=== PATIENT | female | born 1955 | race Caucasian/White ===

== ENCOUNTER 2024-09-04 14:52 | Outpatient (OUT) | payer MEDICARE, SELFPAY ==
[2024-09-04 15:47] LABS: Estimated Average Glucose 114 mg/dL; Glycohemoglobin A1C 5.6 % (4.5-6.2)
[2024-09-04 15:57] LABS: Creatinine Urine Random 439.14 mg/dL (20.00-300.00); Microalbum Creatinine Ratio Ur 17.7 mg/g (0.0-29.9); Microalbumin Urine Random 7.8 mg/dL (<=30.0)
[2024-09-04 15:58] LABS: Alanine Aminotransferase 15 U/L (14-59); Albumin Globulin Ratio 0.8; Albumin Level 3.5 g/dL (3.4-5.0); Alkaline Phosphatase 119 U/L (46-116); Anion Gap 14.9; Aspartate Amino Transferase 14 U/L (15-37); BUN Creatinine Ratio 11.7; Bilirubin Total 0.3 mg/dL (0.2-1.0); Calcium 9.5 mg/dL (8.5-10.1); Carbon Dioxide 27.9 mmol/L (21.0-32.0); Chloride 103 mmol/L (98-107); Estimated GFR (African America 46 (>=60 mL/min/1.73m^2); Estimated GFR (Non-African Ame 38 (>=60 mL/min/1.73m^2); Globulin 4.6 g/dL; Glucose 83 mg/dL (74-106); Potassium 3.8 mmol/L (3.5-5.1); Sodium 142 mmol/L (136-145); Total Protein 8.1 g/dL (6.4-8.2)
[2024-09-04 16:15] LABS: Basophils Absolute Auto 0.1 10^3/uL (0.0-0.1); Basophils Percent Auto 0.9 % (0.2-2.0); Eosinophils Absolute Auto 0.3 10^3/uL (0.0-0.7); Eosinophils Percent Auto 3.1 % (0.9-7.0); Hematocrit 38.3 % (36.0-48.0); Hemoglobin 12.4 g/dL (12.0-16.0); Immature Granulocytes Abs Auto 0.02 10^3/uL (0.00-0.03); Immature Granulocytes Pct Auto 0.2 % (0.0-0.5); Lymphocytes Absolute Auto 2.5 10^3/uL (1.2-3.8); Lymphocytes Percent Auto 26.6 % (20.5-60.0); Mean Corpuscular HGB Conc 32.4 g/dL (29.9-35.2); Mean Corpuscular Hemoglobin 30.5 pg (26.7-34.0); Mean Corpuscular Volume 94.3 fL (81.0-99.0); Mean Platelet Volume 10.2 fL (9.5-13.5); Monocytes Absolute Auto 0.6 10^3/uL (0.3-0.8); Monocytes Percent Auto 6.3 % (1.7-12.0); Neutrophils Percent Auto 62.9 % (43.0-75.0); Platelet Count 363 10^3/uL (150-450); Red Blood Count 4.06 10^6/uL (4.20-5.40); Red Cell Distribution Width 13.5 % (11.0-15.0); White Blood Count 9.5 10^3/uL (4.0-11.0)
== END 2024-09-04 14:53 | disposition home or self-care (01) ==
LOC: LAB 14:58
PROVIDERS: PCP Family Medicine; Visit Provider Family Medicine
DX: E11.65 Type 2 diabetes mellitus with hyperglycemia (principal); I10 Essential (primary) hypertension
CPT/HCPCS: 36415; 80053; 82043; 82570; 83036; 85025

== ENCOUNTER 2024-10-06 11:58 | Outpatient (OUT) | payer MEDICARE, SELFPAY ==
--- OUTSIDE RECORDS SUMMARY | 2024-10-06 12:14 | XMS_ITS | CCD ---
Author Organization [facility] Care Team Providers Care Comic Book Writer Name Role Phone BHARATH RIVERS Unavailable Unavailable BHARATH RIVERS Unavailable Unavailable MISMaki, DOCTOR Unavailable Unavailable JES BARRAGAN V Unavailable Unavailable BHARATH RIVERS Unavailable Unavailable MALCOLM MILLER Attending Unavailable MALCOLM MILLER Referring Unavailable MALCOLM MILLER Attending Unavailable MALCOLM MILLER Attending Unavailable MALCOLM MILLER Attending Unavailable Ilda Lopez MD Primary Care Provider [phone] Medications Current Medications Medication Drug Class(es) Dates Sig (Normalized) Sig (Original) acetaminophen 325 mg / HYDROcodone bitartrate 5 mg oral tablet (4 sources) Opioid Agonist Start: 04-16-2024 take 1 tablet by mouth every six hours as needed for pain HYDROcodone-aceta minophen ([place]) 5-325 MG tablet Take 1 tablet by mouth every 6 (six) hours if needed for moderate pain 04/16/2024 Active Start: 04-16-2024 take 1 tablet by ashley th once daily at bedtime Hydrocodone-Acetaminophen Active 1 TAB P O Daily at bedtime April 16, 2024 12:00am amLODIPine 5 mg oral tablet (5 sources) Dihydropyridine Calcium Channel Barry Start: 04-16-2024 End: 04-16-2024 take 1 tablet by mouth once daily amLODIPine (Norvasc) 5 MG tablet Take 5 mg by mouth Daily 04/16/2024 Active baclofen 5 mg oral tablet (3 sources) gamma-Aminobutyric Acid-ergic Agonist Start: 02-01-2024 take 1 tablet by mouth three times daily as needed for pain baclofen (Lioresal) 5 MG tablet TAKE 1 TABLET BY MOUTH THREE TIMES DAILY NEEDED FOR SCIATIC PAIN 02/01/2024 Active 24 hr buPROPion hydrochloride 300 mg extended release oral tablet (5 sources) Aminoketone Start: 04-16-2024 buPROPion XL (Wellbutrin XL) 300 MG 24 hr tablet 300 mg in the morning. 04/16/2024 Active Start: 04-16-2024 End: 04-16-2024 take 300 mg by mouth once daily in the morning Bupropion Hcl Active 300 MG PO Every morning April 16, 2024 11:27am citalopram 40 mg oral tablet (7 sources) Serotonin Reuptake Inhibitor Start: 05-26-2024 take 1 tablet by mouth once daily citalopram (CeleXA) 40 MG tablet Take 40 mg by mouth Daily 05/26/2024 Active Start: 04-16-2024 take 2 tablets by mo uth once daily, then take 4 tablets by mouth once daily citalopram (CeleXA) 10 MG tablet Take 20 mg by mouth Daily 40 mg daily 04/16/2024 Active Start: 04-16-2024 End: 04-16-2024 take 10 mg by mouth once daily Citalopram Active 10 MG PO Daily April 16, 2024 11:27am hydroCHLOROthiazide 12.5 mg / losartan potassium 100 mg oral tablet (5 sources) Thiazide Diuretic, Angiotensin 2 Receptor Barry Start: 04-16-2024 End: 04-16-2024 take 1 tablet by mouth once daily losartan-hydroCHLOROthiazide (Hyzaar) 100-12.5 MG tablet Take 1 tablet by mouth Daily 04/16/2024 Active meloxicam 7.5 mg oral tablet (4 sources) Nonsteroidal Anti-inflammat ory Drug Start: 04-16-2024 take 2 tablets by mouth once daily meloxicam (Mobic) 7.5 MG tablet Take 15 mg by mouth Daily 04/16/2024 Active Start: 04-16-2024 take 7.5 mg by mouth once brett y Meloxicam Active 7.5 MG PO Daily April 16, 2024 12:00am Ozempic, 1 MG/DOSE, 4 MG/3ML solution pen-injector (3 sources) Start: 04-18-2024 inject 1 mg by subcutaneous injection every week Ozempic, 1 MG/DOSE, 4 MG/3ML solution pen-injector Inject 1 mg under the skin 1 (one) time per week 04/18/2024 Active Semaglutide (2 sources) Start: 04-16-2024 inject 1 mg by subcutaneous injection every week Semaglutide (Ozempic) 1 mg/dose (4 mg/3 mL) pen injector Active 1 MG SUBCUT every week April 16, 2024 11:27am Start: 04-16-2024 End: 04-16-2024 inject 1 mg by subcutaneous injection every week Semaglutide (Ozempic) 1 mg/dose (4 mg/3 mL) pen injector Discontinued 1 MG SUBCUT every week April 16, 2024 12:00am April 16, 2024 11:28am Wegovy 1 MG/0.5ML solution auto-injector (3 sources) Start: 11-20-2023 Wegovy 1 MG/0. 5ML solution auto-injector INJECT 1 MG INTO THE SKIN EVERY 7 DAYS. INDICATIONS: OBESITY 11/20/2023 Active Completed/Discontinued Medications Medication Drug Class(es) Dates Sig (Normalized) Sig (Original) 1 ml methylPREDNISolone acetate 40 mg/ml injection (4 sources) Corticosteroid Start: 4 End: methylPREDNISolone acetate (DEPO-Medrol) injection 40 mg Start: 06-02-2024 End: 06-02-2024 40 mg, Intra-articular, Once PRN Procedure, Starting on Sun06/02/24 at 1226, For 1 dose Problems Active Problems Problem Classification Problem Date Documented Da te Episodic/Chronic Headache, including migraine (4 sources) Headache; Translations: [HEADACHE] Onset: 12-24-2017 Episodic Osteoarthritis (2 sources) Arthritis of right knee; Translations: [Unilateral primary osteoarthritis, right knee] 06-02-2024 Chronic Other upper respiratory disease (1 source) Epistaxis; Translations: [EPISTAXIS] Onset: 12-27-2017 Episodic Screening or history of mental health and substance abuse (1 source) Personal history of nicotine dependence; Translations: [PERSONAL HISTORY OF NICOTINE DEPEND] Onset: 12-27-2017 Episodic Past or Other Problems Problem Classification Problem Date Documented Da te Episodic/Chronic Other non-traumatic joint disorders (4 sources) Pain in left knee; Translations: [Left knee pain] 04-16-2024 Episodic Results Test Name Value Interpretation Reference Range Facility No Panel Informationon 06-02 Malcolm Miller NP 06/02/2024 12:40 PM L Inj/Asp: R knee on 06/02/2024 12:26 PM Indications: pain Details: 20 G needle, anterolateral approach Medications: 40 mg methylPREDNISolone acetate 40 MG/ML UTILIZING ASEPTIC TECHNIQUE PT GIVEN INJECTION IN RIGHT KNEE, NEUROVASC INTACT S/P INJ, TOLERATED WELL Procedure, treatment alternatives, risks and benefits explained, specific risks discussed. Consent was given by the patient. [facility] [employer] [facility] Healthcar e CT HEAD WO CONon 12-24-2017 CT HEAD WO CON [address] [place] [address] Patient: GILLIAN LAGUNAS Exam Date: 12/24/2017DOB: 1955 Gender:F : BHARATH RIVERS Admission #: [id number] : Order #: [id number] HERE TO VIEW EXAM RADIOLOGY REPORT PROCEDURE: CT HEAD WITHOUT CONTRAST COMPARISON: None. INDICATIONS: Acute headache, no injury TECHNIQUE: Axial CT images were obtained without IV contrast. DOSE: 1121mGycm FINDINGS: BRAIN: No edema, hemorrhage, mass, acute infarction, or inappropriate atrophy. CSF SPACES: No hydrocephalus, subarachnoid hemorrhage, or mass. Appropriate for age. SKULL: No fracture, mass, or other significant visible lesion. SINUSES: Right maxillary and left sphenoid sinus diseaseORBITS: No appreciable abnormality on the limited views. OTHER: Negative CONCLUSION: 1. No acute intracranial abnormality Dictated by: Jes Barragan M.D. on 12/24/2017 at 15:20 Approved by: Jes Barragan M.D. on 12/24/2017 at 15:25 Normal [facility] Vital Signs Date Time Vital Sign Value Performing Clinician Opal leslie 04-16-2024 10:53-0400 Body height 160.[address] [facility] 04-16-2024 10:53-0400 Body mass index (BMI) [Ratio] 45.1 kg/m2 [facility] 04-16-2024 10:53-0400 Body weight 115.[address] [facility] 04-16-2024 10:53-0400 Diastolic blood pressure 73 mm[Hg] [facility] 04-16-2024 10:53-0400 Heart rate 67 /min [facility] 04-16-2024 10:53-0400 Systolic blood pressure 112 mm[Hg] [facility] Encounters Encounter Date Encounter Type Care Provider Facility Start: 06-02-2024 End: 06-02-2024 Bamboo flowsheet Malcolm Miller PAPER CUTTER Work Phone: [facility] Start: 06-02-2024 End: 06-02-2024 Bamboo flowsheet Malcolm Miller PAPER CUTTER Work Phone: [facility] Start: 06-02-2024 End: 06-02-2024 Office outpatient visit 25 minutes Malcolm Miller PAPER CUTTER Work Phone: [facility] Comment on above: Chronic pain of righ t knee (Primary Dx); Arthritis of right knee Start: 06-02-2024 End: 06-02-2024 ambulatory MALCOLM Archer APLING Not Available Start: 05-12-2024 End: 05-12-2024 ambulatory MALCOLM Archer APLING Not Available Start: 04-30-2024 End: 04-30-2024 ambulatory MALCOLM Archer APLING Not Available Start: 04-28-2024 End: 04-28-2024 ambulatory MALCOLM Archer APLING Not Available Start: 04-16-2024 End: 04-16-2024 ambulatory [facility] Work Phone: Start: 04-16-2024 End: 04-16-2024 Patient encounter procedure [facility] Work Phone: Start: 12-24-2017 End: 12-24-2017 Ambulatory BHARATH RIVERS Facility:H1 Procedures Date Procedure Procedure Detail Performing Clinician Start: 06-02-2024 Arthrocentesis aspir &/inj major jt/bursa w/o us Malcolm Miller PAPER CUTTER Work Phone: Plan of Treatment Date Care Activity Detail Author Start: 06-02-2024 End: 06-02-2024 Patient encounter procedure 06/02/2024 12:00 PM EDT Office Visit [facility] [address] [place] [address] Apling, Malcolm B, PAPER CUTTER [address] [place] [address] Left knee pain, unspecified chronicity (Primary Dx); Arthritis of left knee [facility] Comment on above: Left knee pain, unsp ecified chronicity (Primary Dx); Arthritis of left knee Start: 05-25-2024 Influenza vaccination Influenza Vacc ine (#1) [facility] Start: 04-16-2024 Patient referral [facility] Work Phone: Start: 2020 Pneumococcal Vaccine : 65+ Years (1 of 1 - PCV) Pneumococcal Vaccine: 65+ Years (1 of 1 - PCV) [facility] Start: 1995 Screening for malign ant neoplasm of breast Mammogram [facility] Start: 1955 Screening for malign ant neoplasm of colon [facility] Patient referral [facility] Work Phone: Payers Date Payer Category Payer Medicare [facility] MEDICARE ADVANTAGE [facility] MEDICARE ADVANTAGE [id number] 2024-Present [address] [place] [address] [id number] 2024 Unknown [id number] 1959 Unknown [id number] 1955 Unknown [id number] 1955 Unknown [id number] 1955 Unknown [id number] 1955 Unknown [id number] 1955 Unknown [id number] Social History Date Type Detail Facility Start: 04-16-2024 End: 04-28-2024 Tobacco smoking status NHIS Ex-smoker (finding) [facility] Start: 1955 Sex Assigned At Female F [facility] Start: 09-24-1973 History of tobacco use Current smoke r [facility] Start: 09-24-1973 History of tobacco use Cigarette Smo ker [facility] Start: 04-28-2024 End: 06-02-2024 Cigarettes smoked current (pack per day) - Reported 2.5 [facility] Start: 04-28-2024 Tobacco use and exposure Smokeless tobacco non-user [facility] Start: 05-12-2024 End: 06-02-2024 Alcoholic beverage intake Current drinker of alcohol (finding) [facility] Start: 05-12-2024 End: 06-02-2024 Tobacco use panel [facility] Start: 04-28-2024 Alcohol Comment 1 drink per month [facility] Start: 1955 Sex assigned at Not on file [facility] History of Present illness Narrative 06-02-2024 Malcolm Miller NP - 06/02/2024 12:00 PM EDT Note Date & Type Note Facility 06-02-2024 History of Presen t illness Narrative Associated Order(s): L Inj/Asp: R knee Post-Procedure Diagnose(s): Arthritis of right knee Subjective Patient ID: Gillian Lagunas is a 68 y.o. female. LT Knee Pain 2 weeks and 2 days s/p depo medrol injection (05/12/24) with 50% improvement which lasted one week. She believes her pain is worse now. Notes she twisted her knee the wrong way and felt a pop last DOI 05/29/24. Notes this is normal for her to feel pops but this was a big one . She has been getting the injections in the left knee since 2021? She has had injections in the past by Dr. Ramsey ([place], orthopedic). She was getting cortisone injections in the past, last one done /2023. She only gets 2 months relief from the injections. She notes she just moved to [place] November 28, 2023. Denies injury. Pain is anterior lateral, pain at rest 03/03 notes it is throbbing with activities and prolonged standing 06/03, she limps from the pain. She is taking norco (from her PCP in [place]) with relief. Also taking baclofen per PCP with some relief. She is using an arthritic cream that is OTC. She notes she puts this on overnight and then the pain is tolerable. Swelling is constant but increases with activities. Notes the swelling above her knee has lessened some. States her knee will pop/shift out of place. Does not wear a brace. No previous surgery on the left. [place]: norco, arthritis cream OTC, orthopedic surgeon, cortisone injections every 2-3 months, last one maybe sep/oct 2023, XR [facility] 04/28/24, depo medrol injection 04/28/24, depo medrol injection 05/12/24, baclofen [facility] Ortho Exam Knee Musculoskeletal Exam Inspection Right Erythema: none Effusion: none Edema: none Ecchymosis: none Palpation Right Tenderness: present Medial joint line: moderate Range of Motion Right Active extension: 0 Active flexion: 110 L Inj/Asp: R knee on 06/02/2024 12:26 PM Indications: pain Details: 20 G needle, anterolateral approach Medications: 40 mg methylPREDNISolone acetate 40 MG/ML UTILIZING ASEPTIC TECHNIQUE PT GIVEN INJECTION IN RIGHT KNEE, NEUROVASC INTACT S/P INJ, TOLERATED WELL Procedure, treatment alternatives, risks and benefits explained, specific risks discussed. Consent was given by the patient. Assessment/Plan Encounter Diagnoses: ICD-10-CM 1. Left knee pain, unspecified chronicity M25.562 2. Arthritis of left knee M17.12 Discussion of options, pt notes she would like an injection, side effects of bleeding and infection discussed, would like to proceed with the injection, using aspectic technique 40 mg of depo medrol was injected into the right lateral knee, pt tolerated well, bandaid applied, may do activities as tolerated, f/u in 2 weeks. Depending on how she does may recommend visco injections in the right knee and she understands this documented in this encounter [facility] Evaluation note Note Date & Type Note Facility Evaluation note Diagnosis Onset Date Left knee pain [facility] Work Phone: Evaluation note Note Date & Type Note Facility Evaluation note Diagnosis Chronic pain of right knee- Primary Arthritis of right knee documented in this encounter [facility] Hospital Discharge instructions Note Date & Type Note Facility Hospital Discharge instructions Ambulatory OrdersReferral to Orthopedics Time Frame: 04/16/24, Location: None Selected [facility] Work Phone: Summary Purpose Family History Relationship Condition Age at Onset Recorded Date/T tani brother Malignant neoplasm Unknown Hypertension Unknown mother Malignant neoplasm Unknown father Malignant neoplasm Unknown sister Malignant neoplasm Unknown paternal grandmother Diabetes mellitus Unknown Advance Directives Advance Directive Response Recorded Date/ Time Advance Directives No April 07 3:17pm Chief Complaint and Reason for Visit Chief Complaint est care, Reason for Visit Left knee pain Reason for Referral Specialty Diagnoses / Procedures Referred By Víctor t Referred To Contact Orthopaedic Surgery Diagnoses Arthritis of right knee Procedures L Inj/Asp: R knee Apling, Malcolm Archer PAPER CUTTER [address] [address] Referral ID Status Reason Start Date Expiration Date V isits Requested Visits Authorized [id number] Authorized 06/02/2024 11/29/2024 1 1 Additional Source Comments INFORMATION SOURCE (unrecogn ized section and content) DATE CREATED AUTHOR 03/14/2018 [facility] DATE CREATED AUTHOR AUTHOR'S ORGANIZ ATION 06/03/2024 [facility] EPIC Care Teams (unrecognized sec tion and content) Team Status: Active Member Role Status Dates Ilda Lopez MD Primary Care Provider Active Team Status: Inactive Member Role Status Dates Ilda Lopez MD Primary Care Provide r, Attending Provider Active Start: April 16, 2024 End: April 16, 2024 Comic Book Writer Relationship Specialty Start Date End Date Ilda Lopez MD [address] [place] [id number] PCP - General Family Medicine 04/28/24 Comic Book Writer Relationship Specialty Start Date End Date Ilda Lopez MD [address] [place] [phone] PCP - General Family Medicine 04/28/24 Goals (unrecognized section and content) Goals may be documented in a n alternate section FOR RECORDS PERTAINING TO PATIENTS WHO ARE OR HAVE BEEN ENROLLED IN A CHEMICAL DEPENDENCY/SUBSTANCEABUSE PROGRAM, SOME INFORMATION MAY BE OMITTED. This clinical summary was aggregated from multiple sources. Caution should be exercised in using it in the provision of clinical care. This summary normalizes information from multiple sources, and as a consequence, information in this document may materially change the coding, format and clinical context of patient data. In addition, data may be omitted in some cases. CLINICAL DECISIONS SHOULD BE BASED ON THE PRIMARY CLINICAL RECORDS. [employer] [facility]. provides no warranty or guarantee of the accuracy or completeness of information in this document.
--- NOTE | 2024-10-06 13:03 | P.CN_ITS ---
Consult Note: HPI Data of Consult Patient: new to practice Consult date: 10/06/24 Requesting Physician: Dorothy Dumont MD Primary Care Provider: Ilda Lopez MD Consult Narrative Reason for consult: bilateral knee pain Narrative: 69yof who presents for evaluation. longstanding knee pain history >3 years. was previously seen in [place], was prescribed norco and percocet for this pain. recently saw ortho locally, underwent steroid injections, which helped minimally. they recommended she pursue gel injections here. has engaged in a series of provider directed home exercises >6 weeks without help. denies adverse med side effects. cc:: CC: Dorothy Dumont MD Review of Systems ROS Status of ROS 10 or more systems reviewed and unremark able except as noted in history and below Exam Narrative Exam Narrative: Psych-alert and oriented x 3.? Attentive and appropriate, constitutionally normal, displays normal mood and affect per situation.? There are no obvious deficits in memory, reasoning, or intellect. Extremities-lower extremities are warm with minimal edema and palpable pulses. Knee-examination of the bilateral knee reveals tenderness to palpation over the superior, inferior, lateral, and medial aspect of the knee.? Some swelling is noted without erythema. Pain is elicited with flexion and extension of the knee both actively and passively.? Some grinding is noted with these motions.? There is no notable ligamental laxity or instability.? Coordination remains intact.? Gait remains antalgic. Assessment and Plan Assessment and Plan (1) Bilateral knee pain: Qualifiers: Chronicity: chronic Qualified Code(s): M25.561 - Pain in right knee; M25.562 - Pain in left knee; G89.29 - Other chronic pain Plan 69yof who presents for evaluation. failed conservative measures, as noted. given persistent pain in bilateral knees and failure to respond to steroid injection, prudent to attempt bilateral knee gel injections. also discussed that she may eventually be genicular nerve block candidate. she is in agreement. meds reviewed, uds obtained. will prescribe norco 5mg tid prn. follow up for in office procedure.
== END 2024-10-06 11:59 | disposition home or self-care (01) ==
PROVIDERS: PCP Family Medicine; Visit Provider Anesthesiology
DX: M25.561 Pain in right knee (principal); M25.562 Pain in left knee; G89.29 Other chronic pain
CPT/HCPCS: G0463

== ENCOUNTER 2024-10-20 11:35 | Outpatient (OUT) | payer MEDICARE, SELFPAY ==
--- OUTSIDE RECORDS SUMMARY | 2024-10-20 11:43 | XMS_ITS | CCD ---
Author Organization [facility] Care Team Providers Care Manager Administration Name Role Phone BHARATH RIVERS Unavailable Unavailable BHARATH RIVERS Unavailable Unavailable MISC, DOCTOR Unavailable Unavailable JES BARRAGAN V Unavailable Unavailable BHARATH RIVERS Unavailable Unavailable MALCOLM MILLER Attending Unavailable MALCOLM MILLER Referring Unavailable MALCOLM MILLER Attending Unavailable MALCOLM MILLER Attending Unavailable APLMALCOLM HILLMAN Attending Unavailable Ilda Lopez MD Primary Care Provider Tim MONTEZ, Dorothy Katz Attending Unavailable Medications Current Medications Medication Drug Class(es) Dates Sig (Normalized) Sig (Original) acetaminophen 325 mg / HYDROcodone bitartrate 5 mg oral tablet (4 sources) Opioid Agonist Start: 04-16-2024 take 1 tablet by mouth every six hours as needed for pain HYDROcodone-aceta minophen ([place]) 5-325 MG tablet Take 1 tablet by [...] 40 mg/ml injection (4 sources) Corticosteroid Start: End: methylPREDNISolone acetate (DEPO-Medrol) injection 40 mg [...] discussed. Consent was given by the patient. [facility] [employer] [facility] HEAD WO CONon 12-24-2017 CT HEAD WO CON [address] [place] [address] Patient: BRENDA LAGUNAS Exam Date: 12/24/2017DOB: 1955 Gender:F : BHARATH RIVERS Admission #: [id number] : Order #: [id number] HERE TO VIEW EXAM RADIOLOGY REPORT PROCEDURE: [...] Barragan M.D. on 12/24/2017 at 15:25 Normal [facility] Vital Signs Date Time Vital Sign Value Performing Clinician Faci lity 04-16-2024 10:53-0400 Body height 160.02 cm [facility] 04-16-2024 10:53-0400 Body mass index (BMI) [Ratio] 45.1 kg/m2 [facility] 04-16-2024 10:53-0400 Body weight 115.66 kg [facility] 04-16-2024 10:53-0400 Diastolic blood pressure 73 mm[Hg] [facility] 04-16-2024 10:53-0400 Heart rate 67 /min [facility] 04-16-2024 10:53-0400 Systolic blood pressure 112 mm[Hg] [facility] Encounters Encounter Date Encounter Type Care Provider Facility Start: 10-06-2024 End: 10-06-2024 ambulatory Dorothy Dumont MD Facility:[facility] Start: 06-02-2024 End: 06-02-2024 Bamboo flowsheet Malcolm Miller PROPERTY AND EQUIPMENT CLERK Work Phone: [facility] Start: 06-02-2024 End: 06-02-2024 Bamboo flowsheet Malcolm Miller PROPERTY AND EQUIPMENT CLERK Work Phone: [facility] Start: 06-02-2024 End: 06-02-2024 Office outpatient visit 25 minutes Malcolm Miller PROPERTY AND EQUIPMENT CLERK Work Phone: [facility] Comment on above: Chronic pain of righ t knee (Primary Dx); Arthritis of right knee Start: 06-02-2024 End: 06-02-2024 ambulatory MALCOLM B APLING Not Available Start: 05-12-2024 End: 05-12-2024 ambulatory MALCOLM B APLING Not Available Start: 04-30-2024 End: 04-30-2024 ambulatory MALCOLM B APLING Not Available Start: 04-28-2024 End: 04-28-2024 ambulatory MALCOLM B APLING Not Available Start: 04-16-2024 End: 04-16-2024 ambulatory [facility] Work Phone: Start: 04-16-2024 End: 04-16-2024 [facility] Work Phone: Start: 12-24-2017 End: 12-24-2017 Ambulatory BHARATH RIVERS Facility:[facility]1 Procedures Date Procedure Procedure Detail Performing Clinician Start: 06-02-2024 Arthrocentesis aspir &/inj major jt/bursa w/o us Malcolm Miller PROPERTY AND EQUIPMENT CLERK Work Phone: Plan of Treatment Date Care Activity Detail Author Start: 06-02-2024 End: 06-02-2024 Patient encounter procedure 06/02/2024 12:00 PM EDT Office Visit [facility] [address] [facility] [address] [place] [address] Malcolm Miller NP [address] [facility] [address] [place] [address] Left knee pain, unspecified chronicity (Primary Dx); Arthritis of left knee [facility] Comment on above: Left knee pain, unsp ecified chronicity (Primary Dx); Arthritis of left knee Start: 05-25-2024 Influenza vaccination Influenza Vacc ine (#1) [facility] Start: 04-16-2024 Patient referral [facility] Work Phone: Start: 2020 Pneumococcal Vaccine : 65+ Years (1 of 1 - PCV) Pneumococcal Vaccine: 65+ Years (1 of 1 - PCV) [facility] Start: 1995 Screening for malign ant neoplasm of breast Mammogram [facility] Start: 1955 Screening for malign ant neoplasm of colon [facility] Patient referral [facility] Work Phone: Payers Date Payer Category Payer Unknown 2024 Medicare [employer] MEDICARE ADVANTAGE [facility] MEDICARE ADVANTAGE [id number] 2024-Present [address] [place] [address] [id number] 2024 Unknown [id number] 1959 Unknown [id number] 1955 Unknown [id number] 9 1955 Unknown [id number] 9 1955 Unknown [id number] 9 1955 Unknown [id number] 9 1955 Unknown [id number] 9 1955 Unknown [id number] 1955 Unknown [id number] Social History Date Type Detail Facility Start: 04-16-2024 End: 04-28-2024 Tobacco smoking status NHIS Ex-smoker (finding) [facility] Start: 1955 Sex Assigned At Female F [facility] Start: 09-24-1973 History of tobacco use Current smoke r [facility] Start: 09-24-1973 History of tobacco use Cigarette Smo ker [facility] Start: 04-28-2024 End: 06-02-2024 Cigarettes smoked current (pack per day) - Reported 2.5 [facility] Start: 04-28-2024 Tobacco use and exposure Smokeless tobacco non-user [facility] Start: 05-12-2024 End: 06-02-2024 Alcoholic beverage intake Current drinker of alcohol (finding) [facility] Start: 05-12-2024 End: 06-02-2024 Tobacco use panel [facility] Start: 04-28-2024 Alcohol Comment 1 drink per month [facility] Start: 1955 Sex assigned at Not on file [facility] History of Present illness Narrative 06-02-2024 Malcolm Miller NP - 06/02/2024 12:00 PM EDT Note Date & Type Note Facility 06-02-2024 History of Presen t illness Narrative Associated Order(s): L Inj/Asp: R knee Post-Procedure Diagnose(s): Arthritis of right knee Subjective Patient ID: Brenda Lagunas is a 68 y.o. female. LT [...] injections in the past by Dr. Ramsey ([place], orthopedic). She was getting cortisone injections in the past, last one done /Oct. 2023. She only gets 2 months relief from the injections. She notes she just moved to [place] November 28, 2023. Denies injury. Pain is anterior lateral, pain at rest 03/03 notes it is throbbing with activities and prolonged standing 06/03, she limps from the pain. She is taking norco (from her PCP in [place]) with relief. Also taking baclofen per PCP [...] she understands this documented in this encounter [facility] Evaluation note Note Date & Type Note Facility Evaluation note Diagnosis Onset Date Left knee pain acute [facility] Work Phone: Evaluation note Note Date & Type Note Facility Evaluation note Diagnosis Chronic pain of right knee- Primary Arthritis of right knee documented in this encounter [facility] Hospital Discharge instructions Note Date & Type Note Facility Hospital Discharge instructions Ambulatory OrdersReferral to Orthopedics Time Frame: 04/16/24, Location: None [facility] Work Phone: Summary Purpose Family History No Family History Records Found Relationship Condition Age at Onset Recorded Date/T tani brother Malignant neoplasm Unknown Hypertension Unknown mother Malignant neoplasm Unknown father Malignant neoplasm Unknown sister Malignant neoplasm Unknown paternal grandmother Diabetes mellitus Unknown Advance Directives No Advanced Directives Records Found Advance Directive Response Recorded Date/ Time Advance Directives No April 07 3:17pm Chief Complaint and Reason for Visit Chief Complaint est care, Reason for Visit Left knee pain Reason for Referral Specialty Diagnoses / Procedures Referred By Contac t Referred To Contact Orthopaedic Surgery Diagnoses Arthritis of right knee Procedures L Inj/Asp: R knee Malcolm Miller NP [address] [place] [address] Referral ID Status Reason Start Date Expiration Date V isits Requested Visits Authorized [id number] Authorized 06/02/2024 11/29/2024 1 1 Additional Source Comments INFORMATION SOURCE (unrecogn ized section and content) DATE CREATED AUTHOR 03/14/2018 [facility] DATE CREATED AUTHOR AUTHOR'S ORGANIZ ATION 06/03/2024 [facility] EPIC DATE CREATED AUTHOR AUTHOR'S ORGANIZ ATION 10/15/2024 [facility] Care Teams (unrecognized sec tion and content) Team Status: Active Member Role Status Dates Ilda Lopez MD Primary Care Provider Active Team Status: Inactive Member Role Status Dates Ilda Lopez MD Primary Care Provide r, Attending Provider Active Start: April 16, 2024 End: April 16, 2024 Manager Administration Relationship Specialty Start Date End Date Ilda Lopez MD [address] [place] [address] PCP - General Family Medicine 04/28/24 Manager Administration Relationship Specialty Start Date End Date Ilda Lopez MD [address] [place] [id number] PCP - General Family Medicine 04/28/24 Goals [...] BE BASED ON THE PRIMARY CLINICAL RECORDS. [employer] provides no warranty or guarantee of the accuracy or completeness of information in this document.
--- NOTE | 2024-10-20 12:24 | P.CN_ITS ---
Consult Note: HPI Data of Consult Patient: known to practice within the last 3 years Consult date: 10/20/24 Requesting Physician: Dorothy Dumont MD Primary Care Provider: Ilda Lopez MD Consult Narrative Reason for consult: bilateral knee pain Narrative: 69yof who presents for in office injection. continues to have bilateral knee pain, would like to proceed with bilateral knee injection. cc:: CC: Dorothy Dumont MD Review of Systems ROS Status of ROS 10 or more systems reviewed and unremark able except as noted in history and below PFSH PFSH Medical History Obesity ?E66.9 - Obesity, unspecified (ICD-10) Hypertension ?I10 - Essential (primary) hypertension (ICD-10) Surgical History H/O hernia repair ?Z98.890 - Other specified postprocedural states (ICD-10) ?Z87.19 - Personal history of other diseases of the digestive system (ICD-10) History of hysterectomy ?Z90.710 - Acquired absence of both cervix and uterus (ICD-10) H/O knee surgery ?Z98.890 - Other specified postprocedural states (ICD-10) Meds Home Medications and Allergies Home Medications ?Medication ?Instructions ?Recorded ?Confirmed ?Type Bacillus coagulans 10 billion cell cell PO 10/06/24 History capsule,delayed release (Probiotic (B. coagulans)) amlodipine 5 mg tablet 5 mg PO DAILY 10/06/24 10/06/24 History citalopram 40 mg tablet 40 mg PO DAILY 10/06/24 10/06/24 History hydrocodone 5 mg-acetaminophen 325 1 tab PO TID PRN pain #90 tabs 10/06/24 Rx mg tablet losartan 100 1 tab PO DAILY 10/06/24 10/06/24 History mg-hydrochlorothiazide 12.5 mg tablet (Hyzaar) meloxicam 7.5 mg tablet 7.5 mg PO DAILY 10/06/24 10/06/24 History Allergies Allergy/AdvReac Type Severity Reaction Status Date / Time No Known Drug Allergies Allergy Verified 10/06/24 15:39 Exam Narrative Exam Narrative: Psych-alert and oriented x 3.? Attentive and appropriate, constitutionally normal, displays normal mood and affect per situation.? There are no obvious deficits in memory, reasoning, or intellect. Extremities-lower extremities are warm with minimal edema and palpable pulses. Knee-examination of the bilateral knee reveals tenderness to palpation over the superior, inferior, lateral, and medial aspect of the knee.? Some swelling is noted without erythema. Pain is elicited with flexion and extension of the knee both actively and passively.? Some grinding is noted with these motions.? There is no notable ligamental laxity or instability.? Coordination remains intact.? Gait remains antalgic. Assessment and Plan Assessment and Plan (1) Bilateral knee pain: Qualifiers: Chronicity: chronic Qualified Code(s): M25.561 - Pain in right knee; M25.562 - Pain in left knee; G89.29 - Other chronic pain Plan 69yof who presents for in office injection. continues to have bilateral knee pain, would like to proceed with bilateral knee injection. Procedure: Bilateral knee injection Medications: Durolane BAÑUELOS x2 I explained the details of the procedure to the patient including the risks, benefits and alternatives. We had an informed discussion and the patient verbal ized understanding and signed the consent form. All questions were answered appropriately.? A time out was performed.? After obtaining a comfortable seated position, the left knee was prepped with alcohol x3. A syringe containing the above medication was attached to a 25 gauge, 1.5 inch needle under strict aseptic technique. The lateral tibial plateau was palpated.? The needle was then advanced through the subcutaneous tissue in a medial and superior direction towards the joint space.? The contents of the syringe were gently injected without any resistance. The needle was removed and pressure was applied to the injection site to decrease the incidence of ecchymosis and hematoma formation.? A sterile bandage was applied. The same procedure was then completed on the right side.
== END 2024-10-20 11:36 | disposition home or self-care (01) ==
LOC: PM 11:36
PROVIDERS: PCP Family Medicine; Visit Provider Anesthesiology
DX: M25.561 Pain in right knee (principal); M25.562 Pain in left knee; G89.29 Other chronic pain
CPT/HCPCS: 20610; J7318

== ENCOUNTER 2024-11-17 13:56 | Outpatient (OUT) | payer MEDICARE, SELFPAY ==
--- NOTE | 2024-11-17 15:20 | PM.CN ---
Consult Note: HPI Data of Consult Patient: known to practice within the last 3 years Consult date: 11/17/24 Requesting Physician: Dorothy Dumont MD Primary Care Provider: Ilda Lopez MD Consult Narrative Reason for consult: bilateral knee pain Narrative: 69yof who presents for assessment. notes persistence of significant bilateral knee pain. has undergone both steroid and hyaluronic acid injections, without lasting benefit. has continued in a series of provider directed home exercises >6 weeks, without lasting benefit. imaging significant for bilateral osteoarthritis. uses norco, celebrex. denies adverse med side effects. cc:: CC: Dorothy Dumont MD Review of Systems ROS Status of ROS 10 or more systems reviewed and unremarkable except as noted in history and below PFSH PFS Medical History Obesity ?E66.9 - Obesity, unspecified (ICD-10) Hypertension ?I10 - Essential (primary) hypertension (ICD-10) Surgical History H/O hernia repair ?Z98.890 - Other specified postprocedural states (ICD-10) ?Z87.19 - Personal history of other diseases of the digestive system (ICD-10) History of hysterectomy ?Z90.710 - Acquired absence of both cervix and uterus (ICD-10) H/O knee surgery ?Z98.890 - Other specified postprocedural states (ICD-10) Meds Home Medications and Allergies Home Medications ?Medication ?Instructions ?Recorded ?Confirmed ?Type Bacillus coagulans 10 billion cell cell PO 10/06/24 History capsule,delayed release (Probiotic (B. coagulans)) amlodipine 5 mg tablet 5 mg PO DAILY 10/06/24 10/06/24 History citalopram 40 mg tablet 40 mg PO DAILY 10/06/24 10/06/24 History hydrocodone 5 mg-acetaminophen 325 1 tab PO TID PRN pain #90 tabs 10/06/24 Rx mg tablet losartan 100 1 tab PO DAILY 10/06/24 10/06/24 History mg-hydrochlorothiazide 12.5 mg tablet (Hyzaar) celecoxib 200 mg capsule (Celebrex) 200 mg PO BID 11/17/24 11/17/24 History Allergies Allergy/AdvReac Type Severity Reaction Status Date / Time No Known Drug Allergies Allergy Verified 10/06/24 15:39 Exam Narrative Exam Narrative: Psych-alert and oriented x 3.? Attentive and appropriate, constitutionally normal, displays normal mood and affect per situation.? There are no obvious deficits in memory, reasoning, or intellect. Extremities-lower extremities are warm with minimal edema and palpable pulses. Knee-examination of the bilateral knee reveals tenderness to palpation over the superior, inferior, lateral, and medial aspect of the knee.? Some swelling is noted without erythema. Pain is elicited with flexion and extension of the knee both actively and passively.? Some grinding is noted with these motions.? There is no notable ligamental laxity or instability.? Coordination remains intact.? Gait remains antalgic. Assessment and Plan Assessment and Plan (1) Bilateral knee pain: Qualifiers: Chronicity: chronic Qualified Code(s): M25.561 - Pain in right knee; M25.562 - Pain in left knee; G89.29 - Other chronic pain (2) Osteoarthritis of knees, bilateral: Qualifiers: Osteoarthritis type: primary Qualified Code(s): M17.0 - Bilateral primary osteoarthritis of knee Plan 69yof who presents for assessment. failed conservative measures, as noted. imaging reviewed, as noted. given symptoms and imaging, prudent to attempt bilateral genicular nerve blocks under fluoroscopic guidance with intention of proceeding to radiofrequency ablation. she is in agreement. meds reviewed, refilled [facility] [facility]. follow up after procedure.
== END 2024-11-17 13:57 | disposition home or self-care (01) ==
LOC: PM 13:57
PROVIDERS: PCP Family Medicine; Visit Provider Anesthesiology
DX: M25.561 Pain in right knee (principal); M25.562 Pain in left knee; G89.29 Other chronic pain; M17.0 Bilateral primary osteoarthritis of knee
CPT/HCPCS: G0463

== ENCOUNTER 2025-01-12 09:17 | Day surgery (SDC) | payer MEDICARE, SELFPAY ==
[2025-01-12 09:32] VITALS: BP 146/84; PULSE 75; TEMP 36.6; O2SAT 95
--- OUTSIDE RECORDS SUMMARY | 2025-01-12 09:37 | XMS_ITS | CCD ---
Author Organization [facility] Care Team Providers Care Export Documents Clerk Name Role Phone BHARATH RIVERS Unavailable Unavailable BHARATH RIVERS Unavailable Unavailable MISC, DOCTOR Unavailable Unavailable JES BARRAGAN V Unavailable Unavailable BHARATH RIVERS Unavailable Unavailable MALCOLM MILLER Attending Unavailable MALCOLM MILLER Referring Unavailable MALCOLM MILLER Attending Unavailable APLMALCOLM HILLMAN Attending Unavailable APLMALCOLM HILLMAN Attending Unavailable Ilda Lopez MD Primary Care Provider Tim MONTEZ, Dorothy Katz Attending Unavailable Tim MONTEZ, Dorothy Katz Attending Unavailable Tim MONTEZ, Dorothy Katz Attending Unavailable Medications Current Medications Medication Drug Class(es) Dates Sig (Normalized) Sig (Original) acetaminophen 325 mg / HYDROcodone bitartrate 5 mg oral tablet (5 sources) Opioid Agonist Start: 04-16-2024 take 1 tablet by mouth every six hours as needed for pain HYDROcodone-aceta minophen ([place]) 5-325 MG tablet Take 1 tablet by mouth every 6 (six) hours if needed for moderate pain 04/16/2024 Active Start: 04-16-2024 End: 09-04-2024 take 1 tablet by mouth once daily at bedtime as needed Hydrocodone-Acetaminophen 5-325 mg table t Discontinued 1 TAB PO Daily at bedtime as needed April 15, 2024 11:00pm September 04, 2024 2:32pm amLODIPine 5 mg oral tablet (8 sources) Dihydropyridine Calcium Channel Barry Start: 09-25-2024 take 1 tablet by mouth once daily Amlodipine 5 mg tablet Active 0 .ROUTE .COMPLEX September 25, 2024 1:16pm TAKE 1 TABLET BY MOUTH EVERY DAY Start: 04-16-2024 End: 09-25-2024 take 1 tablet by mouth once daily Amlodipine 5 mg tablet Discontinued 5 MG PO Daily April 16, 2024 10:26am September 25, 2024 1:16pm baclofen 5 mg oral tablet (3 sources) gamma-Aminobutyric Acid-ergic Agonist Start: 02-01-2024 take 1 tablet by mouth three times daily as needed for pain baclofen (Lioresal) 5 MG tablet TAKE 1 TABLET BY MOUTH THREE TIMES DAILY NEEDED FOR SCIATIC PAIN 02/01/2024 Active buPROPion (8 sources) Aminoketone Start: 09-25-2024 take 1 tablet by mouth once daily in the morning Bupropion Hcl 300 mg tablet extended release 24 hr Active 0 .ROUTE .COMPLEX September 25, 2024 1:16pm TAKE 1 TABLET BY MOUTH EVERY MORNING Start: 04-16-2024 buPROPion XL ( Wellbutrin XL) 300 MG 24 hr tablet 300 mg in the morning. 04/16/2024 Active Start: 04-16-2024 End: 09-25-2024 take 1 tablet by mouth once daily in the morning Bupropion Hcl 300 mg tablet extended release 24 hr Discontinued 300 MG PO Every morning April 16, 2024 10:27am September 25, 2024 1:16pm citalopram 40 mg oral tablet (13 sources) Serotonin Reuptake Inhibitor Start: 04-17-2024 End: 09-22-2024 take 1 tablet by mouth once daily Citalopram 40 mg tablet Active 40 MG PO Daily September 22, 2024 9:17am Start: 04-17-2024 End: 04-17-2024 take 4 tablets by mouth once daily Citalopram 10 mg tablet Discontinued 40 MG PO Daily April 17, 2024 9:27am April 17, 2024 9:38am Start: 04-16-2024 take 2 tablets by [facility] once daily, then take 4 tablets by mouth once daily citalopram (CeleXA) 10 MG tablet Take 20 mg by mouth Daily 40 mg daily 04/16/2024 Active Start: 04-16-2024 End: 04-17-2024 take 1 tablet by mouth once daily Citalopram 10 mg tablet Discontinued 10 MG PO Daily April 16, 2024 10:27am April 17, 2024 9:30am dicyclomine hydrochloride 20 mg oral tablet (1 source) Anticholinergic Start: 02-26-2025 take 1 tablet by mouth twice daily Dicyclomine 20 mg tablet Active 20 MG PO Twice daily 60 November 19, 2024 12:00am hydroCHLOROthiazide 12.5 mg / losartan potassium 100 mg oral tablet (9 sources) Thiazide Diuretic, Angiotensin 2 Receptor Barry Start: 04-16-2024 End: 09-22-2024 take 1 tablet by mouth once daily Losartan-Hydroc hlorothiazide 100-12.5 mg tablet Active 1 TAB PO Daily September 22, 2024 9:17am meloxicam 7.5 mg oral tablet (7 sources) Nonsteroidal Anti-inflammatory Drug Start: 05-13-2024 End: 09-15-2024 take 1 tablet by mouth once daily Meloxicam 7.5 mg tablet Active 0 .ROUTE .COMPLEX September 15, 2024 9:31pm TAKE 1 TABLET BY MOUTH EVERY DAY Start: 04-16-2024 take 2 tablets by mo uth once daily meloxicam (Mobic) 7.5 MG tablet Take 15 mg by mouth Daily 04/16/2024 Active Start: 04-16-2024 End: 05-13-2024 take 1 tablet by mouth once daily Meloxicam 7.5 mg tablet Discontinued 7.5 MG PO Daily April 15, 2024 11:00pm May 13, 2024 10:13am ondansetron 4 mg disintegrating oral tablet (1 source) Serotonin-3 Receptor Antagonist Start: 09-04-2024 take 1 tablet by mouth every eight hours Ondansetron 4 mg tablet,disintegrating Active 4 MG PO Q8H September 04, 2024 12:00am Ozempic, 1 MG/DOSE, 4 MG/3ML solution pen-injector (3 sources) Start: 04-18-2024 inject 1 mg by subcutaneous injection every week Ozempic, 1 MG/DOSE, 4 MG/3ML solution pen-injector Inject 1 mg under the skin 1 (one) time per week 04/18/2024 Active Wegovy 1 MG/0.5ML solution auto-injector (3 sources) Start: 11-20-2023 Wegovy 1 MG/0.5ML solution auto-injector INJECT 1 MG INTO THE SKIN EVERY 7 DAYS. INDICATIONS: OBESITY 11/20/2023 Active Completed/Discontinued Medications Medication Drug Class(es) Dates Sig (Normalized) Sig (Original) 1 ml methylPREDNISolone acetate 40 mg/ml injection (4 sources) Corticosteroid Start: End: methylPREDNISolone acetate (DEPO-Medrol) injection 40 mg Start: 06-02-2024 End: 06-02-2024 40 mg, Intra-articular, Once PRN Procedure, Starting on 06/02/24 at 1226, For 1 dose Semaglutide (5 sources) Start: 08-19-2024 End: 09-04-2024 inject 1 mg by subcutaneous injection every week Semaglutide (Ozempic) 1 mg/dose (4 mg/3 mL) pen injector Discontinued 0 .ROUTE .COMPLEX August 19, 2024 8:34am September 04, 2024 2:24pm INJECT 1 MG (0.75 ML) SUBCUTANEOUSLY WEEKLY Start: 04-16-2024 End: 08-19-2024 inject 1 mg by subcutaneous injection every week Semaglutide (Ozempic) 1 mg/dose (4 mg/3 mL) pen injector Discontinued 1 MG SUBCUT every week April 16, 2024 10:27am August 19, 2024 8:34am Start: 04-16-2024 inject 1 mg by subcu taneous injection every week Semaglutide (Ozempic) 1 mg/dose (4 mg/3 mL) pen injector Active 1 MG SUBCUT every week April 16, 2024 11:27am Start: 04-16-2024 End: 04-16-2024 inject 1 mg by subcutaneous injection every week Semaglutide (Ozempic) 1 mg/dose (4 mg/3 mL) pen injector Discontinued 1 MG SUBCUT every week April 15, 2024 11:00pm April 16, 2024 10:28am Start: 04-16-2024 End: 04-16-2024 inject 1 mg by subcutaneous injection every week Semaglutide (Ozempic) 1 mg/dose (4 mg/3 mL) pen injector Discontinued 1 MG SUBCUT every week April 16, 2024 12:00am April 16, 2024 11:28am Problems Problem Classification Problem Date Documented Da te Episodic/Chronic Anxiety disorders (1 source) Mixed anxiety and depressive disorder; Translations: [Other specified anxiety disorders] 04-16-2024 Chronic Cancer of colon (2 sources) Malignant tumor of colon; Translations: [Malignant neoplasm of colon, unspecified] 09-08-2024 Chronic Cancer of colon (2 sources) History of malignant neoplasm of colon; Translations: [Personal history of other malignant neoplasm of large intestine] 11-19-2024 Episodic Diabetes mellitus with complications (2 sources) Hyperglycemia due to type 2 diabetes mellitus; Translations: [Type 2 diabetes mellitus with hyperglycemia] 04-16-2024 Chronic Essential hypertension (2 sources) Hypertensive disorder; Translations: [Essential (primary) hypertension] 04-16-2024 Chronic Headache, including migraine (4 sources) Headache; Translations: [HEADACHE] Onset: 12-24-2017 Episodic Osteoarthritis (2 sources) Arthritis of right knee; Translations: [Unilateral primary osteoarthritis, right knee] 06-02-2024 Chronic Other gastrointestinal disorders (1 source) Diarrhea; Translations: [Diarrhea, unspecified] 09-08-2024 Episodic Other gastrointestinal disorders (2 sources) Diarrhea, unspecified; Translations: [Diarrhea] 09-04-2024 Episodic Other non-traumatic joint disorders (6 sources) Pain in left knee; Translations: [Left knee pain] 04-16-2024 Episodic Other non-traumatic joint disorders (1 source) Pain in right knee; Translations: [Pain in joint, lower leg] 09-04-2024 Episodic Other upper respiratory disease (1 source) Epistaxis; Translations: [EPISTAXIS] Onset: 12-27-2017 Episodic Screening or history of mental health and substance abuse (1 source) Personal history of nicotine dependence; Translations: [PERSONAL HISTORY OF NICOTINE DEPEND] Onset: 12-27-2017 Episodic Results Test Name Value Interpretation Reference Range Facility Basophils Auto (Bld) [#/Vol] on 09-04-2024 Basophils (Bld) [#/Vol] Automated basophil count 0.0-0.1 [facility] Basophils/100 WBC Auto (Bld) on 09-04-2024 Basophils/100 WBC (Bld) Automated basophil % 0.2-2.0 [facility] Eosinophils/100 WBC Auto (Bl d)on 09-04-2024 Eosinophils/100 WBC (Bld) Automated eosinophil % 0.9-7.0 [facility] Erythrocyte distribution wid th Auto (RBC) [Ratio]on 09-04-2024 Erythrocyte distribution width (RBC) [Ratio] Erythrocyte distribution width [Ratio] by Automated count 11.0-15.0 [facility] Estimated glomerular filtrat ion rate (GFR) non- Americanon 09-04-2024 GFR/1.73 sq M.predicted among non-blacks MDRD (S/P/Bld) [Vol rate/Area] Estimated glomerular filtration rate (GFR) non- Low >=60 mL/min/1.73m 2 [facility] Globulin Calc (S) [Mass/Vol] on 09-04-2024 Globulin (S) [Mass/Vol] Serum globulin measurement by calculation (mass/volume) [facility] Glucose mean value [Mass/vol ume] in Blood Estimated from glycated hemoglobinon 09-04-2024 Average glucose Estimated from glycated hemoglobin (Bld) [Mass/Vol] Glucose mean value [Mass/volume] in Blood Estimated from glycated hemoglobin [facility] Hematocrit Auto (Bld) [Volum e fraction]on 09-04-2024 Hematocrit (Bld) [Volume fraction] Hematocrit [Volume Fraction] of Blood by Automated count 36.0-48.0 [facility] Hemoglobin [Mass/volume] in Bloodon 09-04-2024 Hemoglobin (Bld) [Mass/Vol] Hemoglobin [Mass/volume] in Blood 12.0-16.0 [facility] Laboratory - Chemistry and C hemistry - challengeon 09-04-2024 Albumin [Mass/Vol] 3.5 g/dL 3.4-5.0 [facility] ALP [Catalytic activity/Vol] 119 U/L High 46-116 [facility] ALT [Catalytic activity/Vol] 15 U/L 14-59 [facility] AST [Catalytic activity/Vol] 14 U/L Low 15-37 [facility] Bilirubin [Mass/Vol] 0.3 mg/dL 0.2-1.0 [facility] Calcium [Mass/Vol] 9.5 mg/dL 8.5-10.1 [facility] Chloride [Moles/Vol] 103 mmol/L 98-107 [facility] CO2 [Moles/Vol] 27.9 mmol/L 21.0-32.0 [facility] Creatinine [Mass/Vol] 1.37 mg/dL High 0.55-1.02 [facility] GFR/1.73 sq M.predicted MDRD (S/P/Bld) [Vol rate/Area] 46 mL/min/{1.73_m2} Low >=60 mL/min/1.73m 2 [facility] Glucose [Mass/Vol] 83 mg/dL 74-106 [facility] Potassium [Moles/Vol] 3.8 mmol/L 3.5-5.1 [facility] Protein [Mass/Vol] 8.1 g/dL 6.4-8.2 [facility] Sodium [Moles/Vol] 142 mmol/L 136-145 [facility] Urea nitrogen [Mass/Vol] 16.0 mg/dL 7.0-18.0 [facility] Urea nitrogen/Creatinine [Mass ratio] 11.7 mg/mg [facility] Laboratory - Hematology and Cell countson 09-04-2024 HbA1c (Bld) [Mass fraction] 5.6 % 4.5-6.2 [facility] Comment on above: ADA RECOMMENDED LIMI T 4.0 - 6.0ADA THERAPEUTIC TARGET < 7.0ACTION SUGGESTED> 7.0 Immature granulocytes/100 WBC (Bld) 0.2 % 0.0-0.5 [facility] Leukocytes [#/volume] correc moncho for nucleated erythrocytes in Blood by Automated counon 09-04-2024 WBC corrected for nucl RBC Auto (Bld) [#/Vol] Leukocytes [#/volume] corrected for nucleated erythrocytes in Blood by Automated coun 4.0-11.0 [facility] Lymphocytes Auto (Bld) [#/Vo l]on 09-04-2024 Lymphocytes (Bld) [#/Vol] Lymphocytes [#/volume] in Blood by Automated count 1.2-3.8 [facility] Lymphocytes/100 WBC Auto (Bl d)on 09-04-2024 Lymphocytes/100 WBC (Bld) Lymphocytes/100 leukocytes in Blood by Automated count 20.5-60.0 [facility] MCH Auto (RBC) [Entitic mass ]on 09-04-2024 MCH (RBC) [Entitic mass] MCH [Entitic mass] by Automated count 26.7-34.0 [facility] MCHC Auto (RBC) [Mass/Vol]on 09-04-2024 MCHC (RBC) [Mass/Vol] MCHC [Mass/volume] by Automated count 29.9-35.2 [facility] MCV Auto (RBC) [Entitic vol] on 09-04-2024 MCV (RBC) [Entitic vol] MCV [Entitic volume] by Automated count 81.0-99.0 [facility] Microalbumin [Mass/volume] i n Urineon 09-04-2024 Albumin DL <= 20 mg/L (U) [Mass/Vol] Microalbumin [Mass/volume] in Urine <=30.0 [facility] Monocytes Auto (Bld) [#/Vol] on 09-04-2024 Monocytes (Bld) [#/Vol] Automated blood monocyte count 0.3-0.8 [facility] Monocytes/100 WBC Auto (Bld) on 09-04-2024 Monocytes/100 WBC (Bld) Automated monocyte % 1.7-12.0 [facility] Neutrophils Auto (Bld) [#/Vo l]on 09-04-2024 Neutrophils (Bld) [#/Vol] Neutrophils [#/volume] in Blood by Automated count 1.4-6.5 [facility] Neutrophils/100 WBC Auto (Bl d)on 09-04-2024 Neutrophils/100 WBC (Bld) Automated neutrophil % 43.0-75.0 [facility] No Panel Informationon 09-04 Eosinophils # (Auto) 0.3 10 3/uL 0.0-0.7 [facility] Immature Granulocyte # (Auto) 0.02 10 3/uL 0.00-0.03 [facility] Urine Random Creatinine 439.14 mg/dL High 20.00-300.00 [facility] Platelet mean volume Auto (B ld) [Entitic vol]on 09-04-2024 Platelet mean volume (Bld) [Entitic vol] Platelet mean volume [Entitic volume] in Blood by Automated count 9.5-13.5 [facility] Platelets Auto (Bld) [#/Vol] on 12-12-2024 Platelets (Bld) [#/Vol] Platelets [#/volume] in Blood by Automated count 150-450 [facility] RBC Auto (Bld) [#/Vol]on RBC (Bld) [#/Vol] Erythrocytes [#/volu me] in Blood by Automated count Low 4.20-5.40 [facility] Serum or plasma albumin/glob ulin mass ratioon 09-04-2024 Albumin/Globulin [Mass ratio] Serum or plasma albumin/globulin mass ratio [facility] Serum or plasma anion gap de terminationon 09-04-2024 Anion gap [Moles/Vol] Serum or plasma anion gap determination [facility] Urine microalbumin/creatinin e mass ratioon 09-04-2024 Albumin/Creatinine DL <= 20 mg/L (U) [Mass ratio] Urine microalbumin/creatinine mass ratio 0.0-29.9 [facility] Comment on above: NO MICROALBUMINURIA 0-29 MG/GCLINICAL MICROALBUMINURIA 30-300 MG/GMACROALBUMINURIA >300 MG/G No Panel Informationon 06-02 Malcolm Miller NP [...] discussed. Consent was given by the patient. [facility] CT HEAD WO CONon 12-24-2017 CT HEAD WO CON [address] [place] [address] Patient: GILLIAN LAGUNAS Exam Date: 12/24/2017DOB: 1955 Gender:F : BHARATH RIVERS Admission #: [id number] : Order #: [id number] HERE TO VIEW EXAM RADIOLOGY REPORT PROCEDURE: [...] Barragan M.D. on 12/24/2017 at 15:25 Normal [facility] Vital Signs Date Time Vital Sign Value Performing Clinician Faci lity 11-19-2024 14:59-0500 Body height 160.02 cm [facility] 11-19-2024 14:59-0500 Body mass index (BMI) [Ratio] 45.1 kg/m2 [facility] 11-19-2024 14:59-0500 Body weight 115.66 kg [facility] 11-19-2024 14:59-0500 Diastolic blood pressure 76 mm[Hg] [facility] 11-19-2024 14:59-0500 Heart rate 70 /min [facility] 11-19-2024 14:59-0500 Systolic blood pressure 113 mm[Hg] [facility] 09-04-2024 13:59-0500 Body height 160.02 cm [facility] 09-04-2024 13:59-0500 Body mass index (BMI) [Ratio] 45.7 kg/m2 [facility] 09-04-2024 13:59-0500 Body weight 117.14 kg [facility] 09-04-2024 13:59-0500 Diastolic blood pressure 80 mm[Hg] [facility] 09-04-2024 13:59-0500 Heart rate 80 /min [facility] 09-04-2024 13:59-0500 Systolic blood pressure 122 mm[Hg] [facility] 04-16-2024 10:53-0400 Body height 160.02 cm [facility] 04-16-2024 10:53-0400 Body mass index (BMI) [Ratio] 45.1 kg/m2 [facility] 04-16-2024 10:53-0400 Body weight 115.66 kg [facility] 04-16-2024 10:53-0400 Diastolic blood pressure 73 mm[Hg] [facility] 04-16-2024 10:53-0400 Heart rate 67 /min [facility] 04-16-2024 10:53-0400 Systolic blood pressure 112 mm[Hg] [facility] Encounters Encounter Date Encounter Type Care Provider Facility Start: 11-19-2024 End: 11-19-2024 ambulatory [facility] Work Phone: Start: 11-19-2024 End: 11-19-2024 Patient encounter procedure [facility] Physician [facility] Work Phone: Start: 11-17-2024 End: 11-17-2024 ambulatory Dorothy Dumont MD [facility] Start: 10-20-2024 End: 10-20-2024 ambulatory Dorothy Sharmaitis Facility: [facility] Start: 10-06-2024 End: 10-06-2024 ambulatory Andaleksey Sharmaitis Facility: [facility] Start: 09-04-2024 End: 09-04-2024 Patient encounter procedure [facility] Physician [facility] Work Phone: Start: 09-03-2024 Non-patient / Non-visit [facility] Physician [facility] Work Phone: Start: 06-02-2024 End: 06-02-2024 Bamboo flowsheet Malcolm Miller BARMAID Work Phone: [facility] Start: 06-02-2024 End: 06-02-2024 Bamboo flowsheet Malcolm Miller BARMAID Work Phone: [facility] Start: 06-02-2024 End: 06-02-2024 Office outpatient visit 25 minutes Malcolm Miller BARMAID Work Phone: [facility] Comment on above: Chronic pain of righ t knee (Primary Dx); Arthritis of right knee Start: 06-02-2024 End: 06-02-2024 ambulatory MALCOLM Gianni APLING Not Available Start: 05-12-2024 End: 05-12-2024 ambulatory MALCOLM Gianni APLING Not Available Start: 04-30-2024 End: 04-30-2024 ambulatory MALCOLM Gianni APLING Not Available Start: 04-28-2024 End: 04-28-2024 ambulatory MALCOLM Archer APLING Not Available Start: 04-16-2024 End: 04-16-2024 ambulatory [facility] Work Phone: Start: 04-16-2024 End: 04-16-2024 Patient encounter procedure [facility] Physician [facility] Work Phone: Start: 12-24-2017 End: 12-24-2017 Ambulatory BHARATH Leroy MCKEONGUILLERMINA Facility: Procedures Date Procedure Procedure Detail Performing Clinician Start: 06-02-2024 Arthrocentesis aspir &/inj major jt/bursa w/o us Malcolm Miller [facility] Work Phone: Plan of Treatment Date Care Activity Detail Author Start: 09-08-2024 Patient referral [facility] Work Phone: Start: 06-02-2024 End: 06-02-2024 Patient encounter procedure 06/02/2024 12:00 PM EDT Office Visit [facility] [address] [facility] [address] [place] [address] Malcolm Miller, BARMAID [address] [facility] [address] [place] [address] Left knee pain, unspecified chronicity (Primary Dx); Arthritis of left knee [facility] Comment on above: Left knee pain, unsp ecified chronicity (Primary Dx); Arthritis of left knee Start: 05-25-2024 Influenza vaccination Influenza Vacc ine (#1) [facility] Start: 04-16-2024 Patient referral [facility] Work Phone: Start: 2020 Pneumococcal Vaccine : 65+ Years (1 of 1 - PCV) Pneumococcal Vaccine: 65+ Years (1 of 1 - PCV) [facility] Start: 1995 Screening for malign ant neoplasm of breast Mammogram [facility] Start: 1955 Screening for malign ant neoplasm of colon [facility] Patient Education Vestibular Exercises [facility] Work Phone: Patient referral [facility] Work Phone: Payers Date Payer Category Payer Unknown 2024 Medicare [employer] [facility] [employer] [id number] 2024-Present [address] [place] [address] [id number] 2024 Unknown [id number] 1959 Unknown [id number] 1955 Unknown [id number] 9 1955 Unknown [id number] 9 1955 Unknown [id number] 9 1955 Unknown [id number] 9 1955 Unknown [id number] 9 1955 Unknown [id number] 1955 Unknown [id number] 1955 Unknown [id number] 1955 Unknown [id number] Social History Date Type Detail Facility Start: 04-16-2024 End: 04-16-2024 Tobacco smoking status NHIS Ex-smoker (finding) [facility] Start: 1955 Sex Assigned At Female F [facility] Start: 09-24-1973 History of tobacco use Current smoke r [facility] Start: 09-24-1973 History of tobacco use Cigarette Smo ker [facility] Start: 04-28-2024 End: 06-02-2024 Cigarettes smoked current (pack per day) - Reported 2.5 [facility] Start: 04-28-2024 Tobacco use and exposure Smokeless tobacco non-user [facility] Start: 05-12-2024 End: 06-02-2024 Alcoholic beverage intake Current drinker of alcohol (finding) [facility] Start: 05-12-2024 End: 06-02-2024 Tobacco use panel [facility] Start: 04-28-2024 Alcohol Comment 1 drink per month [facility] [place] [facility] Start: 1955 Sex assigned at Not on file N [facility] Start: 11-19-2024 Sex Female (finding) [facility] Evaluation note 09-04-2024 Note Date & Type Note Facility 09-04-2024 Evaluation note Diagnosis Onset Date Resolution Bilateral knee pain acute Decem 2023 1:49pm Colon cancer acute August 1:49pm Diarrhea acute September 04, 2024 1:49pm Hypertension acute August 1:49pm Type 2 diabetes mellitus with hyperglycemia acute August 1:49pm Diarrhea acute November 19, 2024 2:54pm History of colon cancer acute F ebruary 2024 2:54pm [facility] Work Phone: History of Present illness Narrative 06-02-2024 Malcolm [...] injections in the past by Dr. Ramsey ([place], orthopedic). She was getting cortisone injections in the past, last one done /Oct. 2023. She only gets 2 months relief from the injections. She notes she just moved to [place] November 28, 2023. Denies injury. Pain is anterior lateral, pain at rest 10 notes it is throbbing with activities and prolonged standing 06/03, she limps from the pain. She is taking norco (from her PCP in [place]) with relief. Also taking baclofen per PCP [...] she understands this documented in this encounter [facility] Evaluation note Note Date & Type Note Facility Evaluation note Diagnosis Onset Date Left knee pain acute [facility] Work Phone: Evaluation note Note Date & Type Note Facility Evaluation note Diagnosis Chronic pain of right knee- Primary Arthritis of right knee documented in this encounter [facility] Hospital Discharge instructions Note Date & Type Note Facility Hospital Discharge instructions Ambulatory OrdersReferral to Orthopedics Time Frame: 04/16/24, Location: None Selected [facility] Work Phone: Summary Purpose Family History No Family History Records Found Relationship Condition Age at Onset Recorded Date/T tani brother Malignant neoplasm Unknown Hypertension Unknown mother Malignant neoplasm Unknown father Malignant neoplasm Unknown sister Malignant neoplasm Unknown paternal grandmother Diabetes mellitus Unknown Advance Directives No Advanced Directives Records Found Advance Directive Response Recorded Date/ Time Advance Directives No April 07 3:17pm Advance Directive Response Recorded Date/ Time Advance Directives No April 07 2:17pm Chief Complaint and Reason for Visit Chief Complaint est care, Reason for Visit Left knee pain Chief Complaint Admit Date CC Adult Risk Stratification September 032023 10:12am refill-HIGH RISK September 04, 2024 1:49pm Ref: diarrhea/hx of colon cancer 2024 2:54pm Reason for Visit Admit Date Bilateral knee pain September 04, 2024 1:49pm Colon cancer September 04, 2024 1:49pm Diarrhea September 04, 2024 1:49pm Hypertension September 04, 2024 1:49pm Type 2 diabetes mellitus with hyperglyce sheri September 04, 2024 1:49pm Diarrhea November 19, 2024 2:54pm History of colon cancer November 19 2:54pm Reason for Referral Specialty Diagnoses / Procedures Referred By Contac t Referred To Contact Orthopaedic Surgery Diagnoses Arthritis of right knee Procedures L Inj/Asp: R knee Malcolm Miller, LINSE[place] [address] [facility] [address] [place] [address] Referral ID Status Reason Start Date Expiration Date V isits Requested Visits Authorized [id number] Authorized 06/02/2024 11/29/2024 1 1 Additional Source Comments INFORMATION SOURCE (unrecogn ized section and content) DATE CREATED AUTHOR 03/14/2018 [facility] DATE CREATED AUTHOR AUTHOR'S ORGANIZ ATION 06/03/2024 [facility] EPIC DATE CREATED AUTHOR AUTHOR'S ORGANIZ ATION 11/20/2024 [facility] Care Teams (unrecognized sec tion and content) Team Status: Active Member Role Status Dates Ilda Lopez MD Primary Care Provider Active Team Status: Active Member Role Status Dates Ilda Lopez MD Primary Care Provide r, Attending Provider Active Start: September 03, 2024 Team Status: Inactive Member Role Status Dates Ilda Lopez MD Primary Care Provide r, Attending Provider Active Start: September 04, 2024 End: September 04, 2024 Team Status: Inactive Member Role Status Dates Ilda Lopez MD Primary Care Provider Active Start: November 19, 2024 End: November 19, 2024 Arvind Mensah MD Attending Provider Active S tart: November 19, 2024 End: November 19, 2024 Team Status: Inactive Member Role Status Dates Ilda Lopez MD Primary Care Provide r, Attending Provider Active Start: April 16, 2024 End: April 16, 2024 Export Documents Clerk Relationship Specialty Start Date End Date Ilda Lopez MD [address] [place] [id number] PCP - General Family Medicine 04/28/24 Export Documents Clerk Relationship Specialty Start Date End Date Ilda Lopez MD [address] [place] [id number] PCP - General Family Medicine 04/28/24 Goals (unrecognized section and content) Goals may be documented in a n alternate sectionGoals may be documented in an alternate section FOR RECORDS PERTAINING TO PATIENTS [...] BE BASED ON THE PRIMARY CLINICAL RECORDS. [employer] provides no warranty or guarantee of the accuracy or completeness of information in this document.
[2025-01-12 09:41] LABS: Glucometer 81 mg/dL (74-106)
[2025-01-12 10:27] VITALS: BP 139/67; PULSE 69; O2SAT 95
[2025-01-12] MEDS: BUPIVACAINE HCL 0.25% PF 25 MG/10 ML VIAL 5 ML INJ ×2 (10:29→10:30)
[2025-01-12] MEDS: METHYLPREDNISOLONE ACETATE 40 MG/ML VIAL INJ ×2 (10:29→10:30)
[2025-01-12 10:31] VITALS: BP 147/69; PULSE 65; O2SAT 92
--- NOTE | 2025-01-12 10:32 | P.ON_ITS ---
Date of procedure: 01/12/25 Pre-op diagnosis: Pain due to bilateral knee osteoarthritis Post-op diagnosis: same as pre-op Procedure: Procedure: Bilateral knee genicular nerve block Medications: Bupivacaine 0.25% 3cc, depomedrol 40mg x2 The patient was taken to the procedures suite and positioned in the supine position. I explained the details of the procedure to the patient including the risks, benefits and alternatives. We had an informed discussion and the patient verbalized understanding and signed the consent form. All questions were answered appropriately.? A 'time out' procedure was performed. The patient was identified, the chart was reviewed, and all allergies were confirmed. Laterality was conducted and marked. The right knee was marked with a sterile marking pen, prepped times three, and sterilely draped.? Under fluoroscopic guidance, branches of the genicular nerves were localized.? First the superior medial genicular nerve was localized where the femoral shaft meets the medial epicondyle.? Skin was anesthetized with 1% lidocaine.? A 25-gauge 3.5 in needle was advanced in a coaxial manner in the AP view.? This was repeated on the superior lateral genicular nerve where the femoral shaft meets the lateral epicondyle and the inferior medial genicular n erve where the medial tibial shaft meets the tibial epicondyle. After negative aspiration for blood or other bodily fluids, 1cc of medication was injected at each of the three sites. The needles were removed and the sites of injection were bandaged. The same procedure was then completed on the opposite side. The patient was transported to the postoperative area in good condition. Anesthesia: Local Surgeon: Dorothy Dumont Pathology: none sent Condition: stable Disposition: no change
== END 2025-01-12 10:39 | disposition home or self-care (01) ==
LOC: SURGOUT 09:18
PROVIDERS: PCP Family Medicine; Visit Provider Anesthesiology
DX: M17.0 Bilateral primary osteoarthritis of knee (principal); M25.561 Pain in right knee; M25.562 Pain in left knee; E11.8 Type 2 diabetes mellitus with unspecified complications
CPT/HCPCS: 36415; 64454; 82948; J0665; J1010

== ENCOUNTER 2025-01-21 13:45 | Outpatient (OUT) | payer MEDICARE, SELFPAY ==
--- NOTE | 2025-01-21 14:23 | PM.CN ---
Consult Note: HPI Data of Consult Patient: known to practice within the last 3 years Consult date: 01/21/25 Requesting Physician: Sri Daniels NP Primary Care Provider: Ilda Lopez MD Consult Narrative Reason for consult: bilateral knee pain Narrative: 69yof who presents for assessment. notes persistence of significant bilateral knee pain. has undergone both steroid and hyaluronic acid injections, without lasting benefit. has continued in a series of provider directed home exercises >6 weeks, without lasting benefit. imaging significant for bilateral osteoarthritis. uses norco, celebrex. denies adverse med side effects. pt recently underwent bilateral genicular nerve block on 01/12/25 with >80% improvement in pain and funcational ability while anesthetized. pt reports preop pain up to 10/10 post op pain 1-2/10. she was able to ambulate and tolerate exercising with significantly less pain. Pt reports severe difficulty tolerating her nerve block. cc:: CC: Sri Daniels NP Review of Systems ROS Status of ROS 10 or more systems reviewed and unremarkable except as noted in history and below PFSH PFS Medical History Obesity ?E66.9 - Obesity, unspecified (ICD-10) Hypertension ?I10 - Essential (primary) hypertension (ICD-10) Surgical History H/O hernia repair ?Z98.890 - Other specified postprocedural states (ICD-10) ?Z87.19 - Personal history of other diseases of the digestive system (ICD-10) History of hysterectomy ?Z90.710 - Acquired absence of both cervix and uterus (ICD-10) H/O knee surgery ?Z98.890 - Other specified postprocedural states (ICD-10) Meds Home Medications and Allergies Home Medications ?Medication ?Instructions ?Recorded ?Confirmed ?Type Bacillus coagulans 10 billion cell cell PO 10/06/24 History capsule,delayed release (Probiotic (B. coagulans)) amlodipine 5 mg tablet 5 mg PO DAILY 10/06/24 01/12/25 History citalopram 40 mg tablet 40 mg PO DAILY 10/06/24 01/12/25 History hydrocodone 5 mg-acetaminophen 325 1 tab PO TID PRN pain #90 tabs 10/06/24 01/12/25 Rx mg tablet losartan 100 1 tab PO DAILY 10/06/24 01/12/25 History mg-hydrochlorothiazide 12.5 mg tablet (Hyzaar) celecoxib 200 mg capsule (Celebrex) 200 mg PO BID 11/17/24 01/12/25 History diazepam 10 mg tablet (Valium) 10 mg PO ONCE 01/12/25 01/12/25 History dicyclomine 20 mg tablet mg 01/12/25 History Allergies Allergy/AdvReac Type Severity Reaction Status Date / Time No Known Drug Allergies Allergy Verified 01/12/25 09:41 Exam Narrative Exam Narrative: Psych-alert and oriented x 3.? Attentive and appropriate, constitutionally normal, displays normal mood and affect per situation.? There are no obvious deficits in memory, reasoning, or intellect. Extremities-lower extremities are warm with minimal edema and palpable pulses. Knee-examination of the bilateral knee reveals tenderness to palpation over the superior, inferior, lateral, and medial aspect of the knee.? Some swelling is noted without erythema. Pain is elicited with flexion and extension of the knee both actively and passively.? Some grinding is noted with these motions.? There is no notable ligamental laxity or instability.? Coordination remains intact.? Gait remains antalgic. Assessment and Plan Assessment and Plan (1) Bilateral knee pain: Qualifiers: Chronicity: chronic Qualified Code(s): M25.561 - Pain in right knee; M25.562 - Pain in left knee; G89.29 - Other chronic pain (2) Osteoarthritis of knees, bilateral: Qualifiers: Osteoarthritis type: primary Qualified Code(s): M17.0 - Bilateral primary osteoarthritis of knee (3) Chronic use of opiate for therapeutic purpose: Assessment and Plan: pt utilizing hydrocodone-acetaminophen 5-325mg TID PRN for moderate to severe pain with benefit. reports for 4 hours she has moderate pain relief and is able to ambulate with less pain and tolerate ADLs with less pain. denies side effects. does report percocet was more helpful, prior pain management provider prescribed it for her. as discussed with pt today our goal is to improve her pain and functional ability [facility] with non opioid medications and interventions. I feel these medications are improving the patient's quality of life and allow them to tolerate activities of daily living as well as participate in recreational activity.? The patient does not report intolerable side effects. The patient is NOT opioid naive and non-pharmacologic and non-opioid treatment has failed to significantly relieve the patient's pain and improve functionality. The patient has a diagnosis that is related to a somatic or visceral pain etiology. ? ?? I reviewed with the patient the potential risks and side effects with the use of? opioid medications including but not limited to respiratory depression,? sedation, and even . Within the last 12 months I have verified the patient has access to naloxone should? these effects occur. The patient was advised to let? their family know they had Naloxone in case they would need to administer? the medication. I advised the patient to avoid the use of any other? sedation substances including alcohol, THC, and benzodiazepines while? taking opioid medications due to the risk of compounding side effects and? detrimental outcomes. within the last 12 months I have reviewed the INFORMATION ASSURANCE ANALYST, pain treatment agreement and urine drug screen.? ?? A drug screen was completed within the last year, and no aberrancies were noted regarding their use of controlled substances. The patient understands they are subject to the terms and conditions of the pain contract that they have signed. ? ?? I have checked an [place] report on this patient today and there are no aberrancies noted in the prescribing history.? Plan 69yof who presents for assessment. failed conservative measures, as noted. imaging reviewed, as noted. given symptoms and imaging, prudent to proceed with left then right genicular RFA with MAC sedation due to severe pain and inability to adequately tolerate the nerve blocks, utilizing additional anesthetic can skew the results of RFAs and it is essential the pt tolerate her RFA procedure. she is in agreement. meds reviewed, refilled [employer]. follow up after procedure.
== END 2025-01-21 13:46 | disposition home or self-care (01) ==
LOC: PM 01-22 07:09
PROVIDERS: PCP Family Medicine; Visit Provider Nurse Practitioner
DX: M25.561 Pain in right knee (principal); M25.562 Pain in left knee; G89.29 Other chronic pain; M17.0 Bilateral primary osteoarthritis of knee; Z79.891 Long term (current) use of opiate analgesic
CPT/HCPCS: G0463

== ENCOUNTER 2025-01-26 12:49 | Outpatient (OUT) | payer MEDICARE, SELFPAY ==
--- NOTE | 2025-01-26 13:08 | ECG_ITS ---
[facility] Test Date: 2025-01-26 Pat Name: BRENDA LAGUNAS Department: Room: - Gender: Female Resourcing Consultant: : [id number] Requested By: [id number] Order Number: [id number] Reading MD: VINI ROBIN M.D. Measurements Intervals [place] Rate: 72 P: 68 WV: 157 QRS: 81 QRSD: 143 T: 43 QT: 409 QTc: 448 Interpretive Statements SINUS RHYTHM RIGHT BUNDLE BRANCH BLOCK [120+ ms QRS DURATION, UPRIGHT V1, 40+ ms S IN I/aVL/V4/V5/V6] Abnormal ECG No previous ECG available for comparison Electronically Signed On 01-26-2025 17:57:47 EDT by VINI ROBIN M.D.
== END 2025-01-26 12:50 | disposition home or self-care (01) ==
LOC: CARD 12:56
PROVIDERS: PCP Family Medicine; Visit Provider Anesthesiology
DX: Z01.810 Encounter for preprocedural cardiovascular examination (principal)
CPT/HCPCS: 93005

== ENCOUNTER 2025-01-26 12:57 | Outpatient (OUT) | payer MEDICARE, SELFPAY ==
[2025-01-26 14:02] LABS: Basophils Absolute Auto 0.1 10^3/uL (0.0-0.1); Basophils Percent Auto 0.9 % (0.2-2.0); Eosinophils Absolute Auto 0.2 10^3/uL (0.0-0.7); Eosinophils Percent Auto 2.5 % (0.9-7.0); Hematocrit 37.8 % (36.0-48.0); Hemoglobin 12.3 g/dL (12.0-16.0); Immature Granulocytes Abs Auto 0.03 10^3/uL (0.00-0.03); Immature Granulocytes Pct Auto 0.3 % (0.0-0.5); Lymphocytes Absolute Auto 2.5 10^3/uL (1.2-3.8); Lymphocytes Percent Auto 25.6 % (20.5-60.0); Mean Corpuscular HGB Conc 32.5 g/dL (29.9-35.2); Mean Corpuscular Hemoglobin 29.6 pg (26.7-34.0); Mean Corpuscular Volume 91.1 fL (81.0-99.0); Mean Platelet Volume 9.1 fL (9.5-13.5); Monocytes Absolute Auto 0.5 10^3/uL (0.3-0.8); Monocytes Percent Auto 4.9 % (1.7-12.0); Neutrophils Absolute Auto 6.4 10^3/uL (1.4-6.5); Neutrophils Percent Auto 65.8 % (43.0-75.0); Platelet Count 373 10^3/uL (150-450); Red Blood Count 4.15 10^6/uL (4.20-5.40); Red Cell Distribution Width 14.8 % (11.0-15.0); White Blood Count 9.7 10^3/uL (4.0-11.0)
[2025-01-26 14:36] LABS: Estimated Average Glucose 114 mg/dL; Glycohemoglobin A1C 5.6 % (4.5-6.2)
[2025-01-26 14:44] LABS: Alanine Aminotransferase 17 U/L (14-59); Albumin Globulin Ratio 0.7; Albumin Level 3.4 g/dL (3.4-5.0); Alkaline Phosphatase 120 U/L (46-116); Anion Gap 12.3; Aspartate Amino Transferase 11 U/L (15-37); BUN Creatinine Ratio 19.3; Bilirubin Total 0.3 mg/dL (0.2-1.0); Calcium 9.4 mg/dL (8.5-10.1); Carbon Dioxide 28.8 mmol/L (21.0-32.0); Chloride 102 mmol/L (98-107); Estimated GFR (African America 57 (>=60 mL/min/1.73m^2); Estimated GFR (Non-African Ame 47 (>=60 mL/min/1.73m^2); Globulin 4.6 g/dL; Glucose 83 mg/dL (74-106); Potassium 4.1 mmol/L (3.5-5.1); Sodium 139 mmol/L (136-145)
[2025-01-27 06:12] LABS: Vitamin B12 280 pg/mL (232-1245)
[2025-01-28 23:07] LABS: Zinc Level 64 ug/dL (44-115)
== END 2025-01-26 12:58 | disposition home or self-care (01) ==
LOC: LAB 12:58
PROVIDERS: PCP Family Medicine; Visit Provider Family Medicine
DX: F50.83 Pica in adults (principal); E11.65 Type 2 diabetes mellitus with hyperglycemia
CPT/HCPCS: 36415; 80053; 82607; 82728; 82746; 83036; 84630; 85025

== ENCOUNTER 2025-02-09 06:49 | Day surgery (SDC) | payer MEDICARE, SELFPAY ==
--- OUTSIDE RECORDS SUMMARY | 2025-02-09 06:52 | XMS_ITS | CCD ---
Author Organization [facility] Care Team Providers Care Talkback Host Name Role Phone BHARATH RIVERS Unavailable Unavailable BHARATH RIVERS Unavailable Unavailable MISC, DOCTOR Unavailable Unavailable JES BARRAGAN V Unavailable Unavailable BHARATH RIVERS Unavailable Unavailable Jessica MONTEZ, Ilda Primary Care Provider [phone] Tim MONTEZ, Dorothy Katz Attending Unavailable Tim MONTEZ, Dorothy Katz Attending Unavailable Tim MONTEZ, Dorothy Katz Attending Unavailable Tim MONTEZ, Dorothy Katz Attending Unavailable Apling INVENTORY SPECIALIST, Malcolm Archer Unavailable Ilda Garcia MD Primary Care Provider [phone] BEATRIS TYLER Attending Unavailable ILDA GARCIA Referring Unavailable APLING, MALCOLM Archer Attending Unavailable APLING, MALCOLM Archer Referring Unavailable APLING, MALCOLM Archer Attending Unavailable APLING, MALCOLM Arhcer Attending Unavailable APLING, MALCOLM Archer Attending Unavailable Medications Current Medications Medication Drug Class(es) Dates Sig (Normalized) Sig (Original) acetaminophen 325 mg / HYDROcodone bitartrate 5 mg oral tablet (10 sources) Opioid Agonist Start: 01-19-2025 take 1 tablet by mouth three times daily as needed Hydrocodone-Aceta minophen 5-325 mg tablet Active 1 TAB PO Three times daily as needed January 19, 2025 12:00am Start: 04-16-2024 take 1 tablet by ashley th every six hours as needed for pain HYDROcodone-acetaminophen (Kipling) 5-325 MG tablet Take 1 tablet by mouth every 6 (six) hours if needed for moderate pain 04/16/2024 Active Start: 04-16-2024 End: 09-04-2024 take 1 tablet by mouth once daily at bedtime as needed Hydrocodone-Acetaminophen 5-325 mg table t Discontinued 1 TAB PO Daily at bedtime as needed April 16, 2024 12:00am September 04, 2024 3:32pm amLODIPine 5 mg oral tablet (15 sources) Dihydropyridine Calcium Channel Barry Start: 09-25-2024 End: 12-22-2024 take 1 tablet by mouth once daily Amlodipine 5 mg tablet Active 0 .ROUTE .COMPLEX 90 December 22, 2024 9:02am TAKE 1 TABLET BY MOUTH EVERY DAY Start: 04-16-2024 End: 09-25-2024 take 1 tablet by mouth once daily amLODIPine (Norvasc) 5 MG tablet Take 5 mg by mouth Daily 04/16/2024 Active baclofen 5 mg oral tablet (6 sources) gamma-Aminobutyric Acid-ergic Agonist Start: 02-01-2024 baclofen (Lioresal) 5 MG tablet 02/01/2024 Active 24 hr buPROPion hydrochloride 300 mg extended release oral tablet (15 sources) Aminoketone Start: 12-22-2024 take 1 tablet by mouth once daily in the morning Bupropion Hcl 300 mg tablet extended release 24 hr Active 0 .ROUTE .COMPLEX December 22, 2024 9:02am TAKE 1 TABLET BY MOUTH EVERY MORNING Start: 09-25-2024 End: 12-22-2024 take 1 tablet by mouth once daily in the morning Bupropion Hcl 300 mg tablet extended release 24 hr Discontinued 0 .ROUTE .COMPLEX September 25, 2024 2:16pm December 22, 2024 9:03am TAKE 1 TABLET BY MOUTH EVERY MORNING Start: 09-25-2024 take 1 tablet by ashley th once daily in the morning Bupropion Hcl [...] PO Every morning April 16, 2024 11:27am September 25, 2024 2:16pm citalopram 40 mg oral tablet (20 sources) Serotonin Reuptake Inhibitor Start: 04-17-2024 End: 09-22-2024 take 1 tablet by mouth once daily citalopram (CeleXA) 40 MG tablet Take 40 mg by mouth Daily 05/26/2024 Active Start: 04-17-2024 End: 04-17-2024 take 4 tablets by mouth once daily Citalopram 10 mg tablet Discontinued 40 MG PO Daily April 17, 2024 10:27am April 17, 2024 10:38am Start: 04-16-2024 take 2 tablets by mo ut once daily, then take 4 tablets by mouth once daily citalopram (CeleXA) 10 MG tablet Take 20 mg by mouth Daily 40 mg daily 04/16/2024 Active Start: 04-16-2024 End: 04-17-2024 take 1 tablet by mouth once daily Citalopram 10 mg tablet Discontinued 10 MG PO Daily April 16, 2024 11:27am April 17, 2024 10:30am dicyclomine hydrochloride 20 mg oral tablet (4 sources) Anticholinergic Start: 11-19-2024 dicyclomine (Bentyl) 20 MG tablet Twice daily 11/19/2024 Active famotidine 20 mg oral tablet (2 sources) Histamine-2 Receptor Antagonist Start: 01-28-2025 End: 04-28-2025 take 1 tablet by mouth at bedtime famotidine (Pepcid) 20 MG tablet Indications: LPRD (laryngopharyng eal reflux disease) Take 1 tablet (20 mg) by mouth at bedtime 90 tablet 01/28/2025 04/28/2025 Active hydroCHLOROthiazide 12.5 mg / losartan potassium 100 mg oral tablet (16 sources) Thiazide Diuretic, Angiotensin 2 Receptor Barry Start: 04-16-2024 End: 09-22-2024 take 1 tablet by mouth once daily losartan-hydroC HLOROthiazide (Hyzaar) 100-12.5 MG tablet Take 1 tablet by mouth Daily 04/16/2024 Active meloxicam 7.5 mg oral tablet (13 sources) Nonsteroidal Anti-inflammatory Drug Start: 05-13-2024 End: 09-15-2024 take 1 tablet by mouth once daily Meloxicam 7.5 mg tablet Active 0 .ROUTE .COMPLEX September 15, 2024 10:31pm TAKE 1 TABLET BY MOUTH EVERY DAY Start: 04-16-2024 take 2 tablets by mo uth once daily meloxicam (Mobic) 7.5 MG tablet Take 15 mg by mouth Daily 04/16/2024 Active Start: 04-16-2024 End: 05-13-2024 take 1 tablet by mouth once daily Meloxicam 7.5 mg tablet Discontinued 7.5 MG PO Daily April 16, 2024 12:00am May 13, 2024 11:13am omeprazole 40 mg delayed release oral capsule (2 sources) Proton Pump Inhibitor Start: 01-28-2025 End: 04-28-2025 take 1 capsule by mouth before mealtime omeprazole (PriLOSEC) [address] capsule Indications: LPRD (laryngopharyngeal reflux disease) Take 1 capsule (40 mg) by mouth in the morning. Take before meals. Do not crush or chew. 90 capsule 01/28/2025 04/28/2025 Active ondansetron 4 mg disintegrating oral tablet (2 sources) Serotonin-3 Receptor Antagonist Start: 09-04-2024 take 1 tablet by mouth every eight hours Ondansetron 4 mg tablet,disintegrating Active 4 MG PO Q8H September 04, 2024 1:00am Completed/Discontinued Medications Medication Drug Class(es) Dates Sig (Normalized) Sig (Original) 1 ml methylPREDNISolone acetate 40 mg/ml injection (4 sources) Corticosteroid Start: End: methylPREDNISolone acetate (DEPO-Medrol) injection 40 mg Start: 06-02-2024 End: 06-02-2024 40 mg, Intra-articular, Once PRN Procedure, Starting on Sun06/02/24 at 1226, For 1 dose Ozempic, 1 MG/DOSE, 4 MG/3ML solution pen-injector (6 sources) Start: 04-18-2024 End: 01-28-2025 inject 1 mg by subcutaneous injection every week Ozempic, 1 MG/DOSE, 4 MG/3ML solution pen-injector Inject 1 mg under the skin 1 (one) time per week 04/18/2024 01/28/2025 Discontinued (Therapy completed) Start: 04-18-2024 inject 1 mg by subcu taneous injection every week Ozempic, 1 MG/DOSE, 4 MG/3ML solution pen-injector Inject 1 mg under the skin 1 (one) time per week 04/18/2024 Active Semaglutide (8 sources) Start: 08-19-2024 End: 09-04-2024 inject 1 mg by subcutaneous injection every week Semaglutide (Ozempic) 1 mg/dose (4 mg/3 mL) pen injector Discontinued 0 .ROUTE .COMPLEX August 19, 2024 9:34am September 04, 2024 3:24pm INJECT 1 MG (0.75 ML) SUBCUTANEOUSLY WEEKLY Start: 08-19-2024 End: 09-04-2024 inject 1 mg [...] SUBCUT every week April 16, 2024 11:27am August 19, 2024 9:34am Start: 04-16-2024 End: 08-19-2024 inject 1 mg [...] 2024 11:28am Wegovy 1 MG/0.5ML solution auto-injector (6 sources) Start: 11-20-2023 End: 01-28-2025 Wegovy 1 MG/0.5ML solution auto-injector 11/20/2023 01/28/2025 Discontinued (Therapy completed) Start: 11-20-2023 Wegovy 1 MG/0. 5ML solution auto-injector INJECT 1 MG INTO THE SKIN EVERY 7 DAYS. INDICATIONS: OBESITY 11/20/2023 Active Problems Problem Classification Problem Date Documented Da te Episodic/Chronic Anxiety disorders (4 sources) Mixed anxiety and depressive disorder; Translations: [Other specified anxiety disorders] Onset: 5 04-16-2024 Chronic Cancer of colon (5 sources) Malignant tumor of colon; Translations: [Malignant neoplasm of colon, unspecified] Onset: 5 09-08-2024 Chronic Cancer of colon (6 sources) History of malignant neoplasm of colon; Translations: [Personal history of other malignant neoplasm of large intestine] Onset: 5 11-19-2024 Episodic Diabetes mellitus with complications (6 sources) Hyperglycemia due to type 2 diabetes mellitus; Translations: [Type 2 diabetes mellitus with hyperglycemia] Onset: 5 04-16-2024 Chronic Esophageal disorders (2 sources) Laryngopharyngeal reflux; Translations: [Gastro-esophageal reflux disease without esophagitis] 01-28-2025 Chronic Essential hypertension (5 sources) Hypertensive disorder; Translations: [Essential (primary) hypertension] Onset: 5 04-16-2024 Chronic Headache, including migraine (4 sources) Headache; Translations: [HEADACHE] Onset: Episodic Heart valve disorders (2 sources) Heart murmur; Translations: [Cardiac murmur, unspecified] 01-28-2025 Episodic Miscellaneous mental health disorders (3 sources) Pica; Translations: [Pica in adults] Onset: 5 01-19-2025 Chronic Osteoarthritis (2 sources) Arthritis of right knee; Translations: [Unilateral primary osteoarthritis, right knee] 06-02-2024 Chronic Other circulatory disease (3 sources) Finding of sensation of pharynx; Translations: [Other specified symptoms and signs involving the circulatory and respiratory systems] Onset: 5 01-19-2025 Episodic Other circulatory disease (1 source) Other specified symptoms and signs involving the circulatory and respiratory systems; Translations: [Other symptoms involving head and neck] 01-19-2025 Episodic Other gastrointestinal disorders (4 sources) Diarrhea; Translations: [Diarrhea, unspecified] Onset: 5 09-08-2024 Episodic Other gastrointestinal disorders (3 sources) Diarrhea, unspecified; Translations: [Diarrhea] 09-04-2024 Episodic Other gastrointestinal disorders (3 sources) Dysphagia; Translations: [Dysphagia, unspecified] Onset: 5 01-19-2025 Episodic Other gastrointestinal disorders (1 source) Dysphagia, unspecified; Translations: [Dysphagia, unspecified] 01-19-2025 Episodic Other non-traumatic joint disorders (8 sources) Pain in left knee; Translations: [Left knee pain] 04-16-2024 Episodic Other non-traumatic joint disorders (3 sources) Pain in right knee; Translations: [Pain in joint, lower leg] Onset: 5 09-04-2024 Episodic Other upper respiratory disease (1 source) Epistaxis; Translations: [EPISTAXIS] Onset: Episodic Other upper respiratory disease (2 sources) Feeling of lump in throat; Translations: [Globus sensation] 01-28-2025 Episodic Screening or history of mental health and substance abuse (1 source) Personal history of nicotine dependence; Translations: [PERSONAL HISTORY OF NICOTINE DEPEND] Onset: 8 Episodic Results Test Name Value Interpretation Reference Range Facility Basophils Auto (Bld) [#/Vol] on 09-04-2024 Basophils (Bld) [#/Vol] Automated basophil count 0.0-0.1 [facility] Basophils/100 WBC Auto (Bld) on 09-04-2024 Basophils/100 WBC (Bld) Automated basophil % 0.2-2.0 [facility] Eosinophils/100 WBC Auto (Bl d)on 09-04-2024 Eosinophils/100 WBC (Bld) Automated eosinophil % 0.9-7.0 [facility] Erythrocyte distribution wid th Auto (RBC) [Ratio]on 09-04-2024 Erythrocyte distribution width (RBC) [Ratio] Erythrocyte distribution width [Ratio] by Automated count 11.0-15.0 [facility] Estimated glomerular filtrat ion rate (GFR) non- Americanon 09-04-2024 GFR/1.73 sq M.predicted among non-blacks MDRD (S/P/Bld) [Vol rate/Area] Estimated glomerular filtration rate (GFR) non- Low >=60 mL/min/1.73m 2 [facility] Globulin Calc (S) [Mass/Vol] on 09-04-2024 Globulin (S) [Mass/Vol] Serum globulin measurement by calculation (mass/volume) [facility] Glucose mean value [Mass/vol ume] in Blood Estimated from glycated hemoglobinon 09-04-2024 Average glucose Estimated from glycated hemoglobin (Bld) [Mass/Vol] Glucose mean value [Mass/volume] in Blood Estimated from glycated hemoglobin [facility] Hematocrit Auto (Bld) [Volum e fraction]on 09-04-2024 Hematocrit (Bld) [Volume fraction] Hematocrit [Volume Fraction] of Blood by Automated count 36.0-48.0 [facility] Hemoglobin [Mass/volume] in Bloodon 09-04-2024 Hemoglobin (Bld) [Mass/Vol] Hemoglobin [Mass/volume] in Blood 12.0-16.0 [facility] Laboratory - Chemistry and C hemistry - challengeon 09-04-2024 Albumin [Mass/Vol] 3.5 g/dL 3.4-5.0 [facility] ALP [Catalytic activity/Vol] 119 U/L High 46-116 [facility] ALT [Catalytic activity/Vol] 15 U/L 14-59 [facility] AST [Catalytic activity/Vol] 14 U/L Low 15-37 [facility] Bilirubin [Mass/Vol] 0.3 mg/dL 0.2-1.0 [facility] Calcium [Mass/Vol] 9.5 mg/dL 8.5-10.1 [facility] Chloride [Moles/Vol] 103 mmol/L 98-107 [facility] CO2 [Moles/Vol] 27.9 mmol/L 21.0-32.0 [facility] Creatinine [Mass/Vol] 1.37 mg/dL High 0.55-1.02 [facility] GFR/1.73 sq M.predicted MDRD (S/P/Bld) [Vol rate/Area] 46 mL/min/{1.73_m2} Low >=60 mL/min/1.73m 2 [facility] Glucose [Mass/Vol] 83 mg/dL 74-106 [facility] Potassium [Moles/Vol] 3.8 mmol/L 3.5-5.1 [facility] Protein [Mass/Vol] 8.1 g/dL 6.4-8.2 [facility] Sodium [Moles/Vol] 142 mmol/L 136-145 [facility] Urea nitrogen [Mass/Vol] 16.0 mg/dL 7.0-18.0 [facility] Urea nitrogen/Creatinine [Mass ratio] 11.7 mg/mg [facility] - Hematology and Cell countson 09-04-2024 HbA1c (Bld) [Mass fraction] 5.6 % 4.5-6.2 [facility] Comment on above: ADA RECOMMENDED LIMI T 4.0 - 6.0ADA THERAPEUTIC TARGET < 7.0ACTION SUGGESTED> 7.0 Immature granulocytes/100 WBC (Bld) 0.2 % 0.0-0.5 [facility] Leukocytes [#/volume] correc moncho for nucleated erythrocytes in Blood by Automated counon 09-04-2024 WBC corrected for nucl RBC Auto (Bld) [#/Vol] Leukocytes [#/volume] corrected for nucleated erythrocytes in Blood by Automated coun 4.0-11.0 [facility] Lymphocytes Auto (Bld) [#/Vo l]on 09-04-2024 Lymphocytes (Bld) [#/Vol] Lymphocytes [#/volume] in Blood by Automated count 1.2-3.8 [facility] Lymphocytes/100 WBC Auto (Bl d)on 09-04-2024 Lymphocytes/100 WBC (Bld) Lymphocytes/100 leukocytes in Blood by Automated count 20.5-60.0 [facility] MCH Auto (RBC) [Entitic mass ]on 09-04-2024 MCH (RBC) [Entitic mass] MCH [Entitic mass] by Automated count 26.7-34.0 [facility] MCHC Auto (RBC) [Mass/Vol]on 09-04-2024 MCHC (RBC) [Mass/Vol] MCHC [Mass/volume] by Automated count 29.9-35.2 [facility] MCV Auto (RBC) [Entitic vol] on 09-04-2024 MCV (RBC) [Entitic vol] MCV [Entitic volume] by Automated count 81.0-99.0 [facility] Microalbumin [Mass/volume] i n Urineon 09-04-2024 Albumin DL <= 20 mg/L (U) [Mass/Vol] Microalbumin [Mass/volume] in Urine <=30.0 [facility] Monocytes Auto (Bld) [#/Vol] on 09-04-2024 Monocytes (Bld) [#/Vol] Automated blood monocyte count 0.3-0.8 [facility] Monocytes/100 WBC Auto (Bld) on 09-04-2024 Monocytes/100 WBC (Bld) Automated monocyte % 1.7-12.0 [facility] Neutrophils Auto (Bld) [#/Vo l]on 09-04-2024 Neutrophils (Bld) [#/Vol] Neutrophils [#/volume] in Blood by Automated count 1.4-6.5 [facility] Neutrophils/100 WBC Auto (Bl d)on 09-04-2024 Neutrophils/100 WBC (Bld) Automated neutrophil % 43.0-75.0 [facility] No Panel Informationon 09-04 Eosinophils # (Auto) 0.3 10 3/uL 0.0-0.7 [facility] Immature Granulocyte # (Auto) 0.02 10 3/uL 0.00-0.03 [facility] Urine Random Creatinine 439.14 mg/dL High 20.00-300.00 [facility] Platelet mean volume Auto (B ld) [Entitic vol]on 09-04-2024 Platelet mean volume (Bld) [Entitic vol] Platelet mean volume [Entitic volume] in Blood by Automated count 9.5-13.5 [facility] Platelets Auto (Bld) [#/Vol] on 09-04-2024 Platelets (Bld) [#/Vol] Platelets [#/volume] in Blood by Automated count 150-450 [facility] RBC Auto (Bld) [#/Vol]on RBC (Bld) [#/Vol] Erythrocytes [#/volu me] in Blood by Automated count Low 4.20-5.40 [facility] Serum or plasma albumin/glob ulin mass ratioon 09-04-2024 Albumin/Globulin [Mass ratio] Serum or plasma albumin/globulin mass ratio [facility] Serum or plasma anion gap de terminationon 09-04-2024 Anion gap [Moles/Vol] Serum or plasma anion gap determination [facility] Urine microalbumin/creatinin e mass ratioon 09-04-2024 Albumin/Creatinine DL <= 20 mg/L (U) [Mass ratio] Urine microalbumin/creatinine mass ratio 0.0-29.9 [facility] Comment on above: NO MICROALBUMINURIA 0-29 MG/GCLINICAL MICROALBUMINURIA 30-300 MG/GMACROALBUMINURIA >300 MG/G No Panel Informationon 06-02 Malcolm Stover NP 06/02/2024 12:40 PM L Inj/Asp: R knee on 06/02/2024 12:26 PM Indications: pain Details: 20 G needle, anterolateral approach Medications: 40 mg methylPREDNISolone acetate 40 MG/ML UTILIZING ASEPTIC TECHNIQUE PT GIVEN INJECTION IN RIGHT KNEE, NEUROVASC INTACT S/P INJ, TOLERATED WELL Procedure, treatment alternatives, risks and benefits explained, specific risks discussed. Consent was given by the patient. [facility] CT HEAD WO CONon 12-24-2017 CT HEAD WO CON [address] [place] [address] Patient: GILLIAN LAGUNAS Exam Date: 12/24/2017DOB: 1955 Gender:F : BHARATH RIVERS Admission #: [id number] : Order #: [id number] HERE TO VIEW EXAM RADIOLOGY REPORT PROCEDURE: [...] Barragan M.D. on 12/24/2017 at 15:25 Normal [facility] Vital Signs Date Time Vital Sign Value Performing Clinician Facility 01-28-2025 14:40-0400 Body height 165.1 cm Beatris Tyler MD Work Phone: [facility] 01-28-2025 14:40-0400 Body mass index (BMI) [Ratio] 42.77 kg/m2 Beatris Tyler MD Work Phone: [facility] 01-28-2025 14:40-0400 Body weight 116.57 kg Beatris Tyler MD Work Phone: [facility] 01-28-2025 14:40-0400 Diastolic blood pressure 64 mm[Hg] Beatris Tlyer MD Work Phone: [facility] 01-28-2025 14:40-0400 Heart rate 80 /min Beatris Tyler MD Work Phone: [facility] 01-28-2025 14:40-0400 Systolic blood pressure 159 mm[Hg] Beatris Tyler MD Work Phone: [facility] 01-19-2025 14:10-0400 Body height 160.02 cm [facility] 01-19-2025 14:10-0400 Body mass index (BMI) [Ratio] 48.5 kg/m2 [facility] 01-19-2025 14:10-0400 Body weight 124.28 kg [facility] 01-19-2025 14:10-0400 Diastolic blood pressure 79 mm[Hg] [facility] 01-19-2025 14:10-0400 Heart rate 74 /min [facility] 01-19-2025 14:10-0400 Respiratory rate 12 /min [facility] 01-19-2025 14:10-0400 SaO2% (BldA) [Mass fraction] 97 % [facility] 01-19-2025 14:10-0400 Systolic blood pressure 129 mm[Hg] [facility] 11-19-2024 14:59-0500 Body height 160.02 cm [facility] 11-19-2024 14:59-0500 Body mass index (BMI) [Ratio] 45.1 kg/m2 [facility] 11-19-2024 14:59-0500 Body weight 115.66 kg [facility] 11-19-2024 14:59-0500 Diastolic blood pressure 76 mm[Hg] [facility] 11-19-2024 14:59-0500 Heart rate 70 /min [facility] 11-19-2024 14:59-0500 Systolic blood pressure 113 mm[Hg] [facility] 09-04-2024 13:59-0500 Body height 160.02 cm [facility] 09-04-2024 13:59-0500 Body mass index (BMI) [Ratio] 45.7 kg/m2 [facility] 09-04-2024 13:59-0500 Body weight 117.14 kg [facility] 09-04-2024 13:59-0500 Diastolic blood pressure 80 mm[Hg] [facility] 09-04-2024 13:59-0500 Heart rate 80 /min [facility] 09-04-2024 13:59-0500 Systolic blood pressure 122 mm[Hg] [facility] 04-16-2024 10:53-0400 Body height 160.02 cm [facility] 04-16-2024 10:53-0400 Body mass index (BMI) [Ratio] 45.1 kg/m2 [facility] 04-16-2024 10:53-0400 Body weight 115.66 kg [facility] 04-16-2024 10:53-0400 Diastolic blood pressure 73 mm[Hg] [facility] 04-16-2024 10:53-0400 Heart rate 67 /min [facility] 04-16-2024 10:53-0400 Systolic blood pressure 112 mm[Hg] [facility] Encounters Encounter Date Encounter Type Care Provider Facility Start: 01-28-2025 End: 01-28-2025 Office outpatient new 45 minutes Beatris Tyler MD Work Phone: [facility] Comment on above: Globus sensation (Pr imary Dx); LPRD (laryngopharyngeal reflux disease); Heart murmur Start: 01-28-2025 End: 01-28-2025 ambulatory BEATRIS TYLER Not Available Start: 01-28-2025 End: 01-28-2025 Bamboo flowsheet Beatris Tyler MD Work Phone: [facility] Start: 01-28-2025 End: 01-28-2025 Chaka Tyler MD Work Phone: [facility] Start: 01-19-2025 End: 01-19-[address] [facility] Work Phone: Start: 01-19-2025 End: 01-19-2025 Patient encounter procedure [facility] Work Phone: Start: 01-12-2025 End: 01-12-2025 ambulatory Dorothy Dumont MD Facility: [facility] Start: 11-19-2024 End: 11-19-[address] [facility] Work Phone: Start: 11-19-2024 End: 11-19-[address] [facility] Physician [facility] Work Phone: Start: 11-17-2024 End: 11-17-2024 ambulatory Dorothy Dumont MD Facility:[facility] Start: 10-20-2024 End: 10-20-2024 ambulatory Dorothy Dumont MD Facility:[facility] Start: 10-06-2024 End: 10-06-2024 ambulatory Dorothy Dumont MD Facility: [facility] Start: 09-04-2024 End: 09-04-2024 Patient encounter procedure [facility] Work Phone: Start: 09-03-2024 Non-patient / Non-visit [facility] Work Phone: Start: 06-02-2024 End: 06-02-2024 Bamboo flowsheet Malcolm Stover INVENTORY SPECIALIST Work Phone: [facility] Start: 06-02-2024 End: 06-02-2024 Bamboo flowsheet Malcolm Stover INVENTORY SPECIALIST Work Phone: [facility] Start: 06-02-2024 End: 06-02-2024 Office outpatient visit 25 minutes Malcolm Stover INVENTORY SPECIALIST Work Phone: [facility] Comment on [...] Not Available Start: 04-16-2024 End: 04-16-[address] [facility] Work Phone: Start: 04-16-2024 End: 04-16-2024 Patient encounter procedure [facility] Work Phone: Start: 12-24-2017 End: 12-24-2017 Ambulatory BHARATH RIVERS Facility:[facility] Procedures Date Procedure Procedure Detail Performing Clinician Start: 06-02-2024 Arthrocentesis aspir &/inj major jt/bursa w/o us Malcolm Stover INVENTORY SPECIALIST Work Phone: Plan of Treatment Date Care Activity Detail Author Start: 05-25-2025 Influenza vaccination Influenz a Vaccine (Season Ended) [facility] Start: 01-28-2025 End: 01-28-2025 Patient encounter procedure 01/28/2025 2:40 PM EDT Office Visit [facility] [address] [place] [address] Beatris Tyler MD [address] [place] [address] Arrived [facility] Comment on above: Arrived Start: 01-19-2025 Patient referral [facility] Work Phone: Start: 09-08-2024 Patient referral [facility] Work Phone: Start: 06-02-2024 End: 06-02-2024 Patient encounter procedure 06/02/2024 12:00 PM EDT Office Visit [facility] [address] [facility] [address] [place] [address] Malcolm Stover NP [address] [place] [address] Left knee pain, unspecified chronicity (Primary Dx); Arthritis of left knee [facility] Comment on above: Left knee pain, unsp ecified chronicity (Primary Dx); Arthritis of left knee Start: 05-25-2024 Influenza vaccination Influenza Vacc ine (#1) [facility] Start: 04-16-2024 Patient referral [facility] Work Phone: Start: 2020 Pneumococcal Vaccine : 65+ Years (1 of 1 - PCV) Pneumococcal Vaccine: 65+ Years (1 of 1 - PCV) [facility] Start: 2005 Pneumococcal Vaccine : 65+ Years (1 of 1 - PCV) Pneumococcal Vaccine: 65+ Years (1 of 1 - PCV) [facility] Start: 1995 Screening for malign ant neoplasm of breast Mammogram [facility] Start: 1955 Medicare Annual Wellness (AWV) Medicare Annual Wellness (AWV) [facility] Start: 1955 Screening for malign ant neoplasm of colon [facility] Comprehensive [facility] 2000 panel - Serum or Plasma [facility] Patient Education Vestibular Exercises [facility] Work Phone: Patient referral [facility] Work Phone: Zinc [Mass/volume] i n Serum or Plasma [facility] Payers Date Payer Category Payer Unknown 2024 Medicare ANTH MEDICARE ADVANTAGE [facility] MEDICARE ADVANTAGE [id number] 2024-Present [address] [place] [address] [id number] 2024 Medicare (Managed Care) [facility] EDICARE ADVANTAGE [id number] 2024 Unknown [id number] 1959 Unknown [id number] 1955 Unknown [id number] 2.840.1.950808.3.579. 2. 1955 Unknown [id number] 2.840.1.041565.3.579. 2. 1955 Unknown [id number] 2.16840.1.215722.3.579. 2. 1955 Unknown [id number] 2.840.1.815380.3.579. 2.196 1955 Unknown [id number] 2.16.840.1.962975.3.579. 2.196 1955 Unknown [id number] 2.16.840.1.657876.3.579. 2.1259 1955 Unknown [id number] 2.16.840.1.386856.3.579. 2.1258 1955 Unknown [id number] 2.16.840.1.415871.3.579. 2.9 1955 Unknown [id number] 2.16.840.1.226592.3.579. 2.1258 1955 Unknown [id number] 2.16.840.1.030463.3.579. 2.9 1955 Unknown [id number] 2.16.840.1.381111.3.579. 2.1259 Social History Date Type Detail Facility Start: 04-16-2024 End: 04-28-2024 Tobacco smoking status NCIS Ex-smoker (finding) [facility] Start: 1955 Sex Assigned At Female F [facility] Start: 09-24-1973 History of tobacco use Current smoke r [facility] Start: 09-24-1973 History of tobacco use Cigarette Smo ker [facility] Start: 04-28-2024 End: 06-02-2024 Cigarettes smoked current (pack per day) - Reported 2.5 [facility] Start: 04-28-2024 Tobacco use and exposure Smokeless tobacco non-user [facility] Start: 05-12-2024 End: 01-28-2025 Alcoholic beverage intake Current drinker of alcohol (finding) [facility] Start: 05-12-2024 End: 06-02-2024 Tobacco use panel [facility] Start: 04-28-2024 Alcohol Comment 1 drink per month [facility] Start: 1955 Sex assigned at Not on file [facility] Start: 11-19-2024 End: 01-19-2025 Sex Female (finding) [facility] History of Present illness Narrative 01-28-2025 Beatris Tyler MD - 01/28/2025 2:40 PM EDT Note Date & Type Note Facility 01-28-2025 History of Presen t illness Narrative Subjective Patient ID: Gillian Lagunas is a 69 y.o. female who presents for Dysphagia Pt reports she has a decades-long h/o globus and phlegm in throat. No eval or tyx yet. Review of Systems All other systems reviewed and are negative. No family history on file. Active Ambulatory Problems Diagnosis Date Noted Bilateral knee pain 01/28/2025 Colon cancer ([facility]/HCC) 01/28/2025 Diarrhea 01/28/2025 History of colon cancer 01/28/2025 Hypertension ([facility]) 01/28/2025 Mixed anxiety and depressive disorder 01/28/2025 Pica in adults 01/28/2025 Throat fullness 01/28/2025 Trouble swallowing 01/28/2025 Type 2 diabetes mellitus with hyperglycemia ([facility]) 01/28/2025 Resolved Ambulatory Problems Diagnosis Date Noted No Resolved Ambulatory Problems No Additional Past Medical History Past Surgical History: Procedure Laterality Date COLON SURGERY 2008 dr ramon HERNIA REPAIR 03/2021 ABD hernia, dr ramon KNEE SURGERY Right dr lanza [place] No Known Allergies Current Outpatient Medications on File Prior to Visit Medication Sig Dispense Refill amLODIPine (Norvasc) 5 MG tablet Take 5 mg by mouth Daily baclofen (Lioresal) 5 MG tablet buPROPion XL (Wellbutrin XL) 300 MG 24 hr tablet 300 mg in the morning. citalopram (CeleXA) 10 MG tablet Take 20 mg by mouth Daily 40 mg daily citalopram (CeleXA) 40 MG tablet Take 40 mg by mouth Daily dicyclomine (Bentyl) 20 MG tablet Twice daily HYDROcodone-acetaminophen (Kipling) 5-325 MG tablet Take 1 tablet by mouth every 6 (six) hours if needed for moderate pain losartan-hydroCHLOROthiazide (Hyzaar) 100-12.5 MG tablet Take 1 tablet by mouth Daily meloxicam (Mobic) 7.5 MG tablet Take 15 mg by mouth Daily [DISCONTINUED] Ozempic, 1 MG/DOSE, 4 MG/3ML solution pen-injector Inject 1 mg under the skin 1 (one) time per week [DISCONTINUED] Wegovy 1 MG/0.5ML solution auto-injector No current facility-administered medications on file prior to visit. Objective Last Recorded Vitals Vitals: 01/28/25 1440 BP: 159/64 Pulse: 80 ENT Physical Exam Constitutional Appearance: patient appears well-developed, well-nourished and well-groomed, Head and Face Appearance: head appears normal and face appears atraumatic; Ear Ear Canals: right ear canal normal; left ear canal normal; Tympanic Membranes: right tympanic membrane normal; left tympanic membrane normal; Nose External Nose: nares patent bilaterally; external nose normal; Internal Nose: septum normal; Oral Cavity/Oropharynx Tongue: normal; Oral mucosa: normal; Hard palate: normal; Soft palate: normal; Tonsils: normal; Base of Tongue: normal; OC/OP comments: IDL - no mass or ulcer Neck Neck: neck normal; neck palpation normal; Thyroid: thyroid normal; Respiratory Inspection: breathing unlabored; normal breathing rate; Auscultation: breath sounds are clear; Cardiovascular Inspection: extremities are warm and well perfused; no peripheral edema present; Auscultation: heart murmur present; Assessment/Plan Diagnoses and all orders for this visit: Globus sensation LPRD (laryngopharyngeal reflux disease) Heart murmur Throat sx are likely due to LPRD. I will check esophagram and start an aggressive reflux regimen. PT has a systolic murmur she was unaware of, though she apparently had a cardiac echo 2 days ago documented in this encounter [facility] Discharge instructions 01-19-2025 Note Date & Type Note Facility 01-19-2025 Hospital Discharg e instructions Ambulatory OrdersReferral to ENT Time Frame: 01/19/25, Location: None [facility] Work Phone: Evaluation note 11-19-2024 Note Date & Type Note Facility 11-19-2024 Evaluation note Diagnosis Onset Date Resolution Diarrhea acute November 19, 2024 2:54pm History of colon cancer acute F ebruary 2024 2:54pm Throat fullness acute December 2:07pm Trouble swallowing acute January 19, 2025 2:07pm Type 2 diabetes mellitus with hyperglycemia acute January 19, 2 025 2:07pm [facility] Work Phone: Evaluation note 09-04-2024 Note Date & Type Note Facility 09-04-2024 Evaluation note Diagnosis Onset Date Resolution Bilateral knee pain acute Decem 2023 1:49pm Colon cancer acute August 1:49pm Diarrhea acute September 04, 2024 1:49pm Hypertension acute August 1:49pm Type 2 diabetes mellitus with hyperglycemia acute August 1:49pm Diarrhea acute November 19, 2024 2:54pm History of colon cancer acute F ebruary 2024 2:54pm [facility] Work Phone: History of Present illness Narrative 06-02-2024 Malcolm Stover, LINSEY - 06/02/2024 12:00 PM EDT Note Date [...] had injections in the past by Dr. Lanza ([place], orthopedic). She was getting cortisone injections in the past, last one done /2023. She only gets 2 months relief from the injections. She notes she just moved to [place] November 28, 2023. Denies injury. Pain is anterior lateral, pain at rest 6/10 notes it is throbbing with activities and prolonged standing /10, she limps from the pain. She is taking norco (from her PCP in [place]) with relief. Also taking baclofen per PCP [...] she understands this documented in this encounter [facility] Evaluation note Note Date & Type Note Facility Evaluation note Diagnosis Onset Date Left knee pain acute [facility] Work Phone: Evaluation note Note Date & Type Note Facility Evaluation note Diagnosis Chronic pain of right knee- Primary Arthritis of right knee documented in this encounter [facility] Evaluation note Note Date & Type Note Facility Evaluation note Diagnosis Globus sensation- Primary Gastrointestinal malfunction arising from mental factors LPRD (laryngopharyngeal reflux disease) Acute laryngitis, without mention of obstruction Heart murmur Undiagnosed cardiac murmurs documented in this encounter [facility] Discharge instructions Note Date & Type Note Facility Hospital Discharge instructions Ambulatory OrdersReferral to Orthopedics Time Frame: 04/16/24, Location: None Selected [facility] Work Phone: Summary Purpose Family History [...] 2:54pm History of colon cancer November 19 2 025 2:54pm Chief Complaint Admit Date Ref: diarrhea/hx of colon cancer y 2024 2:54pm Possible Low Iron-HIGH RISK January 19, 2025 2:07pm Reason for Visit Admit Date Diarrhea November 19, 2024 2:54pm History of colon cancer November 19 2 025 2:54pm Throat fullness January 19, 2025 2:0 7pm Trouble swallowing January 19, 2025 2:0 7pm Type 2 diabetes mellitus with hyperglyce sheri January 19, 2025 2:07pm Reason for Referral Specialty Diagnoses / Procedures Referred By Víctor t Referred To Contact Orthopaedic Surgery Diagnoses Arthritis of right knee Procedures L Inj/Asp: R knee AplingMalcolm INVENTORY SPECIALIST [address] [address] Referral ID Status Reason Start Date Expiration Date V isits Requested Visits Authorized [id number] Authorized 06/02/2024 11/29/2024 1 1 Additional Source Comments INFORMATION SOURCE (unrecogn ized section and content) DATE CREATED AUTHOR 03/14/2018 [facility] DATE CREATED AUTHOR AUTHOR'S ORGANIZ ATION 01/20/2025 [facility] DATE CREATED AUTHOR AUTHOR'S ORGANIZ ATION 01/31/2025 [facility] EPIC Care Teams (unrecognized sec tion and content) Team Status: Active Member Role Status Dates Ilda Garcia MD Primary Care Provider Active Team Status: Inactive Member Role Status Dates Ilda Garcia MD Primary Care Provider Active Start: November 19, 2024 End: November 19, 2024 Arvind Mensah MD Attending Provider Active S tart: November 19, 2024 End: November 19, 2024 Team Status: Inactive Member Role Status Dates Ilda Garcia MD Primary Care Provide r, Attending Provider Active Start: January 19, 2025 End: January 19, 2025 Team Status: Active Member Role Status Dates Ilda Garcia MD Primary Care Provide r, Attending Provider Active Start: September 03, 2024 Team Status: Inactive Member Role Status Dates Ilda Garcia MD Primary Care Provide r, Attending Provider Active Start: September 04, 2024 End: September 04, 2024 Team Status: Inactive Member Role Status Dates Ilda Garcia MD Primary Care Provide r, Attending Provider Active Start: April 16, 2024 End: April 16, 2024 Talkback Host Relationship Specialty Start Date End Date Ilda Garcia MD [address] [place] [phone] PCP - General Family Medicine 04/28/24 Talkback Host Relationship Specialty Start Date End Date Ilda Garcia MD [address] [place] [phone] PCP - General Family Medicine 04/28/24 Talkback Host Relationship Specialty Start Date End Date Malcolm Stover NP PCP - Miley MUÑIZ 09/24/24 Ilda Garcia MD [address] [place] [phone] PCP - General Family Medicine 01/28/25 Talkback Host Relationship Specialty Start Date End Date Malcolm Stover NP PCP - Miley MUÑIZ 09/24/24 Ilda Garcia MD [address] [place] [phone] PCP - General Family Medicine 01/28/25 Goals (unrecognized section and content) Goals may be documented in a n alternate sectionGoals may be documented in an alternate sectionGoals may be documented in an alternate section Reason for Visit (unrecogniz ed section and content) Reason Comments Dysphagia Specialty Diagnoses / Procedures Referred By Contac t Referred To Contact Otolaryngology Diagnoses Other specified symptoms and signs involving the circulatory and respiratory systems Dysphagia, unspecified Procedures OK [facility]LIST[facility] [employer] [facility] Ilda Garcia MD [address] [place] [address] Phone: tel: Beatris Tyler MD [address] [facility] [address] [place] [address] Phone: tel: fax: Referral ID Status Reason Start Date Expiration Date Visits Re quested Visits Authorized [id number] Closed 01/19/2025 07/18/2025 1 FOR RECORDS PERTAINING TO PATIENTS WHO ARE [...] BE BASED ON THE PRIMARY CLINICAL RECORDS. [facility]. provides no warranty or guarantee of the accuracy or completeness of information in this document.
[2025-02-09 07:02] VITALS: BP 135/80; PULSE 85; TEMP 36.5; O2SAT 96
[2025-02-09 07:04] LABS: Glucometer 92 mg/dL (74-106)
[2025-02-09] MEDS: 0.9 % SODIUM CHLORIDE 500 ML 50 ML IV (07:12)
[2025-02-09] MEDS: BUPIVACAINE HCL 0.25% PF 25 MG/10 ML VIAL 2 ML INJ (08:18)
[2025-02-09] MEDS: LIDOCAINE HCL 2% 400 MG/20 ML MDV 12 ML INJ (08:19)
[2025-02-09] MEDS: METHYLPREDNISOLONE ACETATE 40 MG/ML VIAL INJ (08:19)
--- NOTE | 2025-02-09 08:24 | W.PM.PROCNOT ---
Date of procedure: 02/09/25 Pre-op diagnosis: Pain due to left knee osteoarthritis Post-op diagnosis: same as pre-op Procedure: Procedure: Left genicular nerve radiofrequency ablation Medications: Bupivacaine 0.25% 2cc, lidocaine 2% 10cc, depomedrol 40mg The patient was taken to the procedures suite and positioned in the supine position. I explained the details of the procedure to the patient including the risks, benefits and alternatives. We had an informed discussion and the patient verbalized understanding and signed the consent form. All questions were answered appropriately.? ? A 'time out' procedure was performed. The patient was identified, the chart was reviewed, and all allergies were confirmed. Laterality was conducted and marked. The left knee was marked with a sterile marking pen, prepped with Chloraprep, and sterilely draped.? Under fluoroscopic guidance, branches of the genicular nerves were localized.? First the superior medial genicular nerve was localized where the femoral shaft meets the medial epicondyle.? Skin was anesthetized with 1% lidocaine (only the superficial areas far from osseous contact).? The appropriate level of insertion was identified by placing a hemostat over the knee and obtaining an AP view. An 18-gauge 10 mm active tip 3.5 in needle was advanced in a coaxial manner in the lateral view at 1/2 the depth of the femur which was identified by placing forceps over the skin in the lateral view.? This was repeated on the superior lateral genicular nerve where the femoral shaft meets the lateral epicondyle and the inferior medial genicular nerve where the medial tibal shaft meets the tibial epicondyle (needle was advanced to half the depth of the tibia).? Needle placement was confirmed with a lateral view in all sites, after negative aspiration, 1cc of 2% lidocaine was injected at each of the three sites. ? Sensory testing was completed at 0.5 V at each level and motor testing was negative at 1.5 V for all 3 levels. Each of the sites were lesioned for 80 degrees at 80 seconds, with impedance < 500. The probes were subsequently removed and the sites of insertion were bandaged. The patient was taken to the postoperative area and discharged in good condition. Anesthesia: MAC Surgeon: Dorothy Dumont Pathology: none sent Condition: stable Disposition: no change
[2025-02-09 08:27] VITALS: BP 140/72; PULSE 61; TEMP 36.5; O2SAT 97
[2025-02-09 08:30] VITALS: BP 136/75; PULSE 61; TEMP 36.5; O2SAT 98
== END 2025-02-09 08:53 | disposition home or self-care (01) ==
LOC: SURGOUT 06:50
PROVIDERS: PCP Family Medicine; Visit Provider Anesthesiology
DX: M17.12 Unilateral primary osteoarthritis, left knee (principal); E11.8 Type 2 diabetes mellitus with unspecified complications
CPT/HCPCS: 36415; 64624; 82948; J0665; J1010; J2704

== ENCOUNTER 2025-02-23 06:48 | Day surgery (SDC) | payer MEDICARE, SELFPAY ==
--- OUTSIDE RECORDS SUMMARY | 2025-02-23 06:51 | XMS_ITS | CCD ---
Author Organization [facility] Care Team Providers Care Associate Account Manager Name Role Phone BHARATH RIVERS Unavailable Unavailable BHARATH RIVERS Unavailable Unavailable MISC, DOCTOR Unavailable Unavailable JES BARRAGAN V Unavailable Unavailable BHARATH RIVERS Unavailable Unavailable Jessica MONTEZ, Ilda Primary Care Provider [phone] Jolanta FRAME TENDER, Malcolm Archer Unavailable Jessica MONTEZ, Ilda Primary Care Provider BEATRIS TYLER Attending Unavailable ILDA GARCIA Referring Unavailable APLING, MALCOLM Archer Attending Unavailable APLING, MALCOLM Archer Referring Unavailable APLING, MALCOLM Archer Attending Unavailable APLING, MALCOLM Archer Attending Unavailable APLING, MALCOLM Archer Attending Unavailable Gimarika MONTEZ, Dorothy Katz Attending Unavailable Gisusanitis , Andaleksey Katz Attending Unavailable Gisusanitis , Andaleksey Katz Attending Unavailable Gieditis , Andaleksey Katz Attending Unavailable Gisusanitis , Andaleksey Katz Attending Unavailable Medications Current Medications Medication Drug Class(es) Dates Sig (Normalized) Sig (Original) acetaminophen 325 mg / HYDROcodone bitartrate 5 mg oral tablet (12 sources) Opioid Agonist Start: 01-19-2025 take 1 tablet by mouth three times daily as needed Hydrocodone-Aceta minophen 5-325 mg tablet Active 1 TAB PO Three times daily as needed January 19, 2025 12:00am Start: 04-16-2024 take 1 tablet by ashley th every six hours as needed for pain HYDROcodone-acetaminophen (Willard) 5-325 MG tablet Take 1 tablet by mouth every 6 (six) hours if needed for moderate pain 04/16/2024 Active Start: 04-16-2024 End: 09-04-2024 take 1 tablet by mouth once daily at bedtime as needed Hydrocodone-Acetaminophen 5-325 mg table t Discontinued 1 TAB PO Daily at bedtime as needed April 16, 2024 12:00am September 04, 2024 3:32pm amLODIPine 5 mg oral tablet (20 sources) Dihydropyridine Calcium Channel Barry Start: 09-25-2024 End: 01-22-2025 take 1 tablet by mouth once daily Amlodipine 5 mg tablet Active 0 .ROUTE .COMPLEX January 22, 2025 8:30am TAKE 1 TABLET BY MOUTH EVERY DAY Start: 04-16-2024 End: 09-25-2024 take 1 tablet by mouth once daily Amlodipine 5 mg tablet Discontinued 5 MG PO Daily April 16, 2024 11:26am September 25, 2024 2:16pm baclofen 5 mg oral tablet (7 sources) gamma-Aminobutyric Acid-ergic Agonist Start: 02-17-2025 take 1 tablet by mouth once daily Baclofen 5 mg tablet Active 5 MG PO Daily February 17, 2025 12:00am Start: 02-01-2024 baclofen (Jong esal) 5 MG tablet 02/01/2024 Active 24 hr buPROPion hydrochloride 300 mg extended release oral tablet (20 sources) Aminoketone Start: 12-22-2024 End: 01-22-2025 take 1 tablet by mouth once daily in the morning Bupropion Hcl 300 mg tablet extended release 24 hr Active 0 .ROUTE .COMPLEX January 22, 2025 8:30am TAKE 1 TABLET BY MOUTH EVERY MORNING [...] 16, 2024 11:27am September 25, 2024 2:16pm celecoxib 200 mg oral capsule (1 source) Nonsteroidal Anti-inflammatory Drug Start: 02-17-2025 take 1 mg by mouth twice daily Celecoxib 200 mg capsule Active MG PO Twice daily February 17, 2025 12:00am citalopram 20 mg oral tablet (20 sources) Serotonin Reuptake Inhibitor Start: 02-04-2025 take 1 tablet by mouth once daily Citalopram 20 mg tablet Active 20 MG PO Daily February 04, 2025 12:22pm Start: 04-17-2024 End: 02-04-2025 take 1 tablet by mouth once daily Citalopram 40 mg tablet Discontinued 40 MG PO Daily January 22, 2025 8:30am February 04, 2025 12:24pm Start: 04-17-2024 End: 04-17-2024 take 4 tablets [...] 10:30am dicyclomine hydrochloride 20 mg oral tablet (5 sources) Anticholinergic Start: 11-19-2024 take 1 tablet by mouth twice daily Dicyclomine 20 mg tablet Active 20 MG PO Twice daily 60 November 19, 2024 1:00am famotidine 20 mg oral tablet (3 sources) Histamine-2 Receptor Antagonist Start: 01-28-2025 End: 04-28-2025 Famotidine 20 mg tablet Active MG PO February 17, 2025 12:00am folic acid 1 mg oral tablet (1 source) Start: 01-29-2025 take 1 tablet by mouth once daily Folic Acid 1 mg tablet Active 1 MG PO Daily January 29, 2025 12:00am hyoscyamine sulfate 0.125 mg sublingual tablet (1 source) Start: 02-17-2025 take 1 tablet by mouth three times daily Hyoscyamine Sulfate (Levsin/Sl) 0.125 mg tablet, sublingual Active 0.125 MG PO Three times daily February 17, 2025 12:00am omeprazole 40 mg delayed release oral capsule (3 sources) Proton Pump Inhibitor Start: 01-28-2025 End: 04-28-2025 Omeprazole 40 mg capsule,delayed release(DR/EC) Active MG PO February 17, 2025 12:00am ondansetron 4 mg disintegrating oral tablet (3 sources) Serotonin-3 Receptor Antagonist Start: 09-04-2024 take 1 tablet by mouth every eight hours Ondansetron 4 mg tablet,disintegr ating Active 4 MG PO Q8H September 04, 2024 1:00am Completed/Discontinued Medications Medication Drug Class(es) Dates Sig (Normalized) Sig (Original) hydroCHLOROthiazide 12.5 mg / losartan potassium 100 mg oral tablet (20 sources) Thiazide Diuretic, Angiotensin 2 Receptor Barry Start: 04-16-2024 End: 01-22-2025 take 1 tablet by mouth once daily Losartan-Hydrochl orothiazide 100-12.5 mg tablet Discontinued 1 TAB PO Daily April 16, 2024 11:27am July 12, 2024 8:24am meloxicam 7.5 mg oral tablet (16 sources) Nonsteroidal Anti-inflammatory Drug Start: 05-13-2024 End: 02-17-2025 take 1 tablet by mouth once daily Meloxicam 7.5 mg tablet Discontinued 0 .ROUTE .COMPLEX September 15, 2024 10:31pm February 17, 2025 3:07pm TAKE 1 TABLET BY MOUTH EVERY DAY Start: 04-16-2024 take 2 tablets by mo [facility] once daily meloxicam (Mobic) 7.5 MG tablet Take 15 mg by mouth Daily 04/16/2024 Active Start: 04-16-2024 End: 05-13-2024 take 1 tablet by mouth once daily Meloxicam 7.5 mg tablet Discontinued 7.5 MG PO Daily April 16, 2024 12:00am May 13, 2024 11:13am 1 ml methylPREDNISolone acetate 40 mg/ml injection (4 sources) Corticosteroid Start: 06-02-2024 End: 06-02-2024 methylPREDNISolone acetate (DEPO-Medrol) injection 40 mg Start: 06-02-2024 End: 06-02-2024 40 mg, Intra-articular, Once PRN Procedure, Starting on 06/02/24 at 1226, For 1 dose Ozempic, 1 [...] (one) time per week 04/18/2024 Active Semaglutide (11 sources) Start: 08-19-2024 End: 09-04-2024 inject 1 [...] Date Documented Da te Episodic/Chronic Anxiety disorders (5 sources) Mixed anxiety and depressive disorder; Translations: [Other specified anxiety disorders] Onset: 5 04-16-2024 Chronic Cancer of colon (6 sources) Malignant tumor of colon; Translations: [Malignant neoplasm of colon, unspecified] Onset: 5 09-08-2024 Chronic Cancer of colon (9 sources) History of malignant neoplasm of colon; Translations: [Personal history of other malignant neoplasm of large intestine] Onset: 5 11-19-2024 Episodic Diabetes mellitus with complications (8 sources) Hyperglycemia due to type 2 diabetes mellitus; Translations: [Type 2 diabetes mellitus with hyperglycemia] Onset: 04-16-2024 Chronic Esophageal disorders (2 sources) Laryngopharyngeal reflux; Translations: [Gastro-esophageal reflux disease without esophagitis] 01-28-2025 Chronic Essential hypertension (6 sources) Hypertensive disorder; Translations: [Essential (primary) hypertension] Onset: 04-16-2024 Chronic Headache, including migraine (4 sources) Headache; Translations: [HEADACHE] Onset: Episodic Heart valve disorders (2 sources) Heart murmur; Translations: [Cardiac murmur, unspecified] 01-28-2025 Episodic Miscellaneous mental health disorders (5 sources) Pica; Translations: [Pica in adults] Onset: 5 01-19-2025 Chronic Osteoarthritis (2 sources) Arthritis of right knee; Translations: [Unilateral primary osteoarthritis, right knee] 06-02-2024 Chronic Other circulatory disease (4 sources) Finding of sensation of pharynx; Translations: [Other specified symptoms and signs involving the circulatory and respiratory systems] Onset: 5 01-19-2025 Episodic Other circulatory disease (2 sources) Other specified symptoms and signs involving the circulatory and respiratory systems; Translations: [Other symptoms involving head and neck] 01-19-2025 Episodic Other gastrointestinal disorders (5 sources) Diarrhea; Translations: [Diarrhea, unspecified] Onset: 5 09-08-2024 Episodic Other gastrointestinal disorders (4 sources) Diarrhea, unspecified; Translations: [Diarrhea] 09-04-2024 Episodic Other gastrointestinal disorders (4 sources) Dysphagia; Translations: [Dysphagia, unspecified] Onset: 5 01-19-2025 Episodic Other gastrointestinal disorders (2 sources) Dysphagia, unspecified; Translations: [Dysphagia, unspecified] 01-19-2025 Episodic Other non-traumatic joint disorders (10 sources) Pain in left knee; Translations: [Left knee pain] 04-16-2024 Episodic Other non-traumatic joint disorders (3 sources) Pain in right knee; Translations: [Pain in joint, lower leg] Onset: 5 09-04-2024 Episodic Other upper respiratory disease (1 source) Epistaxis; Translations: [EPISTAXIS] Onset: 8 Episodic Other upper respiratory disease (2 sources) Feeling of lump in throat; Translations: [Globus sensation] 01-28-2025 Episodic Screening or history of mental health and substance abuse (1 source) Personal history of nicotine dependence; Translations: [PERSONAL HISTORY OF NICOTINE DEPEND] Onset: 8 Episodic Results Test Name Value Interpretation Reference Range Facility Basophils Auto (Bld) [#/Vol] on 01-26-2025 Basophils (Bld) [#/Vol] Automated basophil count 0.0-0.1 [facility] Basophils/100 WBC Auto (Bld) on 01-26-2025 Basophils/100 WBC (Bld) Automated basophil % 0.2-2.0 [facility] Eosinophils/100 WBC Auto (Bl d)on 01-26-2025 Eosinophils/100 WBC (Bld) Automated eosinophil % 0.9-7.0 [facility] Erythrocyte distribution wid th Auto (RBC) [Ratio]on 01-26-2025 Erythrocyte distribution width (RBC) [Ratio] Erythrocyte distribution width [Ratio] by Automated count 11.0-15.0 [facility] Estimated glomerular filtrat ion rate (GFR) non- Americanon 01-26-2025 GFR/1.73 sq M.predicted among non-blacks MDRD (S/P/Bld) [Vol rate/Area] Estimated glomerular filtration rate (GFR) non- Low >=60 mL/min/1.73m 2 [facility] Globulin Calc (S) [Mass/Vol] on 01-26-2025 Globulin (S) [Mass/Vol] Serum globulin measurement by calculation (mass/volume) [facility] Glucose mean value [Mass/vol ume] in Blood Estimated from glycated hemoglobinon 01-26-2025 Average glucose Estimated from glycated hemoglobin (Bld) [Mass/Vol] Glucose mean value [Mass/volume] in Blood Estimated from glycated hemoglobin [facility] Hematocrit Auto (Bld) [Volum e fraction]on 01-26-2025 Hematocrit (Bld) [Volume fraction] Hematocrit [Volume Fraction] of Blood by Automated count 36.0-48.0 [facility] Hemoglobin A1c percentageon 01-26-2025 HbA1c (Bld) [Mass fraction] Hemoglobin A1c percentage 4.5-6.2 [facility] Comment on above: ADA RECOMMENDED LIMI T 4.0 - 6.0ADA THERAPEUTIC TARGET < 7.0ACTION SUGGESTED> 7.0 Hemoglobin [Mass/volume] in Bloodon 01-26-2025 Hemoglobin (Bld) [Mass/Vol] Hemoglobin [Mass/volume] in Blood 12.0-16.0 [facility] Laboratory - Chemistry and C hemistry - challengeon 01-26-2025 Albumin [Mass/Vol] 3.4 g/dL 3.4-5.0 [facility] ALP [Catalytic activity/Vol] 120 U/L High 46-116 [facility] ALT [Catalytic activity/Vol] 17 U/L 14-59 [facility] AST [Catalytic activity/Vol] 11 U/L Low 15-37 [facility] Bilirubin [Mass/Vol] 0.3 mg/dL 0.2-1.0 [facility] Calcium [Mass/Vol] 9.4 mg/dL 8.5-10.1 [facility] Chloride [Moles/Vol] 102 mmol/L 98-107 [facility] CO2 [Moles/Vol] 28.8 mmol/L 21.0-32.0 [facility] Cobalamin (Vitamin B12) [Mass/Vol] 280 pg/mL 232-1245 [facility] Comment on above: Performed at: - [address] [id number] Director: Grady Rivera PhD, Phone: [phone] Creatinine [Mass/Vol] 1.14 mg/dL High 0.55-1.02 [facility] Ferritin [Mass/Vol] 12.0 ng/mL 8.0-252.0 [facility] GFR/1.73 sq M.predicted MDRD (S/P/Bld) [Vol rate/Area] 57 mL/min/{1.73_m2} Low >=60 mL/min/1.73m 2 [facility] Glucose [Mass/Vol] 83 mg/dL 74-106 [facility] Potassium [Moles/Vol] 4.1 mmol/L 3.5-5.1 [facility] Protein [Mass/Vol] 8.0 g/dL 6.4-8.2 [facility] Sodium [Moles/Vol] 139 mmol/L 136-145 [facility] Urea nitrogen [Mass/Vol] 22.0 mg/dL High 7.0-18.0 [facility] Urea nitrogen/Creatinin e [Mass ratio] 19.3 mg/mg [facility] Laboratory - Hematology and Cell countson 01-26-2025 Immature granulocytes/100 WBC (Bld) 0.3 % 0.0-0.5 [facility] Leukocytes [#/volume] correc moncho for nucleated erythrocytes in Blood by Automated counon 01-26-2025 WBC corrected for nucl RBC Auto (Bld) [#/Vol] Leukocytes [#/volume] corrected for nucleated erythrocytes in Blood by Automated coun 4.0-11.0 [facility] Lymphocytes Auto (Bld) [#/Vo l]on 01-26-2025 Lymphocytes (Bld) [#/Vol] Lymphocytes [#/volume] in Blood by Automated count 1.2-3.8 [facility] Lymphocytes/100 WBC Auto (Bl d)on 01-26-2025 Lymphocytes/100 WBC (Bld) Lymphocytes/100 leukocytes in Blood by Automated count 20.5-60.0 [facility] MCH Auto (RBC) [Entitic mass ]on 01-26-2025 MCH (RBC) [Entitic mass] MCH [Entitic mass] by Automated count 26.7-34.0 [facility] MCHC Auto (RBC) [Mass/Vol]on 01-26-2025 MCHC (RBC) [Mass/Vol] MCHC [Mass/volume] by Automated count 29.9-35.2 [facility] MCV Auto (RBC) [Entitic vol] on 01-26-2025 MCV (RBC) [Entitic vol] MCV [Entitic volume] by Automated count 81.0-99.0 [facility] Monocytes Auto (Bld) [#/Vol] on 01-26-2025 Monocytes (Bld) [#/Vol] Automated blood monocyte count 0.3-0.8 [facility] Monocytes/100 WBC Auto (Bld) on 01-26-2025 Monocytes/100 WBC (Bld) Automated monocyte % 1.7-12.0 [facility] Neutrophils Auto (Bld) [#/Vo l]on 01-26-2025 Neutrophils (Bld) [#/Vol] Neutrophils [#/volume] in Blood by Automated count 1.4-6.5 [facility] Neutrophils/100 WBC Auto (Bl d)on 01-26-2025 Neutrophils/100 WBC (Bld) Automated neutrophil % 43.0-75.0 [facility] No Panel Informationon 01-26 Eosinophils # (Auto) 0.2 10 3/uL 0.0-0.7 [facility] Folate 7.40 ng/mL Low 8.60-58.90 [facility] Immature Granulocyte # (Auto) 0.03 10 3/uL 0.00-0.03 [facility] Plasma zinc measurementon Zinc [Mass/Vol] Plasma zinc measurement 44-115 [facility] Comment on above: This test was develo ped and its performance characteristicsdetermined by [employer]. It has not been cleared orapproved by the Food and Drug Administration. Detection Limit = 5Performed at: [facility] [address] [id number] Director: Cassia Gastelum MD, Phone: [phone] Platelet mean volume Auto (B ld) [Entitic vol]on 01-26-2025 Platelet mean volume (Bld) [Entitic vol] Platelet mean volume [Entitic volume] in Blood by Automated count Low 9.5-13.5 [facility] Platelets Auto (Bld) [#/Vol] on 01-26-2025 Platelets (Bld) [#/Vol] Platelets [#/volume] in Blood by Automated count 150-450 [facility] RBC Auto (Bld) [#/Vol]on RBC (Bld) [#/Vol] Erythrocytes [#/volu me] in Blood by Automated count Low 4.20-5.40 [facility] Serum or plasma albumin/glob ulin mass ratioon 01-26-2025 Albumin/Globulin [Mass ratio] Serum or plasma albumin/globulin mass ratio [facility] Serum or plasma anion gap de terminationon 01-26-2025 Anion gap [Moles/Vol] Serum or plasma anion gap determination [facility] Basophils Auto (Bld) [#/Vol] on 09-04-2024 Basophils (Bld) [#/Vol] Automated basophil count 0.0-0.1 [facility] Basophils/100 WBC Auto (Bld) on 09-04-2024 Basophils/100 WBC (Bld) Automated basophil % 0.2-2.0 [facility] Eosinophils/100 WBC Auto (Bl d)on 09-04-2024 Eosinophils/100 WBC (Bld) Automated eosinophil % 0.9-7.0 [facility] Erythrocyte distribution wid th Auto (RBC) [Ratio]on 09-04-2024 Erythrocyte distribution width (RBC) [Ratio] Erythrocyte distribution width [Ratio] by Automated count 11.0-15.0 [facility] Estimated glomerular filtrat ion rate (GFR) non- Americanon 09-04-2024 GFR/1.73 sq M.predicted among non-blacks MDRD (S/P/Bld) [Vol rate/Area] Estimated glomerular filtration rate (GFR) non- Low >=60 mL/min/1.73m 2 [facility] Globulin Calc (S) [Mass/Vol] on 09-04-2024 Globulin (S) [Mass/Vol] Serum globulin measurement by calculation (mass/volume) [facility] Glucose mean value [Mass/vol ume] in Blood Estimated from glycated hemoglobinon 09-04-2024 Average glucose Estimated from glycated hemoglobin (Bld) [Mass/Vol] Glucose mean value [Mass/volume] in Blood Estimated from glycated hemoglobin [facility] Hematocrit Auto (Bld) [Volum e fraction]on 09-04-2024 Hematocrit (Bld) [Volume fraction] Hematocrit [Volume Fraction] of Blood by Automated count 36.0-48.0 [facility] Hemoglobin [Mass/volume] in Bloodon 09-04-2024 Hemoglobin (Bld) [Mass/Vol] Hemoglobin [Mass/volume] in Blood 12.0-16.0 [facility] Laboratory - Chemistry and C hemistry - challengeon 09-04-2024 Albumin [Mass/Vol] 3.5 g/dL 3.4-5.0 [facility] ALP [Catalytic activity/Vol] 119 U/L High 46-116 [facility] ALT [Catalytic activity/Vol] 15 U/L 14-59 [facility] AST [Catalytic activity/Vol] 14 U/L Low 15-37 [facility] Bilirubin [Mass/Vol] 0.3 mg/dL 0.2-1.0 [facility] Calcium [Mass/Vol] 9.5 mg/dL 8.5-10.1 [facility] Chloride [Moles/Vol] 103 mmol/L 98-107 [facility] CO2 [Moles/Vol] 27.9 mmol/L 21.0-32.0 [facility] Creatinine [Mass/Vol] 1.37 mg/dL High 0.55-1.02 [facility] GFR/1.73 sq M.predicted MDRD (S/P/Bld) [Vol rate/Area] 46 mL/min/{1.73_m2} Low >=60 mL/min/1.73m 2 [facility] Glucose [Mass/Vol] 83 mg/dL 74-106 [facility] Potassium [Moles/Vol] 3.8 mmol/L 3.5-5.1 [facility] Protein [Mass/Vol] 8.1 g/dL 6.4-8.2 [facility] Sodium [Moles/Vol] 142 mmol/L 136-145 [facility] Urea nitrogen [Mass/Vol] 16.0 mg/dL 7.0-18.0 [facility] Urea nitrogen/Creatinin e [Mass ratio] 11.7 mg/mg [facility] Laboratory - Hematology and Cell countson 09-04-2024 HbA1c (Bld) [Mass fraction] 5.6 % 4.5-6.2 [facility] Comment on above: ADA RECOMMENDED LIMI T 4.0 - 6.0ADA THERAPEUTIC TARGET < 7.0ACTION SUGGESTED> 7.0 Immature granulocytes/100 WBC (Bld) 0.2 % 0.0-0.5 [facility] Leukocytes [#/volume] correc moncho for nucleated erythrocytes in Blood by Automated counon 09-04-2024 WBC corrected for nucl RBC Auto (Bld) [#/Vol] Leukocytes [#/volume] corrected for nucleated erythrocytes in Blood by Automated coun 4.0-11.0 [facility] Lymphocytes Auto (Bld) [#/Vo l]on 09-04-2024 Lymphocytes (Bld) [#/Vol] Lymphocytes [#/volume] in Blood by Automated count 1.2-3.8 [facility] Lymphocytes/100 WBC Auto (Bl d)on 09-04-2024 Lymphocytes/100 WBC (Bld) Lymphocytes/100 leukocytes in Blood by Automated count 20.5-60.0 [facility] MCH Auto (RBC) [Entitic mass ]on 09-04-2024 MCH (RBC) [Entitic mass] MCH [Entitic mass] by Automated count 26.7-34.0 [facility] MCHC Auto (RBC) [Mass/Vol]on 09-04-2024 MCHC (RBC) [Mass/Vol] MCHC [Mass/volume] by Automated count 29.9-35.2 [facility] MCV Auto (RBC) [Entitic vol] on 09-04-2024 MCV (RBC) [Entitic vol] MCV [Entitic volume] by Automated count 81.0-99.0 [facility] Microalbumin [Mass/volume] i n Urineon 09-04-2024 Albumin DL <= 20 mg/L (U) [Mass/Vol] Microalbumin [Mass/volume] in Urine <=30.0 [facility] Monocytes Auto (Bld) [#/Vol] on 09-04-2024 Monocytes (Bld) [#/Vol] Automated blood monocyte count 0.3-0.8 [facility] Monocytes/100 WBC Auto (Bld) on 09-04-2024 Monocytes/100 WBC (Bld) Automated monocyte % 1.7-12.0 [facility] Neutrophils Auto (Bld) [#/Vo l]on 09-04-2024 Neutrophils (Bld) [#/Vol] Neutrophils [#/volume] in Blood by Automated count 1.4-6.5 [facility] Neutrophils/100 WBC Auto (Bl d)on 09-04-2024 Neutrophils/100 WBC (Bld) Automated neutrophil % 43.0-75.0 [facility] No Panel Informationon 09-04 Eosinophils # (Auto) 0.3 10 3/uL 0.0-0.7 [facility] Immature Granulocyte # (Auto) 0.02 10 3/uL 0.00-0.03 [facility] Urine Random Creatinine 439.14 mg/dL High 20.00-300.00 [facility] Platelet mean volume Auto (B ld) [Entitic vol]on 09-04-2024 Platelet mean volume (Bld) [Entitic vol] Platelet mean volume [Entitic volume] in Blood by Automated count 9.5-13.5 [facility] Platelets Auto (Bld) [#/Vol] on 09-04-2024 Platelets (Bld) [#/Vol] Platelets [#/volume] in Blood by Automated count 150-450 [facility] RBC Auto (Bld) [#/Vol]on RBC (Bld) [#/Vol] Erythrocytes [#/volu me] in Blood by Automated count Low 4.20-5.40 [facility] Serum or plasma albumin/glob ulin mass ratioon 09-04-2024 Albumin/Globulin [Mass ratio] Serum or plasma albumin/globulin mass ratio [facility] Serum or plasma anion gap de terminationon 09-04-2024 Anion gap [Moles/Vol] Serum or plasma anion gap determination [facility] Urine microalbumin/creatinin e mass ratioon 09-04-2024 Albumin/Creatinine DL <= 20 mg/L (U) [Mass ratio] Urine microalbumin/creatinine mass ratio 0.0-29.9 [facility] Comment on above: NO MICROALBUMINURIA 0-29 MG/GCLINICAL MICROALBUMINURIA 30-300 MG/GMACROALBUMINURIA >300 MG/G No Panel Informationon 06-02 Malcolm Stover NP 12:40 PM L Inj/Asp: R knee on 06/02/2024 12:26 PM Indications: pain Details: 20 G needle, anterolateral approach Medications: 40 mg methylPREDNISolone acetate 40 MG/ML UTILIZING ASEPTIC TECHNIQUE PT GIVEN INJECTION IN RIGHT KNEE, NEUROVASC INTACT S/P INJ, TOLERATED WELL Procedure, treatment alternatives, risks and benefits explained, specific risks discussed. Consent was given by the patient. [facility] HEAD WO CONon 12-24-2017 CT HEAD WO CON [address] [place] [address] Patient: GILLIAN LAGUNAS Exam Date: 12/24/2017DOB: 1955 Gender:F : BHARATH RIVERS Admission #: [id number] : Order #: [id number] HERE TO VIEW EXAM RADIOLOGY REPORT PROCEDURE: [...] Barragan M.D. on 12/24/2017 at 15:25 Normal [facility] Vital Signs Date Time Vital Sign Value Performing Clinician Facility 02-17-2025 14:58-0400 Body height 160.02 cm [facility] 02-17-2025 14:58-0400 Body mass index (BMI) [Ratio] 47.8 kg/m2 [facility] 02-17-2025 14:58-0400 Body weight 122.46 kg [facility] 02-17-2025 14:58-0400 Diastolic blood pressure 81 mm[Hg] [facility] 02-17-2025 14:58-0400 Heart rate 87 /min [facility] 02-17-2025 14:58-0400 Systolic blood pressure 122 mm[Hg] [facility] 01-28-2025 14:40-0400 Body height 165.1 cm Beatris Tyler MD Work Phone: [facility] 01-28-2025 14:40-0400 Body mass index (BMI) [Ratio] 42.77 kg/m2 Beatris Tyler MD Work Phone: [facility] 01-28-2025 14:40-0400 Body weight 116.57 kg Beatris Tyler MD Work Phone: [facility] 01-28-2025 14:40-0400 Diastolic blood pressure 64 mm[Hg] Beatris Tyler MD Work Phone: [facility] 01-28-2025 14:40-0400 Heart rate 80 /min Beatris Tyler MD Work Phone: [facility] 01-28-2025 14:40-0400 Systolic blood pressure 159 mm[Hg] Beatris Tyler MD Work Phone: [facility] 01-19-2025 14:10-0400 Body height 160.02 cm [facility] 01-19-2025 14:10-0400 Body mass index (BMI) [Ratio] 48.5 kg/m2 [facility] 01-19-2025 14:10-0400 Body weight 124.28 kg [facility] 01-19-2025 14:10-0400 Diastolic blood pressure 79 mm[Hg] [facility] 01-19-2025 14:10-0400 Heart rate 74 /min [facility] 01-19-2025 14:10-0400 Respiratory rate 12 /min [facility] 01-19-2025 14:10-0400 SaO2% (BldA) [Mass fraction] 97 % [facility] 01-19-2025 14:10-0400 Systolic blood pressure 129 mm[Hg] [facility] 11-19-2024 14:59-0500 Body height 160.02 cm [facility] 11-19-2024 14:59-0500 Body mass index (BMI) [Ratio] 45.1 kg/m2 [facility] 11-19-2024 14:59-0500 Body weight 115.66 kg [facility] 11-19-2024 14:59-0500 Diastolic blood pressure 76 mm[Hg] [facility] 11-19-2024 14:59-0500 Heart rate 70 /min [facility] 11-19-2024 14:59-0500 Systolic blood pressure 113 mm[Hg] [facility] 09-04-2024 13:59-0500 Body height 160.02 cm [facility] 09-04-2024 13:59-0500 Body mass index (BMI) [Ratio] 45.7 kg/m2 [facility] 09-04-2024 13:59-0500 Body weight 117.14 kg [facility] 09-04-2024 13:59-0500 Diastolic blood pressure 80 mm[Hg] [facility] 09-04-2024 13:59-0500 Heart rate 80 /min [facility] 09-04-2024 13:59-0500 Systolic blood pressure 122 mm[Hg] [facility] 04-16-2024 10:53-0400 Body height 160.02 cm [facility] 04-16-2024 10:53-0400 Body mass index (BMI) [Ratio] 45.1 kg/m2 [facility] 04-16-2024 10:53-0400 Body weight 115.66 kg [facility] 04-16-2024 10:53-0400 Diastolic blood pressure 73 mm[Hg] [facility] 04-16-2024 10:53-0400 Heart rate 67 /min [facility] 04-16-2024 10:53-0400 Systolic blood pressure 112 mm[Hg] [facility] Encounters Encounter Date Encounter Type Care Provider Facility Start: 02-17-2025 End: 02-17-2025 ambulatory [facility] Work Phone: Start: 02-17-2025 End: 02-17-2025 Patient encounter procedure [facility] Work Phone: Start: 02-09-2025 End: 02-09-2025 ambulatory Dorothy Dumont MD Facility: [facility] Start: 01-28-2025 End: 01-28-2025 Office outpatient new 45 minutes Beatris Tyler MD Work Phone: [facility] Comment on above: Globus sensation (Pr imary Dx); LPRD (laryngopharyngeal reflux disease); Heart murmur Start: 01-28-2025 End: 01-28-2025 ambulatory BEATRIS TYLER Not Available Start: 01-28-2025 End: 01-28-2025 Bamboo flowsheet Beatris Tyler MD Work Phone: [facility] Start: 01-28-2025 End: 01-28-2025 Bamkhanho flowsheet Beatris Tyler MD Work Phone: [facility] Start: 01-26-2025 Non-patient / Non-visit [facility] Work Phone: Start: 01-19-2025 End: 01-19-2025 ambulatory [facility] Work Phone: Start: 01-19-2025 End: 01-19-2025 Patient encounter procedure [facility] Work Phone: Start: 01-12-2025 End: 01-12-2025 ambulatory Dorothy Dumont MD Facility: [facility] Start: 11-19-2024 End: 11-19-2024 ambulatory [facility] Work Phone: Start: 11-19-2024 End: 11-19-2024 Patient encounter procedure [facility] Work Phone: Start: 11-17-2024 End: 11-17-2024 ambulatory Dorothy Dumont MD Facility: [facility] Start: 10-20-2024 End: 10-20-2024 ambulatory Dorothy Dumont MD Facility: [facility] Start: 10-06-2024 End: 10-06-2024 ambulatory Dorothy Dumont MD Facility:[facility] Start: 09-04-2024 End: 09-04-2024 Patient encounter procedure [facility] Work Phone: Start: 09-03-2024 Non-patient / Non-visit [facility] Work Phone: Start: 06-02-2024 End: 06-02-2024 Bamboo flowsheet Malcolm Stover FRAME TENDER Work Phone: [facility] Start: 06-02-2024 End: 06-02-2024 Bamboo flowsheet Malcolm Stover FRAME TENDER Work Phone: [facility] Start: 06-02-2024 End: 06-02-2024 Office outpatient visit 25 minutes Malcolm Stover FRAME TENDER Work Phone: [facility] Comment on above: Chronic pain of righ t knee (Primary Dx); Arthritis of right knee Start: 06-02-2024 End: 06-02-2024 ambulatory MALCOLM Archer APLING Not Available Start: 05-12-2024 End: 05-12-2024 ambulatory MALCOLM Archer APLING Not Available Start: 04-30-2024 End: 04-30-2024 ambulatory MALCOLM Archer APLING Not Available Start: 04-28-2024 End: 04-28-2024 ambulatory MALCOLM Archer APLING Not Available Start: 04-16-2024 End: 04-16-2024 ambulatory [facility] Work Phone: Start: 04-16-2024 End: 04-16-2024 Patient encounter procedure [facility] Work Phone: Start: 12-24-2017 End: 12-24-2017 Ambulatory BHARATH RIVERS Facility: Procedures Date Procedure Procedure Detail Performing Clinician Start: 06-02-2024 Arthrocentesis aspir &/inj major jt/bursa w/o us Malcolm Stover FRAME TENDER Work Phone: Plan of Treatment Date Care Activity Detail Author Start: 05-25-2025 Influenza vaccination Influenz a Vaccine (Season Ended) [facility] Start: 01-28-2025 End: 01-28-2025 Patient encounter procedure 01/28/2025 2:40 PM EDT Office Visit [facility] [address] [place] [address] Beatris Tyler MD [address] [place] [address] Arrived [facility] Comment on above: Arrived Start: 01-19-2025 Patient referral [facility] Work Phone: Start: 09-08-2024 Patient referral [facility] Work Phone: Start: 06-02-2024 End: 06-02-2024 Patient encounter procedure 06/02/2024 12:00 PM EDT Office Visit [facility] [address] [facility] [address] [place] [address] Malcolm Stover NP [address] [place] [address] Left knee pain, unspecified chronicity (Primary Dx); Arthritis of left knee [facility] Comment on above: Left knee pain, unsp ecified chronicity (Primary Dx); Arthritis of left knee Start: 05-25-2024 Influenza vaccination Influenza Vacc ine (#1) [facility] Start: 04-16-2024 Patient referral [facility] Work Phone: Start: 2020 Pneumococcal Vaccine : 65+ Years (1 of 1 - PCV) Pneumococcal Vaccine: 65+ Years (1 of 1 - PCV) [facility] Start: 2005 Pneumococcal Vaccine : 65+ Years (1 of 1 - PCV) Pneumococcal Vaccine: 65+ Years (1 of 1 - PCV) [facility] Start: 1995 Screening for malign ant neoplasm of breast Mammogram [facility] Start: 1955 Medicare Annual Wellness (AWV) Medicare Annual Wellness (AWV) [facility] Start: 1955 Screening for malign ant neoplasm of colon [facility] Comprehensive metabo lic 2000 panel - Serum or Plasma [facility] Patient Education Vestibular Exercises [facility] Work Phone: Patient referral [facility] Work Phone: Zinc [Mass/volume] i n Serum or Plasma [facility] Payers Date Payer Category Payer Unknown 2024 Medicare [employer]AGE ANTH MEDICARE ADVANTAGE [id number] 2024-Present [address] [place] [address] [id number] 2024 Medicare (Managed Care) [facility] [id number] 2024 Unknown [id number] 1959 Unknown [id number] 1955 Unknown [id number]. 2.1258 1955 Unknown [id number] [id number]. 2.1258 1955 Unknown [id number] [id number]. 2.1258 1955 Unknown [id number] [id number]. 2.1258 1955 Unknown [id number] [id number]. 2.1259 1955 Unknown [id number] [id number]. 2.1259 1955 Unknown [id number] [id number]. 2.196 1955 Unknown [id number] [id number]. 2.196 1955 Unknown [id number] [id number]. 2.196 1955 Unknown [id number] [id number]. 2.196 1955 Unknown [id number] [id number]. 2.196 1955 Unknown [id number] [id number]. 2.196 Social History Date Type Detail Facility Start: 04-16-2024 End: 04-28-2024 Tobacco smoking status MEIS Ex-smoker (finding) [facility] Start: 1955 Sex Assigned At Female F [facility] Start: 09-24-1973 History of tobacco use [...] Alcohol Comment 1 drink per month [facility] Start: 1955 Sex assigned at Not on file [facility] Start: 11-19-2024 End: 02-17-2025 Sex Female (finding) [facility] History of Present illness Narrative 01-28-2025 Beatris [...] Noted Bilateral knee pain 01/28/2025 Colon cancer ([facility]) 01/28/2025 Diarrhea 01/28/2025 History of colon cancer 01/28/2025 Hypertension ([facility]) 01/28/2025 Mixed anxiety and depressive disorder 01/28/2025 Pica in adults 01/28/2025 Throat fullness 01/28/2025 Trouble swallowing 01/28/2025 Type 2 diabetes mellitus with hyperglycemia ([facility]) 01/28/2025 Resolved Ambulatory Problems Diagnosis Date Noted No Resolved Ambulatory Problems No Additional Past Medical History Past Surgical History: Procedure Laterality Date COLON SURGERY 2008 dr ramon HERNIA REPAIR 03/2021 ABD hernia, dr ramon KNEE SURGERY Right dr lanza [place] No Known Allergies Current Outpatient Medications on [...] (Bentyl) 20 MG tablet Twice daily HYDROcodone-acetaminophen (Willard) 5-325 MG tablet Take 1 tablet by [...] 2 days ago documented in this encounter [facility] Evaluation note 01-19-2025 Note Date & Type Note Facility 01-19-2025 Evaluation note Diagnosis Onset Date Resolution Pica in adults acute December 2:07pm Throat fullness acute December 2:07pm Trouble swallowing acute January 19, 2025 2:07pm Type 2 diabetes mellitus with hyperglycemia acute January 19, 025 2:07pm Diarrhea acute February 17, 2025 2:52pm History of colon cancer acute M ay 2024 2:52pm [facility] Work Phone: Hospital Discharge instructions 01-19-2025 Note Date & Type Note Facility 01-19-2025 Hospital Discharg e instructions Ambulatory OrdersReferral to ENT Time Frame: 01/19/25, Location: None Selected [facility] Work Phone: Evaluation note 11-19-2024 Note Date & Type Note Facility 11-19-2024 Evaluation note Diagnosis Onset Date Resolution Diarrhea acute November 19, 2024 2:54pm History of colon cancer acute F ebruary 2024 2:54pm Throat fullness acute December 2:07pm Trouble swallowing acute January 19, 2025 2:07pm Type 2 diabetes mellitus with hyperglycemia acute January 19, 2 025 2:07pm [facility] Work Phone: Evaluation note 09-04-2024 Note Date & Type Note Facility 09-04-2024 Evaluation note Diagnosis Onset Date Resolution Bilateral knee pain acute Decem 2023 1:49pm Colon cancer acute August 1:49pm Diarrhea acute September 04, 2024 1:49pm Hypertension acute August 1:49pm Type 2 diabetes mellitus with hyperglycemia acute August 1:49pm Diarrhea acute November 19, 2024 2:54pm History of colon cancer acute [facility] 2024 2:54pm [facility] Work Phone: History of Present illness Narrative 06-02-2024 Malcolm Stover NP - 06/02/2024 12:00 PM EDT Note [...] injections in the past by Dr. Lanza ([place], orthopedic). She was getting cortisone injections in the past, last one done /2023. She only gets 2 months relief from the injections. She notes she just moved to [place] November 28, 2023. Denies injury. Pain is anterior lateral, pain at rest /10 notes it is throbbing with activities and prolonged standing 06/03, she limps from the pain. She is taking norco (from her PCP in [place]) with relief. Also taking baclofen per PCP [...] she understands this documented in this encounter [facility] Evaluation note Note Date & Type Note Facility Evaluation note Diagnosis Onset Date Left knee pain acute [facility] Work Phone: Evaluation note Note Date & Type Note Facility Evaluation note Diagnosis Chronic pain of right knee- Primary Arthritis of right knee documented in this encounter [facility] Evaluation note Note Date & Type Note Facility Evaluation note Diagnosis Globus sensation- Primary Gastrointestinal malfunction arising from mental factors LPRD (laryngopharyngeal reflux disease) Acute laryngitis, without mention of obstruction Heart murmur Undiagnosed cardiac murmurs documented in this encounter [facility] Hospital Discharge instructions Note Date & Type Note Facility Hospital Discharge instructions Ambulatory OrdersReferral to Orthopedics Time Frame: 04/16/24, Location: None Selected [facility] Work Phone: Summary Purpose Family History No [...] 2024 2:54pm History of colon cancer November 19, 2:54pm Chief Complaint Admit Date Ref: diarrhea/hx of colon cancer 2024 2:54pm Possible Low Iron-HIGH RISK January 19, 2025 2:07pm Reason for Visit Admit Date Diarrhea November 19, 2024 2:54pm History of colon cancer November 19 025 2:54pm Throat fullness January 19, 2025 2:0 7pm Trouble swallowing January 19, 2025 2:0 7pm Type 2 diabetes mellitus with hyperglyce sheri January 19, 2025 2:07pm Chief Complaint Admit Date Possible Low Iron-HIGH RISK January 19, 2025 2:07pm 3 month follow up/diarrhea/hx of colon c ancer February 17, 2025 2:52pm Reason for Visit Admit Date Pica in adults January 19, 2025 2:0 7pm Throat fullness January 19, 2025 2:0 7pm Trouble swallowing January 19, 2025 2:0 7pm Type 2 diabetes mellitus with hyperglyce sheri January 19, 2025 2:07pm Diarrhea February 17, 2025 2:52p m History of colon cancer February 17, 2025 2 :52pm Reason for Referral Specialty Diagnoses / Procedures Referred By Víctor juarez Referred To Contact Orthopaedic Surgery Diagnoses Arthritis of right knee Procedures L Inj/Asp: R knee Apling, Malcolm Archer, FRAME TENDER [address] [place] [address] Referral ID Status Reason Start Date Expiration Date V isits Requested Visits Authorized [id number] Authorized 06/02/2024 11/29/2024 1 1 Additional Source Comments INFORMATION SOURCE (unrecogn ized section and content) DATE CREATED AUTHOR 03/14/2018 [facility]ital DATE CREATED AUTHOR AUTHOR'S ORGANIZ ATION 01/31/2025 [facility] EPIC DATE CREATED AUTHOR AUTHOR'S ORGANIZ ATION 02/20/2025 [facility] Care Teams (unrecognized sec tion and [...] April 16, 2024 End: April 16, 2024 Associate Account Manager Relationship Specialty Start Date End Date Ilda Garcia MD [address] [place] [facility] [phone] PCP - General Family Medicine 04/28/24 Associate Account Manager Relationship Specialty Start Date End Date Ilda Garcia MD [address] [place] [facility] [phone] PCP - General Family Medicine 04/28/24 Associate Account Manager Relationship Specialty Start Date End Date Malcolm Stover NP PCP - Miley MUÑIZ 09/24/24 Ilda Garcia MD [address] [place] [facility] [address] PCP - General Family Medicine 01/28/25 Associate Account Manager Relationship Specialty Start Date End Date Malcolm Stover NP PCP - Miley MUÑIZ 09/24/24 Ilda Garcia MD [address] [place] [facility] [phone] PCP - General Family Medicine 01/28/25 Team Status: Active Member Role Status Dates Ilda Garcia MD Primary Care Provide r, Attending Provider Active Start: January 26, 2025 Team Status: Inactive Member Role Status Dates Ilda Garcia MD Primary Care Provider Active Start: February 17, 2025 End: February 17, 2025 Harrison Barfield APRN Attending Provider Active Start: February 17, 2025 End: February 17, 2025 Goals (unrecognized section and content) Goals may [...] circulatory and respiratory systems Dysphagia, unspecified Procedures [place] UNLISTED EVALUATION AND MANAGEMENT SERVICE Ilda Garcia MD [address] [place] [address] Phone: tel: Beatris Tyler MD [address] [facility] [address] [place] [address] Phone: tel: fax: Referral ID Status Reason Start Date Expiration Date Visits Re quested Visits Authorized [id number] Closed 01/19/2025 07/18/2025 1 1 FOR RECORDS PERTAINING TO PATIENTS WHO [...] BE BASED ON THE PRIMARY CLINICAL RECORDS. [facility] Daily Deals for [facility]. provides no warranty or guarantee of the accuracy or completeness of information in this document.
[2025-02-23 07:01] VITALS: BP 147/94; PULSE 78; TEMP 36.5; O2SAT 99
[2025-02-23] MEDS: 0.9 % SODIUM CHLORIDE 500 ML IV (07:13)
[2025-02-23] MEDS: LIDOCAINE HCL 2% 400 MG/20 ML MDV 12 ML INJ (07:41)
[2025-02-23] MEDS: BUPIVACAINE HCL 0.25% PF 25 MG/10 ML VIAL 2 ML INJ (07:41)
[2025-02-23] MEDS: METHYLPREDNISOLONE ACETATE 40 MG/ML VIAL INJ (07:42)
--- NOTE | 2025-02-23 07:45 | W.PM.PROCNOT ---
Date of procedure: 02/23/25 Pre-op diagnosis: Pain due to right knee osteoarthritis Post-op diagnosis: same as pre-op Procedure: Procedure: Right knee genicular nerve radiofrequency ablation Medications: Bupivacaine 0.25% 2cc, lidocaine 2% 10cc, depomedrol 40mg The patient was taken to the procedures suite and positioned in the supine position. I explained the details of the procedure to the patient including the risks, benefits and alternatives. We had an informed discussion and the patient verbalized understanding and signed the consent form. All questions were answered appropriately.? ? A 'time out' procedure was performed. The patient was identified, the chart was reviewed, and all allergies were confirmed. Laterality was conducted and marked. The right knee was marked with a sterile marking pen, prepped with Chloraprep, and sterilely draped.? Under fluoroscopic guidance, branches of the genicular nerves were localized.? First the superior medial genicular nerve was localized where the femoral shaft meets the medial epicondyle.? Skin was anesthetized with 1% lidocaine (only the superficial areas far from osseous contact).? The appropriate level of insertion was identified by placing a hemostat over the knee and obtaining an AP view. An 18-gauge 10 mm active tip 3.5 in needle was advanced in a coaxial manner in the lateral view at 1/2 the depth of the femur which was identified by placing forceps over the skin in the lateral view.? This was repeated on the superior lateral genicular nerve where the femoral shaft meets the lateral epicondyle and the inferior medial genicular nerve where the medial tibal shaft meets the tibial epicondyle (needle was advanced to half the depth of the tibia).? Needle placement was confirmed with a lateral view in all sites, after negative aspiration, 1cc of 2% lidocaine was injected at each of the three sites. ? Sensory testing was completed at 0.5 V at each level and motor testing was negative at 1.5 V for all 3 levels. Each of the sites were lesioned for 80 degrees at 80 seconds, with impedance < 500. The probes were subsequently removed and the sites of insertion were bandaged. The patient was taken to the postoperative area and discharged in good condition. Anesthesia: MAC Surgeon: Dorothy Dumont Pathology: none sent Condition: stable Disposition: no change
[2025-02-23 07:48] VITALS: BP 160/84; PULSE 70; TEMP 36.8; O2SAT 99
[2025-02-23 07:52] VITALS: BP 155/80; PULSE 68; TEMP 36.8; O2SAT 99
[2025-02-23 08:16] LABS: Glucometer 96 mg/dL (74-106)
== END 2025-02-23 08:14 | disposition home or self-care (01) ==
LOC: SURGOUT 06:50
PROVIDERS: PCP Family Medicine; Visit Provider Anesthesiology
DX: M25.561 Pain in right knee (principal); E11.8 Type 2 diabetes mellitus with unspecified complications
CPT/HCPCS: 36415; 64624; 82948; J0665; J1010; J2704

== ENCOUNTER 2025-03-25 13:25 | Outpatient (OUT) | payer MEDICARE, SELFPAY ==
--- OUTSIDE RECORDS SUMMARY | 2025-03-25 13:29 | XMS_ITS | Clinical Summary ---
Author Organization [facility] Address [address] [place] [address] Care Team Providers Care Vp Securities Name Role Phone Ghada Stover NP Unavailable [phone] Ilda Lopez MD Primary Care Provider [phone] Allergies No known active allergies Medications amLODIPine (Norvasc) 5 MG tablet Take 5 mg by mouth Daily 04/16/2024 Active buPROPion XL (Wellbutrin XL) 300 MG 24 hr tablet 300 mg in the morning. 04/16/2024 Active citalopram (CeleXA) 10 MG tablet Take 20 mg by mouth Daily 40 mg daily 04/16/2024 Active HYDROcodone-abhay taminophen (Veneta) 5-325 MG tablet Take 1 tablet by mouth every 6 (six) hours if needed for moderate pain 04/16/2024 Active losartan-hydroC HLOROthiazide (Hyzaar) 100-12.5 MG tablet Take 1 tablet by mouth Daily 04/16/2024 Active meloxicam (Mobic) 7.5 MG tablet Take 15 mg by mouth Daily 04/16/2024 Active baclofen (Lioresal) 5 MG tablet 02/01/2024 Active citalopram (CeleXA) 40 MG tablet Take 40 mg by mouth Daily 05/26/2024 Active dicyclomine (Bentyl) 20 MG tablet Twice daily 11/19/2024 Active famotidine (Pepcid) 20 MG tabletIndicatio ns:LPRD (laryngopharyng eal reflux disease) Take 1 tablet (20 mg) by mouth in the morning and 1 tablet (20 mg) before bedtime. 180 tablet 02/04/2025 05/05/20 25 Active Active Problems Problem Noted Date Diagnosed Date Bilateral knee pain 01/28/2025 Colon cancer 01/28/2025 Diarrhea 01/28/2025 History of colon cancer 01/28/2025 Hypertension 01/28/2025 Mixed anxiety and depressive disorder 01/28/2025 Pica in adults 01/28/2025 Throat fullness 01/28/2025 Trouble swallowing 01/28/2025 Type 2 diabetes mellitus with hyperglycemia 03/2025 Encounters Date Type Department Care Team Description 03/24/2025 Telephone [facility] [address] [facility] [address] [place] [phone] Manju Michaels MA 02/24/2025 Telephone [facility] [address] [facility] [address] [place] [phone] Manju Michaels MA 02/04/2025 Telephone [facility] [place] [address] [facility] [address] [place] [phone] Beatris Solo MD 01/28/2025 2:40 PM EDT Office Visit [facility] [address] [facility] [address] [place] [phone] Beatris Solo MD Globus sensation (Primary Dx); LPRD (laryngopharyngeal reflux disease); Heart murmur; Pharyngoesophageal dysphagia 01/28/2025 Bamboo flowsheet [facility] [address] [facility] [address] [place] [id number] Beatris Solo MD 01/28/2025 Travel from Last 3 Months Family History Relation Name Status Comments Father Mother Social History Tobacco Use Types Packs/Day Years Used Date Smoking Tobacco: Former Cigarettes 2.5 10 S tarted: 1974 Smokeless Tobacco: Never Tobacco Cessation:Counseling Given: Not Answered Alcohol Use Standard Drinks/Week Comments Yes 1 (1 standard drink = 0.6 oz pur e alcohol) 1 drink per month Comments Unknown Sex and Gender Information Value Date Recorded Sex Assigned at Not on file Legal Sex Female 5:08 PM EDT Gender Identity Not on file Sexual Orientation Not on file Last Filed Vital Signs Vital Sign Reading Time Taken Comments Blood Pressure 159/64 01/28/2025 2:40 PM EDT Pulse 80 01/28/2025 2:40 PM EDT Temperature - - Respiratory Rate - - Oxygen Saturation - - Inhaled Oxygen Concentration - - Weight 117 kg (257 lb) 01/28/2025 2:40 PM EDT Height 165.1 cm (5' 5 ) 01/28/2025 2:40 PM EDT Body Mass Index 42.77 01/28/2025 2:40 PM EDT Plan of Treatment Health Maintenance Due Date Last Done Comments Diabetes: Hemoglobin A1C 1955 Medicare Annual Wellness (AWV) 1955 Diabetes: Retinopathy Screening 1965 Diabetes: Urine Protein Screening 1974 Pneumococcal Vaccine: 65+ Years (1 of 2 - PCV) 974 Mammogram 1995 Influenza Vaccine (#1) 2025 Insurance [employer] Care Teams Vp Securities Relationship Specialty Start Date End Date Ghada Stover NP PCP - Miley MUÑIZ 09/24/24 Ilda Lopez MD [address] [facility] [place] [address] PCP - General Family Medicine 01/28/25
--- OUTSIDE RECORDS SUMMARY | 2025-03-25 13:29 | XMS_ITS | Encounter Summary ---
Author Organization [facility] Address [address] [place] [address] Care Team Providers Care Weed Control Inspector Name Role Phone Ghada Stover ENVIRONMENTAL STUDIES PROGRAM DIRECTOR Unavailable [phone] Ilda Lopez MD Primary Care Provider [phone] Encounter Details Date Type Department Care Team (Late st Contact Info) Description 03/24/2025 Telephone [facility] [address] [place] [id number] Manju Michaels MA Social History Tobacco Use Types Packs/Day Years Used Date Smoking Tobacco: Former Cigarettes 2.5 10 S tarted: 1974 Smokeless Tobacco: Never Alcohol Use Standard Drinks/Week Comments Yes 1 (1 standard drink = 0.6 oz pur e alcohol) 1 drink per month Comments Unknown Sex and Gender Information Value Date Recorded Sex Assigned at Not on file Legal Sex Female 5:08 PM EDT Gender Identity Not on file Sexual Orientation Not on file documented as of this encounter Miscellaneous Notes * Telephone Encounter - Manju Michaels MA - 03/24/2025 12:50 PM EDT Spoke to patient she said nobody from [facility] has called her to schedule esophagus barium swallowtest. I sent order again and patient is calling to schedule. documented in this encounter Plan of Treatment Not on file documented as of this encounter Visit Diagnoses Not on filedocumented in this encounter Care Teams Weed Control Inspector Relationship Specialty Start Date End Date Ghada Stover ENVIRONMENTAL STUDIES PROGRAM DIRECTOR PCP - Miley MUÑIZ 09/24/24 Ilda Lopez MD [address] [place] [id number] PCP - General Family Medicine 01/28/25 documented as of this encounter
--- NOTE | 2025-03-25 14:02 | PM.CN ---
Consult Note: HPI Data of Consult Patient: known to practice within the last 3 years Requesting Physician: Sri Daniels NP Primary Care Provider: Ilda Lopez MD Consult Narrative Reason for consult: f/u Narrative: Gillian Interiano a pleasant 69 year old female presents for evaluation of chronic bilateral knee pain. recently underwent right and left genicular RFA for knee pain/OA and is not noting relief at this time, initially had significant relief for a few weeks. previously has failed > 6 weeks of PT/HEP, heat, ice, tylenol, NSAIDs, steroid injections, hyaluronic injection. Pain today 8/10 increasing with standing, walking, activity. reports falls without injury due to pain. has been utilizing tylenol, celebrex, and norco 5-325mg with minimal relief. cc:: CC: Sri Daniels NP [facility] Medical History Obesity �E66.9 - Obesity, unspecified (ICD-10) Hypertension �I10 - Essential (primary) hypertension (ICD-10) Surgical History H/O hernia repair �Z98.890 - Other specified postprocedural states (ICD-10) �Z87.19 - Personal history of other diseases of the digestive system (ICD-10) History of hysterectomy �Z90.710 - Acquired absence of both cervix and uterus (ICD-10) H/O knee surgery �Z98.890 - Other specified postprocedural states (ICD-10) Meds Home Medications and Allergies Home Medications �Medication �Instructions �Recorded �Confirmed �Type Bacillus coagulans 10 billion cell cell PO 10/06/24 History capsule,delayed release (Probiotic (B. coagulans)) amlodipine 5 mg tablet 5 mg PO DAILY 10/06/24 02/23/25 History citalopram 40 mg tablet 40 mg PO DAILY 10/06/24 02/23/25 History hydrocodone 5 mg-acetaminophen 325 1 tab PO TID PRN pain #90 tabs 10/06/24 02/23/25 Rx mg tablet losartan 100 1 tab PO DAILY 10/06/24 02/23/25 History mg-hydrochlorothiazide 12.5 mg tablet (Hyzaar) celecoxib 200 mg capsule (Celebrex) 200 mg PO BID 11/17/24 02/23/25 History dicyclomine 20 mg tablet mg 01/12/25 History Allergies Allergy/AdvReac Type Severity Reaction Status Date / Time No Known Drug Allergies Allergy Verified 02/23/25 07:04 Exam Narrative Exam Narrative: Psych-alert and oriented x 3.� Attentive and appropriate, constitutionally normal, displays normal mood and affect per situation.� There are no obvious deficits in memory, reasoning, or intellect. Extremities-lower extremities are warm with minimal edema and palpable pulses. Knee-examination of the bilateral knee reveals tenderness to palpation over the superior, inferior, lateral, and medial aspect of the knee.� Some swelling is noted without erythema. Pain is elicited with flexion and extension of the knee both actively and passively.� Some grinding is noted with these motions.� There is no notable ligamental laxity or instability.� Coordination remains intact.� Gait remains antalgic. Results Additional Findings Additional findings: If on a controlled substance or opioids, I have checked an [place]AR[place] report on this patient and there are no aberrancies noted in the prescribing history.��If on a controlled substance or opioid a drug screen was completed and reviewed within the last year, and if there has not been a drug screen completed we ordered one today to monitor higher risk, state monitored pain medication use. As part of providing excellent, safe, comprehensive care, the following was completed at our patient's visit: 1. A medication reconciliation and review to ensure accurate knowledge of current/active medications, including asking our patients to inform us about any [id number] medications or herbal remedies/nutritional supplements/alternative remedies. 2. A review to specifically ensure our patients have had annual screening for screening for depression, screening for tobacco use, and screening for unhealthy alcohol use. For concerning screenings had a discussion with the patient, provided patient education, and recommended follow-up with primary care provider when appropriate. If patient noted with a risk of falling, they received education on strength, gait, and balance training to prevent future risk of falling. Portions of this note may have been carried over from the previous visit and updated as appropriate. Please note this office utilizes paper charting in addition to the electronic medical record. A list of current medications, vitals, and PMH is available there as the clinical staff outside of myself do not have access to [employer] charting during the clinic day operations. As part of providing quality comprehensive care the current medications, vitals, and PMH were reviewed in the paper chart. Assessment and Plan Assessment and Plan (1) Osteoarthritis of knees, bilateral: Qualifiers: Osteoarthritis type: primary Qualified Code(s): M17.0 - Bilateral primary osteoarthritis of knee (2) Chronic use of opiate for therapeutic purpose: Plan right and left genicular RFA remains in healing phase, increase hydrocodone-acetaminophen 7.5-325mg TID PRN moderate to severe pain. continue HEP as tolerated. f/u in 6 weeks to evaluate plan of care. will refer to orthopedics for consideration of surgical intervention if she does not improve
== END 2025-03-25 13:26 | disposition home or self-care (01) ==
LOC: PM 13:26
PROVIDERS: PCP Family Medicine; Visit Provider Nurse Practitioner
DX: M17.0 Bilateral primary osteoarthritis of knee (principal); Z79.891 Long term (current) use of opiate analgesic
CPT/HCPCS: G0463

== ENCOUNTER 2025-05-06 13:53 | Outpatient (OUT) | payer MEDICARE, SELFPAY ==
--- OUTSIDE RECORDS SUMMARY | 2025-04-27 13:00 | XMS_ITS | Encounter Summary ---
Author Organization [facility] Address [address] [place] [address] Care Team Providers Care Rn Integrated Name Role Phone Ghada Stover FORK LIFT MECHANIC Unavailable [phone] Ilda Lopez MD Primary Care Provider [phone] Reason for Referral * Consultation (Routine) - Authorized Specialty Diagnoses / Procedures Referred By Víctor juarez Referred To Contact Otolaryngology Diagnoses Globus sensation Procedures [place] OFFICE/OUTPATIENT [facility] MDM 60 MINUTES Beatris Solo MD [address] [place] [address] Phone: tel: [place]: [place] [address] [place] [address] Phone: tel: fax: Referral ID Status Reason Start Date Expiration Date Visits Requested Visits Authorized [id number] Authorized Specialty Services Required 04/27/2025 10/24/2025 1 1 Reason for Visit * Reason Comments Throat Problem Follow up swallow [facility] 04/08/25 Encounter Details Date Type Department Care Team (Late st Contact Info) Description 04/27/2025 1:00 PM EDT Office Visit [facility] [address] [place] [address] Beatris Solo MD [address] [place] [address] Globus sensation (Primary Dx) Social History Tobacco Use Types Packs/Day Years Used Date Smoking Tobacco: Former Cigarettes 2.5 10 S tarted: 1973 Smokeless Tobacco: Never Alcohol Use Standard Drinks/Week Comments Yes 1 (1 standard drink = 0.6 oz pur e alcohol) 1 drink per month Comments Unknown Sex and Gender Information Value Date Recorded Sex Assigned at Not on file Legal Sex Female 5:08 PM EDT Gender Identity Not on file Sexual Orientation Not on file documented as of this encounter Last Filed Vital Signs Vital Sign Reading Time Taken Comments Blood Pressure 80/72 04/27/2025 1:13 PM EDT Pulse - - Temperature - - Respiratory Rate - - Oxygen Saturation - - Inhaled Oxygen Concentration - - Weight 117 kg (257 lb) 04/27/2025 1:13 PM EDT Height 165.1 cm (5' 5 ) 04/27/2025 1:13 PM EDT Body Mass Index 42.77 04/27/2025 1:13 PM EDT documented in this encounter Progress Notes * Beatris Solo MD - 04/27/2025 1:00 PM EDT Subjective Patient ID: Gililan Interiano is a 69 y.o. female who presents for Throat Problem (Follow up swallow study [facility] 04/08/25) Pt reports she is only a tad better since starting LPRD regimen. Esophagram showed mid and distalesophageal spasm as well as CP hypertrophy. No family history on file. Active Ambulatory Problems Diagnosis Date Noted Bilateral knee pain 01/28/2025 Colon cancer (HCC) 01/28/2025 Diarrhea 01/28/2025 History of colon cancer 01/28/2025 Hypertension 01/28/2025 Mixed anxiety and depressive disorder 01/28/2025 Pica in adults 01/28/2025 Throat fullness 01/28/2025 Trouble swallowing 01/28/2025 Type 2 diabetes mellitus with hyperglycemia (HCC) 01/28/2025 Resolved Ambulatory Problems Diagnosis Date Noted No Resolved Ambulatory Problems No Additional Past Medical History Past Surgical History: Procedure Laterality Date COLON SURGERY 2008 dr ramon HERNIA REPAIR 03/2021 ABD hernia, dr ramon KNEE SURGERY Right dr such [place] No Known Allergies Current Outpatient Medications on File Prior to Visit Medication Sig Dispense Refill amLODIPine (Norvasc) 5 MG tablet Take 5 mg by mouth Daily baclofen (Lioresal) 5 MG tablet buPROPion XL (Wellbutrin XL) 300 MG 24 hr tablet 300 mg in the morning. celecoxib (CeleBREX) 200 MG capsule Take 200 mg by mouth in the morning and 200 mg before bedtime. citalopram (CeleXA) 10 MG tablet Take 20 mg by mouth Daily 40 mg daily citalopram (CeleXA) 40 MG tablet Take 40 mg by mouth Daily diazePAM (Valium) 10 MG tablet TAKE 1 TABLET BY MOUTH PRIOR TO PROCEDURE dicyclomine (Bentyl) 20 MG tablet Twice daily famotidine (Pepcid) 20 MG tablet Take 1 tablet (20 mg) by mouth in the morning and 1 tablet (20 mg)before bedtime. 180 tablet 0 folic acid (Folvite) 1 MG tablet Take 1,000 mcg by mouth Daily HYDROcodone-acetaminophen ([place]) 5-325 MG tablet Take 1 tablet by mouth every 6 (six) hours if needed for moderate pain losartan-hydroCHLOROthiazide (Hyzaar) 100-12.5 MG tablet Take 1 tablet by mouth Daily meloxicam (Mobic) 7.5 MG tablet Take 15 mg by mouth Daily No current facility-administered medications on file prior to visit. Objective Last Recorded Vitals Vitals: 04/27/25 1313 BP: 80/72 ENT Physical Exam Constitutional Appearance: patient appears well-developed, well-nourished and well-groomed, Communication/Voice: communication appropriate for developmental age; vocal quality normal; Assessment/Plan Diagnoses and all orders for this visit: Globus sensation It appear likely that pt's globus is due to CP spasm. I will have her see Dr Nava to be evaluatedfor a botox injection vs CP myotomy documented in this encounter Miscellaneous Notes * Addendum Note - Franci Núñez - 04/27/2025 1:00 PM EDTAddended by: FRANCI NÚÑEZ on: 04/27/2025 03:51 PM Modules accepted: Orders documented in this encounter Plan of Treatment Scheduled Referrals Name Type Priority Associated Diagnoses Order Schedule Ambulatory referral to ENT Outpatient Referral Routine Globus sensation Expected: 04/27/2025 (Approximate), Expires: 10/28/2025 documented as of this encounter Visit Diagnoses Diagnosis Globus sensation- Primary Gastrointestinal malfunction arising from mental factors documented in this encounter Care Teams Rn Integrated Relationship Specialty Start Date End Date Ghada Stover NP PCP - Miley MUÑIZ 09/24/24 Ilda Lopez MD [address] [place] [phone] PCP - General Family Medicine 01/28/25 documented as of this encounter
--- OUTSIDE RECORDS SUMMARY | 2025-05-06 13:55 | XMS_ITS | Clinical Summary ---
Author Organization [facility] Address [address] [place] [address] Care Team Providers Care Inspector Automatic Typewriter Name Role Phone Ghada Stover NP Unavailable Ilda Lopez MD Primary Care Provider [phone] Allergies No known active allergies Medications amLODIPine (Norvasc) 5 MG tablet Take 5 mg by mouth Daily 4 Active buPROPion XL (Wellbutrin XL) 300 MG 24 hr tablet 300 mg in the morning. 4 Active citalopram (CeleXA) 10 MG tablet Take 20 mg by mouth Daily 40 mg daily 4 Active HYDROcodone-abhay taminophen ([place]) 5-325 MG tablet Take 1 tablet by mouth every 6 (six) hours if needed for moderate pain 4 Active losartan-hydroC HLOROthiazide (Hyzaar) 100-12.5 MG tablet Take 1 tablet by mouth Daily 4 Active meloxicam (Mobic) 7.5 MG tablet Take 15 mg by mouth Daily 4 Active baclofen (Lioresal) 5 MG tablet 4 Active citalopram (CeleXA) 40 MG tablet Take 40 mg by mouth Daily 4 Active dicyclomine (Bentyl) 20 MG tablet Twice daily 5 Active famotidine (Pepcid) 20 MG tabletIndicatio ns:LPRD (laryngopharyng eal reflux disease) Take 1 tablet (20 mg) by mouth in the morning and 1 tablet (20 mg) before bedtime. 180 tablet Active celecoxib (CeleBREX) 200 MG capsule Take 200 mg by mouth in the morning and 200 mg before bedtime. 5 Active diazePAM (Valium) 10 MG tablet TAKE 1 TABLET BY MOUTH PRIOR TO PROCEDURE Active folic acid (Folvite) 1 MG tablet Take 1,000 mcg by mouth Daily Active Active Problems Problem Noted Date Diagnosed Date Bilateral knee pain 01/28/2025 Colon cancer 01/28/2025 Diarrhea 01/28/2025 History of colon cancer 01/28/2025 Hypertension 01/28/2025 Mixed anxiety and depressive disorder 01/28/2025 Pica in adults 01/28/2025 Throat fullness 01/28/2025 Trouble swallowing 01/28/2025 Type 2 diabetes mellitus with hyperglycemia 03/2025 Encounters Date Type Department Care Team Description 04/27/2025 1:00 PM EDT Office Visit [facility] [place] [facility] [address] [place] [phone] Beatris Solo MD Globus sensation (Primary Dx) 04/27/2025 Bamboo flowsheet [facility] [place] [facility] [address] [place] [phone] Beatris Solo MD 04/27/2025 Travel 04/08/2025 External Result Encounter [facility] [address] [facility] [place] [address] Beatris Solo MD 04/08/2025 Orders Only [facility] [place] [facility] [address] [place] [phone] Beatris Solo MD 03/24/2025 Telephone [facility] [place] [facility] [address] [place] [phone] Manju Michaels MA 02/24/2025 Telephone [facility] [place] [facility] [address] [place] [address] Manju Michaels MA 02/04/2025 Telephone [facility] [address] [place] [address] Beatris Solo MD from Last 3 Months Family History Relation [...] Pressure 80/72 04/27/2025 1:13 PM EDT Pulse 80 01/28/2025 2:40 PM EDT Temperature - - Respiratory Rate - - Oxygen Saturation - - Inhaled Oxygen Concentration - - Weight 117 kg (257 lb) 04/27/2025 1:13 PM EDT Height 165.1 cm (5' 5 ) 04/27/2025 1:13 PM EDT Body Mass Index 42.77 04/27/2025 1:13 PM EDT Plan of Treatment Health Maintenance Due Date Last Done Comments Diabetes: Hemoglobin A1C 1955 Medicare Annual Wellness (AWV) 1955 Diabetes: Retinopathy Screening 1965 Diabetes: Urine Protein Screening 1974 Pneumococcal Vaccine: 65+ Years (1 of 2 - PCV) 974 Mammogram 1995 Influenza Vaccine (#1) 2025 Procedures Procedure Name Priority Date/Time Associated Diagnosis Comments FL ESOPHAGUS BARIUM SWALLOW WITH VIDEO AND SPEECH Routine 04/08/2025 3:23 PM EDT FL ESOPHAGUS PHARYNX 04/08/2025 1:52 PM EDT from Last 3 Months Results * FL esophagus barium swallow w video and speech (04/08/2025 3:23 PM EDT) Anatomical Region Laterality Modality Head, Neck Radiographic Rosa ging Beatris Solo MD IMG FLUOROSCOPY PROCEDURES Fi nal Result * FL esophagus pharynx (04/08/2025 1:52 PM EDT) Anatomical Region Laterality Modality Esophagus Radiographic Rosa ging 04/08/2025 1:52 PM EDT Narrative 04/08/2025 1:51 PM EDT THIS EXAM WAS PERFORMED AT [facility] CLINICAL INFORMATION: Dysphagia, pharyngoesophageal phase TECHNIQUE/PROCEDURE: A standard esophagram was performed within the limitations of patient's limited mobility. Reference air kerma dose: 12.8 mGy COMPARISON: No relevant prior studies available. FINDINGS: No filling defects in the esophagus. No diverticulum. Esophageal spasms were seen throughout the duration of the examination most prominent in the mid to distal esophagus. The stomach and proximal small bowel demonstrate normal mucosal pattern. Normal bowel rotation. There is no evidence of gastroesophageal reflux during the examination. No evidence of hiatal hernia. Prominent cricopharyngeus is noted. IMPRESSION: * Mid to distal esophageal spasms. * Prominent cricopharyngeus. Finalized by Benson Jesus MD on 04/08/2025 1:51 PM Procedure Note Radiology, Radiologist, MD - 04/08/2025 THIS EXAM WAS PERFORMED AT [facility] CLINICAL INFORMATION: Dysphagia, pharyngoesophageal phase TECHNIQUE/PROCEDURE: A standard esophagram was performed within thelimitations of patient's limited mobility. Reference air kerma dose: 12.8 mGy COMPARISON: No relevant prior studies available. FINDINGS: No filling defects in the esophagus. No diverticulum. Esophageal spasmswere seen throughout the duration of the examination most prominent in themid to distal esophagus. The stomach and proximal small bowel demonstrate normal mucosal pattern.Normal bowel rotation. There is no evidence of gastroesophageal refluxduring the examination. No evidence of hiatal hernia. Prominent cricopharyngeus is noted. IMPRESSION: * Mid to distal esophageal spasms. * Prominent cricopharyngeus. Finalized by Benson Jesus MD on 04/08/2025 1:51 PM Beatris Solo MD IMG FLUOROSCOPY PROCEDURES Fi nal Result from Last 3 Months Insurance [employer] Care Teams Inspector Automatic Typewriter Relationship Specialty Start Date End Date Ghada Stover NP PCP - Miley MUÑIZ 09/24/24 Ilda Lopez MD [address] [place] [address] [place] [address] PCP - General Family Medicine 01/28/25
--- OUTSIDE RECORDS SUMMARY | 2025-05-06 13:55 | XMS_ITS | Encounter Summary ---
Author Organization [facility] Address [address] [place] [address] Care Team Providers Care Paper Tester Name Role Phone Ghada Stover STRATEGY ASSOCIATE Unavailable [phone] Ilda Lopez MD Primary Care Provider Encounter Details Date Type Department Care Team (Late st Contact Info) Description 04/08/2025 Orders Only [facility] [address] [facility] [address] [place] [address] Beatris Solo MD [address] [facility] [address] [place] [address] Social History Tobacco Use Types Packs/Day Years [...] on file documented as of this encounter Plan of Treatment Not on file documented as of this encounter Procedures Procedure Name Priority Date/Time Associated Diagnosis Comments FL ESOPHAGUS BARIUM SWALLOW WITH VIDEO AND SPEECH Routine 04/08/2025 3:23 PM EDT documented in this encounter Results * FL esophagus barium swallow w video and speech (04/08/2025 3:23 PM EDT) Anatomical Region Laterality Modality Head, Neck Radiographic Rosa ging Beatris Solo MD IMG FLUOROSCOPY PROCEDURES Fi nal Result documented in this encounter Visit Diagnoses Not on filedocumented in this encounter Care Teams Paper Tester Relationship Specialty Start Date End Date Ghada Stover NP PCP - Miley MUÑIZ 09/24/24 Ilda Lopez MD [address] [place] [address] PCP - General Family Medicine 01/28/25 documented as of this encounter
--- OUTSIDE RECORDS SUMMARY | 2025-05-06 13:55 | XMS_ITS | Encounter Summary ---
Author Organization [facility] Address [address] [place] [address] Care Team Providers Care Veterinary Assistant Name Role Phone Ghada Stover BUGGY LADLE TENDER Unavailable [phone] Ilda Lopez MD Primary Care Provider [phone] Encounter Details Date Type Department Care Team (Late st Contact Info) Description 04/08/2025 External Result Encounter [facility] [address] [place] [address] Beatris Solo MD [address] [facility] [address] [place] [address] Social History Tobacco Use Types Packs/Day Years [...] Priority Date/Time Associated Diagnosis Comments FL ESOPHAGUS PHARYNX 04/08/2025 1:52 PM EDT documented in this encounter Results * FL esophagus pharynx (04/08/2025 1:52 PM EDT) Anatomical Region Laterality Modality Esophagus Radiographic Rosa ging 04/08/2025 1:52 PM EDT Narrative 04/08/2025 1:51 PM EDT THIS EXAM WAS PERFORMED AT [facility] CLINICAL INFORMATION: Dysphagia, pharyngoesophageal phase TECHNIQUE/PROCEDURE: A [...] - 04/08/2025 THIS EXAM WAS PERFORMED AT [facility] CLINICAL INFORMATION: Dysphagia, pharyngoesophageal phase TECHNIQUE/PROCEDURE: A [...] on filedocumented in this encounter Care Teams Veterinary Assistant Relationship Specialty Start Date End Date Ghada Stover NP PCP - Miley MUÑIZ 09/24/24 Ilda Lopez MD [address] [place] [phone] PCP - General Family Medicine 01/28/25 documented as of this encounter
--- OUTSIDE RECORDS SUMMARY | 2025-05-06 13:55 | XMS_ITS | Clinical Summary ---
Author Organization [facility] tem Address [id number] [address] [place] [address] Care Team Providers Care Sign Hanger Supervisor Name Role Phone Ilda Lopez MD Primary Care Provider [phone] Encounters Date Type Department Care Team Description 04/08/2025 1:00 PM EDT - 04/08/2025 11:59 PM EDT Hospital Encounter [facility] - Radiology [address] [place] [phone] Dysphagia, pharyngoesophageal phase Discharge Disposition: Home 04/08/2025 Travel from Last 3 Months Social History Tobacco Use Types Packs/Day Years Used Date Smoking Tobacco: Never Assessed Comments Unknown Sex and Gender Information Value Date Recorded Sex Assigned at Not on file Legal Sex Female 3:32 PM EDT Gender Identity Not on file Sexual Orientation Not on file Plan of Treatment Health Maintenance Due Date Last Done Comments Depression Screening 1967 Tobacco Screening 1967 Adult BMI Screening 1973 DTaP,Tdap and Td Vaccines (1 - Tdap) 1974 Zoster (Shingles) Vaccine (1 of 2) 2005 Fall Risk Screening 2020 COVID-19 Vaccine (2023-2 5 season) 2024 12/17/2021, 07/15/2021, 06/24/2021 Influenza Vaccine 05/25/2025 Medical Devices Not on file Procedures Procedure Name Priority Date/Time Associated Diagnosis Comments FL ESOPHAGUS Routine 04/08/2025 1:34 PM EDT Dysphagia, pharyngoesophageal phase from Last 3 Months Results * Fluoroscopy esophagus (04/08/2025 1:34 PM EDT) Anatomical Region Laterality Modality Body Radio Fluoroscop y 04/08/2025 1:49 PM EDT Narrative 04/08/2025 1:51 PM EDT CLINICAL INFORMATION: Dysphagia, pharyngoesophageal phase TECHNIQUE/PROCEDURE: A [...] MD on 04/08/2025 1:51 PM Procedure Note Benson Jesus MD - 04/08/2025 CLINICAL INFORMATION: Dysphagia, pharyngoesophageal phase TECHNIQUE/PROCEDURE: A [...] 1:51 PM Beatris Solo MD IMG FLUOROSCOPY ORDERABLES Michelle sandra Result from Last 3 Months Insurance [employer] Care Teams Sign Hanger Supervisor Relationship Specialty Start Date End Date Ilda Lopez MD [address] [place] [id number] PCP - General Family Medicine 04/08/25
--- OUTSIDE RECORDS SUMMARY | 2025-05-06 13:55 | XMS_ITS | Encounter Summary ---
Author Organization [facility] Address [address] [place] [address] Care Team Providers Care Manager Universal Name Role Phone Ghada Stover ENVIRONMENTAL SCIENTIST Unavailable [phone] Ilda Lopez MD Primary Care Provider [phone] Encounter Details Date Type Department Care Team (Latest Contact Info) Description 04/27/2025 Travel Social History Tobacco Use Types Packs/Day Years [...] on filedocumented in this encounter Care Teams Manager Universal Relationship Specialty Start Date End Date Ghada Stover NP PCP - Miley MUÑIZ 09/24/24 Ilda Lopez MD [address] [place] [id number] PCP - General Family Medicine 01/28/25 documented as of this encounter
--- OUTSIDE RECORDS SUMMARY | 2025-05-06 13:55 | XMS_ITS | Encounter Summary ---
Author Organization [facility] Address [address] [place] [address] Care Team Providers Care Rougher Machine Operator Name Role Phone Ghada Stover PETROLEUM SUPPLY SPECIALIST Unavailable [phone] Ilda Lopez MD Primary Care Provider [phone] Encounter Details Date Type Department Care Team (Late st Contact Info) Description 04/27/2025 Bamboo flowsheet [facility] [address] [facility] [address] [place] [address] Beatris Solo MD [address] [facility] [address] [place] [address] Social History Tobacco Use Types Packs/Day Years [...] on filedocumented in this encounter Care Teams Rougher Machine Operator Relationship Specialty Start Date End Date Ghada Stover NP PCP - Miley MUÑIZ 09/24/24 Ilda Lopez MD [address] [facility] [place] [address] PCP - General Family Medicine 01/28/25 documented as of this encounter
--- OUTSIDE RECORDS SUMMARY | 2025-05-06 14:14 | XMS_ITS | CCD ---
Author Organization [facility] CliniSymo Care Team Providers Care Virtualization Engineer Name Role Phone BHARATH RIVERS Unavailable Unavailable BHARATH RIVERS Unavailable Unavailable MISC, DOCTOR Unavailable Unavailable JES BARRAGAN V Unavailable Unavailable BHARATH RIVERS Unavailable Unavailable Gimarika MONTEZ, Andaleksey Katz Attending Unavailable Gieditis , Andrius Gianna Attending Unavailable Gieditis , Andrius Vytsara Attending Unavailable Gisusanitis , Andrius Vbobo Attending Unavailable Gieditis , Andrius Vbobo Attending Unavailable Gieditis , Andrius Vytsara Attending Unavailable Medications Current Medications Medication Drug Class(es) Dates Sig (Normalized) Sig (Original) acetaminophen 325 mg / HYDROcodone bitartrate 5 mg oral tablet (6 sources) Opioid Agonist Start: 01-19-2025 take 1 tablet by mouth three times daily as needed Hydrocodone-Aceta minophen 5-325 mg tablet Active 1 TAB PO Three times daily as needed January 19, 2025 12:00am Start: 04-16-2024 End: 09-04-2024 take 1 tablet by mouth once daily at bedtime as needed Hydrocodone-Acetaminophen 5-325 mg table t Discontinued 1 TAB PO Daily at bedtime as needed April 16, 2024 12:00am September 04, 2024 3:32pm amLODIPine 5 mg oral tablet (14 sources) Dihydropyridine Calcium Channel Barry Start: 09-25-2024 [...] 2024 2:16pm baclofen 5 mg oral tablet (1 source) gamma-Aminobutyric Acid-ergic Agonist Start: 02-17-2025 take 1 tablet by mouth once daily Baclofen 5 mg tablet Active 5 MG PO Daily February 17, 2025 12:00am 24 hr buPROPion hydrochloride 300 mg extended release oral tablet (14 sources) Aminoketone Start: 12-22-2024 End: 01-22-2025 take [...] TABLET BY MOUTH EVERY MORNING Start: 04-16-2024 End: 09-25-2024 take 1 tablet [...] 10:27am April 17, 2024 10:38am Start: 04-16-2024 End: 04-17-2024 take 1 tablet by mouth once daily Citalopram 10 mg tablet Discontinued 10 MG PO Daily April 16, 2024 11:27am April 17, 2024 10:30am dicyclomine hydrochloride 20 mg oral tablet (3 sources) Anticholinergic Start: 11-19-2024 take 1 tablet by mouth twice daily Dicyclomine 20 mg tablet Active 20 MG PO Twice daily 60 November 19, 2024 1:00am famotidine 20 mg oral tablet (1 source) Histamine-2 Receptor Antagonist Start: 02-17-2025 Famotidine 20 mg tablet Active MG PO [...] omeprazole 40 mg delayed release oral capsule (1 source) Proton Pump Inhibitor Start: 02-17-2025 Omeprazole 40 mg capsule,delayed release(DR/EC) Active MG [...] / losartan potassium 100 mg oral tablet (15 sources) Thiazide Diuretic, Angiotensin 2 Receptor Barry Start: 04-16-2024 End: 01-22-2025 take 1 tablet by mouth once daily Losartan-Hydrochl orothiazide 100-12.5 mg tablet Discontinued 1 TAB PO Daily April 16, 2024 11:27am July 12, 2024 8:24am meloxicam 7.5 mg oral tablet (10 sources) Nonsteroidal Anti-inflammatory Drug Start: 05-13-2024 End: 02-17-2025 take 1 tablet by mouth once daily Meloxicam 7.5 mg tablet Discontinued 0 .ROUTE .COMPLEX September 15, 2024 10:31pm February 17, 2025 3:07pm TAKE 1 TABLET BY MOUTH EVERY DAY Start: 04-16-2024 End: 05-13-2024 take 1 tablet by mouth once daily Meloxicam 7.5 mg tablet Discontinued 7.5 MG PO Daily April 16, 2024 12:00am May 13, 2024 11:13am Semaglutide (11 sources) Start: 08-19-2024 End: 09-04-2024 [...] injector Active 1 MG SUBCUT every week 9 April 16, 2024 11:27am Start: 04-16-2024 End: [...] Date Documented Da te Episodic/Chronic Anxiety disorders (3 sources) Mixed anxiety and depressive disorder; Translations: [Other specified anxiety disorders] 04-16-2024 Chronic Cancer of colon (4 sources) Malignant tumor of colon; Translations: [Malignant neoplasm of colon, unspecified] 09-08-2024 Chronic Cancer of colon (7 sources) History of malignant neoplasm of colon; Translations: [Personal history of other malignant neoplasm of large intestine] 11-19-2024 Episodic Diabetes mellitus with complications (6 sources) Hyperglycemia due to type 2 diabetes mellitus; Translations: [Type 2 diabetes mellitus with hyperglycemia] 04-16-2024 Chronic Essential hypertension (4 sources) Hypertensive disorder; Translations: [Essential (primary) hypertension] 04-16-2024 Chronic Headache, including migraine (4 sources) Headache; Translations: [HEADACHE] Onset: 12-24-2017 Episodic Miscellaneous mental health disorders (3 sources) Pica; Translations: [Pica in adults] 01-19-2025 Chronic Other circulatory disease (2 sources) Finding of sensation of pharynx; Translations: [Other specified symptoms and signs involving the circulatory and respiratory systems] 01-19-2025 Episodic Other circulatory disease (2 sources) Other specified symptoms and signs involving the circulatory and respiratory systems; Translations: [Other symptoms involving head and neck] 01-19-2025 Episodic Other gastrointestinal disorders (3 sources) Diarrhea; Translations: [Diarrhea, unspecified] 09-08-2024 Episodic Other gastrointestinal disorders (4 sources) Diarrhea, unspecified; Translations: [Diarrhea] 09-04-2024 Episodic Other gastrointestinal disorders (2 sources) Dysphagia; Translations: [Dysphagia, unspecified] 01-19-2025 Episodic Other gastrointestinal disorders (2 sources) [...] Basophils (Bld) [#/Vol] Automated basophil count 0.0-0.[address] [facility] Basophils/100 WBC Auto (Bld) on 01-26-2025 Basophils/100 WBC (Bld) Automated basophil % 0.2-2.0 [facility] Eosinophils/100 WBC Auto (Bl d)on 01-26-2025 Eosinophils/100 WBC (Bld) Automated eosinophil % 0.9-7.0 [facility] Erythrocyte distribution wid th Auto (RBC) [Ratio]on 01-26-2025 Erythrocyte distribution width (RBC) [Ratio] Erythrocyte distribution width [Ratio] by Automated count 11.0-15.0 [facility] Estimated glomerular filtrat ion rate (GFR) non- Americanon 01-26-2025 GFR/1.73 sq M.predicted among non-blacks MDRD (S/P/Bld) [Vol rate/Area] Estimated glomerular filtration rate (GFR) non- Low >=60 mL/min/1.73m 2 [facility] Globulin Calc (S) [Mass/Vol] on 01-26-2025 Globulin (S) [Mass/Vol] Serum globulin measurement by calculation (mass/volume) [facility] Glucose mean value [Mass/vol ume] in Blood Estimated from glycated hemoglobinon 01-26-2025 Average glucose Estimated from glycated hemoglobin (Bld) [Mass/Vol] Glucose mean value [Mass/volume] in Blood Estimated from glycated hemoglobin [facility] Hematocrit Auto (Bld) [Volum e fraction]on 01-26-2025 Hematocrit (Bld) [Volume fraction] Hematocrit [Volume Fraction] of Blood by Automated count 36.0-48.0 [facility] Hemoglobin A1c percentageon 01-26-2025 HbA1c (Bld) [Mass fraction] Hemoglobin A1c percentage 4.5-6.2 [facility] Comment on above: ADA RECOMMENDED LIMI T 4.0 - 6.0ADA THERAPEUTIC TARGET < 7.0ACTION SUGGESTED> 7.0 Hemoglobin [Mass/volume] in Bloodon 01-26-2025 Hemoglobin (Bld) [Mass/Vol] Hemoglobin [Mass/volume] in Blood 12.0-16.0 [facility] Laboratory - Chemistry and C hemistry - challengeon 01-26-2025 Albumin [Mass/Vol] 3.4 g/dL 3.4-5.0 [facility] ALP [Catalytic activity/Vol] 120 U/L High 46-116 [facility] ALT [Catalytic activity/Vol] 17 U/L 14-59 [facility] AST [Catalytic activity/Vol] 11 U/L Low 15-37 [facility] Bilirubin [Mass/Vol] 0.3 mg/dL 0.2-1.0 [facility] Calcium [Mass/Vol] 9.4 mg/dL 8.5-10.1 [facility] Chloride [Moles/Vol] 102 mmol/L 98-107 [facility] CO2 [Moles/Vol] 28.8 mmol/L 21.0-32.0 [facility] Cobalamin (Vitamin B12) [Mass/Vol] 280 pg/mL 232-1245 [facility] Comment on above: Performed at: [address] [id number] Director: Grady Rivera PhD, Phone: [phone] Creatinine [Mass/Vol] 1.14 mg/dL High 0.55-1.02 [facility] Ferritin [Mass/Vol] 12.0 ng/mL 8.0-252.0 [facility] GFR/1.73 sq M.predicted MDRD (S/P/Bld) [Vol rate/Area] 57 mL/min/{1.73_m2} Low >=60 mL/min/1.73m 2 [facility] Glucose [Mass/Vol] 83 mg/dL 74-106 [facility] Potassium [Moles/Vol] 4.1 mmol/L 3.5-5.1 [facility] Protein [Mass/Vol] 8.0 g/dL 6.4-8.2 [facility] Sodium [Moles/Vol] 139 mmol/L 136-145 [facility] Urea nitrogen [Mass/Vol] 22.0 mg/dL High 7.0-18.0 [facility] Urea nitrogen/Creatinin e [Mass ratio] 19.3 mg/mg [facility] Laboratory - Hematology and Cell countson 01-26-2025 Immature granulocytes/100 WBC (Bld) 0.3 % 0.0-0.5 [facility] Leukocytes [#/volume] correc moncho for nucleated erythrocytes in Blood by Automated counon 01-26-2025 WBC corrected for nucl RBC Auto (Bld) [#/Vol] Leukocytes [#/volume] corrected for nucleated erythrocytes in Blood by Automated coun 4.0-11.0 [facility] Lymphocytes Auto (Bld) [#/Vo l]on 01-26-2025 Lymphocytes (Bld) [#/Vol] Lymphocytes [#/volume] in Blood by Automated count 1.2-3.8 [facility] Lymphocytes/100 WBC Auto (Bl d)on 01-26-2025 Lymphocytes/100 WBC (Bld) Lymphocytes/100 leukocytes in Blood by Automated count 20.5-60.0 [facility] MCH Auto (RBC) [Entitic mass ]on 01-26-2025 MCH (RBC) [Entitic mass] MCH [Entitic mass] by Automated count 26.7-34.0 [facility] MCHC Auto (RBC) [Mass/Vol]on 01-26-2025 MCHC (RBC) [Mass/Vol] MCHC [Mass/volume] by Automated count 29.9-35.2 [facility] MCV Auto (RBC) [Entitic vol] on 01-26-2025 MCV (RBC) [Entitic vol] MCV [Entitic volume] by Automated count 81.0-99.0 [facility] Monocytes Auto (Bld) [#/Vol] on 01-26-2025 Monocytes (Bld) [#/Vol] Automated blood monocyte count 0.3-0.8 [facility] Monocytes/100 WBC Auto (Bld) on 01-26-2025 Monocytes/100 WBC (Bld) Automated monocyte % 1.7-12.0 [facility] Neutrophils Auto (Bld) [#/Vo l]on 01-26-2025 Neutrophils (Bld) [#/Vol] Neutrophils [#/volume] in Blood by Automated count 1.4-6.5 [facility] Neutrophils/100 WBC Auto (Bl d)on 01-26-2025 Neutrophils/100 WBC (Bld) Automated neutrophil % 43.0-75.0 [facility] No Panel Informationon 01-26 Eosinophils # (Auto) 0.2 10 3/uL 0.0-0.7 [facility] Folate 7.40 ng/mL Low 8.60-58.90 [facility] Immature Granulocyte # (Auto) 0.03 10 3/uL 0.00-0.03 [facility] Plasma zinc measurementon Zinc [Mass/Vol] Plasma zinc measurement 44-115 [facility] Comment on above: This test was develo ped and its performance characteristicsdetermined by [employer]. It has not been cleared orapproved by the Food and Drug Administration. Detection Limit = 5Performed at: [facility] [id number] Director: Cassia Gastelum MD, Phone: [phone] Platelet mean volume Auto (B ld) [Entitic vol]on 01-26-2025 Platelet mean volume (Bld) [Entitic vol] Platelet mean volume [Entitic volume] in Blood by Automated count Low 9.5-13.5 [facility] Platelets Auto (Bld) [#/Vol] on 01-26-2025 Platelets (Bld) [#/Vol] Platelets [#/volume] in Blood by Automated count 150-450 [facility] RBC Auto (Bld) [#/Vol]on RBC (Bld) [#/Vol] Erythrocytes [#/volu me] in Blood by Automated count Low 4.20-5.40 [facility] Serum or plasma albumin/glob ulin mass ratioon 01-26-2025 Albumin/Globulin [Mass ratio] Serum or plasma albumin/globulin mass ratio [facility] Serum or plasma anion gap de terminationon 01-26-2025 Anion gap [Moles/Vol] Serum or plasma anion gap determination [facility] Basophils Auto (Bld) [#/Vol] on 09-04-2024 Basophils (Bld) [#/Vol] Automated basophil count 0.0-0.[address] [facility] Basophils/100 WBC Auto (Bld) on 09-04-2024 Basophils/100 WBC (Bld) Automated basophil % 0.2-2.0 [facility] Eosinophils/100 WBC Auto (Bl d)on 09-04-2024 Eosinophils/100 WBC (Bld) Automated eosinophil % 0.9-7.0 [facility] Erythrocyte distribution wid th Auto (RBC) [Ratio]on 09-04-2024 Erythrocyte distribution width (RBC) [Ratio] Erythrocyte distribution width [Ratio] by Automated count 11.0-15.0 [facility] Estimated glomerular filtrat ion rate (GFR) non- Americanon 09-04-2024 GFR/1.73 sq M.predicted among non-blacks MDRD (S/P/Bld) [Vol rate/Area] Estimated glomerular filtration rate (GFR) non- Low >=60 mL/min/1.73m 2 [facility] Globulin Calc (S) [Mass/Vol] on 09-04-2024 Globulin (S) [Mass/Vol] Serum globulin measurement by calculation (mass/volume) [facility] Glucose mean value [Mass/vol ume] in Blood Estimated from glycated hemoglobinon 09-04-2024 Average glucose Estimated from glycated hemoglobin (Bld) [Mass/Vol] Glucose mean value [Mass/volume] in Blood Estimated from glycated hemoglobin [facility] Hematocrit Auto (Bld) [Volum e fraction]on 09-04-2024 Hematocrit (Bld) [Volume fraction] Hematocrit [Volume Fraction] of Blood by Automated count 36.0-48.0 [facility] Hemoglobin [Mass/volume] in Bloodon 09-04-2024 Hemoglobin (Bld) [Mass/Vol] Hemoglobin [Mass/volume] in Blood 12.0-16.0 [facility] Laboratory - Chemistry and C hemistry - challengeon 09-04-2024 Albumin [Mass/Vol] 3.5 g/dL 3.4-5.0 [facility] ALP [Catalytic activity/Vol] 119 U/L High 46-116 [facility] ALT [Catalytic activity/Vol] 15 U/L 14-59 [facility] AST [Catalytic activity/Vol] 14 U/L Low 15-37 [facility] Bilirubin [Mass/Vol] 0.3 mg/dL 0.2-1.0 [facility] Calcium [Mass/Vol] 9.5 mg/dL 8.5-10.1 [facility] Chloride [Moles/Vol] 103 mmol/L 98-107 [facility] CO2 [Moles/Vol] 27.9 mmol/L 21.0-32.0 [facility] Creatinine [Mass/Vol] 1.37 mg/dL High 0.55-1.02 [facility] GFR/1.73 sq M.predicted MDRD (S/P/Bld) [Vol rate/Area] 46 mL/min/{1.73_m2} Low >=60 mL/min/1.73m 2 [facility] Glucose [Mass/Vol] 83 mg/dL 74-106 [facility] Potassium [Moles/Vol] 3.8 mmol/L 3.5-5.1 [facility] Protein [Mass/Vol] 8.1 g/dL 6.4-8.2 [facility] Sodium [Moles/Vol] 142 mmol/L 136-145 [facility] Urea nitrogen [Mass/Vol] 16.0 mg/dL 7.0-18.0 [facility] Urea nitrogen/Creatinin e [Mass ratio] 11.7 mg/mg [facility] Laboratory - Hematology and Cell countson 09-04-2024 HbA1c (Bld) [Mass fraction] 5.6 % 4.5-6.2 [facility] Comment on above: ADA RECOMMENDED LIMI T 4.0 - 6.0ADA THERAPEUTIC TARGET < 7.0ACTION SUGGESTED> 7.0 Immature granulocytes/100 WBC (Bld) 0.2 % 0.0-0.5 [facility] Leukocytes [#/volume] correc moncho for nucleated erythrocytes in Blood by Automated counon 09-04-2024 WBC corrected for nucl RBC Auto (Bld) [#/Vol] Leukocytes [#/volume] corrected for nucleated erythrocytes in Blood by Automated coun 4.0-11.0 [facility] Lymphocytes Auto (Bld) [#/Vo l]on 09-04-2024 Lymphocytes (Bld) [#/Vol] Lymphocytes [#/volume] in Blood by Automated count 1.2-3.8 [facility] Lymphocytes/100 WBC Auto (Bl d)on 09-04-2024 Lymphocytes/100 WBC (Bld) Lymphocytes/100 leukocytes in Blood by Automated count 20.5-60.0 [facility] MCH Auto (RBC) [Entitic mass ]on 09-04-2024 MCH (RBC) [Entitic mass] MCH [Entitic mass] by Automated count 26.7-34.0 [facility] MCHC Auto (RBC) [Mass/Vol]on 09-04-2024 MCHC (RBC) [Mass/Vol] MCHC [Mass/volume] by Automated count 29.9-35.2 [facility] MCV Auto (RBC) [Entitic vol] on 09-04-2024 MCV (RBC) [Entitic vol] MCV [Entitic volume] by Automated count 81.0-99.0 [facility] Microalbumin [Mass/volume] i n Urineon 09-04-2024 Albumin DL <= 20 mg/L (U) [Mass/Vol] Microalbumin [Mass/volume] in Urine <=30.0 [facility] Monocytes Auto (Bld) [#/Vol] on 09-04-2024 Monocytes (Bld) [#/Vol] Automated blood monocyte count 0.3-0.8 [facility] Monocytes/100 WBC Auto (Bld) on 09-04-2024 Monocytes/100 WBC (Bld) Automated monocyte % 1.7-12.0 [facility] Neutrophils Auto (Bld) [#/Vo l]on 09-04-2024 Neutrophils (Bld) [#/Vol] Neutrophils [#/volume] in Blood by Automated count 1.4-6.5 [facility] Neutrophils/100 WBC Auto (Bl d)on 09-04-2024 Neutrophils/100 WBC (Bld) Automated neutrophil % 43.0-75.0 [facility] No Panel Informationon 09-04 Eosinophils # (Auto) 0.3 10 3/uL 0.0-0.7 [facility] Immature Granulocyte # (Auto) 0.02 10 3/uL 0.00-0.03 [facility] Urine Random Creatinine 439.14 mg/dL High 20.00-300.00 [facility] Platelet mean volume Auto (B ld) [Entitic vol]on 09-04-2024 Platelet mean volume (Bld) [Entitic vol] Platelet mean volume [Entitic volume] in Blood by Automated count 9.5-13.5 [facility] Platelets Auto (Bld) [#/Vol] on 09-04-2024 Platelets (Bld) [#/Vol] Platelets [#/volume] in Blood by Automated count 150-450 [facility] RBC Auto (Bld) [#/Vol]on RBC (Bld) [#/Vol] Erythrocytes [#/volu me] in Blood by Automated count Low 4.20-5.40 [facility] Serum or plasma albumin/glob ulin mass ratioon 09-04-2024 Albumin/Globulin [Mass ratio] Serum or plasma albumin/globulin mass ratio [facility] Serum or plasma anion gap de terminationon 09-04-2024 Anion gap [Moles/Vol] Serum or plasma anion gap determination [facility] Urine microalbumin/creatinin e mass ratioon 09-04-2024 Albumin/Creatinine DL <= 20 mg/L (U) [Mass ratio] Urine microalbumin/creatinine mass ratio 0.0-29.9 [facility] Comment on above: NO MICROALBUMINURIA 0-29 MG/GCLINICAL MICROALBUMINURIA 30-300 MG/GMACROALBUMINURIA >300 MG/G CT HEAD WO CONon 12-24-2017 CT HEAD WO CON [address] [place] [address] Patient: GILLIAN LAGUNAS Exam Date: 12/24/2017DOB: 1955 Gender:F : BHARATH RIVERS Admission #: [id number] : Order #: [id number] HERE TO VIEW EXAM RADIOLOGY REPORT PROCEDURE: [...] 15:25 Normal [facility] Vital Signs Date Time Vital Sign Value Performing Clinician Faci lity 02-17-2025 14:58-0400 Body height 160.02 cm [facility] 02-17-2025 14:58-0400 Body mass index (BMI) [Ratio] 47.8 kg/m2 [facility] 02-17-2025 14:58-0400 Body weight 122.46 kg [facility] 02-17-2025 14:58-0400 Diastolic blood pressure 81 mm[Hg] [facility] 02-17-2025 14:58-0400 Heart rate 87 /min [facility] 02-17-2025 14:58-0400 Systolic blood pressure 122 mm[Hg] [facility] 01-19-2025 14:10-0400 Body height 160.02 cm [facility] 01-19-2025 14:10-0400 Body mass index (BMI) [Ratio] 48.5 kg/m2 [facility] 01-19-2025 14:10-0400 Body weight 124.28 kg [facility] 01-19-2025 14:10-0400 Diastolic blood pressure 79 mm[Hg] [facility] 01-19-2025 14:10-0400 Heart rate 74 /min [facility] 01-19-2025 14:10-0400 Respiratory rate 12 /min [facility] 01-19-2025 14:10-0400 SaO2% (BldA) [Mass fraction] 97 % [facility] 01-19-2025 14:10-0400 Systolic blood pressure 129 mm[Hg] [facility] 11-19-2024 14:59-0500 Body height 160.02 cm [facility] 11-19-2024 14:59-0500 Body mass index (BMI) [Ratio] 45.1 kg/m2 [facility] 11-19-2024 14:59-0500 Body weight 115.66 kg [facility] 11-19-2024 14:59-0500 Diastolic blood pressure 76 mm[Hg] [facility] 11-19-2024 14:59-0500 Heart rate 70 /min [facility] 11-19-2024 14:59-0500 Systolic blood pressure 113 mm[Hg] [facility] 09-04-2024 13:59-0500 Body height 160.02 cm [facility] 09-04-2024 13:59-0500 Body mass index (BMI) [Ratio] 45.7 kg/m2 [facility] 09-04-2024 13:59-0500 Body weight 117.14 kg [facility] 09-04-2024 13:59-0500 Diastolic blood pressure 80 mm[Hg] [facility] 09-04-2024 13:59-0500 Heart rate 80 /min [facility] 09-04-2024 13:59-0500 Systolic blood pressure 122 mm[Hg] [facility] 04-16-2024 10:53-0400 Body height 160.02 cm [facility] 04-16-2024 10:53-0400 Body mass index (BMI) [Ratio] 45.1 kg/m2 [facility] 04-16-2024 10:53-0400 Body weight 115.66 kg [facility] 04-16-2024 10:53-0400 Diastolic blood pressure 73 mm[Hg] [facility] 04-16-2024 10:53-0400 Heart rate 67 /min [facility] 04-16-2024 10:53-0400 Systolic blood pressure 112 mm[Hg] [facility] Encounters Encounter Date Encounter Type Care Provider Facility Start: 02-23-2025 End: 02-23-2025 ambulatory Dorothy Dumont MD Facility: [facility] Start: 02-17-2025 End: 02-17-2025 ambulatory [facility] Work Phone: Start: 02-17-2025 End: 02-17-2025 Patient encounter procedure [facility] Work Phone: Start: 02-09-2025 End: 02-09-2025 ambulatory Dorothy Dumont MD Facility: [facility] Start: 01-26-2025 Non-patient / Non-visit [facility] Work Phone: Start: 01-19-2025 End: 01-19-2025 ambulatory [facility] Work Phone: Start: 01-19-2025 End: 01-19-2025 Patient encounter procedure [facility] Work Phone: Start: 01-12-2025 End: 01-12-2025 ambulatory Dorothy Dumont MD Facility: [facility] Start: 11-19-2024 End: 11-19-2024 ambulatory [facility] Work Phone: Start: 11-19-2024 End: 11-19-2024 Patient encounter procedure [facility] Work Phone: Start: 11-17-2024 End: 11-17-2024 ambulatory Dorothy Dumont MD Facility:[facility] Start: 10-20-2024 End: 10-20-2024 ambulatory Dorothy Dumont MD Facility:[facility] Start: 10-06-2024 End: 10-06-2024 ambulatory Dorothy Dumont MD Facility:[facility] Start: 09-04-2024 End: 09-04-2024 Patient encounter procedure [facility] Work Phone: Start: 09-03-2024 Non-patient / Non-visit [facility] Work Phone: Start: 04-16-2024 End: 04-16-2024 ambulatory [facility] Work Phone: Start: 04-16-2024 End: 04-16-2024 Patient encounter procedure [facility] Work Phone: Start: 12-24-2017 End: 12-24-2017 Ambulatory BHARATH RIVERS Facility: Plan of Treatment Date Care Activity Detail Author Start: 01-19-2025 Patient referral [facility] Work Phone: Start: 09-08-2024 Patient referral [facility] Work Phone: Start: 04-16-2024 Patient referral [facility] Work Phone: Comprehensive metabo lic 2000 panel - Serum or Plasma [facility] Patient Education Vestibular Exercises [facility] Work Phone: Patient referral [facility] Work Phone: Zinc [Mass/volume] i n Serum or Plasma [facility] Payers Date Payer Category Payer Unknown 1959 Unknown [id number] 1955 Unknown [id number] 2.16. [id number] 1955 Unknown [id number] 2.16. [id number] 1955 Unknown [id number] 2.16. [id number] 1955 Unknown [id number] 2.16. [id number] 1955 Unknown [id number] 2.16. [id number] 1955 Unknown [id number] 2.16. [id number] 1955 Unknown [id number] 2.16. [id number] Unknown Miley HOLLY/MALORIE [id number] Social History Date Type Detail Facility Start: 04-16-2024 End: 04-16-2024 Tobacco smoking status NHIS Ex-smoker (finding) [facility] Start: 1955 Sex Assigned At Female [facility] Start: 11-19-2024 End: 02-17-2025 Sex Female (finding) [facility] Evaluation note 01-19-2025 Note Date & Type Note Facility 01-19-2025 Evaluation note Diagnosis Onset Date Resolution Pica in adults acute December 2:07pm Throat fullness acute December 2:07pm Trouble swallowing acute January 19, 2025 2:07pm Type 2 diabetes mellitus with hyperglycemia acute January 19, 2 025 2:07pm Diarrhea acute February 17, 2025 2:52pm History of colon cancer acute M ay 2024 2:52pm [facility] Work Phone: Hospital Discharge instructions 01-19-2025 Note Date & Type Note Facility 01-19-2025 Hospital Discharg e instructions Ambulatory OrdersReferral to ENT Time Frame: 01/19/25, Location: None Selected [facility] Work Phone: Evaluation note 11-19-2024 Note Date & Type Note Facility 11-19-2024 Evaluation note Diagnosis Onset Date Resolution Diarrhea acute November 19, 2024 2:54pm History of colon cancer acute F ebruary 2024 2:54pm Throat fullness acute December 2:07pm Trouble swallowing acute January 19, 2025 2:07pm Type 2 diabetes mellitus with hyperglycemia acute January 19, 2:07pm [facility] Work Phone: Evaluation note 09-04-2024 Note Date & Type Note Facility 09-04-2024 Evaluation note Diagnosis Onset Date Resolution Bilateral knee pain acute Decem 2023 1:49pm Colon cancer acute August 1:49pm Diarrhea acute September 04, 2024 1:49pm Hypertension acute August 1:49pm Type 2 diabetes mellitus with hyperglycemia acute August 1:49pm Diarrhea acute November 19, 2024 2:54pm History of colon cancer acute [facility] 2024 2:54pm [facility] Work Phone: Evaluation note Note Date & Type Note Facility Evaluation note Diagnosis Onset Date Left knee pain acute [facility] Work Phone: Hospital Discharge instructions Note Date & Type Note Facility Hospital Discharge instructions Ambulatory OrdersReferral to Orthopedics Time Frame: 04/16/24, Location: None Selected [facility] Work Phone: Summary Purpose Family History [...] of colon cancer November 19 025 2:54pm Chief Complaint Admit Date Ref: [...] colon cancer February 17, 2025 2 :52pm Additional Source Comments INFORMATION SOURCE (unrecogn ized section and content) DATE CREATED AUTHOR 03/14/2018 [facility] DATE CREATED AUTHOR RIGOBERTO GALEANO 03/02/2025 [facility] Care Teams (unrecognized sec tion [...] April 16, 2024 End: April 16, 2024 Team Status: Active Member Role Status Elmer Lopez MD Primary Care Provide r, Attending Provider Active Start: January 26, 2025 Team Status: Inactive Member Role Status Dates Ilda Lopez MD Primary Care Provider Active Start: February [...] BE BASED ON THE PRIMARY CLINICAL RECORDS. [employer] provides no warranty or guarantee of the accuracy or completeness of information in this document.
--- NOTE | 2025-05-06 14:28 | P.CN_ITS ---
Consult Note: HPI Data of Consult Patient: known to practice within the last 3 years Requesting Physician: Sri Daniels NP Primary Care Provider: Ilda Lopez MD Consult Narrative Reason for consult: f/u Narrative: Gillian Interiano a pleasant 69 year old female presents for evaluation of chronic bilateral knee pain and low back pain. recently underwent right and left genicular RFA for knee pain/OA and is not noting relief at this time, initially had significant relief for a few weeks. previously has failed > 6 weeks of PT/HEP, heat, ice, tylenol, NSAIDs, steroid injections, hyaluronic injection. Pain today 8/10 increasing with standing, walking, activity. reports falls without injury due to pain. has been utilizing tylenol, celebrex, and norco 7.5- 325mg tid prn with moderate relief without side effects. cc:: CC: Sri Daniels NP [facility] Medical History Obesity ?E66.9 - Obesity, unspecified (ICD-10) Hypertension ?I10 - Essential (primary) hypertension (ICD-10) Surgical History H/O hernia repair ?Z98.890 - Other specified postprocedural states (ICD-10) ?Z87.19 - Personal history of other diseases of the digestive system (ICD-10) History of hysterectomy ?Z90.710 - Acquired absence of both cervix and uterus (ICD-10) H/O knee surgery ?Z98.890 - Other specified postprocedural states (ICD-10) Meds Home Medications and Allergies Home Medications ?Medication ?Instructions ?Recorded ?Confirmed ?Type Bacillus coagulans 10 billion cell cell PO 10/06/24 H istory capsule,delayed release (Probiotic (B. coagulans)) amlodipine 5 mg tablet 5 mg PO DAILY 10/06/2402/23 History citalopram 40 mg tablet 40 mg PO DAILY 10/06/2411/18 History hydrocodone 5 mg-acetaminophen 325 1 tab PO TID PRN pa in #90 tabs 10/06/24 02/23/25 Rx mg tablet losartan 100 1 tab PO DAILY 10/06/2411/18 History mg-hydrochlorothiazide 12.5 mg tablet (Hyzaar) celecoxib 200 mg capsule (Celebrex) 200 mg PO BID 10/2602/23/25 History dicyclomine 20 mg tablet mg 01/12/25 History hydrocodone 7.5 mg-acetaminophen 1 tab PO TID PRN pain #90 tabs 03/25/25 Rx 325 mg tablet naloxone 4 mg/actuation nasal 4 mg intranasal Q2M #2 e a 03/25/25 Rx spray (Narcan) Allergies Allergy/AdvReac Type Severity Reaction Status Date / Time No Known Drug Allergies Allergy Verified 02/23/25 07:04 Exam Back & Pelvis Lumbar spine/lower back: pain with ROM, lumbar spinal tenderness and straight leg raise positive right Other: decreased sensation bilateral L4/5 strength 4/5 in BLE Extremity Other: Knee-examination of the bilateral knee reveals tenderness to palpation over the superior, inferior, lateral, and medial aspect of the knee.? Some swelling is noted without erythema. Pain is elicited with flexion and extension of the knee both actively and passively.? Some grinding is noted with these motions.? Results Additional Findings Additional findings: If on a controlled substance or opioids, I have checked an OARRS report on this patient and there are no aberrancies noted in the prescribing history.??If on a controlled substance or opioid a drug screen was completed and reviewed within the last year, and if there has not been a drug screen completed we ordered one today to monitor higher risk, state monitored pain medication use. As part of providing excellent, safe, comprehensive care, the following was completed at our patient's visit: 1. A medication reconciliation and review to ensure accurate knowledge of current/active medications, including asking our patients to inform us about any oqrd-ufe-peyxvto medications or herbal remedies/nutritional s upplements/alternative remedies. 2. A review to specifically ensure our patients have had annual screening for screening for depression, screening for tobacco use, and screening for unhealthy alcohol use. For concerning screenings had a discussion with the patient, provided patient education, and recommended follow-up with primary care provider when appropriate. If patient noted with a risk of falling, they received education on strength, gait, and balance training to prevent future risk of falling. Portions of this note may have been carried over from the previous visit and upd ated as appropriate. Please note this office utilizes paper charting in addition to the electronic medical record. A list of current medications, vitals, and PMH is available there as the clinical staff outside of myself do not have access to [employer] charting during the clinic day operations. As part of providing quality comprehensive care the current medications, vitals, and PMH were reviewed in the paper chart. Assessment and Plan Assessment and Plan (1) Osteoarthritis of knees, bilateral: Qualifiers: Osteoarthritis type: primary Qualified Code(s): M17.0 - Bilateral primary osteoarthritis of knee (2) Chronic use of opiate for therapeutic purpose: Assessment and Plan: I feel these medications are improving the patient's quality of life and allow them to tolerate activities of daily living as well as participate in recreational activity.? The patient does not report intolerable side effects. The patient is NOT opioid naive and non-pharmacologic and non-opioid treatment has failed to significantly relieve the patient's pain and improve functionality. The patient has a diagnosis that is related to a somatic or visceral pain etiology. ? ?? I reviewed with the patient the potential risks and side effects with the use of? opioid medications including but not limited to respiratory depression,? sedation, and even . Within the last 12 months I have verified the patient has access to naloxone should? these effects occur. The patient was advised to let? their family know they had Naloxone in case they would need to administer? the medication. I advised the patient to avoid the use of any other? sedation substances including alcohol, THC, and benzodiazepines while? taking opioid medications due to the risk of compounding side effects and? detrimental outcomes. within the last 12 months I have reviewed the [employer], pain treatment agreement and urine drug screen.? ?? A drug screen was completed within the last year, and no aberrancies were noted regarding their use of controlled substances. The patient understands they are subject to the terms and conditions of the pain contract that they have signed. ? ?? I have checked an OARRS report on this patient today and there are no aberrancies noted in the prescribing history.? (3) Lumbar stenosis with neurogenic claudication: Plan refer to [facility] orthopedics for evaluation of bilateral knee OA in consideration of surgical intervention update lumbar MRI without contrast to assess lumbar stenosis with NC unr esponsive to > 6 weeks of HEP, heat, ice, tylenol, NSAIDs continue hep as tolerated continue current medications, risks vs benefits reviewed f/u to review lumbar MRI
== END 2025-05-06 13:54 | disposition home or self-care (01) ==
LOC: PM 13:54
PROVIDERS: PCP Family Medicine; Visit Provider Nurse Practitioner
DX: M17.0 Bilateral primary osteoarthritis of knee (principal); Z79.891 Long term (current) use of opiate analgesic; M48.062 Spinal stenosis, lumbar region with neurogenic claudication
CPT/HCPCS: G0463

== ENCOUNTER 2025-05-15 13:31 | Outpatient (OUT) | payer MEDICARE, SELFPAY ==
--- OUTSIDE RECORDS SUMMARY | 2025-05-15 13:34 | XMS_ITS | Clinical Summary ---
Author Organization [facility] tem Address [facility]-[id number] [address] [place] [address] Care Team Providers Care Training Program Developer Name Role Phone Ilda Lopez MD Primary Care Provider [phone] Encounters Date Type Department Care Team Description 04/08/2025 1:00 PM EDT - 04/08/2025 11:59 PM EDT Hospital Encounter [facility] - Radiology [address] [place] [phone] Dysphagia, pharyngoesophageal phase Discharge Disposition: Home 04/08/2025 [...] 3 Months Insurance [employer] Care Teams Training Program Developer Relationship Specialty Start Date End Date Ilda Lopez MD [address] [place] [id number] PCP - General Family Medicine 04/08/25
--- OUTSIDE RECORDS SUMMARY | 2025-05-15 13:34 | XMS_ITS | Encounter Summary ---
Author Organization [facility] Address [address] [place] [address] Care Team Providers Care Co Director Name Role Phone Ghada Stover COLLECTIONS ANALYST Unavailable [phone] Ilda Lopez MD Primary Care Provider [phone] Encounter Details Date Type Department Care Team (Late st Contact Info) Description 04/08/2025 Orders Only [facility] [address] [facility] [address] [place] [address] Beatris Solo MD [address] [facility] [address] [place] [address] Social History Tobacco Use Types Packs/Day Years [...] Laterality Modality Head, Neck Radiographic Rosa ging us Beatris Solo MD IMG FLUOROSCOPY PROCEDURES Fi nal Result documented in this encounter Visit Diagnoses Not on filedocumented in this encounter Care Teams Co Director Relationship Specialty Start Date End Date Ghada Stover NP PCP - Miley MUÑIZ 09/24/24 Ilda Lopez MD [address] [place] [address] PCP - General Family Medicine 01/28/25 documented as of this encounter
--- OUTSIDE RECORDS SUMMARY | 2025-05-15 13:34 | XMS_ITS | Encounter Summary ---
Author Organization [facility] Address [address] [place] [address] Care Team Providers Care Parts Processor Name Role Phone Ghada Stover CHOIR DIRECTOR Unavailable [phone] Ilda Lopez MD Primary Care Provider [phone] Encounter Details Date Type Department Care Team (Late st Contact Info) Description 04/08/2025 External Result Encounter [facility] [address] [place] [address] Beatris Solo MD [address] [facility] [address] [place] [address] Social History Tobacco Use Types [...] PM EDT THIS EXAM WAS PERFORMED AT [facility] CLINICAL INFORMATION: Dysphagia, pharyngoesophageal phase TECHNIQUE/PROCEDURE: A [...] - 04/08/2025 THIS EXAM WAS PERFORMED AT [facility] CLINICAL INFORMATION: Dysphagia, pharyngoesophageal phase TECHNIQUE/PROCEDURE: A [...] on filedocumented in this encounter Care Teams Parts Processor Relationship Specialty Start Date End Date Ghada Stover NP PCP - Miley MUÑIZ 09/24/24 Ilda Lopez MD [address] [place] [phone] PCP - General Family Medicine 01/28/25 documented as of this encounter
--- OUTSIDE RECORDS SUMMARY | 2025-05-15 13:34 | XMS_ITS | Clinical Summary ---
Author Organization [facility] Address [address] [place] [address] Care Team Providers Care Sustainability Executive Director Name Role Phone Ghada Stover NP Unavailable [phone] Ilda Lopez MD Primary Care Provider [phone] Allergies No known active allergies Medications amLODIPine (Norvasc) 5 MG tablet Take 5 mg by mouth Daily 4 Active buPROPion XL (Wellbutrin XL) 300 MG 24 hr tablet 300 mg in the morning. 4 Active citalopram (CeleXA) 10 MG tablet Take 20 mg by mouth Daily 40 mg daily 4 Active HYDROcodone-abhay taminophen ([place]) 5-325 MG tablet Take 1 tablet by [...] 04/27/2025 1:00 PM EDT Office Visit [facility] [address] [place] [address] [place] [phone] Beatris Solo MD Globus sensation (Primary Dx) 04/27/2025 Bamboo flowsheet [facility] [address] [place] [address] [place] [phone] Beatris Solo MD 04/27/2025 Travel 04/08/2025 External Result Encounter [facility] [address] [place] [address] [place] [address] Beatris Solo MD 04/08/2025 Orders Only [facility] [address] [place] [address] [place] [phone] Beatris Solo MD 03/24/2025 Telephone [facility] [address] [place] [address] [place] [phone] Manju Michaels MA 02/24/2025 Telephone [facility] [address] [place] [address] [place] [address] Manju Michaels MA from Last 3 Months Family History Relation Name Status Comments Father Mother Social History Tobacco Use Types Packs/Day Years Used Date Smoking Tobacco: Former Cigarettes 2.5 10 S tarted: 1973 Smokeless Tobacco: Never Tobacco Cessation:Counseling Given: Not [...] PM EDT THIS EXAM WAS PERFORMED AT [facility] ([place], [place]) CLINICAL INFORMATION: Dysphagia, pharyngoesophageal phase TECHNIQUE/PROCEDURE: A [...] - 04/08/2025 THIS EXAM WAS PERFORMED AT [facility] ([place], [place]) CLINICAL INFORMATION: Dysphagia, pharyngoesophageal phase TECHNIQUE/PROCEDURE: A [...] Months Insurance [employer] Care Teams Sustainability Executive Director Relationship Specialty Start Date End Date Ghada Stover NP PCP - Miley MUÑIZ 09/24/24 Ilda Lopez MD [address] [facility] [place] [phone] PCP - General Family Medicine 01/28/25
--- NOTE | 2025-05-15 13:37 | MR_ITS ---
The [address] [address] Patient Name: BRENDA ARZOLA MRN: [id number] date: 1955 Sex: F Assigned Patient Location: MRI Current Patient Location: MRI Accession/Order Number: [id number] Exam Date: 05/15/2025 14:15 Report Date: 05/15/2025 16:00 At the request of: BAYLEE DENTON NP Procedure: MR lumbar spine wo con MRI LUMBAR SPINE PERFORMED WITHOUT CONTRAST INDICATION: Spinal stenosis of lumbar region with neurogenic claudication COMPARISON: None FINDINGS: Mild levocurvature. Incidental vertebral body hemangioma at L4 otherwise the Lumbar vertebral heights, bone marrow and alignment maintained. Minimal anterolisthesis L4 on L5 2-3 mm. Intervertebral space heights are grossly preserved.. Conus medullaris terminates at mid L2. Right renal cysts. Otherwise paraspinal soft tissues are unremarkable. T12-L1: Facet arthropathy. No significant disease is canal neural from narrowing identified. L1-2: Minor disc desiccation. Mild facet arthropathy contributing to minimal foraminal narrowing. Canal is patent. No significant disc protrusion L2-L3: Minimal disc desiccation with radc-rn-nasermyl facet arthropathy. Canal is patent. Mild foraminal narrowing L3-4: Disc desiccation. Moderate facet arthropathy. Minimal left foraminal narrowing. Canal and right neural foramen are patent. L4-5: Minimal anterolisthesis to 3 mm with uncovering the posterior disc. Minimal disc desiccation. No focal disc protrusion. There is advanced facet arthropathy canal neural foramen are patent. L5-S1: Moderate right moderate severe left facet arthropathy. Canal neural foramina patent. MR/MR lumbar spine wo con IMPRESSION: Multilevel posterior elements degenerative changes greatest L4-S1. This is associated with 2-3 mm of grade 1 anterolisthesis L4-L5. Otherwise no significant canal or neural foraminal narrowing identified. Impression dictated by: Roberto Gaspar M.D. 05/15/2025 4:00 PM Dictation Location: [place] [address] Electronically authenticated by: [id number] Y Date: 05/15/2025 16:00
--- OUTSIDE RECORDS SUMMARY | 2025-05-15 13:38 | XMS_ITS | CCD ---
Author Organization [facility]iniSyor Care Team Providers Care Environmental Engineer Name Role Phone BHARATH RIVERS Unavailable [...] Basophils (Bld) [#/Vol] Automated basophil count 0.0-0.1 [facility] Basophils/100 WBC Auto (Bld) on 01-26-2025 Basophils/100 WBC (Bld) Automated basophil % 0.2-2.0 [facility] Eosinophils/100 WBC Auto (Bl d)on 01-26-2025 Eosinophils/100 WBC (Bld) Automated eosinophil % 0.9-7.0 [facility] Erythrocyte distribution wid th Auto (RBC) [Ratio]on 01-26-2025 Erythrocyte distribution width (RBC) [Ratio] Erythrocyte distribution width [Ratio] by Automated count 11.0-15.0 [facility] Estimated glomerular filtrat ion rate (GFR) non- Americanon 01-26-2025 GFR/1.73 sq M.predicted among non-blacks MDRD (S/P/Bld) [Vol rate/Area] Estimated glomerular filtration rate (GFR) non- Low >=60 mL/min/1.73m 2 [facility] Globulin Calc (S) [Mass/Vol] on 01-26-2025 Globulin (S) [Mass/Vol] Serum globulin measurement by calculation (mass/volume) [facility] Glucose mean value [Mass/vol ume] in Blood Estimated from glycated hemoglobinon 01-26-2025 Average glucose Estimated from glycated hemoglobin (Bld) [Mass/Vol] Glucose mean value [Mass/volume] in Blood Estimated from glycated hemoglobin [facility] Hematocrit Auto (Bld) [Volum e fraction]on 01-26-2025 Hematocrit (Bld) [Volume fraction] Hematocrit [Volume Fraction] of Blood by Automated count 36.0-48.0 [facility] Hemoglobin A1c percentageon 01-26-2025 HbA1c (Bld) [Mass fraction] Hemoglobin A1c percentage 4.5-6.2 [facility] Comment on above: ADA RECOMMENDED LIMI T 4.0 - 6.0ADA THERAPEUTIC TARGET < 7.0ACTION SUGGESTED> 7.0 Hemoglobin [Mass/volume] in Bloodon 01-26-2025 Hemoglobin (Bld) [Mass/Vol] Hemoglobin [Mass/volume] in Blood 12.0-16.0 [facility] Laboratory - Chemistry and C hemistry - challengeon 01-26-2025 Albumin [Mass/Vol] 3.4 g/dL 3.4-5.0 [facility] ALP [Catalytic activity/Vol] 120 U/L High 46-116 [facility] ALT [Catalytic activity/Vol] 17 U/L 14-59 [facility] AST [Catalytic activity/Vol] 11 U/L Low 15-37 [facility] Bilirubin [Mass/Vol] 0.3 mg/dL 0.2-1.0 [facility] Calcium [Mass/Vol] 9.4 mg/dL 8.5-10.1 [facility] Chloride [Moles/Vol] 102 mmol/L 98-107 [facility] CO2 [Moles/Vol] 28.8 mmol/L 21.0-32.0 [facility] Cobalamin (Vitamin B12) [Mass/Vol] 280 pg/mL 232-1245 [facility] Comment on above: Performed at: [address] [id number] Director: Grady Rivera PhD, Phone: [phone] Creatinine [Mass/Vol] 1.14 mg/dL High 0.55-1.02 [facility] Ferritin [Mass/Vol] 12.0 ng/mL 8.0-252.0 [facility] GFR/1.73 sq M.predicted MDRD (S/P/Bld) [Vol rate/Area] 57 mL/min/{1.73_m2} Low >=60 mL/min/1.73m 2 [facility] Glucose [Mass/Vol] 83 mg/dL 74-106 [facility] Potassium [Moles/Vol] 4.1 mmol/L 3.5-5.1 [facility] Protein [Mass/Vol] 8.0 g/dL 6.4-8.2 [facility] Sodium [Moles/Vol] 139 mmol/L 136-145 [facility] Urea nitrogen [Mass/Vol] 22.0 mg/dL High 7.0-18.0 [facility] Urea nitrogen/Creatinin e [Mass ratio] 19.3 mg/mg [facility] Laboratory - Hematology and Cell countson 01-26-2025 Immature granulocytes/100 WBC (Bld) 0.3 % 0.0-0.5 [facility] Leukocytes [#/volume] correc moncho for nucleated erythrocytes in Blood by Automated counon 01-26-2025 WBC corrected for nucl RBC Auto (Bld) [#/Vol] Leukocytes [#/volume] corrected for nucleated erythrocytes in Blood by Automated coun 4.0-11.0 [facility] Lymphocytes Auto (Bld) [#/Vo l]on 01-26-2025 Lymphocytes (Bld) [#/Vol] Lymphocytes [#/volume] in Blood by Automated count 1.2-3.8 [facility] Lymphocytes/100 WBC Auto (Bl d)on 01-26-2025 Lymphocytes/100 WBC (Bld) Lymphocytes/100 leukocytes in Blood by Automated count 20.5-60.0 [facility] MCH Auto (RBC) [Entitic mass ]on 01-26-2025 MCH (RBC) [Entitic mass] MCH [Entitic mass] by Automated count 26.7-34.0 [facility] MCHC Auto (RBC) [Mass/Vol]on 01-26-2025 MCHC (RBC) [Mass/Vol] MCHC [Mass/volume] by Automated count 29.9-35.2 [facility] MCV Auto (RBC) [Entitic vol] on 01-26-2025 MCV (RBC) [Entitic vol] MCV [Entitic volume] by Automated count 81.0-99.0 [facility] Monocytes Auto (Bld) [#/Vol] on 01-26-2025 Monocytes (Bld) [#/Vol] Automated blood monocyte count 0.3-0.8 [facility] Monocytes/100 WBC Auto (Bld) on 01-26-2025 Monocytes/100 WBC (Bld) Automated monocyte % 1.7-12.0 [facility] Neutrophils Auto (Bld) [#/Vo l]on 01-26-2025 Neutrophils (Bld) [#/Vol] Neutrophils [#/volume] in Blood by Automated count 1.4-6.5 [facility] Neutrophils/100 WBC Auto (Bl d)on 01-26-2025 Neutrophils/100 WBC (Bld) Automated neutrophil % 43.0-75.0 [facility] No Panel Informationon 01-26 Eosinophils # (Auto) 0.2 10 3/uL 0.0-0.7 [facility] Folate 7.40 ng/mL Low 8.60-58.90 [facility] Immature Granulocyte # (Auto) 0.03 10 3/uL 0.00-0.03 [facility] Plasma zinc measurementon Zinc [Mass/Vol] Plasma zinc measurement 44-115 [facility] Comment on above: This test was develo ped and its performance characteristicsdetermined by [employer]. It has not been cleared orapproved by the Food and Drug Administration. Detection Limit = 5Performed at: [facility] [employer] [id number] Director: Cassia Gastelum MD, Phone: [phone] Platelet mean volume Auto (B ld) [Entitic vol]on 01-26-2025 Platelet mean volume (Bld) [Entitic vol] Platelet mean volume [Entitic volume] in Blood by Automated count Low 9.5-13.5 [facility] Platelets Auto (Bld) [#/Vol] on 01-26-2025 Platelets (Bld) [#/Vol] Platelets [#/volume] in Blood by Automated count 150-450 [facility] RBC Auto (Bld) [#/Vol]on RBC (Bld) [#/Vol] Erythrocytes [#/volu me] in Blood by Automated count Low 4.20-5.40 [facility] Serum or plasma albumin/glob ulin mass ratioon 01-26-2025 Albumin/Globulin [Mass ratio] Serum or plasma albumin/globulin mass ratio [facility] Serum or plasma anion gap de terminationon 01-26-2025 Anion gap [Moles/Vol] Serum or plasma anion gap determination [facility] Basophils Auto (Bld) [#/Vol] on 09-04-2024 Basophils (Bld) [#/Vol] Automated basophil count 0.0-0.1 [facility] Basophils/100 WBC Auto (Bld) on 09-04-2024 Basophils/100 WBC (Bld) Automated basophil % 0.2-2.0 [facility] Eosinophils/100 WBC Auto (Bl d)on 09-04-2024 Eosinophils/100 WBC (Bld) Automated eosinophil % 0.9-7.0 [facility] Erythrocyte distribution wid th Auto (RBC) [Ratio]on 09-04-2024 Erythrocyte distribution width (RBC) [Ratio] Erythrocyte distribution width [Ratio] by Automated count 11.0-15.0 [facility] Estimated glomerular filtrat ion rate (GFR) non- Americanon 09-04-2024 GFR/1.73 sq M.predicted among non-blacks MDRD (S/P/Bld) [Vol rate/Area] Estimated glomerular filtration rate (GFR) non- Low >=60 mL/min/1.73m 2 [facility] Globulin Calc (S) [Mass/Vol] on 09-04-2024 Globulin (S) [Mass/Vol] Serum globulin measurement by calculation (mass/volume) [facility] Glucose mean value [Mass/vol ume] in Blood Estimated from glycated hemoglobinon 09-04-2024 Average glucose Estimated from glycated hemoglobin (Bld) [Mass/Vol] Glucose mean value [Mass/volume] in Blood Estimated from glycated hemoglobin [facility] Hematocrit Auto (Bld) [Volum e fraction]on 09-04-2024 Hematocrit (Bld) [Volume fraction] Hematocrit [Volume Fraction] of Blood by Automated count 36.0-48.0 [facility] Hemoglobin [Mass/volume] in Bloodon 09-04-2024 Hemoglobin (Bld) [Mass/Vol] Hemoglobin [Mass/volume] in Blood 12.0-16.0 [facility] Laboratory - Chemistry and C hemistry - challengeon 09-04-2024 Albumin [Mass/Vol] 3.5 g/dL 3.4-5.0 [facility] ALP [Catalytic activity/Vol] 119 U/L High 46-116 [facility] ALT [Catalytic activity/Vol] 15 U/L 14-59 [facility] AST [Catalytic activity/Vol] 14 U/L Low 15-37 [facility] Bilirubin [Mass/Vol] 0.3 mg/dL 0.2-1.0 [facility] Calcium [Mass/Vol] 9.5 mg/dL 8.5-10.1 [facility] Chloride [Moles/Vol] 103 mmol/L 98-107 [facility] CO2 [Moles/Vol] 27.9 mmol/L 21.0-32.0 [facility] Creatinine [Mass/Vol] 1.37 mg/dL High 0.55-1.02 [facility] GFR/1.73 sq M.predicted MDRD (S/P/Bld) [Vol rate/Area] 46 mL/min/{1.73_m2} Low >=60 mL/min/1.73m 2 [facility] Glucose [Mass/Vol] 83 mg/dL 74-106 [facility] Potassium [Moles/Vol] 3.8 mmol/L 3.5-5.1 [facility] Protein [Mass/Vol] 8.1 g/dL 6.4-8.2 [facility] Sodium [Moles/Vol] 142 mmol/L 136-145 [facility] Urea nitrogen [Mass/Vol] 16.0 mg/dL 7.0-18.0 [facility] Urea nitrogen/Creatinin e [Mass ratio] 11.7 mg/mg [facility] Laboratory - Hematology and Cell countson 09-04-2024 HbA1c (Bld) [Mass fraction] 5.6 % 4.5-6.2 [facility] Comment on above: ADA RECOMMENDED LIMI T 4.0 - 6.0ADA THERAPEUTIC TARGET < 7.0ACTION SUGGESTED> 7.0 Immature granulocytes/100 WBC (Bld) 0.2 % 0.0-0.5 [facility] Leukocytes [#/volume] correc moncho for nucleated erythrocytes in Blood by Automated counon 09-04-2024 WBC corrected for nucl RBC Auto (Bld) [#/Vol] Leukocytes [#/volume] corrected for nucleated erythrocytes in Blood by Automated coun 4.0-11.0 [facility] Lymphocytes Auto (Bld) [#/Vo l]on 09-04-2024 Lymphocytes (Bld) [#/Vol] Lymphocytes [#/volume] in Blood by Automated count 1.2-3.8 [facility] Lymphocytes/100 WBC Auto (Bl d)on 09-04-2024 Lymphocytes/100 WBC (Bld) Lymphocytes/100 leukocytes in Blood by Automated count 20.5-60.0 [facility] MCH Auto (RBC) [Entitic mass ]on 09-04-2024 MCH (RBC) [Entitic mass] MCH [Entitic mass] by Automated count 26.7-34.0 [facility] MCHC Auto (RBC) [Mass/Vol]on 09-04-2024 MCHC (RBC) [Mass/Vol] MCHC [Mass/volume] by Automated count 29.9-35.2 [facility] MCV Auto (RBC) [Entitic vol] on 09-04-2024 MCV (RBC) [Entitic vol] MCV [Entitic volume] by Automated count 81.0-99.0 [facility] Microalbumin [Mass/volume] i n Urineon 09-04-2024 Albumin DL <= 20 mg/L (U) [Mass/Vol] Microalbumin [Mass/volume] in Urine <=30.0 [facility] Monocytes Auto (Bld) [#/Vol] on 09-04-2024 Monocytes (Bld) [#/Vol] Automated blood monocyte count 0.3-0.8 [facility] Monocytes/100 WBC Auto (Bld) on 09-04-2024 Monocytes/100 WBC (Bld) Automated monocyte % 1.7-12.0 [facility] Neutrophils Auto (Bld) [#/Vo l]on 09-04-2024 Neutrophils (Bld) [#/Vol] Neutrophils [#/volume] in Blood by Automated count 1.4-6.5 [facility] Neutrophils/100 WBC Auto (Bl d)on 09-04-2024 Neutrophils/100 WBC (Bld) Automated neutrophil % 43.0-75.0 [facility] No Panel Informationon 09-04 Eosinophils # (Auto) 0.3 10 3/uL 0.0-0.7 [facility] Immature Granulocyte # (Auto) 0.02 10 3/uL 0.00-0.03 [facility] Urine Random Creatinine 439.14 mg/dL High 20.00-300.00 [facility] Platelet mean volume Auto (B ld) [Entitic vol]on 09-04-2024 Platelet mean volume (Bld) [Entitic vol] Platelet mean volume [Entitic volume] in Blood by Automated count 9.5-13.5 [facility] Platelets Auto (Bld) [#/Vol] on 09-04-2024 Platelets (Bld) [#/Vol] Platelets [#/volume] in Blood by Automated count 150-450 [facility] RBC Auto (Bld) [#/Vol]on RBC (Bld) [#/Vol] Erythrocytes [#/volu me] in Blood by Automated count Low 4.20-5.40 [facility] Serum or plasma albumin/glob ulin mass ratioon 09-04-2024 Albumin/Globulin [Mass ratio] Serum or plasma albumin/globulin mass ratio [facility] Serum or plasma anion gap de terminationon 09-04-2024 Anion gap [Moles/Vol] Serum or plasma anion gap determination [facility] Urine microalbumin/creatinin e mass ratioon 09-04-2024 Albumin/Creatinine DL <= 20 mg/L (U) [Mass ratio] Urine microalbumin/creatinine mass ratio 0.0-29.9 [facility] Comment on above: NO MICROALBUMINURIA 0-29 MG/GCLINICAL MICROALBUMINURIA 30-300 MG/GMACROALBUMINURIA >300 MG/G CT HEAD WO CONon 12-24-2017 CT HEAD WO CON [address] [place] [address] Patient: GILLIAN LAGUNAS Exam Date: 12/24/2017DOB: 1955 Gender:F : BHARATH RIVERS Admission #: [id number] : Order #: [id number] HERE TO VIEW EXAM RADIOLOGY REPORT PROCEDURE: [...] Barragan M.D. on 12/24/2017 at 15:25 Normal [facility] Vital Signs Date Time Vital Sign Value Performing Clinician Faci lity 02-17-2025 14:58-0400 Body height 160.02 cm [facility] 02-17-2025 14:58-0400 Body mass index (BMI) [Ratio] 47.8 kg/m2 [facility] 02-17-2025 14:58-0400 Body weight 122.46 kg [facility] 02-17-2025 14:58-0400 Diastolic blood pressure 81 mm[Hg] [facility] 02-17-2025 14:58-0400 Heart rate 87 /min [facility] 02-17-2025 14:58-0400 Systolic blood pressure 122 mm[Hg] [facility] 01-19-2025 14:10-0400 Body height 160.02 cm [facility] 01-19-2025 14:10-0400 Body mass index (BMI) [Ratio] 48.5 kg/m2 [facility] 01-19-2025 14:10-0400 Body weight 124.28 kg [facility] 01-19-2025 14:10-0400 Diastolic blood pressure 79 mm[Hg] [facility] 01-19-2025 14:10-0400 Heart rate 74 /min [facility] 01-19-2025 14:10-0400 Respiratory rate 12 /min [facility] 01-19-2025 14:10-0400 SaO2% (BldA) [Mass fraction] 97 % [facility] 01-19-2025 14:10-0400 Systolic blood pressure 129 mm[Hg] [facility] 11-19-2024 14:59-0500 Body height 160.02 cm [facility] 11-19-2024 14:59-0500 Body mass index (BMI) [Ratio] 45.1 kg/m2 [facility] 11-19-2024 14:59-0500 Body weight 115.66 kg [facility] 11-19-2024 14:59-0500 Diastolic blood pressure 76 mm[Hg] [facility] 11-19-2024 14:59-0500 Heart rate 70 /min [facility] 11-19-2024 14:59-0500 Systolic blood pressure 113 mm[Hg] [facility] 09-04-2024 13:59-0500 Body height 160.02 cm [facility] 09-04-2024 13:59-0500 Body mass index (BMI) [Ratio] 45.7 kg/m2 [facility] 09-04-2024 13:59-0500 Body weight 117.14 kg [facility] 09-04-2024 13:59-0500 Diastolic blood pressure 80 mm[Hg] [facility] 09-04-2024 13:59-0500 Heart rate 80 /min [facility] 09-04-2024 13:59-0500 Systolic blood pressure 122 mm[Hg] [facility] 04-16-2024 10:53-0400 Body height 160.02 cm [facility] 04-16-2024 10:53-0400 Body mass index (BMI) [Ratio] 45.1 kg/m2 [facility] 04-16-2024 10:53-0400 Body weight 115.66 kg [facility] 04-16-2024 10:53-0400 Diastolic blood pressure 73 mm[Hg] [facility] 04-16-2024 10:53-0400 Heart rate 67 /min [facility] 04-16-2024 10:53-0400 Systolic blood pressure 112 mm[Hg] [facility] Encounters Encounter Date Encounter Type Care Provider Facility Start: 02-23-2025 End: 02-23-2025 ambulatory Dorothy Dumont MD Facility: [facility] Start: 02-17-2025 End: 02-17-2025 ambulatory [facility] Work Phone: Start: 02-17-2025 End: 02-17-2025 Patient encounter procedure [facility] Work Phone: Start: 02-09-2025 End: 02-09-2025 ambulatory Dorothy Dumont MD Facility: [facility] Start: 01-26-2025 Non-patient / Non-visit [facility] Work Phone: Start: 01-19-2025 End: 01-19-2025 ambulatory [facility] Work Phone: Start: 01-19-2025 End: 01-19-2025 Patient encounter procedure [facility] Work Phone: Start: 01-12-2025 End: 01-12-2025 ambulatory Dorothy Dumont MD Facility: [facility] Start: 11-19-2024 End: 11-19-2024 ambulatory [facility] Work Phone: Start: 11-19-2024 End: 11-19-2024 Patient encounter procedure [facility] Work Phone: Start: 11-17-2024 End: 11-17-2024 ambulatory Dorothy Dumont MD Facility:[facility] Start: 10-20-2024 End: 10-20-2024 ambulatory Dorothy Dumont MD Facility:[facility] Start: 10-06-2024 End: 10-06-2024 ambulatory Dorothy Dumont MD Facility:[facility] Start: 09-04-2024 End: 09-04-2024 Patient encounter procedure [facility] Work Phone: Start: 09-03-2024 Non-patient / Non-visit [facility] Work Phone: Start: 04-16-2024 End: 04-16-2024 ambulatory [facility] Work Phone: Start: 04-16-2024 End: 04-16-2024 Patient encounter procedure [facility] Work Phone: Start: 12-24-2017 End: 12-24-2017 Ambulatory BHARATH RIVERS Facility: Plan of Treatment Date Care Activity Detail Author Start: 01-19-2025 Patient referral [facility] Work Phone: Start: 09-08-2024 Patient referral [facility] Work Phone: Start: 04-16-2024 Patient referral [facility] Work Phone: Comprehensive metabo lic 2000 panel - Serum or Plasma [facility] Patient Education Vestibular Exercises Fi [facility] Work Phone: Patient referral [facility] Work Phone: Zinc [Mass/volume] i n Serum or Plasma [facility] Payers Date Payer Category Payer Unknown 1959 Unknown [id number] 1955 Unknown [id number] 2.16. [id number] 1955 Unknown [id number] 2.16. [id number] 1955 Unknown [id number] 2.16. [id number] 1955 Unknown [id number] 2.16. [id number] 1955 Unknown [id number] 2.16. [id number] 1955 Unknown [id number] 2.16. [id number] 1955 Unknown [id number] 2.16. [id number] Unknown Miley HOLLY/MALORIE [id number] Social History Date Type Detail Facility Start: 04-16-2024 End: 04-16-2024 Tobacco smoking status NHIS Ex-smoker (finding) [facility] Start: 1955 Sex Assigned At Female F [facility] Start: 11-19-2024 End: 02-17-2025 Sex Female (finding) [facility] Evaluation note 01-19-2025 Note Date & Type Note Facility 01-19-2025 Evaluation note Diagnosis Onset Date Resolution Pica in adults acute December 2:07pm Throat fullness acute December 2:07pm Trouble swallowing acute January 19, 2025 2:07pm Type 2 diabetes mellitus with hyperglycemia acute January 19, 2 025 2:07pm Diarrhea acute February 17, 2025 2:52pm History of colon cancer acute M ay 2024 2:52pm [facility] Work Phone: Hospital Discharge instructions 01-19-2025 Note Date & Type Note Facility 01-19-2025 Hospital Discharg e instructions Ambulatory OrdersReferral to ENT Time Frame: 01/19/25, Location: None Selected [facility] Work Phone: Evaluation note 11-19-2024 Note Date & Type Note Facility 11-19-2024 Evaluation note Diagnosis Onset Date Resolution Diarrhea acute November 19, 2024 2:54pm History of colon cancer acute F ebruary 2024 2:54pm Throat fullness acute December 2:07pm Trouble swallowing acute January 19, 2025 2:07pm Type 2 diabetes mellitus with hyperglycemia acute January 19, 2:07pm [facility] Work Phone: Evaluation note 09-04-2024 Note Date & Type Note Facility 09-04-2024 Evaluation note Diagnosis Onset Date Resolution Bilateral knee pain acute Decem 2023 1:49pm Colon cancer acute August 1:49pm Diarrhea acute September 04, 2024 1:49pm Hypertension acute August 1:49pm Type 2 diabetes mellitus with hyperglycemia acute August 1:49pm Diarrhea acute November 19, 2024 2:54pm History of colon cancer acute F [facility] 2024 2:54pm [facility] Work Phone: Evaluation note Note Date & Type Note Facility Evaluation note Diagnosis Onset Date Left knee pain acute [facility] Work Phone: Hospital Discharge instructions Note Date & Type Note Facility Hospital Discharge instructions Ambulatory OrdersReferral to Orthopedics Time Frame: 04/16/24, Location: None Selected [facility] Work Phone: Summary Purpose Family History [...] franks DATE CREATED AUTHOR RIGOBERTO GALEANO 03/02/2025 [facility] Care Teams (unrecognized sec tion and [...] BE BASED ON THE PRIMARY CLINICAL RECORDS. [employer] provides no warranty or guarantee of the accuracy or completeness of information in this document.
--- NOTE | 2025-05-15 14:00 | XR_ITS ---
[address] [address] Patient Name: BRENDA ARZOLA MRN: [id number] date: 1955 Sex: F Assigned Patient Location: MRI Current Patient Location: MRI Accession/Order Number: [id number] Exam Date: 05/15/2025 14:00 Report Date: 05/15/2025 14:36 At the request of: BAYLEE DENTON NP Procedure: XR foreign body eye MASOOD 2 views orbits for foreign body INDICATION: MRI clearance COMPARISON: None Findings and impression: No unexpected radiopaque metallic foreign body within the orbits. Impression dictated by: Roberto Gaspar M.D. 05/15/2025 2:36 PM Dictation Location: [place] [address] Electronically authenticated by: [id number] Y Date: 05/15/2025 14:36
== END 2025-05-15 13:32 | disposition home or self-care (01) ==
LOC: MRI 13:31
PROVIDERS: PCP Family Medicine; Visit Provider Nurse Practitioner
DX: M48.062 Spinal stenosis, lumbar region with neurogenic claudication (principal); M51.369 Other intervertebral disc degeneration, lumbar region without mention of lumbar back pain or lower extremity pain
CPT/HCPCS: 70030; 72148

== ENCOUNTER 2025-05-28 08:57 | Outpatient (OUT) | payer MEDICARE, SELFPAY ==
--- OUTSIDE RECORDS SUMMARY | 2025-05-27 21:01 | XMS_ITS | Continuity of Care Document ---
Author Organization [facility] Address [address] [place] [address] Phone Care Team Providers Care Iap Displays Analyst Name Role Phone Ilda Lopez MD Primary Care Provider Adriel Leija II, MD Attending Provider Care Teams Patient Care Team Team Status: Active Member Role Status Dates Ilda Lopez MD Primary Care Provider Active Visit Care Team Team Status: Inactive Member Role Status Dates Ilda Lopez MD Primary Care Provider Active Start: May 27, 2025 End: May 27, 2025 Adriel Leija II, MD Attending Provider Active Start: May 27, 2025 End: May 27, 2025 Visit Care Team Team Status: Inactive Member Role Status Dates Ilda Lopez MD Primary Care Provider Active Start: May 27, 2025 End: May 27, 2025 Adriel Leija II, MD Attending Provider Active Start: May 27, 2025 End: May 27, 2025 Chief Complaint and Reason for Visit Chief Complaint Admit Date M25.561 - Pain in right knee May 272024 9:26am CONSULT DR LOPEZ MASOOD [facility] Se pt2024 2:39pm Reason for Visit Admit Date Bilateral primary osteoarthritis of hip May 27, 2025 2:39pm Bilateral primary osteoarthritis of knee May 27, 2025 2:39pm BMI 50.0-59.9, adult May 27, 2025 2:39pm Reason for Referral Referring Provider Name Referring Provider Address Referring Provider Phone Referral Date Requested Appointment Date Referral Reason Juni Castillo II [address] [facility] [address] Work Phone: May 27, 2025 Z68.43 - Body mass index [BMI] 50.0-59.9, adult May 27, 2025 M25.551 - Pain in right hip,M25.552 - Pain in left hip,M16.0 - Bilateral primary osteoarthriti s of hip May 27, 2025 Z68.43 - Body mass index [BMI] 50.0-59.9, adult Allergies, Adverse Reactions, Alerts Allergen Type Severity Reaction Last Updated Verified Status No Known Allergies Allergy Unknown 2024 3:09pm Yes Active Social History Smoking Status Status Start Date End Date Date of Observa tion Ex-smoker (finding) March 11:05am Observation Status Observation Response Date of Response Legal Sex Female (finding) Sex Assigned At Female 1955 Family History Relationship Condition Age at Onset Recorded Date/T tani brother Malignant neoplasm Unknown Hypertension Unknown mother Malignant neoplasm Unknown father Malignant neoplasm Unknown sister Malignant neoplasm Unknown Hypertension Unknown paternal grandmother Diabetes mellitus Unknown Problems Active Problems Medical Problem Onset Date Status Mixed anxiety and depressive disorder Unknown Active Pica in adults Unknown Active Throat fullness Unknown Active Type 2 diabetes mellitus with hyperglycemia Unkn own Active History of colon cancer Unknown Active History of colon cancer Unknown Active Bilateral primary osteoarthritis of hip Unknown Active Bilateral primary osteoarthritis of knee Unknown Active Colon cancer Unknown Active Trouble swallowing Unknown Active Diarrhea Unknown Active BMI 50.0-59.9, adult Unknown Active Bilateral hip pain Unknown Active Left knee pain Unknown Active Bilateral knee pain Unknown Active GERD (gastroesophageal reflux disease) Unknown Active Hypertension Unknown Active Medications Medication Status Dose Units Route Directions Qty Days St art Date Stop Date End Date Instructions Adherence Citalopram 10 mg tablet Discont inued 40 MG PO Daily April 17, 2024 10:27a m April 17, 2024 10:38 am Citalopram 40 mg tablet Discont inued 40 MG PO Daily April 17, 2024 10:37a m Novem 2023 8:51a m Meloxicam 7.5 mg tablet Discont inued 0 .ROUTE .COMPLEX May 13, 2024 11:13a m Decem 2023 10:32 pm TAKE 1 TABLET BY MOUTH EVERY DAY Losartan-Hy drochloroth iazide 100-12.5 mg tablet Discont inued 1 TAB PO Daily Octobe r 2023 8:24am Decem woo 2023 10:17 am Semaglutide (Ozempic) 1 mg/dose (4 mg/3 mL) pen injector Discont inued 0 .ROUTE .COMPLEX 9 Novemb er 2023 9:34am Decem 2023 3:24p m INJECT 1 MG (0.75 ML) SUBCUTANEOUSL Y WEEKLY Citalopram 40 mg tablet Discont inued 40 MG PO Daily 90 Novemb er 2023 8:51am Decem 2023 10:17 am Meloxicam 7.5 mg tablet Discont inued 0 .ROUTE .COMPLEX 30 [facility] er 2023 10:31p m February 17, 2025 3:07p m TAKE 1 TABLET BY MOUTH EVERY DAY Citalopram 40 mg tablet Discont inued 40 MG PO Daily [facility] er 2023 10:17a m January 22, 2025 8:30a m Losartan-Hy drochloroth iazide 100-12.5 mg tablet Discont inued 1 TAB PO Daily [facility] er 2023 10:17a m January 22, 2025 8:30a m Bupropion Hcl 300 mg tablet extended release 24 hr Discont inued 0 .ROUTE .COMPLEX 2024 2:16pm December 22, 2024 9:03a m TAKE 1 TABLET BY MOUTH EVERY MORNING Amlodipine 5 mg tablet Discont inued 0 .ROUTE .COMPLEX 2024 2:16pm December 22, 2024 9:03a m TAKE 1 TABLET BY MOUTH EVERY DAY Bupropion Hcl 300 mg tablet extended release 24 hr Discont inued 0 .ROUTE .COMPLEX December 22, 2024 9:02am January 22, 2025 8:30a m TAKE 1 TABLET BY MOUTH EVERY MORNING Amlodipine 5 mg tablet Discont inued 0 .ROUTE .COMPLEX December 22, 2024 9:02am January 22, 2025 8:30a m TAKE 1 TABLET BY MOUTH EVERY DAY Amlodipine 5 mg tablet Discont inued 0 .ROUTE .COMPLEX January 22, 2025 8:30am Septe mber 2024 1:49p m TAKE 1 TABLET BY MOUTH EVERY DAY Losartan-Hy drochloroth iazide 100-12.5 mg tablet Discont inued 1 TAB PO Daily January 22, 2025 8:30am April 20, 2025 3:44p m Bupropion Hcl 300 mg tablet extended release 24 hr Discont inued 0 .ROUTE .COMPLEX January 22, 2025 8:30am Septe mber 2024 1:49p m TAKE 1 TABLET BY MOUTH EVERY MORNING Citalopram 40 mg tablet Discont inued 40 MG PO Daily January 22, 2025 8:30am February 04, 2025 12:24 pm Folic Acid 1 mg tablet Active 1 MG PO Daily January 29, 2025 12:00a m Complies with drug therapy Citalopram 20 mg tablet Discont inued 20 MG PO Daily February 04, 2025 12:22p m Augus t 2024 4:26p m Losartan-Hy drochloroth iazide 100-12.5 mg tablet Active 0 .ROUTE .COMPLEX April 20, 2025 3:44pm TAKE 1 TABLET BY MOUTH EVERY DAY Complies with drug therapy Citalopram 20 mg tablet Active 40 MG PO Daily May 18, 2025 4:25pm Complies with drug therapy Amlodipine 5 mg tablet Active 0 .ROUTE .COMPLEX 2024 1:49pm TAKE 1 TABLET BY MOUTH EVERY DAY Complies with drug therapy Bupropion Hcl 300 mg tablet extended release 24 hr Active 0 .ROUTE .COMPLEX 2024 1:49pm TAKE 1 TABLET BY MOUTH EVERY MORNING Complies with drug therapy Citalopram 10 mg tablet Discont inued 10 MG PO Daily April 16, 2024 12:00a m April 16, 2024 11:28 am Bupropion Hcl 300 mg tablet extended release 24 hr Discont inued 300 MG PO Every morning April 16, 2024 12:00a m April 16, 2024 11:28 am Amlodipine 5 mg tablet Discont inued 5 MG PO Daily April 16, 2024 12:00a m April 16, 2024 11:28 am Losartan-Hy drochloroth iazide 100-12.5 mg tablet Discont inued 1 TAB PO Daily April 16, 2024 12:00a m April 16, 2024 11:28 am Hydrocodone -Acetaminop hen 5-325 mg tablet Discont inued 1 TAB PO Daily at bedtime as needed April 16, 2024 12:00a m Decem woo 2023 3:32p m Semaglutide (Ozempic) 1 mg/dose (4 mg/3 mL) pen injector Discont inued 1 MG SUBCUT every week April 16, 2024 12:00a m April 16, 2024 11:28 am Amlodipine 5 mg tablet Discont inued 5 MG PO Daily April 16, 2024 11:26a m Janua 2024 2:16p m Bupropion Hcl 300 mg tablet extended release 24 hr Discont inued 300 MG PO Every morning April 16, 2024 11:27a m Janua ry 2024 2:16p m Citalopram 10 mg tablet Discont inued 10 MG PO Daily April 16, 2024 11:27a m April 17, 2024 10:30 am Losartan-Hy drochloroth iazide 100-12.5 mg tablet Discont inued 1 TAB PO Daily April 16, 2024 11:27a m Octob er 2023 8:24a m Semaglutide (Ozempic) 1 mg/dose (4 mg/3 mL) pen injector Discont inued 1 MG SUBCUT every week April 16, 2024 11:27a m Novem owo 2023 9:34a m Meloxicam 7.5 mg tablet Discont inued 7.5 MG PO Daily April 16, 2024 12:00a m Augus t 2023 11:13 am Ondansetron 4 mg tablet,disi ntegrating Active 4 MG PO Q8H 10 Decemb er 2023 1:00am Complies with drug therapy Dicyclomine 20 mg tablet Active 20 MG PO Twice daily 60 30 Februa ry 2024 1:00am Complies with drug therapy Famotidine 20 mg tablet Active MG PO February 17, 2025 12:00a m Complies with drug therapy Omeprazole 40 mg capsule,del ayed release(DR/ EC) Active MG PO February 17, 2025 12:00a m Complies with drug therapy Celecoxib 200 mg capsule Active MG PO Twice daily February 17, 2025 12:00a m Complies with drug therapy Baclofen 5 mg tablet Active 5 MG PO Daily February 17, 2025 12:00a m Complies with drug therapy Hyoscyamine Sulfate (Levsin/Sl) 0.125 mg tablet, sublingual Active 0.125 MG PO Three times daily 90 30 February 17, 2025 12:00a m Complies with drug therapy Hydrocodone -Acetaminop hen 5-325 mg tablet Discont inued 1 TAB PO Three times daily as needed January 19, 2025 12:00a m mb2024 3:09p m Citalopram 40 mg tablet Active MG PO 2024 12:00a m Complies with drug therapy Hydrocodone -Acetaminop hen 7.5-325 mg tablet Active TAB PO 2024 12:00a m Complies with drug therapy Procedures Procedure Date Performed Status XR knee BI 4V May 27, 2025 9:26am compl eted XR pelvis 1-2V May 27, 2025 9:26am compl eted Relevant Diagnostic Tests and/or Laboratory Data Diagnostic Imaging Reports Author Rigoberto Wu [facility] Report Date/Time May 27, 2025 10:25pm [facility] [address] [place] [address] XRay Report Signed Patient: Divya Interiano MR#: [id number] : 1955 Acct:[id number] Age/Sex: 69 / F ADM Date: 5 [place] [facility] [place] Type: [facility] Attending Dr: Adriel Leija II, MD Copies to: Adriel Leija MD~ Ordering Provider: Adriel Leija MD Date of Service: 05/27/25 XR/XR knee BI 4V: M25.561 - Pain in right knee ([id number]) XR/XR pelvis 1-2V: M25.561 - Pain in right knee Single view of the pelvis plain film HISTORY: Bilateral knee pain COMPARISON: None ACUTE FINDINGS: None BONY ALIGNMENT: Adequate SOFT TISSUES: Unremarkable DEGENERATIVE CHANGE:Extensive right hip degeneration. Moderate left hip degeneration. INTRAPELVIC STRUCTURES: Unremarkable POSTSURGICAL CHANGES:None XR/XR pelvis 1-2V IMPRESSION:Extensive right hip degeneration. Moderate left hip degeneration 4 views both knees Sfyz-um-wble contact right medial degeneration. Marked lateral left knee degeneration with marked joint space narrowing and marginal spurring mild to moderate bilateral patellofemoral degeneration. Mild right lateral and left medial degeneration IMPRESSION: Extensive bilateral knee degeneration greatest in the medial compartment on the right in the lateral compartment left Impression dictated by: Rigoberto Wu M.D. 05/27/2025 10:25 PM Dictation Location: RADIO-PC-20 Transcribed By: PWS 05/27/252224 Dictated By: Rigoberto Wu DO 05/27/252222 Signed By: <Electronically signed by Rigoberto Wu DO in OV> 05/27/252224 Vital Signs Vital Reading Result Reference Range Collection Date/Time Height 63 [in_i] May 27, 2025 3:01pm Weight 131.31 kg May 27, 2025 3:01pm BP Systolic 118 mm[Hg] 100-140 May 27, 2025 3:01pm BP Diastolic 82 mm[Hg] 60-100 May 27, 2025 3:01pm BMI (Body Mass Index) 51.2 kg/m2 2024 3:01pm Advance Directives Advance Directive Response Recorded Date/ Time Advance Directives No April 07 3:17pm Insurance Providers Guarantor Divya Interiano Address [address] [place] [phone] Contact Info. Home Phone: Payer Policy Id Subscriber's Name Subscriber Id Effectiv e Date Expiration Date Miley HOLLY/MALORIE [id number] Divya Interiano [id number] Encounters Encounter Location(s) Arrival/Admit Date Discharge/Depart Date Provider(s) Departed Clinical -Maikel Schaffer May 27, 2025 9:26am May 27, 2025 9:27am Juni Castillo MD Departed Physician/Prov ider Office Visit -[facility] May 27, 2025 2:39pm May 27, 2025 3:47pm Juni Castillo MD Recent Diagnosis Onset Date Admit Date Bilateral primary osteoarthritis of hip Unknown Lizz 3rd, 2025 2:39pm Bilateral primary osteoarthritis of knee Unknown May 27, 2025 2:39pm BMI 50.0-59.9, adult Unknown May 272024 2:39pm Assessments Diagnosis Onset Date Resolution Status Admit Date Bilateral primary osteoarthritis of hip acute May 27, 2025 2:39pm Bilateral primary osteoarthritis of knee acute May 27, 2025 2:39pm BMI 50.0-59.9, adult acute Sept 2024 2:39pm Plan of Treatment Future Tests Future scheduled test information is unavailable Pending Tests Pending diagnostic test information is unavailable Future Visits Future appointment information is unavailable Referrals to Other Providers Reason for Referral Referral Start Date Provider Provider Contact Information Provider Address M25.551 - Pain in right hip,M25.552 - Pain in left hip,M16.0 - Bilateral primary osteoarthritis of hip May 27, 2025 Yi (Dr. Clark) Shayanri Adamaraitis Z68.43 - Body mass index [BMI] 50.0-59.9, adult May 27, 2025 [place] for [address] [address] Future Procedures Future procedure information is unavailable Future Medications Future medication information is unavailable Patient Instructions Patient instructions are unavailable Hospital Discharge Instructions Ambulatory Orders* Referral to Pain Management Time Frame: 05/27/25, Location: None Selected * Referral to Weight Management Time Frame: 05/27/25, Location: None Selected
--- OUTSIDE RECORDS SUMMARY | 2025-05-28 09:00 | XMS_ITS | Clinical Summary ---
Author Organization [facility] tem Address [id number] [address] [place] [address] Care Team Providers Care Cnc Machine Operator Name Role Phone Ilda Lopez MD Primary Care Provider [phone] Encounters Date Type Department Care Team Description 04/08/2025 1:00 PM EDT - 04/08/2025 11:59 PM EDT Hospital Encounter [facility] - Radiology [address] [place] [id number] Dysphagia, pharyngoesophageal phase Discharge Disposition: Home 04/08/2025 [...] 2005 Fall Risk Screening 2020 COVID-19 Vaccine (2024-2 6 season) 2025 12/17/2021, 07/15/2021, 06/24/2021 Influenza Vaccine 05/25/2025 Medical [...] 3 Months Insurance [employer] Care Teams Cnc Machine Operator Relationship Specialty Start Date End Date Ilda Lopez MD [address] [place] [id number] PCP - General Family Medicine 04/08/25
--- OUTSIDE RECORDS SUMMARY | 2025-05-28 09:03 | XMS_ITS | CCD ---
Author Organization [facility] Care Team Providers Care Permastone Installer Name Role Phone BHARATH RIVERS Unavailable Unavailable BHARATH RIVERS Unavailable Unavailable MISC, DOCTOR Unavailable Unavailable JES BARRAGAN V Unavailable Unavailable BHARATH RIVERS Unavailable Unavailable Tim MONTEZ, Andaleksey Katz Attending Unavailable Gisusanitis , Andrius Vytautchristine Attending Unavailable Gisusanitis , Andrius Vytautas Attending Unavailable Tim MONTEZ, Andrius Vytautas Attending Unavailable Tim MONTEZ, Andrius Vytautas Attending Unavailable Tim MONTEZ, Andrius Vytautas Attending Unavailable Ilda Garcia MD Primary Care Provider Heladio MONTEZ, Adriel Alfredo Attending Provider [phone] Medications Current Medications Medication Drug Class(es) Dates Sig (Normalized) Sig (Original) acetaminophen 325 mg / HYDROcodone bitartrate 7.5 mg oral tablet (12 sources) Opioid Agonist Start: 05-27-2025 Hydrocodone-Acetam inophen 7.5-325 mg tablet Active TAB PO May 27, 2025 12:00am Complies with drug therapy Start: 01-19-2025 End: 05-27-2025 take 1 tablet by mouth three times daily as needed Hydrocodone-Acetaminophen 5-325 mg table t Discontinued 1 TAB PO Three times daily as needed January 19, 2025 12:00am May 27, 2025 3:09pm Start: 04-16-2024 End: 09-04-2024 take 1 tablet by mouth once daily at bedtime as needed Hydrocodone-Acetaminophen 5-325 mg table t Discontinued 1 TAB PO Daily at bedtime as needed April 16, 2024 12:00am September 04, 2024 3:32pm baclofen 5 mg oral tablet (3 sources) gamma-Aminobutyric Acid-ergic Agonist Start: 02-17-2025 take 1 tablet by mouth once daily Baclofen 5 mg tablet Active 5 MG PO Daily February 17, 2025 12:00am Complies with drug therapy celecoxib 200 mg oral capsule (3 sources) Nonsteroidal Anti-inflammatory Drug Start: 02-17-2025 take 1 mg by mouth twice daily Celecoxib 200 mg capsule Active MG PO Twice daily February 17, 2025 12:00am Complies with drug therapy citalopram 40 mg oral tablet (20 sources) Serotonin Reuptake Inhibitor Start: 05-27-2025 Citalopram 40 mg tablet Active MG PO May 27, 2025 12:00am Complies with drug therapy Start: 05-18-2025 take 2 tablets by mo uth once daily Citalopram 20 mg tablet Active 40 MG PO Daily May 18, 2025 4:25pm Complies with drug therapy Start: 02-04-2025 End: 05-18-2025 take 1 tablet by mouth once daily Citalopram 20 mg tablet Discontinued 20 MG PO Daily February 04, 2025 12:22pm May 18, 2025 4:26pm Start: 04-17-2024 End: 02-04-2025 take 1 tablet [...] Twice daily 60 November 19, 2024 1:00am Complies with drug therapy famotidine 20 mg oral tablet (3 sources) Histamine-2 Receptor Antagonist Start: 02-17-2025 Famotidine 20 mg tablet Active MG PO February 17, 2025 12:00am Complies with drug therapy folic acid 1 mg oral tablet (3 sources) Start: 01-29-2025 take 1 tablet by mouth once daily Folic Acid 1 mg tablet Active 1 MG PO Daily January 29, 2025 12:00am Complies with drug therapy hydroCHLOROthiazide 12.5 mg / losartan potassium 100 mg oral tablet (20 sources) Thiazide Diuretic, Angiotensin 2 Receptor Barry Start: 04-20-2025 take 1 tablet by mouth once daily Losartan-Hydroc hlorothiazide 100-12.5 mg tablet Active 0 .ROUTE .COMPLEX April 20, 2025 3:44pm TAKE 1 TABLET BY MOUTH EVERY DAY Complies with drug therapy Start: 04-16-2024 End: 04-20-2025 take 1 tablet by mouth once daily Losartan-Hydrochlorothiazide 100-12.5 mg tablet Discontinued 1 TAB PO Daily April 16, 2024 11:27am July 12, 2024 8:24am hyoscyamine sulfate 0.125 mg sublingual tablet (3 sources) Start: 02-17-2025 take 1 tablet by mouth three times daily Hyoscyamine Sulfate (Levsin/Sl) 0.125 mg tablet, sublingual Active 0.125 MG PO Three times daily February 17, 2025 12:00am Complies with drug therapy omeprazole 40 mg delayed release oral capsule (3 sources) Proton Pump Inhibitor Start: 02-17-2025 Omeprazole 40 mg capsule,delayed release(DR/EC) Active MG PO February 17, 2025 12:00am Complies with drug therapy ondansetron 4 mg disintegrating oral tablet (5 sources) Serotonin-3 Receptor Antagonist Start: 09-04-2024 take 1 tablet by mouth every eight hours Ondansetron 4 mg tablet,disintegra ting Active 4 MG PO Q8H September 04, 2024 1:00am Complies with drug therapy Completed/Discontinued Medications Medication Drug Class(es) Dates Sig (Normalized) Sig (Original) amLODIPine 5 mg oral tablet (20 sources) Dihydropyridine Calcium Channel Barry Start: 09-25-2024 End: 05-26-2025 take 1 tablet by mouth once daily Amlodipine 5 mg tablet Discontinued 0 .ROUTE .COMPLEX January 22, 2025 8:30am May 26, 2025 1:49pm TAKE 1 TABLET BY MOUTH EVERY DAY Start: 04-16-2024 End: 09-25-2024 take 1 tablet by mouth once daily Amlodipine 5 mg tablet Discontinued 5 MG PO Daily April 16, 2024 11:26am September 25, 2024 2:16pm 24 hr buPROPion hydrochloride 300 mg extended release oral tablet (20 sources) Aminoketone Start: 09-25-2024 End: 05-26-2025 take 1 tablet by mouth once daily in the morning Bupropion Hcl 300 mg tablet extended release 24 hr Discontinued 0 .ROUTE .COMPLEX January 22, 2025 8:30am May 26, 2025 1:49pm TAKE 1 TABLET BY MOUTH EVERY [...] 16, 2024 11:27am September 25, 2024 2:16pm meloxicam 7.5 mg oral tablet (16 sources) [...] 2024 12:00am May 13, 2024 11:13am Semaglutide (17 sources) Start: 08-19-2024 End: 09-04-2024 inject 1 [...] anxiety disorders] 04-16-2024 Chronic Cancer of colon (6 sources) Malignant tumor of colon; Translations: [Malignant neoplasm of colon, unspecified] 09-08-2024 Chronic Cancer of colon (11 sources) History of malignant neoplasm of colon; Translations: [Personal history of other malignant neoplasm of large intestine] 11-19-2024 Episodic Diabetes mellitus with complications (8 sources) Hyperglycemia due to type 2 diabetes mellitus; Translations: [Type 2 diabetes mellitus with hyperglycemia] 04-16-2024 Chronic Esophageal disorders (2 sources) Gastroesophageal reflux disease; Translations: [Gastro-esophageal reflux disease without esophagitis] 03-17-2025 Chronic Essential hypertension (6 sources) Hypertensive disorder; Translations: [Essential (primary) hypertension] 04-16-2024 Chronic Headache, including migraine (4 sources) Headache; Translations: [HEADACHE] Onset: Episodic Miscellaneous mental health disorders (5 sources) Pica; Translations: [Pica in adults] 01-19-2025 Chronic Osteoarthritis (4 sources) Osteoarthritis of bilateral hip joints; Translations: [Bilateral primary osteoarthritis of hip] 05-27-2025 Chronic Other circulatory disease (4 sources) Finding of sensation of pharynx; Translations: [Other specified symptoms and signs involving the circulatory and respiratory systems] 01-19-2025 Episodic Other circulatory disease (2 sources) Other specified symptoms and signs involving the circulatory and respiratory systems; Translations: [Other symptoms involving head and neck] 01-19-2025 Episodic Other gastrointestinal disorders (5 sources) Diarrhea; Translations: [Diarrhea, unspecified] 09-08-2024 Episodic Other gastrointestinal disorders (4 sources) Diarrhea, unspecified; Translations: [Diarrhea] 09-04-2024 Episodic Other gastrointestinal disorders (4 sources) Dysphagia; Translations: [Dysphagia, unspecified] 01-19-2025 Episodic Other gastrointestinal disorders (2 sources) Dysphagia, unspecified; Translations: [Dysphagia, unspecified] 01-19-2025 Episodic Other non-traumatic joint disorders (10 sources) Pain in left knee; Translations: [Left knee pain] 04-16-2024 Episodic Other non-traumatic joint disorders (3 sources) Pain in right knee; Translations: [Pain in joint, lower leg] 09-04-2024 Episodic Other non-traumatic joint disorders (1 source) Hip pain; Translations: [Pain in right hip] 05-27-2025 Episodic Other nutritional; endocrine; and metabolic disorders (3 sources) Body mass index 40+ - severely obese; Translations: [Body mass index (BMI) 50.0-59.9, adult] Chronic Other upper respiratory disease (1 source) Epistaxis; Translations: [EPISTAXIS] Onset: 8 Episodic Screening or history of mental health and substance abuse (1 source) Personal history of nicotine dependence; Translations: [PERSONAL HISTORY OF NICOTINE DEPEND] Onset: 8 Episodic Unclassified (1 source) M25.551 - Pain in right hip,M25.552 - Pain in left hip,M16.0 - Bilateral primary osteoarthritis of hip Unclassified (1 source) Z68.43 - Body mass index [BMI] 50.0-59.9, adult Results Test Name Value Interpretation Reference Range Facility X-ray reportOrdered By: Huey Wu on 05-27-2025 Study report [facility] [address] [place] [address] XRay Report Signed Patient: Divya Interiano MR#: [id number] : 1955 Acct:[id number] Age/Sex: 69 / F ADM Date: 5 Loc: [facility] Room: Type: [facility] Attending Dr: Adriel Leija II, MD Copies to: Adriel Leija MD~ Ordering Provider: Adriel Leija MD Date of Service: 05/27/25 XR/XR knee BI 4V: M25.561 - Pain in right knee ([id number]) XR/XR pelvis 1-2V: M25.561 - Pain in right knee Single view of the pelvis plain film HISTORY: Bilateral knee pain COMPARISON: None ACUTE FINDINGS: None BONY ALIGNMENT: Adequate SOFT TISSUES: Unremarkable DEGENERATIVE CHANGE:Extensive right hip degeneration. Moderate left hip degeneration. INTRAPELVIC STRUCTURES: Unremarkable POSTSURGICAL CHANGES:None XR/XR pelvis 1-2V IMPRESSION:Extensive right hip degeneration. Moderate left hip degeneration 4 views both knees [id number] contact right medial degeneration. Marked lateral left knee degeneration with marked joint space narrowing and marginal spurring mild to moderate bilateral patellofemoral degeneration. Mild right lateral and left medial degeneration IMPRESSION: Extensive bilateral knee degeneration greatest in the medial compartment on the right in the lateral compartment left Impression dictated by: Rigoberto Wu M.D. 05/27/2025 10:25 PM Dictation Location: [place] [address] Transcribed By: [facility] 05/27/252224 Dictated By: Rigoberto Wu DO 05/27/252222 Signed By: 05/27/252224 [facility] Basophils Auto (Bld) [#/Vol] on 01-26-2025 Basophils (Bld) [#/Vol] Automated basophil count 0.0-0.1 [facility] Basophils/100 WBC Auto (Bld) on 01-26-2025 Basophils/100 WBC (Bld) Automated basophil % 0.2-2.0 [facility] Eosinophils/100 WBC Auto (Bl d)on 01-26-2025 Eosinophils/100 WBC (Bld) Automated eosinophil % 0.9-7.0 [facility] Erythrocyte distribution wid th Auto (RBC) [Ratio]on 01-26-2025 Erythrocyte distribution width (RBC) [Ratio] Erythrocyte distribution width [Ratio] by Automated count 11.0-15.0 [facility] Estimated glomerular filtrat ion rate (GFR) non- Americanon 01-26-2025 GFR/1.73 sq M.predicted among non-blacks MDRD (S/P/Bld) [Vol rate/Area] Estimated glomerular filtration rate (GFR) non- Low >=60 mL/min/1.73m 2 [facility] Globulin Calc (S) [Mass/Vol] on 01-26-2025 Globulin (S) [Mass/Vol] Serum globulin measurement by calculation (mass/volume) [facility] Glucose mean value [Mass/vol ume] in Blood Estimated from glycated hemoglobinon 01-26-2025 Average glucose Estimated from glycated hemoglobin (Bld) [Mass/Vol] Glucose mean value [Mass/volume] in Blood Estimated from glycated hemoglobin [facility] Hematocrit Auto (Bld) [Volum e fraction]on 01-26-2025 Hematocrit (Bld) [Volume fraction] Hematocrit [Volume Fraction] of Blood by Automated count 36.0-48.0 [facility] Hemoglobin A1c percentageon 01-26-2025 HbA1c (Bld) [Mass fraction] Hemoglobin A1c percentage 4.5-6.2 [facility] Comment on above: ADA RECOMMENDED LIMI T 4.0 - 6.0ADA THERAPEUTIC TARGET < 7.0ACTION SUGGESTED> 7.0 Hemoglobin [Mass/volume] in Bloodon 01-26-2025 Hemoglobin (Bld) [Mass/Vol] Hemoglobin [Mass/volume] in Blood 12.0-16.0 [facility] Laboratory - Chemistry and C hemistry - challengeon 01-26-2025 Albumin [Mass/Vol] 3.4 g/dL 3.4-5.0 [facility] ALP [Catalytic activity/Vol] 120 U/L High 46-116 [facility] ALT [Catalytic activity/Vol] 17 U/L 14-59 [facility] AST [Catalytic activity/Vol] 11 U/L Low 15-37 [facility] Bilirubin [Mass/Vol] 0.3 mg/dL 0.2-1.0 [facility] Calcium [Mass/Vol] 9.4 mg/dL 8.5-10.1 [facility] Chloride [Moles/Vol] 102 mmol/L 98-107 [facility] CO2 [Moles/Vol] 28.8 mmol/L 21.0-32.0 [facility] Cobalamin (Vitamin B12) [Mass/Vol] 280 pg/mL 232-1245 [facility] Comment on above: Performed at: - [employer] [address] [id number] Director: Grady Rivera PhD, Phone: [phone] Creatinine [Mass/Vol] 1.14 mg/dL High 0.55-1.02 [facility] Ferritin [Mass/Vol] 12.0 ng/mL 8.0-252.0 [facility] GFR/1.73 sq M.predicted MDRD (S/P/Bld) [Vol rate/Area] 57 mL/min/{1.73_m2} Low >=60 mL/min/1.73m 2 [facility] Glucose [Mass/Vol] 83 mg/dL 74-106 [facility] Potassium [Moles/Vol] 4.1 mmol/L 3.5-5.1 [facility] Protein [Mass/Vol] 8.0 g/dL 6.4-8.2 [facility] Sodium [Moles/Vol] 139 mmol/L 136-145 [facility] Urea nitrogen [Mass/Vol] 22.0 mg/dL High 7.0-18.0 [facility] Urea nitrogen/Creatinin e [Mass ratio] 19.3 mg/mg [facility] Laboratory - Hematology and Cell countson 01-26-2025 Immature granulocytes/100 WBC (Bld) 0.3 % 0.0-0.5 [facility] Leukocytes [#/volume] correc moncho for nucleated erythrocytes in Blood by Automated counon 01-26-2025 WBC corrected for nucl RBC Auto (Bld) [#/Vol] Leukocytes [#/volume] corrected for nucleated erythrocytes in Blood by Automated coun 4.0-11.0 [facility] Lymphocytes Auto (Bld) [#/Vo l]on 01-26-2025 Lymphocytes (Bld) [#/Vol] Lymphocytes [#/volume] in Blood by Automated count 1.2-3.8 [facility] Lymphocytes/100 WBC Auto (Bl d)on 01-26-2025 Lymphocytes/100 WBC (Bld) Lymphocytes/100 leukocytes in Blood by Automated count 20.5-60.0 [facility] MCH Auto (RBC) [Entitic mass ]on 01-26-2025 MCH (RBC) [Entitic mass] MCH [Entitic mass] by Automated count 26.7-34.0 [facility] MCHC Auto (RBC) [Mass/Vol]on 01-26-2025 MCHC (RBC) [Mass/Vol] MCHC [Mass/volume] by Automated count 29.9-35.2 [facility] MCV Auto (RBC) [Entitic vol] on 01-26-2025 MCV (RBC) [Entitic vol] MCV [Entitic volume] by Automated count 81.0-99.0 [facility] Monocytes Auto (Bld) [#/Vol] on 01-26-2025 Monocytes (Bld) [#/Vol] Automated blood monocyte count 0.3-0.8 [facility] Monocytes/100 WBC Auto (Bld) on 01-26-2025 Monocytes/100 WBC (Bld) Automated monocyte % 1.7-12.0 [facility] Neutrophils Auto (Bld) [#/Vo l]on 01-26-2025 Neutrophils (Bld) [#/Vol] Neutrophils [#/volume] in Blood by Automated count 1.4-6.5 [facility] Neutrophils/100 WBC Auto (Bl d)on 01-26-2025 Neutrophils/100 WBC (Bld) Automated neutrophil % 43.0-75.0 [facility] No Panel Informationon 01-26 Eosinophils # (Auto) 0.2 10 3/uL 0.0-0.7 [facility] Folate 7.40 ng/mL Low 8.60-58.90 [facility] Immature Granulocyte # (Auto) 0.03 10 3/uL 0.00-0.03 [facility] Plasma zinc measurementon Zinc [Mass/Vol] Plasma zinc measurement 44-115 [facility] Comment on above: This test was develo ped and its performance characteristicsdetermined by [employer]. It has not been cleared orapproved by the Food and Drug Administration. Detection Limit = 5Performed at: [facility] [employer] [id number] Director: Cassia Gastelum MD, Phone: [phone] Platelet mean volume Auto (B ld) [Entitic vol]on 01-26-2025 Platelet mean volume (Bld) [Entitic vol] Platelet mean volume [Entitic volume] in Blood by Automated count Low 9.5-13.5 [facility] Platelets Auto (Bld) [#/Vol] on 01-26-2025 Platelets (Bld) [#/Vol] Platelets [#/volume] in Blood by Automated count 150-450 [facility] RBC Auto (Bld) [#/Vol]on RBC (Bld) [#/Vol] Erythrocytes [#/volu me] in Blood by Automated count Low 4.20-5.40 [facility] Serum or plasma albumin/glob ulin mass ratioon 01-26-2025 Albumin/Globulin [Mass ratio] Serum or plasma albumin/globulin mass ratio [facility] Serum or plasma anion gap de terminationon 01-26-2025 Anion gap [Moles/Vol] Serum or plasma anion gap determination [facility] Basophils Auto (Bld) [#/Vol] on 09-04-2024 Basophils (Bld) [#/Vol] Automated basophil count 0.0-0.1 [facility] Basophils/100 WBC Auto (Bld) on 09-04-2024 Basophils/100 WBC (Bld) Automated basophil % 0.2-2.0 [facility] Eosinophils/100 WBC Auto (Bl d)on 09-04-2024 Eosinophils/100 WBC (Bld) Automated eosinophil % 0.9-7.0 [facility] Erythrocyte distribution wid th Auto (RBC) [Ratio]on 09-04-2024 Erythrocyte distribution width (RBC) [Ratio] Erythrocyte distribution width [Ratio] by Automated count 11.0-15.0 [facility] Estimated glomerular filtrat ion rate (GFR) non- Americanon 09-04-2024 GFR/1.73 sq M.predicted among non-blacks MDRD (S/P/Bld) [Vol rate/Area] Estimated glomerular filtration rate (GFR) non- Low >=60 mL/min/1.73m 2 [facility] Globulin Calc (S) [Mass/Vol] on 09-04-2024 Globulin (S) [Mass/Vol] Serum globulin measurement by calculation (mass/volume) [facility] Glucose mean value [Mass/vol ume] in Blood Estimated from glycated hemoglobinon 09-04-2024 Average glucose Estimated from glycated hemoglobin (Bld) [Mass/Vol] Glucose mean value [Mass/volume] in Blood Estimated from glycated hemoglobin [facility] Hematocrit Auto (Bld) [Volum e fraction]on 09-04-2024 Hematocrit (Bld) [Volume fraction] Hematocrit [Volume Fraction] of Blood by Automated count 36.0-48.0 [facility] Hemoglobin [Mass/volume] in Bloodon 09-04-2024 Hemoglobin (Bld) [Mass/Vol] Hemoglobin [Mass/volume] in Blood 12.0-16.0 [facility] Laboratory - Chemistry and C hemistry - challengeon 09-04-2024 Albumin [Mass/Vol] 3.5 g/dL 3.4-5.0 [facility] ALP [Catalytic activity/Vol] 119 U/L High 46-116 [facility] ALT [Catalytic activity/Vol] 15 U/L 14-59 [facility] AST [Catalytic activity/Vol] 14 U/L Low 15-37 [facility] Bilirubin [Mass/Vol] 0.3 mg/dL 0.2-1.0 [facility] Calcium [Mass/Vol] 9.5 mg/dL 8.5-10.1 [facility] Chloride [Moles/Vol] 103 mmol/L 98-107 [facility] CO2 [Moles/Vol] 27.9 mmol/L 21.0-32.0 [facility] Creatinine [Mass/Vol] 1.37 mg/dL High 0.55-1.02 [facility] GFR/1.73 sq M.predicted MDRD (S/P/Bld) [Vol rate/Area] 46 mL/min/{1.73_m2} Low >=60 mL/min/1.73m 2 [facility] Glucose [Mass/Vol] 83 mg/dL 74-106 [facility] Potassium [Moles/Vol] 3.8 mmol/L 3.5-5.1 [facility] Protein [Mass/Vol] 8.1 g/dL 6.4-8.2 [facility] Sodium [Moles/Vol] 142 mmol/L 136-145 [facility] Urea nitrogen [Mass/Vol] 16.0 mg/dL 7.0-18.0 [facility] Urea nitrogen/Creatinin e [Mass ratio] 11.7 mg/mg [facility] Laboratory - Hematology and Cell countson 09-04-2024 HbA1c (Bld) [Mass fraction] 5.6 % 4.5-6.2 [facility] Comment on above: ADA RECOMMENDED LIMI T 4.0 - 6.0ADA THERAPEUTIC TARGET < 7.0ACTION SUGGESTED> 7.0 Immature granulocytes/100 WBC (Bld) 0.2 % 0.0-0.5 [facility] Leukocytes [#/volume] correc moncho for nucleated erythrocytes in Blood by Automated counon 09-04-2024 WBC corrected for nucl RBC Auto (Bld) [#/Vol] Leukocytes [#/volume] corrected for nucleated erythrocytes in Blood by Automated coun 4.0-11.0 [facility] Lymphocytes Auto (Bld) [#/Vo l]on 09-04-2024 Lymphocytes (Bld) [#/Vol] Lymphocytes [#/volume] in Blood by Automated count 1.2-3.8 [facility] Lymphocytes/100 WBC Auto (Bl d)on 09-04-2024 Lymphocytes/100 WBC (Bld) Lymphocytes/100 leukocytes in Blood by Automated count 20.5-60.0 [facility] MCH Auto (RBC) [Entitic mass ]on 09-04-2024 MCH (RBC) [Entitic mass] MCH [Entitic mass] by Automated count 26.7-34.0 [facility] MCHC Auto (RBC) [Mass/Vol]on 09-04-2024 MCHC (RBC) [Mass/Vol] MCHC [Mass/volume] by Automated count 29.9-35.2 [facility] MCV Auto (RBC) [Entitic vol] on 09-04-2024 MCV (RBC) [Entitic vol] MCV [Entitic volume] by Automated count 81.0-99.0 [facility] Microalbumin [Mass/volume] i n Urineon 09-04-2024 Albumin DL <= 20 mg/L (U) [Mass/Vol] Microalbumin [Mass/volume] in Urine <=30.0 [facility] Monocytes Auto (Bld) [#/Vol] on 09-04-2024 Monocytes (Bld) [#/Vol] Automated blood monocyte count 0.3-0.8 [facility] Monocytes/100 WBC Auto (Bld) on 09-04-2024 Monocytes/100 WBC (Bld) Automated monocyte % 1.7-12.0 [facility] Neutrophils Auto (Bld) [#/Vo l]on 09-04-2024 Neutrophils (Bld) [#/Vol] Neutrophils [#/volume] in Blood by Automated count 1.4-6.5 [facility] Neutrophils/100 WBC Auto (Bl d)on 09-04-2024 Neutrophils/100 WBC (Bld) Automated neutrophil % 43.0-75.0 [facility] No Panel Informationon 09-04 Eosinophils # (Auto) 0.3 10 3/uL 0.0-0.7 [facility] Immature Granulocyte # (Auto) 0.02 10 3/uL 0.00-0.03 [facility] Urine Random Creatinine 439.14 mg/dL High 20.00-300.00 [facility] Platelet mean volume Auto (B ld) [Entitic vol]on 09-04-2024 Platelet mean volume (Bld) [Entitic vol] Platelet mean volume [Entitic volume] in Blood by Automated count 9.5-13.5 [facility] Platelets Auto (Bld) [#/Vol] on 09-04-2024 Platelets (Bld) [#/Vol] Platelets [#/volume] in Blood by Automated count 150-450 [facility] RBC Auto (Bld) [#/Vol]on RBC (Bld) [#/Vol] Erythrocytes [#/volu me] in Blood by Automated count Low 4.20-5.40 [facility] Serum or plasma albumin/glob ulin mass ratioon 09-04-2024 Albumin/Globulin [Mass ratio] Serum or plasma albumin/globulin mass ratio [facility] Serum or plasma anion gap de terminationon 09-04-2024 Anion gap [Moles/Vol] Serum or plasma anion gap determination [facility] Urine microalbumin/creatinin e mass ratioon 09-04-2024 Albumin/Creatinine DL <= 20 mg/L (U) [Mass ratio] Urine microalbumin/creatinine mass ratio 0.0-29.9 [facility] Comment on above: NO MICROALBUMINURIA 0-29 MG/GCLINICAL MICROALBUMINURIA 30-300 MG/GMACROALBUMINURIA >300 MG/G CT HEAD WO CONon 12-24-2017 CT HEAD WO CON [address] [facility] [place] [address] Patient: BRENDA LAGUNAS Exam Date: 12/24/2017DOB: 1955 Gender:F : BHARATH RIVERS Admission #: [id number] : Order #: [id number] HERE TO VIEW EXAM RADIOLOGY REPORT PROCEDURE: [...] Barragan M.D. on 12/24/2017 at 15:25 Normal [facility] Vital Signs Date Time Vital Sign Value Performing Clinician Faci lity 05-27-2025 15:01-0400 Body height 160.02 cm Ilda Garcia MD Work Phone: [facility] 05-27-2025 15:01-0400 Body mass index (BMI) [Ratio] 51.2 kg/m2 Ilda Garcia MD Work Phone: [facility] 05-27-2025 15:01-0400 Body weight 131.31 kg Ilda Garcia MD Work Phone: [facility] 05-27-2025 15:01-0400 Diastolic blood pressure 82 mm[Hg] Ilda Garcia MD Work Phone: [facility] 05-27-2025 15:01-0400 Systolic blood pressure 118 mm[Hg] Ilda Garcia MD Work Phone: [facility] 02-17-2025 14:58-0400 Body height 160.02 cm [facility] 02-17-2025 14:58-0400 Body mass index (BMI) [Ratio] 47.8 kg/m2 [facility] 02-17-2025 14:58-0400 Body weight 122.46 kg [facility] 02-17-2025 14:58-0400 Diastolic blood pressure 81 mm[Hg] [facility] 02-17-2025 14:58-0400 Heart rate 87 /min [facility] 02-17-2025 14:58-0400 Systolic blood pressure 122 mm[Hg] [facility] 01-19-2025 14:10-0400 Body height 160.02 cm [facility] 01-19-2025 14:10-0400 Body mass index (BMI) [Ratio] 48.5 kg/m2 [facility] 01-19-2025 14:10-0400 Body weight 124.28 kg [facility] 01-19-2025 14:10-0400 Diastolic blood pressure 79 mm[Hg] [facility] 01-19-2025 14:10-0400 Heart rate 74 /min [facility] 01-19-2025 14:10-0400 Respiratory rate 12 /min [facility] 01-19-2025 14:10-0400 SaO2% (BldA) [Mass fraction] 97 % [facility] 01-19-2025 14:10-0400 Systolic blood pressure 129 mm[Hg] [facility] 11-19-2024 14:59-0500 Body height 160.02 cm [facility] 11-19-2024 14:59-0500 Body mass index (BMI) [Ratio] 45.1 kg/m2 [facility] 11-19-2024 14:59-0500 Body weight 115.66 kg [facility] 11-19-2024 14:59-0500 Diastolic blood pressure 76 mm[Hg] [facility] 11-19-2024 14:59-0500 Heart rate 70 /min [facility] 11-19-2024 14:59-0500 Systolic blood pressure 113 mm[Hg] [facility] 09-04-2024 13:59-0500 Body height 160.02 cm [facility] 09-04-2024 13:59-0500 Body mass index (BMI) [Ratio] 45.7 kg/m2 [facility] 09-04-2024 13:59-0500 Body weight 117.14 kg [facility] 09-04-2024 13:59-0500 Diastolic blood pressure 80 mm[Hg] [facility] 09-04-2024 13:59-0500 Heart rate 80 /min [facility] 09-04-2024 13:59-0500 Systolic blood pressure 122 mm[Hg] [facility] 04-16-2024 10:53-0400 Body height 160.02 cm [facility] 04-16-2024 10:53-0400 Body mass index (BMI) [Ratio] 45.1 kg/m2 [facility] 04-16-2024 10:53-0400 Body weight 115.66 kg [facility] 04-16-2024 10:53-0400 Diastolic blood pressure 73 mm[Hg] [facility] 04-16-2024 10:53-0400 Heart rate 67 /min [facility] 04-16-2024 10:53-0400 Systolic blood pressure 112 mm[Hg] [facility] Encounters Encounter Date Encounter Type Care Provider Facility Start: 05-27-2025 End: 05-27-2025 ambulatory Ilda Garcia MD Work Phone: [facility] Work Phone: Start: 05-27-2025 End: 05-27-2025 Patient encounter procedure Adriel Alfredo MD -[facility] Work Phone: Start: 05-27-2025 End: 05-27-2025 ambulatory Ilda Garcia MD Work Phone: [facility] Work Phone: Start: 05-27-2025 End: 05-27-2025 Patient encounter procedure Adriel Alfredo MD -[facility] Start: 02-23-2025 End: 02-23-2025 ambulatory Dorothy Dumont MD Facility:[facility] Start: 02-17-2025 End: 02-17-2025 ambulatory [facility] Work Phone: Start: 02-17-2025 End: 02-17-2025 Patient encounter procedure [facility] Work Phone: Start: 02-09-2025 End: 02-09-2025 ambulatory Andrius Vytautas Giedraitis Facility:[facility] Start: 01-26-2025 Non-patient / Non-visit [facility] Work Phone: Start: 01-19-2025 End: 01-19-2025 ambulatory [facility] Work Phone: Start: 01-19-2025 End: 01-19-2025 Patient encounter procedure [facility] Work Phone: Start: 01-12-2025 End: 01-12-2025 ambulatory Andrius Vytautas Giedraitis Facility:[facility] Start: 11-19-2024 End: 11-19-2024 ambulatory [facility] Work Phone: Start: 11-19-2024 End: 11-19-2024 Patient encounter procedure [facility] Work Phone: Start: 11-17-2024 End: 11-17-2024 ambulatory Andrius Vytautas Giedraitis Facility:[facility] Start: 10-20-2024 End: 10-20-2024 ambulatory Andrius Vytautas Giedraitis MD Facility:[facility] Start: 10-06-2024 End: 10-06-2024 ambulatory Andrius Vytautas Giedraitis MD Facility:[facility] Start: 09-04-2024 End: 09-04-2024 Patient encounter procedure [facility] Work Phone: Start: 09-03-2024 Non-patient / Non-visit [facility] Work Phone: Start: 04-16-2024 End: 04-16-2024 ambulatory [facility] Work Phone: Start: 04-16-2024 End: 04-16-2024 Patient encounter procedure [facility] Work Phone: Start: 12-24-2017 End: 12-24-2017 Ambulatory BHARATH RIVERS Facility:[facility] Procedures Date Procedure Procedure Detail Performing Clinician Start: 05-27-2025 Plain radiography of pelvis Ilda Garcia MD Work Phone: Start: 05-27-2025 X-ray of both knees, four views Ilda Garcia MD Work Phone: Plan of Treatment Date Care Activity Detail Author Start: 05-27-2025 Patient referral [facility] Work Phone: Start: 05-27-2025 Plain radiography of pelvis XR pelvis 1-2V [facility] Start: 05-27-2025 X-ray of both knees, four views XR knee BI 4V [facility] Start: 05-27-2025 XR Knee - bilateral 4 Views [facility] Start: 05-27-2025 XR Pelvis 1 or 2 Views [facility] Start: 01-19-2025 Patient referral [facility] Work Phone: Start: 09-08-2024 Patient referral [facility] Work Phone: Start: 04-16-2024 Patient referral [facility] Work Phone: Comprehensive metabo lic 2000 panel - Serum or Plasma [facility] Patient Education Vestibular Exercises Fi [facility] Work Phone: Patient referral [facility] Work Phone: Zinc [Mass/volume] i n Serum or Plasma [facility] Payers Date Payer Category Payer Unknown 1959 Unknown [id number] 1955 Unknown [id number] 2.16. [id number] 1955 Unknown [id number] 2.16. [id number] 1955 Unknown [id number] 2.16. [id number] 1955 Unknown [id number] 2.16. [id number] 1955 Unknown [id number] 2.16. [id number] 1955 Unknown [id number] 2.16. [id number] 1955 Unknown [id number] 2.16. [id number] Unknown Miley HOLLY/MALORIE [id number] Social History Date Type Detail Facility Start: 04-16-2024 End: 04-16-2024 Tobacco smoking status NHIS Ex-smoker (finding) [facility] Start: 1955 Sex Assigned At Female F [facility] Start: 11-19-2024 End: 02-17-2025 Sex Female (finding) [facility] Evaluation note 05-27-2025 Note Date & Type Note Facility 05-27-2025 Evaluation note Diagnosis Onset Date Resolution Bilateral primary osteoarthritis of hip acute May 27, 2025 2:39pm Bilateral primary osteoarthritis of knee acute May 27, 2025 2:39pm BMI 50.0-59.9, adult acute May 2:39pm [facility] Work Phone: Hospital Discharge instructions 05-27-2025 Note Date & Type Note Facility 05-27-2025 Hospital Discharge instructions Ambulatory OrdersReferral to Pain Management Time Frame: 05/27/25, Location: None SelectedReferral to Weight Management Time Frame: 05/27/25, Location: None Selected [facility] Work Phone: Evaluation note 01-19-2025 Note Date & Type Note Facility 01-19-2025 Evaluation note Diagnosis Onset Date Resolution Pica in adults acute December 2:07pm Throat fullness acute December 2:07pm Trouble swallowing acute January 19, 2025 2:07pm Type 2 diabetes mellitus with hyperglycemia acute January 19, 2 025 2:07pm Diarrhea acute February 17, 2025 2:52pm History of colon cancer acute M ay 2024 2:52pm [facility] Work Phone: Hospital Discharge instructions 01-19-2025 Note Date & Type Note Facility 01-19-2025 Hospital Discharg e instructions Ambulatory OrdersReferral to ENT Time Frame: 01/19/25, Location: None Selected [facility] Work Phone: Evaluation note 11-19-2024 Note Date & Type Note Facility 11-19-2024 Evaluation note Diagnosis Onset Date Resolution Diarrhea acute November 19, 2024 2:54pm History of colon cancer acute F ebruary 2024 2:54pm Throat fullness acute December 2:07pm Trouble swallowing acute January 19, 2025 2:07pm Type 2 diabetes mellitus with hyperglycemia acute January 19, 2 025 2:07pm [facility] Work Phone: Evaluation note 09-04-2024 Note [...] colon cancer acute F ebruary 2024 2:54pm [facility] Work Phone: Evaluation note Note Date & Type Note Facility Evaluation note Diagnosis Onset Date Left knee pain acute [facility] Work Phone: Evaluation note Note Date & Type Note Facility Evaluation note No assessment information availa ble [facility] Work Phone: Hospital Discharge instructions Note Date & Type Note Facility Hospital Discharge instructions Ambulatory OrdersReferral to Orthopedics Time Frame: 04/16/24, Location: None Selected [facility] Work Phone: Reason for referral (narrative) Note Date & Type Note Facility Reason for referral (narrative) No reason for referral information available [facility] Work Phone: Summary Purpose Family [...] 2:54pm History of colon cancer November 19, 2 025 2:54pm Chief Complaint Admit Date Ref: diarrhea/hx of colon cancer y 2024 2:54pm Possible Low Iron-HIGH RISK January 19, 2025 2:07pm Reason for Visit Admit Date Diarrhea November 19, 2024 2:54pm History of colon cancer November 19, 2 025 2:54pm Throat fullness January 19, [...] colon cancer February 17, 2025 2 :52pm Chief Complaint Admit Date M25.561 - Pain in right knee May 272024 9:26am CONSULT DR GARCIA MASOOD [facility] pt2024 2:39pm Reason for Visit Admit Date Bilateral primary osteoarthritis of hip May 27, 2025 2:39pm Bilateral primary osteoarthritis of knee May 27, 2025 2:39pm BMI 50.0-59.9, adult May 27, 2025 2:39pm Additional Source Comments INFORMATION SOURCE (unrecogn ized section and content) DATE CREATED AUTHOR 03/14/2018 [facility] DATE CREATED AUTHOR AUTHOR'S ORGANIZ ATION 03/02/2025 [facility] Care Teams (unrecognized sec tion and content) Team Status: Active Member Role Status Dates Ilda Garcia MD Primary Care Provider Active Team Status: Inactive Member Role Status Dates Ilda Garcia MD Primary Care Provider Active Start: May 27, 2025 End: May 27, 2025 Adriel Leija II, MD Attending Provider Active Start: May 27, 2025 End: May 27, 2025 Team Status: Active Member Role Status Dates Ilda Garcia MD Primary Care Provider Active Team Status: Active Member Role Status Dates Ilda Garcia MD Primary Care Provider Active Start: May 27, 2025 Adriel Leija II, MD Attending Provider Active Start: May 27, 2025 Team Status: Inactive Member Role Status Dates Ilda Garcia MD Primary Care Provider Active Start: May 27, 2025 End: May 27, 2025 Adriel Leija II, MD Attending Provider Active Start: May 27, 2025 End: May 27, 2025 Team Status: Inactive Member Role Status [...] 2024 Team Status: Active Member Role Status Dates [...] BE BASED ON THE PRIMARY CLINICAL RECORDS. [facility] [employer] provides no warranty or guarantee of the accuracy or completeness of information in this document.
--- NOTE | 2025-05-28 09:12 | PM.CN ---
Consult Note: HPI Data of Consult Patient: known to practice within the last 3 years Requesting Physician: Sri Daniels NP Primary Care Provider: Ilda Lopez MD Consult Narrative Reason for consult: low back and bilateral knee pain Narrative: Gillian Interiano a pleasant 69 year old female presents for evaluation of chronic bilateral knee pain and low back pain. previously has failed > 6 weeks of PT/HEP, heat, ice, tylenol, and NSAIDs. Pain today 10/10 increasing with standing, walking, activity. reports falls without injury due to pain. has been utilizing tylenol, celebrex, and norco 7.5-325mg tid prn with moderate relief without side effects. since last visit has established with orthopedics for bilateral knee OA/pain, he also reported moderate to severe oa of bilateral hips. recently completed lumbar MRI completed with results below cc:: CC: Sri Daniels NP Review of Systems ROS Musculoskeletal Reports: back pain and joint pain PFSH PFSH Medical History Obesity ?E66.9 - Obesity, unspecified (ICD-10) Hypertension ?I10 - Essential (primary) hypertension (ICD-10) Surgical History H/O hernia repair ?Z98.890 - Other specified postprocedural states (ICD-10) ?Z87.19 - Personal history of other diseases of the digestive system (ICD-10) History of hysterectomy ?Z90.710 - Acquired absence of both cervix and uterus (ICD-10) H/O knee surgery ?Z98.890 - Other specified postprocedural states (ICD-10) Meds Home Medications and Allergies Home Medications ?Medication ?Instructions ?Recorded ?Confirmed ?Type Bacillus coagulans 10 billion cell cell PO 10/06/24 History capsule,delayed release (Probiotic (B. coagulans)) amlodipine 5 mg tablet 5 mg PO DAILY 10/06/24 02/23/25 History citalopram 40 mg tablet 40 mg PO DAILY 10/06/24 02/23/25 History losartan 100 1 tab PO DAILY 10/06/24 02/23/25 History mg-hydrochlorothiazide 12.5 mg tablet (Hyzaar) celecoxib 200 mg capsule (Celebrex) 200 mg PO BID 11/17/24 02/23/25 History dicyclomine 20 mg tablet mg 01/12/25 History naloxone 4 mg/actuation nasal 4 mg intranasal Q2M #2 ea 03/25/25 Rx spray (Narcan) hydrocodone 7.5 mg-acetaminophen 1 tab PO TID PRN pain #90 tabs 05/06/25 Rx 325 mg tablet Allergies Allergy/AdvReac Type Severity Reaction Status Date / Time No Known Drug Allergies Allergy Verified 02/23/25 07:04 Exam Back & Pelvis Lumbar spine/lower back: ROM limited, pain with ROM, straight leg raise positive right and straight leg raise positive left Extremity Right lower extremity: hip joint Left lower extremity: hip joint Other: moderate pain with internal and external rotation of bilateral hips Results Imaging Lumbar MRI: Attestation: I have reviewed the pertinent imaging results. Additional Findings Additional findings: Mild levocurvature. Incidental vertebral body hemangioma at L4 otherwise the Lumbar vertebral heights, bone marrow and alignment maintained. Minimal anterolisthesis L4 on L5 2-3 mm. Intervertebral space heights are grossly preserved.. Conus medullaris terminates at mid L2. Right renal cysts. Otherwise paraspinal soft tissues are unremarkable. T12-L1: Facet arthropathy. No significant disease is canal neural from narrowing identified. L1-2: Minor disc desiccation. Mild facet arthropathy contributing to minimal foraminal narrowing. Canal is patent. No significant disc protrusion L2-L3: Minimal disc desiccation with [id number] facet arthropathy. Canal is patent. Mild foraminal narrowing L3-4: Disc desiccation. Moderate facet arthropathy. Minimal left foraminal narrowing. Canal and right neural foramen are patent. L4-5: Minimal anterolisthesis to 3 mm with uncovering the posterior disc. Minimal disc desiccation. No focal disc protrusion. There is advanced facet arthropathy canal neural foramen are patent. L5-S1: Moderate right moderate severe left facet arthropathy. Canal neural foramina patent. Assessment and Plan Assessment and Plan (1) Osteoarthritis, hip, bilateral: Assessment and Plan: Dr Leija recommending bilateral hip injections for pain/oa (2) Lumbar spondylosis: (3) Chronic use of opiate for therapeutic purpose: (4) Osteoarthritis of knees, bilateral: Qualifiers: Osteoarthritis type: primary Qualified Code(s): M17.0 - Bilateral primary osteoarthritis of knee (5) Bilateral knee pain: Qualifiers: Chronicity: chronic Qualified Code(s): M25.561 - Pain in right knee; M25.562 - Pain in left knee; G89.29 - Other chronic pain (6) Lumbar degenerative disc disease: Plan bilateral hip injection under fluoroscopy as recommended by Dr Leija consider lumbar mbbs/rfa in the future for facet mediated low back pain continue current medications, risks vs benefits reviewed f/u after injection
== END 2025-05-28 08:58 | disposition home or self-care (01) ==
LOC: PM 08:57
PROVIDERS: PCP Family Medicine; Visit Provider Nurse Practitioner
DX: M16.0 Bilateral primary osteoarthritis of hip (principal); M17.0 Bilateral primary osteoarthritis of knee; M47.816 Spondylosis without myelopathy or radiculopathy, lumbar region; Z79.891 Long term (current) use of opiate analgesic; M25.561 Pain in right knee; M25.562 Pain in left knee; G89.29 Other chronic pain; M51.369 Other intervertebral disc degeneration, lumbar region without mention of lumbar back pain or lower extremity pain
CPT/HCPCS: G0463

== ENCOUNTER 2025-05-28 13:34 | Outpatient (OUT) | payer MEDICARE, SELFPAY ==
--- OUTSIDE RECORDS SUMMARY | 2025-05-28 13:36 | XMS_ITS | Encounter Summary ---
Author Organization [facility] Address [address] [place] [address] Care Team Providers Care Military Source Operations Specialist Name Role Phone Ghada Stover CHARTER BUS DRIVER Unavailable [phone] Ilda Lopez MD Primary Care Provider [phone] Reason for Visit * Reason Comments Med Refill Encounter Details Date Type Department Care Team (Late st Contact Info) Description 05/22/2025 Refill [facility] [address] [place] [address] Beatris Solo MD [address] [facility] [address] [place] [address] LPRD (laryngopharyngeal reflux disease) Social History Tobacco Use Types Packs/Day Years [...] as of this encounter Visit Diagnoses Diagnosis LPRD (laryngopharyngeal reflux disease) Acute laryngitis, without mention of obstruction documented in this encounter Care Teams Military Source Operations Specialist Relationship Specialty Start Date End Date Ghada Stover CHARTER BUS DRIVER PCP - Miley MUÑIZ 09/24/24 [place] [address] [place] [phone] PCP - General Family Medicine 01/28/25 documented as of this encounter
--- OUTSIDE RECORDS SUMMARY | 2025-05-28 13:36 | XMS_ITS | Clinical Summary ---
Author Organization [facility] Address [address] [address] Care Team Providers Care Building Engineer Name Role Phone Ghada Stover WHEEL CUTTER Unavailable [phone] Ilda Lopez MD Primary Care Provider [phone] Allergies No known active allergies Medications amLODIPine (Norvasc) 5 MG tablet Take 5 mg by mouth Daily 04/16/20 24 Active buPROPion XL (Wellbutrin XL) 300 MG 24 hr tablet 300 mg in the morning. 04/16/20 24 Active citalopram (CeleXA) 10 MG tablet Take 20 mg by mouth Daily 40 mg daily 04/16/20 24 Active HYDROcodone-ac etaminophen ([place]) 5-325 MG tablet Take 1 tablet by mouth every 6 (six) hours if needed for moderate pain 04/16/20 24 Active losartan-hydro CHLOROthiazide (Hyzaar) 100-12.5 MG tablet Take 1 tablet by mouth Daily 04/16/20 24 Active meloxicam (Mobic) 7.5 MG tablet Take 15 mg by mouth Daily 04/16/20 24 Active baclofen (Lioresal) 5 MG tablet 02/01/20 24 Active citalopram (CeleXA) 40 MG tablet Take 40 mg by mouth Daily 05/26/20 24 Active dicyclomine (Bentyl) 20 MG tablet Twice daily 11/19/19 25 Active celecoxib (CeleBREX) 200 MG capsule Take 200 mg by mouth in the morning and 200 mg before bedtime. 12/23/19 25 Active diazePAM (Valium) 10 MG tablet TAKE 1 TABLET BY MOUTH PRIOR TO PROCEDURE 01/02/20 25 Active folic acid (Folvite) 1 MG tablet Take 1,000 mcg by mouth Daily 01/30/20 25 Active famotidine (Pepcid) 20 MG tabletIndicati ons:LPRD (laryngopharyn geal reflux disease) TAKE 1 TABLET (20 MG) BY MOUTH IN THE MORNING AND BEFORE BEDTIME 180 tablet 05/26/20 25 Active famotidine (Pepcid) 20 MG tabletIndicati ons:LPRD (laryngopharyn geal reflux disease) Take 1 tablet (20 mg) by mouth in the morning and 1 tablet (20 mg) before bedtime. 180 tablet 02/05/20 25 025 Discontinued Active Problems Problem Noted Date Diagnosed Date Bilateral knee pain 01/28/2025 Colon cancer 01/28/2025 Diarrhea 01/28/2025 History of colon cancer 01/28/2025 Hypertension 01/28/2025 Mixed anxiety and depressive disorder 01/28/2025 Pica in adults 01/28/2025 Throat fullness 01/28/2025 Trouble swallowing 01/28/2025 Type 2 diabetes mellitus with hyperglycemia 03/2025 Encounters Date Type Department Care Team Description 05/22/2025 Refill [facility] [address] [place] [address] Beatris Solo MD LPRD (laryngopharyngeal reflux disease) 04/27/2025 1:00 PM EDT Office Visit [facility] [address] [facility] [address] [place] [phone] Beatris Solo MD Globus sensation (Primary Dx) 04/27/2025 Bamboo flowsheet [facility] [address] [facility] [address] [place] [phone] Beatris Solo MD 04/27/2025 Travel 04/08/2025 External Result Encounter [facility] [address] [facility] [place] [phone] Beatris Sloo MD 04/08/2025 Orders Only [facility] [address] [facility] [address] [place] [phone] Beatris Solo MD 03/24/2025 Telephone [facility] [address] [facility] [address] [place] [phone] Manju Michaels MA from Last 3 Months [...] PM EDT THIS EXAM WAS PERFORMED AT [facility] CLINICAL INFORMATION: Dysphagia, pharyngoesophageal phase [...] 04/08/2025 1:51 PM Procedure Note Radiology, Radiologist, - 04/08/2025 THIS EXAM WAS PERFORMED AT [facility] CLINICAL INFORMATION: Dysphagia, pharyngoesophageal phase [...] Months Insurance [employer] Care Teams Building Engineer Relationship Specialty Start Date End Date Ghada Stover NP PCP - Miley MUÑIZ 09/24/24 Ilda Lopez MD [address] [place] [phone] PCP - General Family Medicine 01/28/25
--- OUTSIDE RECORDS SUMMARY | 2025-05-28 13:36 | XMS_ITS | Clinical Summary ---
Author Organization [facility] tem Address [id number] [address] [place] [address] Care Team Providers Care Boom Stick Worker Name Role Phone Ilda Lopez MD Primary Care Provider [phone] Encounters Date Type Department Care Team Description 04/08/2025 1:00 PM EDT - 04/08/2025 11:59 PM EDT Hospital Encounter [facility] - Radiology [address] [place] [phone] Dysphagia, pharyngoesophageal phase Discharge Disposition: Home 04/08/2025 [...] 3 Months Insurance [employer] Care Teams Boom Stick Worker Relationship Specialty Start Date End Date Ilda Lopez MD [address] [place] [id number] PCP - General Family Medicine 04/08/25
--- NOTE | 2025-05-28 13:37 | MM_ITS ---
Patient Name: BRENDA ARZOLA MR#: [id number] : 1955 Exam Date: 05/28/2025 Ordering Doctor: DR DASHA GARCIA M.D. RADIOLOGY REPORT PROCEDURE: MM TOMOSYNTHESIS SCREENING BI COMPARISON: [facility] MAMM DIAGNOSTIC 3D MASOOD CAD, 11/15/2022. MG MAMM DIAGNOSTIC 3D MASOOD CAD, 11/11/2021. MG MAMM RT DIAG FU, 11/02/2020. MM TOMOSYNTHESIS SCREENING BI, 10/25/2020. INDICATIONS: Screening Calculator Name NCI Breast Cancer Risk Assessment Tool 5 Year Breast Cancer Risk 1.20% Lifetime Breast Cancer Risk 3.90% Personal Breast Cancer No Personal Ovarian Cancer No Treatments None Family Cancers Father with colon cancer at age ~65; Father with prostate cancer at age ~75; Sister with unknown cancer at age ~65. LOCATION: [facility] BREAST COMPOSITION: There are scattered areas of fibroglandular density. FINDINGS: DIAGNOSTIC CATEGORY 1--NEGATIVE. RIGHT BREAST: No significant suspicious finding. LEFT BREAST: No significant suspicious finding. RECOMMENDATIONS: ROUTINE MAMMOGRAM AND CLINICAL EVALUATION IN 12 MONTHS. Dictated by: Robb Sanabria DO on 06/02/2025 at 13:31 Approved by: Robb Sanabria DO on 06/02/2025 at 13:32
--- OUTSIDE RECORDS SUMMARY | 2025-05-28 13:37 | XMS_ITS | Encounter Summary ---
Author Organization [facility] Address [address] [place] [address] Care Team Providers Care Neon Tube Bender Name Role Phone Ghada Stover FLIGHT PURSER Unavailable [phone] Ilda Lopez MD Primary Care Provider [phone] Encounter Details Date Type Department Care Team (Late st Contact Info) Description 04/08/2025 External Result Encounter [facility] [address] [place] [address] Beatris Solo MD [address] [facility] [address] [place] [address] Social History Tobacco Use Types [...] PM EDT THIS EXAM WAS PERFORMED AT [facility] CLINICAL INFORMATION: Dysphagia, pharyngoesophageal phase TECHNIQUE/PROCEDURE: A [...] - 04/08/2025 THIS EXAM WAS PERFORMED AT [facility] CLINICAL INFORMATION: Dysphagia, pharyngoesophageal phase TECHNIQUE/PROCEDURE: A [...] on filedocumented in this encounter Care Teams Neon Tube Bender Relationship Specialty Start Date End Date Ghada Stover NP PCP - Miley MUÑIZ 09/24/24 Ilda Lopez MD [address] [place] [phone] PCP - General Family Medicine 01/28/25 documented as of this encounter
--- OUTSIDE RECORDS SUMMARY | 2025-05-28 13:37 | XMS_ITS | Encounter Summary ---
Author Organization [facility] Address [address] [place] [address] Care Team Providers Care Pharmacy Informaticist Name Role Phone Ghada Stover [employer] OPERATOR Unavailable [phone] Ilda Lopez MD Primary Care Provider [phone] Encounter Details Date Type Department Care Team (Late st Contact Info) Description 04/08/2025 Orders Only [facility] [address] [facility] [address] [place] [address] Beatris Solo MD [address] [facility] [address] [place] [address] Social History Tobacco Use Types Packs/Day Years [...] on filedocumented in this encounter Care Teams Pharmacy Informaticist Relationship Specialty Start Date End Date Ghada Stover NP PCP - Miley MUÑIZ 09/24/24 Ilda Lopez MD [address] [place] [address] PCP - General Family Medicine 01/28/25 documented as of this encounter
--- OUTSIDE RECORDS SUMMARY | 2025-05-28 13:42 | XMS_ITS | CCD ---
Author Organization [facility] Care Team Providers Care Supply Chain Tech Name Role Phone BHARATH RIVERS Unavailable Unavailable [...] Provider Heladio MONTEZ, Adriel Alfredo Attending Provider [phone] Medications Current Medications Medication Drug Class(es) Dates [...] By: Huey Wu on 05-27-2025 Study report [facility] [address] [place] [address] XRay Report Signed Patient: Divya Interiano MR#: [id number] : 1955 Acct:[id number] Age/Sex: 69 / F ADM Date: 5 [place] [facility] [place] Type: [facility] Attending Dr: Adriel Leija II, MD Copies to: Adriel Leija MD~ Ordering Provider: Adriel Leija MD Date of Service: 05/27/25 XR/XR knee BI 4V: M25.561 - Pain in right knee ([id number]) XR/XR pelvis 1-2V: M25.561 - Pain in right knee Single view of the pelvis plain film HISTORY: Bilateral knee pain COMPARISON: None ACUTE FINDINGS: None BONY ALIGNMENT: Adequate SOFT TISSUES: Unremarkable DEGENERATIVE CHANGE:Extensive right hip degeneration. Moderate left hip degeneration. INTRAPELVIC STRUCTURES: Unremarkable POSTSURGICAL CHANGES:None XR/XR pelvis 1-2V IMPRESSION:Extensive right hip degeneration. Moderate left hip degeneration 4 views both knees [id number]-zawp contact right medial degeneration. Marked lateral left knee degeneration with marked joint space narrowing and marginal spurring mild to moderate bilateral patellofemoral degeneration. Mild right lateral and left medial degeneration IMPRESSION: Extensive bilateral knee degeneration greatest in the medial compartment on the right in the lateral compartment left Impression dictated by: Rigoberto Wu M.D. 05/27/2025 10:25 PM Dictation Location: [place] [address] Transcribed By: [facility] 05/27/252224 Dictated By: Rigoberto Wu DO 05/27/252222 Signed By: 05/27/252224 [facility] Basophils Auto (Bld) [#/Vol] on 01-26-2025 Basophils (Bld) [#/Vol] Automated basophil count 0.0-0.1 [facility] Basophils/100 WBC Auto (Bld) on 01-26-2025 Basophils/100 WBC (Bld) Automated basophil % 0.2-2.[address] [facility] Eosinophils/100 WBC Auto (Bl d)on 01-26-2025 Eosinophils/100 WBC (Bld) Automated eosinophil % 0.9-7.[address] [facility] Erythrocyte distribution wid th Auto (RBC) [Ratio]on 01-26-2025 Erythrocyte distribution width (RBC) [Ratio] Erythrocyte distribution width [Ratio] by Automated count 11.0-15.[address] [facility] Estimated glomerular filtrat ion rate (GFR) non- Americanon 01-26-2025 GFR/1.73 sq M.predicted among non-blacks MDRD (S/P/Bld) [Vol rate/Area] Estimated glomerular filtration rate (GFR) non- Low >=60 mL/min/1.73m [address] [facility] Globulin Calc (S) [Mass/Vol] on 01-26-2025 Globulin (S) [Mass/Vol] Serum globulin measurement by calculation (mass/volume) [facility] Glucose mean value [Mass/vol ume] in Blood Estimated from glycated hemoglobinon 01-26-2025 Average glucose Estimated from glycated hemoglobin (Bld) [Mass/Vol] Glucose mean value [Mass/volume] in Blood Estimated from glycated hemoglobin [facility] Hematocrit Auto (Bld) [Volum e fraction]on 01-26-2025 Hematocrit (Bld) [Volume fraction] Hematocrit [Volume Fraction] of Blood by Automated count 36.0-48.[address] [facility] Hemoglobin A1c percentageon 01-26-2025 HbA1c (Bld) [Mass fraction] Hemoglobin A1c percentage 4.5-6.2 [facility] Comment on above: ADA RECOMMENDED LIMI T 4.0 - 6.0ADA THERAPEUTIC TARGET < 7.0ACTION SUGGESTED> 7.0 Hemoglobin [Mass/volume] in Bloodon 01-26-2025 Hemoglobin (Bld) [Mass/Vol] Hemoglobin [Mass/volume] in Blood 12.0-16.[address] [facility] Laboratory - Chemistry and C hemistry - challengeon 01-26-2025 Albumin [Mass/Vol] 3.4 g/dL 3.4-5.0 [facility] ALP [Catalytic activity/Vol] 120 U/L High 46-[address] [facility] ALT [Catalytic activity/Vol] 17 U/L 14-[address] [facility] AST [Catalytic activity/Vol] 11 U/L Low 15-[address] [facility] Bilirubin [Mass/Vol] 0.3 mg/dL 0.2-1.[address] [facility] Calcium [Mass/Vol] 9.4 mg/dL 8.5-10.1 [facility] Chloride [Moles/Vol] 102 mmol/L 98-[address] [facility] CO2 [Moles/Vol] 28.8 mmol/L 21.0-32.0 [facility] Cobalamin (Vitamin B12) [Mass/Vol] 280 pg/mL 232-[address] [facility] Comment on above: Performed at: - [facility] [address] [id number] Director: Grady Rivera PhD, Phone: [phone] Creatinine [Mass/Vol] 1.14 mg/dL High 0.55-1.[address] [facility] Ferritin [Mass/Vol] 12.0 ng/mL 8.0-252.[address] [facility] GFR/1.73 sq M.predicted MDRD (S/P/Bld) [Vol rate/Area] 57 mL/min/{1.73_m2} Low >=60 mL/min/1.73m [address] [facility] Glucose [Mass/Vol] 83 mg/dL 74-106 [facility] Potassium [Moles/Vol] 4.1 mmol/L 3.5-5.[address] [facility] Protein [Mass/Vol] 8.0 g/dL 6.4-8.2 [facility] Sodium [Moles/Vol] 139 mmol/L 136-145 [facility] Urea nitrogen [Mass/Vol] 22.0 mg/dL High 7.0-18.[address] [facility] Urea nitrogen/Creatinin e [Mass ratio] 19.3 mg/mg [facility] Laboratory - Hematology and Cell countson 01-26-2025 Immature granulocytes/100 WBC (Bld) 0.3 % 0.0-0.[address] [facility] Leukocytes [#/volume] correc moncho for nucleated erythrocytes in Blood by Automated counon 01-26-2025 WBC corrected for nucl RBC Auto (Bld) [#/Vol] Leukocytes [#/volume] corrected for nucleated erythrocytes in Blood by Automated coun 4.0-11.[address] [facility] Lymphocytes Auto (Bld) [#/Vo l]on 01-26-2025 Lymphocytes (Bld) [#/Vol] Lymphocytes [#/volume] in Blood by Automated count 1.2-3.[address] [facility] Lymphocytes/100 WBC Auto (Bl d)on 01-26-2025 Lymphocytes/100 WBC (Bld) Lymphocytes/100 leukocytes in Blood by Automated count 20.5-60.[address] [facility] MCH Auto (RBC) [Entitic mass ]on 01-26-2025 MCH (RBC) [Entitic mass] MCH [Entitic mass] by Automated count 26.7-34.[address] [facility] MCHC Auto (RBC) [Mass/Vol]on 01-26-2025 MCHC (RBC) [Mass/Vol] MCHC [Mass/volume] by Automated count 29.9-35.[address] [facility] MCV Auto (RBC) [Entitic vol] on 01-26-2025 MCV (RBC) [Entitic vol] MCV [Entitic volume] by Automated count 81.0-99.[address] [facility] Monocytes Auto (Bld) [#/Vol] on 01-26-2025 Monocytes (Bld) [#/Vol] Automated blood monocyte count 0.3-0.[address] [facility] Monocytes/100 WBC Auto (Bld) on 01-26-2025 Monocytes/100 WBC (Bld) Automated monocyte % 1.7-12.[address] [facility] Neutrophils Auto (Bld) [#/Vo l]on 01-26-2025 Neutrophils (Bld) [#/Vol] Neutrophils [#/volume] in Blood by Automated count 1.4-6.[address] [facility] Neutrophils/100 WBC Auto (Bl d)on 01-26-2025 Neutrophils/100 WBC (Bld) Automated neutrophil % 43.0-75.[address] [facility] No Panel Informationon 01-26 Eosinophils # (Auto) 0.2 10 3/uL 0.0-0.[address] [facility] Folate 7.40 ng/mL Low 8.60-58.[address] [facility] Immature Granulocyte # (Auto) 0.03 10 3/uL 0.00-0.[address] [facility] Plasma zinc measurementon Zinc [Mass/Vol] Plasma zinc measurement 44-[address] [facility] Comment on above: This test was develo ped and its performance characteristicsdetermined by [employer]. It has not been cleared orapproved by the Food and Drug Administration. Detection Limit = 5Performed at: [facility] check[address] [id number] Director: Cassia Gastelum MD, Phone: [phone] Platelet mean volume Auto (B ld) [Entitic vol]on 01-26-2025 Platelet mean volume (Bld) [Entitic vol] Platelet mean volume [Entitic volume] in Blood by Automated count Low 9.5-13.[address] [facility] Platelets Auto (Bld) [#/Vol] on 01-26-2025 Platelets (Bld) [#/Vol] Platelets [#/volume] in Blood by Automated count 150-[address] [facility] RBC Auto (Bld) [#/Vol]on RBC (Bld) [#/Vol] Erythrocytes [#/volu me] in Blood by Automated count Low 4.20-5.[address] [facility] Serum or plasma albumin/glob ulin mass ratioon 01-26-2025 Albumin/Globulin [Mass ratio] Serum or plasma albumin/globulin mass ratio [facility] Serum or plasma anion gap de terminationon 01-26-2025 Anion gap [Moles/Vol] Serum or plasma anion gap determination [facility] Basophils Auto (Bld) [#/Vol] on 09-04-2024 Basophils (Bld) [#/Vol] Automated basophil count 0.0-0.1 [facility] Basophils/100 WBC Auto (Bld) on 09-04-2024 Basophils/100 WBC (Bld) Automated basophil % 0.2-2.[address] [facility] Eosinophils/100 WBC Auto (Bl d)on 09-04-2024 Eosinophils/100 WBC (Bld) Automated eosinophil % 0.9-7.[address] [facility] Erythrocyte distribution wid th Auto (RBC) [Ratio]on 09-04-2024 Erythrocyte distribution width (RBC) [Ratio] Erythrocyte distribution width [Ratio] by Automated count 11.0-15.[address] [facility] Estimated glomerular filtrat ion rate (GFR) non- Americanon 09-04-2024 GFR/1.73 sq M.predicted among non-blacks MDRD (S/P/Bld) [Vol rate/Area] Estimated glomerular filtration rate (GFR) non- Low >=60 mL/min/1.73m [address] [facility] Globulin Calc (S) [Mass/Vol] on 09-04-2024 Globulin (S) [Mass/Vol] Serum globulin measurement by calculation (mass/volume) [facility] Glucose mean value [Mass/vol ume] in Blood Estimated from glycated hemoglobinon 09-04-2024 Average glucose Estimated from glycated hemoglobin (Bld) [Mass/Vol] Glucose mean value [Mass/volume] in Blood Estimated from glycated hemoglobin [facility] Hematocrit Auto (Bld) [Volum e fraction]on 09-04-2024 Hematocrit (Bld) [Volume fraction] Hematocrit [Volume Fraction] of Blood by Automated count 36.0-48.[address] [facility] Hemoglobin [Mass/volume] in Bloodon 09-04-2024 Hemoglobin (Bld) [Mass/Vol] Hemoglobin [Mass/volume] in Blood 12.0-16.[address] [facility] Laboratory - Chemistry and C hemistry - challengeon 09-04-2024 Albumin [Mass/Vol] 3.5 g/dL 3.4-5.0 [facility] ALP [Catalytic activity/Vol] 119 U/L High 46-[address] [facility] ALT [Catalytic activity/Vol] 15 U/L 14-[address] [facility] AST [Catalytic activity/Vol] 14 U/L Low 15-[address] [facility] Bilirubin [Mass/Vol] 0.3 mg/dL 0.2-1.[address] [facility] Calcium [Mass/Vol] 9.5 mg/dL 8.5-10.1 [facility] Chloride [Moles/Vol] 103 mmol/L 98-[address] [facility] CO2 [Moles/Vol] 27.9 mmol/L 21.0-32.0 [facility] Creatinine [Mass/Vol] 1.37 mg/dL High 0.55-1.[address] [facility] GFR/1.73 sq M.predicted MDRD (S/P/Bld) [Vol rate/Area] 46 mL/min/{1.73_m2} Low >=60 mL/min/1.73m [address] [facility] Glucose [Mass/Vol] 83 mg/dL 74-106 [facility] Potassium [Moles/Vol] 3.8 mmol/L 3.5-5.[address] [facility] Protein [Mass/Vol] 8.1 g/dL 6.4-8.2 [facility] Sodium [Moles/Vol] 142 mmol/L 136-145 [facility] Urea nitrogen [Mass/Vol] 16.0 mg/dL 7.0-18.[address] [facility] Urea nitrogen/Creatinin e [Mass ratio] 11.7 mg/mg [facility] Laboratory - Hematology and Cell countson 09-04-2024 HbA1c (Bld) [Mass fraction] 5.6 % 4.5-6.[address] [facility] Comment on above: ADA RECOMMENDED LIMI T 4.0 - 6.0ADA THERAPEUTIC TARGET < 7.0ACTION SUGGESTED> 7.0 Immature granulocytes/100 WBC (Bld) 0.2 % 0.0-0.[address] [facility] Leukocytes [#/volume] correc moncho for nucleated erythrocytes in Blood by Automated counon 09-04-2024 WBC corrected for nucl RBC Auto (Bld) [#/Vol] Leukocytes [#/volume] corrected for nucleated erythrocytes in Blood by Automated coun 4.0-11.[address] [facility] Lymphocytes Auto (Bld) [#/Vo l]on 09-04-2024 Lymphocytes (Bld) [#/Vol] Lymphocytes [#/volume] in Blood by Automated count 1.2-3.[address] [facility] Lymphocytes/100 WBC Auto (Bl d)on 09-04-2024 Lymphocytes/100 WBC (Bld) Lymphocytes/100 leukocytes in Blood by Automated count 20.5-60.[address] [facility] MCH Auto (RBC) [Entitic mass ]on 09-04-2024 MCH (RBC) [Entitic mass] MCH [Entitic mass] by Automated count 26.7-34.[address] [facility] MCHC Auto (RBC) [Mass/Vol]on 09-04-2024 MCHC (RBC) [Mass/Vol] MCHC [Mass/volume] by Automated count 29.9-35.[address] [facility] MCV Auto (RBC) [Entitic vol] on 09-04-2024 MCV (RBC) [Entitic vol] MCV [Entitic volume] by Automated count 81.0-99.[address] [facility] Microalbumin [Mass/volume] i n Urineon 09-04-2024 Albumin DL <= 20 mg/L (U) [Mass/Vol] Microalbumin [Mass/volume] in Urine <=30.[address] [facility] Monocytes Auto (Bld) [#/Vol] on 09-04-2024 Monocytes (Bld) [#/Vol] Automated blood monocyte count 0.3-0.[address] [facility] Monocytes/100 WBC Auto (Bld) on 09-04-2024 Monocytes/100 WBC (Bld) Automated monocyte % 1.7-12.[address] [facility] Neutrophils Auto (Bld) [#/Vo l]on 09-04-2024 Neutrophils (Bld) [#/Vol] Neutrophils [#/volume] in Blood by Automated count 1.4-6.[address] [facility] Neutrophils/100 WBC Auto (Bl d)on 09-04-2024 Neutrophils/100 WBC (Bld) Automated neutrophil % 43.0-75.[address] [facility] No Panel Informationon 09-04 Eosinophils # (Auto) 0.3 10 3/uL 0.0-0.[address] [facility] Immature Granulocyte # (Auto) 0.02 10 3/uL 0.00-0.[address] [facility] Urine Random Creatinine 439.14 mg/dL High 20.00-300.[address] [facility] Platelet mean volume Auto (B ld) [Entitic vol]on 09-04-2024 Platelet mean volume (Bld) [Entitic vol] Platelet mean volume [Entitic volume] in Blood by Automated count 9.5-13.[address] [facility] Platelets Auto (Bld) [#/Vol] on 09-04-2024 Platelets (Bld) [#/Vol] Platelets [#/volume] in Blood by Automated count 150-[address] [facility] RBC Auto (Bld) [#/Vol]on RBC (Bld) [#/Vol] Erythrocytes [#/volu me] in Blood by Automated count Low 4.20-5.[address] [facility] Serum or plasma albumin/glob ulin mass ratioon 09-04-2024 Albumin/Globulin [Mass ratio] Serum or plasma albumin/globulin mass ratio [facility] Serum or plasma anion gap de terminationon 09-04-2024 Anion gap [Moles/Vol] Serum or plasma anion gap determination [facility] Urine microalbumin/creatinin e mass ratioon 09-04-2024 Albumin/Creatinine DL <= 20 mg/L (U) [Mass ratio] Urine microalbumin/creatinine mass ratio 0.0-29.[address] [facility] Comment on above: NO MICROALBUMINURIA 0-29 MG/GCLINICAL MICROALBUMINURIA 30-300 MG/GMACROALBUMINURIA >300 MG/G CT HEAD WO CONon 12-24-2017 CT HEAD WO CON [address] [place] [address] Patient: BRENDA LAGUNAS Exam Date: 12/24/2017DOB: 1955 Gender:F : BHARATH RIVERS Admission #: [id number] : Order #: [id number] HERE TO VIEW EXAM RADIOLOGY REPORT PROCEDURE: [...] 160.02 cm Ilda Garcia MD Work Phone: [facility] 05-27-2025 15:01-0400 Body mass index (BMI) [Ratio] 51.2 kg/m2 Ilda Garcia MD Work Phone: [facility] 05-27-2025 15:01-0400 Body weight 131.31 kg Ilda Garcia MD Work Phone: [facility] 05-27-2025 15:01-0400 Diastolic blood pressure 82 mm[Hg] Ilda Garcia MD Work Phone: [facility] 05-27-2025 15:01-0400 Systolic blood pressure 118 mm[Hg] Ilda Garcia MD Work Phone: [facility] 02-17-2025 14:58-0400 Body height 160.02 cm [facility] 02-17-2025 14:58-0400 Body mass index (BMI) [Ratio] 47.8 kg/m2 [facility] 02-17-2025 14:58-0400 Body weight 122.46 kg [facility] 02-17-2025 14:58-0400 Diastolic blood pressure 81 mm[Hg] [facility] 02-17-2025 14:58-0400 Heart rate 87 /min [facility] 02-17-2025 14:58-0400 Systolic blood pressure 122 mm[Hg] [facility] 01-19-2025 14:10-0400 Body height 160.02 cm [facility] 01-19-2025 14:10-0400 Body mass index (BMI) [Ratio] 48.5 kg/m2 [facility] 01-19-2025 14:10-0400 Body weight 124.28 kg [facility] 01-19-2025 14:10-0400 Diastolic blood pressure 79 mm[Hg] [facility] 01-19-2025 14:10-0400 Heart rate 74 /min [facility] 01-19-2025 14:10-0400 Respiratory rate 12 /min [facility] 01-19-2025 14:10-0400 SaO2% (BldA) [Mass fraction] 97 % [facility] 01-19-2025 14:10-0400 Systolic blood pressure 129 mm[Hg] [facility] 11-19-2024 14:59-0500 Body height 160.02 cm [facility] 11-19-2024 14:59-0500 Body mass index (BMI) [Ratio] 45.1 kg/m2 [facility] 11-19-2024 14:59-0500 Body weight 115.66 kg [facility] 11-19-2024 14:59-0500 Diastolic blood pressure 76 mm[Hg] [facility] 11-19-2024 14:59-0500 Heart rate 70 /min [facility] 11-19-2024 14:59-0500 Systolic blood pressure 113 mm[Hg] [facility] 09-04-2024 13:59-0500 Body height 160.02 cm [facility] 09-04-2024 13:59-0500 Body mass index (BMI) [Ratio] 45.7 kg/m2 [facility] 09-04-2024 13:59-0500 Body weight 117.14 kg [facility] 09-04-2024 13:59-0500 Diastolic blood pressure 80 mm[Hg] [facility] 09-04-2024 13:59-0500 Heart rate 80 /min [facility] 09-04-2024 13:59-0500 Systolic blood pressure 122 mm[Hg] [facility] 04-16-2024 10:53-0400 Body height 160.02 cm [facility] 04-16-2024 10:53-0400 Body mass index (BMI) [Ratio] 45.1 kg/m2 [facility] 04-16-2024 10:53-0400 Body weight 115.66 kg [facility] 04-16-2024 10:53-0400 Diastolic blood pressure 73 mm[Hg] [facility] 04-16-2024 10:53-0400 Heart rate 67 /min [facility] 04-16-2024 10:53-0400 Systolic blood pressure 112 mm[Hg] [facility] Encounters Encounter Date Encounter Type Care Provider Facility Start: 05-27-2025 End: 05-27-2025 ambulatory Ilda Garcia MD Work Phone: [facility] Work Phone: Start: 05-27-2025 End: 05-27-2025 Patient encounter procedure Adriel Alfredo MD -[facility] Work Phone: Start: 05-27-2025 End: 05-27-2025 ambulatory Ilda Garcia MD Work Phone: [facility] Work Phone: Start: 05-27-2025 End: 05-27-2025 Patient encounter procedure Adriel Alfredo MD -[facility] Start: 02-23-2025 End: 02-23-2025 ambulatory Dorothy Dumont MD Facility:[facility] Start: 02-17-2025 End: 02-17-2025 ambulatory [facility] Work Phone: Start: 02-17-2025 End: 02-17-2025 Patient encounter procedure [facility] Work Phone: Start: 02-09-2025 End: 02-09-2025 ambulatory Andrius Vytautas Giedraitis Facility:[facility] Start: 01-26-2025 Non-patient / Non-visit [facility] Physician [facility] Work Phone: Start: 01-19-2025 End: 01-19-2025 ambulatory [facility] Work Phone: Start: 01-19-2025 End: 01-19-2025 Patient encounter procedure [facility] Physician [facility] Work Phone: Start: 01-12-2025 End: 01-12-2025 ambulatory Andrius Vytautas Giedraitis Facility:[facility] Start: 11-19-2024 End: 11-19-2024 ambulatory [facility] Work Phone: Start: 11-19-2024 End: 11-19-2024 Patient encounter procedure [facility] Physician [facility] Work Phone: Start: 11-17-2024 End: 11-17-2024 ambulatory Andrius Vytautas Giedraitis Facility:[facility] Start: 10-20-2024 End: 10-20-2024 ambulatory Andrius Vytautas Giedraitis MD Facility:[facility] Start: 10-06-2024 End: 10-06-2024 ambulatory Andrius Vytautas Giedraitis MD Facility:[facility] Start: 09-04-2024 End: 09-04-2024 Patient encounter procedure [facility] Physician [facility] Work Phone: Start: 09-03-2024 Non-patient / Non-visit [facility] Physician [facility] Work Phone: Start: 04-16-2024 End: 04-16-2024 ambulatory [facility] Work Phone: Start: 04-16-2024 End: 04-16-2024 Patient encounter procedure [facility] Work Phone: Start: 12-24-2017 End: 12-24-2017 Ambulatory BHARATH RIVERS Facility:[facility] Procedures Date Procedure Procedure Detail Performing Clinician Start: 05-27-2025 Plain radiography of pelvis Ilda Garcia MD Work Phone: Start: 05-27-2025 X-ray of both knees, four views Ilda Garcia MD Work Phone: Plan of Treatment Date Care Activity Detail Author Start: 05-27-2025 Patient referral [facility] Work Phone: Start: 05-27-2025 Plain radiography of pelvis XR pelvis 1-2V [facility] Start: 05-27-2025 X-ray of both knees, four views XR knee BI 4V [facility] Start: 05-27-2025 XR Knee - bilateral [address] [facility] Start: 05-27-2025 XR Pelvis 1 or [address] [facility] Start: 01-19-2025 Patient referral [facility] Work Phone: Start: 09-08-2024 Patient referral [facility] Work Phone: Start: 04-16-2024 Patient referral [facility] Work Phone: Comprehensive metabo lic 2000 panel - Serum or Plasma [facility] Patient Education Vestibular Exercises Fi [facility] Work Phone: Patient referral [facility] Work Phone: Zinc [Mass/volume] i n Serum or Plasma [facility] Payers Date Payer Category Payer Unknown 1959 Unknown [id number] 1955 Unknown [id number] 2.16. [id number] 1955 Unknown [id number] 2.16. [id number] 1955 Unknown [id number] 2.16. [id number] 1955 Unknown [id number] 2.16. [id number] 1955 Unknown [id number] 2.16. [id number] 1955 Unknown [id number] 2.16. [id number] 1955 Unknown [id number] 2.16. [id number] Unknown Miley HOLLY/MALORIE [id number] Social History Date Type Detail Facility Start: 04-16-2024 End: 04-16-2024 Tobacco smoking status NHIS Ex-smoker (finding) [facility] Start: 1955 Sex Assigned At Female F [facility] Start: 11-19-2024 End: 02-17-2025 Sex Female (finding) [facility] Evaluation note 05-27-2025 Note Date & Type Note Facility 05-27-2025 Evaluation note Diagnosis Onset Date Resolution Bilateral primary osteoarthritis of hip acute May 27, 2025 2:39pm Bilateral primary osteoarthritis of knee acute May 27, 2025 2:39pm BMI 50.0-59.9, adult acute May 2:39pm [facility] Work Phone: Hospital Discharge instructions 05-27-2025 Note Date & Type Note Facility 05-27-2025 Hospital Discharge instructions Ambulatory OrdersReferral to Pain Management Time Frame: 05/27/25, Location: None SelectedReferral to Weight Management Time Frame: 05/27/25, Location: None [facility] [facility] Work Phone: Evaluation note 01-19-2025 Note [...] colon cancer acute M ay 2024 2:52pm [facility] Work Phone: Hospital Discharge instructions 01-19-2025 Note Date & Type Note Facility 01-19-2025 Hospital Discharg e instructions Ambulatory OrdersReferral to ENT Time Frame: 01/19/25, Location: None Selected [facility] Work Phone: Evaluation note 11-19-2024 Note Date & Type Note Facility 11-19-2024 Evaluation note Diagnosis Onset Date Resolution Diarrhea acute November 19, 2024 2:54pm History of colon cancer acute F ebruary 2024 2:54pm Throat fullness acute December 2:07pm Trouble swallowing acute January 19, 2025 2:07pm Type 2 diabetes mellitus with hyperglycemia acute January 19, 2 025 2:07pm [facility] Work Phone: Evaluation note 09-04-2024 Note [...] colon cancer acute F ebruary 2024 2:54pm [facility] Work Phone: Evaluation note Note Date & Type Note Facility Evaluation note Diagnosis Onset Date Left knee pain acute [facility] Work Phone: Evaluation note Note Date & Type Note Facility Evaluation note No assessment information availa ble [facility] Work Phone: Hospital Discharge instructions Note Date & Type Note Facility Hospital Discharge instructions Ambulatory OrdersReferral to Orthopedics Time Frame: 04/16/24, Location: None Selected [facility] Work Phone: Reason for referral (narrative) Note Date & Type Note Facility Reason for referral (narrative) No reason for referral information available [facility] Work Phone: Summary Purpose Family History [...] and content) DATE CREATED AUTHOR 03/14/2018 [facility] DATE CREATED AUTHOR AUTHOR'S ORGANIZ ATION 03/02/2025 [facility] Care Teams (unrecognized sec tion and [...] BE BASED ON THE PRIMARY CLINICAL RECORDS. [facility] [employer] provides no warranty or guarantee of the accuracy or completeness of information in this document.
== END 2025-05-28 13:35 | disposition home or self-care (01) ==
LOC: MAMMO 13:34
PROVIDERS: PCP Family Medicine; Visit Provider Family Medicine
DX: M16.0 Bilateral primary osteoarthritis of hip (principal); M17.0 Bilateral primary osteoarthritis of knee; M47.816 Spondylosis without myelopathy or radiculopathy, lumbar region; Z79.891 Long term (current) use of opiate analgesic; M25.561 Pain in right knee; M25.562 Pain in left knee; G89.29 Other chronic pain; M51.369 Other intervertebral disc degeneration, lumbar region without mention of lumbar back pain or lower extremity pain; Z12.31 Encounter for screening mammogram for malignant neoplasm of breast; Z80.0 Family history of malignant neoplasm of digestive organs; Z80.42 Family history of malignant neoplasm of prostate; Z80.8 Family history of malignant neoplasm of other organs or systems
CPT/HCPCS: 77063; 77067; G0463

== ENCOUNTER 2025-06-08 08:30 | Day surgery (SDC) | payer MEDICARE, SELFPAY ==
[2025-06-08 08:37] VITALS: BP 133/79; PULSE 84; TEMP 36.3; O2SAT 95
--- OUTSIDE RECORDS SUMMARY | 2025-06-08 08:42 | XMS_ITS | CCD ---
Author Organization [facility] Care Team Providers Care Dental Scheduling Coordinator Name Role Phone BHARATH RIVERS Unavailable Unavailable BHARATH RIVERS Unavailable Unavailable MISC, DOCTOR Unavailable Unavailable JES BARRAGAN V Unavailable Unavailable BHARATH RIVERS Unavailable Unavailable Tim MONTEZ, Andaleksey Katz Attending Unavailable Gimarika MONTEZ, Andrius Gianna Attending Unavailable Tim MONTEZ, Andrius Gianna Attending Unavailable Tim MONTEZ, Andrius Gianna Attending Unavailable Tim MONTEZ, Andrius Vbobo Attending Unavailable Tim MONTEZ, Andrius Gianna Attending Unavailable Ilda Garcia MD Primary Care Provider Adriel Leija MD Attending Provider Adriel Leija II Attending Adriel Burrows II Admitting UnavailIlda Stone Primary Care Unavailable Medications Current Medications Medication Drug Class(es) [...] tablet Active 20 MG PO Twice daily November 19, 2024 1:00am Complies with drug [...] unspecified; Translations: [Dysphagia, unspecified] 01-19-2025 Episodic Other nervous system disorders (1 source) Other chronic pain; Translations: [Other chronic pain] Onset: 5 Chronic Other non-traumatic joint disorders (11 sources) Pain in left knee; Translations: [Left knee pain] Onset: 5 04-16-2024 Episodic Other non-traumatic joint disorders (4 sources) Pain in right knee; Translations: [Pain in joint, lower leg] Onset: 5 09-04-2024 Episodic Other non-traumatic joint disorders (1 [...] By: Huey Wu on 05-27-[address] [facility] [address] [place] [address] XRay Report Signed Patient: Divya Interiano MR#: [id number] : 1955 Acct:[id number] Age/Sex: 69 / F ADM Date: 5 Loc: [facility] [place] Room: Type: [facility] Attending Dr: Adriel Leija II, MD Copies to: Adriel Leija MD~ Ordering Provider: Adriel Leija MD Date of Service: 05/27/25 XR/XR knee BI 4V: M25.561 - Pain in right knee ([id number]) XR/XR pelvis 1-2V: M25.561 - Pain in right knee Single view of the pelvis plain film HISTORY: Bilateral knee pain COMPARISON: None ACUTE FINDINGS: None BONY ALIGNMENT: Adequate SOFT TISSUES: Unremarkable DEGENERATIVE CHANGE:Extensive right hip degeneration. Moderate left hip degeneration. INTRAPELVIC STRUCTURES: Unremarkable POSTSURGICAL CHANGES:None XR/XR pelvis 1-2V IMPRESSION:Extensive right hip degeneration. Moderate left hip degeneration 4 views both knees Fvmb-ur-fftz contact right medial degeneration. Marked lateral left knee degeneration with marked joint space narrowing and marginal spurring mild to moderate bilateral patellofemoral degeneration. Mild right lateral and left medial degeneration IMPRESSION: Extensive bilateral knee degeneration greatest in the medial compartment on the right in the lateral compartment left Impression dictated by: Rigoberto Wu M.D. 05/27/2025 10:25 PM Dictation Location: [facility]- Transcribed By: [facility] 05/27/252224 Dictated By: Rigoberto Wu DO 05/27/252222 Signed By: 05/27/252224 [facility] XR knee BI 4Von 05-27-2025 XR knee BI [address]V [facility] [address] [place] [address] XRay Report Signed Patient: Divya Interiano MR#: [id number] : 1955 Acct:[id number] Age/Sex: 69 / F ADM Date: 05/27/25 Loc: [facility] [place] Room: Type: [facility] Attending Dr: Adriel Leija II, MD Copies to: Adriel Leija MD Ordering Provider: Adriel Leija MD Date of Service: 05/27/25 XR/XR knee BI 4V: M25.561 - Pain in right knee ([id number]) XR/XR pelvis 1-2V: M25.561 - Pain in right knee Single view of the pelvis plain film HISTORY: Bilateral knee pain COMPARISON: None ACUTE FINDINGS: None BONY ALIGNMENT: Adequate SOFT TISSUES: Unremarkable DEGENERATIVE CHANGE:Extensive right hip degeneration. Moderate left hip degeneration. INTRAPELVIC STRUCTURES: Unremarkable POSTSURGICAL CHANGES:None XR/XR pelvis 1-2V IMPRESSION:Extensive right hip degeneration. Moderate left hip degeneration 4 views both knees Aixi-bx-zukz contact right medial degeneration. Marked lateral left knee degeneration with marked joint space narrowing and marginal spurring mild to moderate bilateral patellofemoral degeneration. Mild right lateral and left medial degeneration IMPRESSION: Extensive bilateral knee degeneration greatest in the medial compartment on the right in the lateral compartment left Impression dictated by: Rigoberto Wu M.D. 05/27/2025 10:25 PM Dictation Location: [place] [address] Transcribed By: [facility] 05/27/252224 Dictated By: Rigoberto Wu DO 05/27/252222 Signed By: 05/27/252224 Normal [facility] Basophils Auto (Bld) [#/Vol] on 01-26-2025 Basophils (Bld) [#/Vol] Automated basophil count 0.0-0.1 [facility] Basophils/100 WBC Auto (Bld) on 01-26-2025 Basophils/100 WBC (Bld) Automated basophil % 0.2-2.0 [facility] Eosinophils/100 WBC Auto (Bl d)on 01-26-2025 Eosinophils/100 WBC (Bld) Automated eosinophil % 0.9-7.0 [facility] Erythrocyte distribution wid th Auto (RBC) [Ratio]on 01-26-2025 Erythrocyte distribution width (RBC) [Ratio] Erythrocyte distribution width [Ratio] by Automated count 11.0-15.0 [facility] Estimated glomerular filtrat ion rate (GFR) non- Americanon 01-26-2025 GFR/1.73 sq M.predicted among non-blacks MDRD (S/P/Bld) [Vol rate/Area] Estimated glomerular filtration rate (GFR) non- Low >=60 mL/min/1.73m 2 [facility] Globulin Calc (S) [Mass/Vol] on 01-26-2025 Globulin (S) [Mass/Vol] Serum globulin measurement by calculation (mass/volume) [facility] Glucose mean value [Mass/vol ume] in Blood Estimated from glycated hemoglobinon 01-26-2025 Average glucose Estimated from glycated hemoglobin (Bld) [Mass/Vol] Glucose mean value [Mass/volume] in Blood Estimated from glycated hemoglobin [facility] Hematocrit Auto (Bld) [Volum e fraction]on 01-26-2025 Hematocrit (Bld) [Volume fraction] Hematocrit [Volume Fraction] of Blood by Automated count 36.0-48.0 [facility] Hemoglobin A1c percentageon 01-26-2025 HbA1c (Bld) [Mass fraction] Hemoglobin A1c percentage 4.5-6.2 [facility] Comment on above: ADA RECOMMENDED LIMI T 4.0 - 6.0ADA THERAPEUTIC TARGET < 7.0ACTION SUGGESTED> 7.0 Hemoglobin [Mass/volume] in Bloodon 01-26-2025 Hemoglobin (Bld) [Mass/Vol] Hemoglobin [Mass/volume] in Blood 12.0-16.0 [facility] Laboratory - Chemistry and C hemistry - challengeon 01-26-2025 Albumin [Mass/Vol] 3.4 g/dL 3.4-5.0 [facility] ALP [Catalytic activity/Vol] 120 U/L High 46-116 [facility] ALT [Catalytic activity/Vol] 17 U/L 14-59 [facility] AST [Catalytic activity/Vol] 11 U/L Low 15-37 [facility] Bilirubin [Mass/Vol] 0.3 mg/dL 0.2-1.0 [facility] Calcium [Mass/Vol] 9.4 mg/dL 8.5-10.1 [facility] Chloride [Moles/Vol] 102 mmol/L 98-107 [facility] CO2 [Moles/Vol] 28.8 mmol/L 21.0-32.0 [facility] Cobalamin (Vitamin B12) [Mass/Vol] 280 pg/mL [id number] [facility] Comment on above: Performed at: [facility] [address] [id number] Director: Grady Rivera PhD, Phone: [phone] Creatinine [Mass/Vol] 1.14 mg/dL High 0.55-1.02 [facility] Ferritin [Mass/Vol] 12.0 ng/mL 8.0-252.0 [facility] GFR/1.73 sq M.predicted MDRD (S/P/Bld) [Vol rate/Area] 57 mL/min/{1.73_m2} Low >=60 mL/min/1.73m 2 [facility] Glucose [Mass/Vol] 83 mg/dL 74-106 [facility] Potassium [Moles/Vol] 4.1 mmol/L 3.5-5.1 [facility] Protein [Mass/Vol] 8.0 g/dL 6.4-8.2 [facility] Sodium [Moles/Vol] 139 mmol/L 136-145 [facility] Urea nitrogen [Mass/Vol] 22.0 mg/dL High 7.0-18.0 [facility] Urea nitrogen/Creatinin e [Mass ratio] 19.3 mg/mg [facility] Laboratory - Hematology and Cell countson 01-26-2025 Immature granulocytes/100 WBC (Bld) 0.3 % 0.0-0.5 [facility] Leukocytes [#/volume] correc moncho for nucleated erythrocytes in Blood by Automated counon 01-26-2025 WBC corrected for nucl RBC Auto (Bld) [#/Vol] Leukocytes [#/volume] corrected for nucleated erythrocytes in Blood by Automated coun 4.0-11.0 [facility] Lymphocytes Auto (Bld) [#/Vo l]on 01-26-2025 Lymphocytes (Bld) [#/Vol] Lymphocytes [#/volume] in Blood by Automated count 1.2-3.8 [facility] Lymphocytes/100 WBC Auto (Bl d)on 01-26-2025 Lymphocytes/100 WBC (Bld) Lymphocytes/100 leukocytes in Blood by Automated count 20.5-60.0 [facility] MCH Auto (RBC) [Entitic mass ]on 01-26-2025 MCH (RBC) [Entitic mass] MCH [Entitic mass] by Automated count 26.7-34.0 [facility] MCHC Auto (RBC) [Mass/Vol]on 01-26-2025 MCHC (RBC) [Mass/Vol] MCHC [Mass/volume] by Automated count 29.9-35.2 [facility] MCV Auto (RBC) [Entitic vol] on 01-26-2025 MCV (RBC) [Entitic vol] MCV [Entitic volume] by Automated count 81.0-99.0 [facility] Monocytes Auto (Bld) [#/Vol] on 01-26-2025 Monocytes (Bld) [#/Vol] Automated blood monocyte count 0.3-0.8 [facility] Monocytes/100 WBC Auto (Bld) on 01-26-2025 Monocytes/100 WBC (Bld) Automated monocyte % 1.7-12.0 [facility] Neutrophils Auto (Bld) [#/Vo l]on 01-26-2025 Neutrophils (Bld) [#/Vol] Neutrophils [#/volume] in Blood by Automated count 1.4-6.5 [facility] Neutrophils/100 WBC Auto (Bl d)on 01-26-2025 Neutrophils/100 WBC (Bld) Automated neutrophil % 43.0-75.0 [facility] No Panel Informationon 01-26 Eosinophils # (Auto) 0.2 10 3/uL 0.0-0.7 [facility] Folate 7.40 ng/mL Low 8.60-58.90 [facility] Immature Granulocyte # (Auto) 0.03 10 3/uL 0.00-0.03 [facility] Plasma zinc measurementon Zinc [Mass/Vol] Plasma zinc measurement 44-115 [facility] Comment on above: This test was develo ped and its performance characteristicsdetermined by [facility]. It has not been cleared orapproved by the Food and Drug Administration. Detection Limit = 5Performed at: [facility] [address] [id number] Director: Cassia Gastelum MD, Phone: [phone] Platelet mean volume Auto (B ld) [Entitic vol]on 01-26-2025 Platelet mean volume (Bld) [Entitic vol] Platelet mean volume [Entitic volume] in Blood by Automated count Low 9.5-13.5 [facility] Platelets Auto (Bld) [#/Vol] on 01-26-2025 Platelets (Bld) [#/Vol] Platelets [#/volume] in Blood by Automated count 150-450 [facility] RBC Auto (Bld) [#/Vol]on RBC (Bld) [#/Vol] Erythrocytes [#/volu me] in Blood by Automated count Low 4.20-5.40 [facility] Serum or plasma albumin/glob ulin mass ratioon 01-26-2025 Albumin/Globulin [Mass ratio] Serum or plasma albumin/globulin mass ratio [facility] Serum or plasma anion gap de terminationon 01-26-2025 Anion gap [Moles/Vol] Serum or plasma anion gap determination [facility] Basophils Auto (Bld) [#/Vol] on 09-04-2024 Basophils (Bld) [#/Vol] Automated basophil count 0.0-0.1 [facility] Basophils/100 WBC Auto (Bld) on 09-04-2024 Basophils/100 WBC (Bld) Automated basophil % 0.2-2.0 [facility] Eosinophils/100 WBC Auto (Bl d)on 09-04-2024 Eosinophils/100 WBC (Bld) Automated eosinophil % 0.9-7.0 [facility] Erythrocyte distribution wid th Auto (RBC) [Ratio]on 09-04-2024 Erythrocyte distribution width (RBC) [Ratio] Erythrocyte distribution width [Ratio] by Automated count 11.0-15.0 [facility] Estimated glomerular filtrat ion rate (GFR) non- Americanon 09-04-2024 GFR/1.73 sq M.predicted among non-blacks MDRD (S/P/Bld) [Vol rate/Area] Estimated glomerular filtration rate (GFR) non- Low >=60 mL/min/1.73m 2 [facility] Globulin Calc (S) [Mass/Vol] on 09-04-2024 Globulin (S) [Mass/Vol] Serum globulin measurement by calculation (mass/volume) [facility] Glucose mean value [Mass/vol ume] in Blood Estimated from glycated hemoglobinon 09-04-2024 Average glucose Estimated from glycated hemoglobin (Bld) [Mass/Vol] Glucose mean value [Mass/volume] in Blood Estimated from glycated hemoglobin [facility] Hematocrit Auto (Bld) [Volum e fraction]on 09-04-2024 Hematocrit (Bld) [Volume fraction] Hematocrit [Volume Fraction] of Blood by Automated count 36.0-48.0 [facility] Hemoglobin [Mass/volume] in Bloodon 12-12-2024 Hemoglobin (Bld) [Mass/Vol] Hemoglobin [Mass/volume] in Blood 12.0-16.0 [facility] Laboratory - Chemistry and C hemistry - challengeon 09-04-2024 Albumin [Mass/Vol] 3.5 g/dL 3.4-5.0 [facility] ALP [Catalytic activity/Vol] 119 U/L High 46-116 [facility] ALT [Catalytic activity/Vol] 15 U/L 14-59 [facility] AST [Catalytic activity/Vol] 14 U/L Low 15-37 [facility] Bilirubin [Mass/Vol] 0.3 mg/dL 0.2-1.0 [facility] Calcium [Mass/Vol] 9.5 mg/dL 8.5-10.1 [facility] Chloride [Moles/Vol] 103 mmol/L 98-107 [facility] CO2 [Moles/Vol] 27.9 mmol/L 21.0-32.0 [facility] Creatinine [Mass/Vol] 1.37 mg/dL High 0.55-1.02 [facility] GFR/1.73 sq M.predicted MDRD (S/P/Bld) [Vol rate/Area] 46 mL/min/{1.73_m2} Low >=60 mL/min/1.73m 2 [facility] Glucose [Mass/Vol] 83 mg/dL 74-106 [facility] Potassium [Moles/Vol] 3.8 mmol/L 3.5-5.1 [facility] Protein [Mass/Vol] 8.1 g/dL 6.4-8.2 [facility] Sodium [Moles/Vol] 142 mmol/L 136-145 [facility] Urea nitrogen [Mass/Vol] 16.0 mg/dL 7.0-18.0 [facility] Urea nitrogen/Creatinin e [Mass ratio] 11.7 mg/mg [facility] Laboratory - Hematology and Cell countson 09-04-2024 HbA1c (Bld) [Mass fraction] 5.6 % 4.5-6.2 [facility] Comment on above: ADA RECOMMENDED LIMI T 4.0 - 6.0ADA THERAPEUTIC TARGET < 7.0ACTION SUGGESTED> 7.0 Immature granulocytes/100 WBC (Bld) 0.2 % 0.0-0.5 [facility] Leukocytes [#/volume] correc moncho for nucleated erythrocytes in Blood by Automated counon 09-04-2024 WBC corrected for nucl RBC Auto (Bld) [#/Vol] Leukocytes [#/volume] corrected for nucleated erythrocytes in Blood by Automated coun 4.0-11.0 [facility] Lymphocytes Auto (Bld) [#/Vo l]on 09-04-2024 Lymphocytes (Bld) [#/Vol] Lymphocytes [#/volume] in Blood by Automated count 1.2-3.8 [facility] Lymphocytes/100 WBC Auto (Bl d)on 09-04-2024 Lymphocytes/100 WBC (Bld) Lymphocytes/100 leukocytes in Blood by Automated count 20.5-60.0 [facility] MCH Auto (RBC) [Entitic mass ]on 09-04-2024 MCH (RBC) [Entitic mass] MCH [Entitic mass] by Automated count 26.7-34.0 [facility] MCHC Auto (RBC) [Mass/Vol]on 09-04-2024 MCHC (RBC) [Mass/Vol] MCHC [Mass/volume] by Automated count 29.9-35.2 [facility] MCV Auto (RBC) [Entitic vol] on 09-04-2024 MCV (RBC) [Entitic vol] MCV [Entitic volume] by Automated count 81.0-99.0 [facility] Microalbumin [Mass/volume] i n Urineon 09-04-2024 Albumin DL <= 20 mg/L (U) [Mass/Vol] Microalbumin [Mass/volume] in Urine <=30.0 [facility] Monocytes Auto (Bld) [#/Vol] on 09-04-2024 Monocytes (Bld) [#/Vol] Automated blood monocyte count 0.3-0.8 [facility] Monocytes/100 WBC Auto (Bld) on 09-04-2024 Monocytes/100 WBC (Bld) Automated monocyte % 1.7-12.0 [facility] Neutrophils Auto (Bld) [#/Vo l]on 09-04-2024 Neutrophils (Bld) [#/Vol] Neutrophils [#/volume] in Blood by Automated count 1.4-6.5 [facility] Neutrophils/100 WBC Auto (Bl d)on 09-04-2024 Neutrophils/100 WBC (Bld) Automated neutrophil % 43.0-75.0 [facility] No Panel Informationon 09-04 Eosinophils # (Auto) 0.3 10 3/uL 0.0-0.7 [facility] Immature Granulocyte # (Auto) 0.02 10 3/uL 0.00-0.03 [facility] Urine Random Creatinine 439.14 mg/dL High 20.00-300.00 [facility] Platelet mean volume Auto (B ld) [Entitic vol]on 09-04-2024 Platelet mean volume (Bld) [Entitic vol] Platelet mean volume [Entitic volume] in Blood by Automated count 9.5-13.5 [facility] Platelets Auto (Bld) [#/Vol] on 09-04-2024 Platelets (Bld) [#/Vol] Platelets [#/volume] in Blood by Automated count 150-450 [facility] RBC Auto (Bld) [#/Vol]on RBC (Bld) [#/Vol] Erythrocytes [#/volu me] in Blood by Automated count Low 4.20-5.40 [facility] Serum or plasma albumin/glob ulin mass ratioon 09-04-2024 Albumin/Globulin [Mass ratio] Serum or plasma albumin/globulin mass ratio [facility] Serum or plasma anion gap de terminationon 09-04-2024 Anion gap [Moles/Vol] Serum or plasma anion gap determination [facility] Urine microalbumin/creatinin e mass ratioon 09-04-2024 Albumin/Creatinine DL <= 20 mg/L (U) [Mass ratio] Urine microalbumin/creatinine mass ratio 0.0-29.9 [facility] Comment on above: NO MICROALBUMINURIA 0-29 MG/GCLINICAL MICROALBUMINURIA 30-300 MG/GMACROALBUMINURIA >300 MG/G CT HEAD WO CONon 12-24-2017 CT HEAD WO CON [address] [facility] [place] [address] Patient: BRENDA LAGUNAS Exam Date: 12/24/2017DOB: 1955 Gender:F : BHARATH RIVERS Admission #: [id number] : Order #: [id number] HERE TO VIEW EXAM RADIOLOGY REPORT PROCEDURE: [...] Barragan M.D. on 12/24/2017 at 15:25 Normal [facility] Vital Signs Date Time Vital Sign Value Performing Clinician Faci lity 05-27-2025 15:01-0400 Body height 160.02 cm Ilda Garcia MD Work Phone: [facility] 05-27-2025 15:01-0400 Body mass index (BMI) [Ratio] 51.2 kg/m2 Ilda Garcia MD Work Phone: [facility] 05-27-2025 15:01-0400 Body weight 131.31 kg Ilda Garcia MD Work Phone: [facility] 05-27-2025 15:01-0400 Diastolic blood pressure 82 mm[Hg] Ilda Garcia MD Work Phone: [facility] 05-27-2025 15:01-0400 Systolic blood pressure 118 mm[Hg] Ilda Garcia MD Work Phone: [facility] 02-17-2025 14:58-0400 Body height 160.02 cm [facility] 02-17-2025 14:58-0400 Body mass index (BMI) [Ratio] 47.8 kg/m2 [facility] 02-17-2025 14:58-0400 Body weight 122.46 kg [facility] 02-17-2025 14:58-0400 Diastolic blood pressure 81 mm[Hg] [facility] 02-17-2025 14:58-0400 Heart rate 87 /min [facility] 02-17-2025 14:58-0400 Systolic blood pressure 122 mm[Hg] [facility] 01-19-2025 14:10-0400 Body height 160.02 cm [facility] 01-19-2025 14:10-0400 Body mass index (BMI) [Ratio] 48.5 kg/m2 [facility] 01-19-2025 14:10-0400 Body weight 124.28 kg [facility] 01-19-2025 14:10-0400 Diastolic blood pressure 79 mm[Hg] [facility] 01-19-2025 14:10-0400 Heart rate 74 /min [facility] 01-19-2025 14:10-0400 Respiratory rate 12 /min [facility] 01-19-2025 14:10-0400 SaO2% (BldA) [Mass fraction] 97 % [facility] 01-19-2025 14:10-0400 Systolic blood pressure 129 mm[Hg] [facility] 11-19-2024 14:59-0500 Body height 160.02 cm [facility] 11-19-2024 14:59-0500 Body mass index (BMI) [Ratio] 45.1 kg/m2 [facility] 11-19-2024 14:59-0500 Body weight 115.66 kg [facility] 11-19-2024 14:59-0500 Diastolic blood pressure 76 mm[Hg] [facility] 11-19-2024 14:59-0500 Heart rate 70 /min [facility] 11-19-2024 14:59-0500 Systolic blood pressure 113 mm[Hg] [facility] 09-04-2024 13:59-0500 Body height 160.02 cm [facility] 09-04-2024 13:59-0500 Body mass index (BMI) [Ratio] 45.7 kg/m2 [facility] 09-04-2024 13:59-0500 Body weight 117.14 kg [facility] 09-04-2024 13:59-0500 Diastolic blood pressure 80 mm[Hg] [facility] 09-04-2024 13:59-0500 Heart rate 80 /min [facility] 09-04-2024 13:59-0500 Systolic blood pressure 122 mm[Hg] [facility] 04-16-2024 10:53-0400 Body height 160.02 cm [facility] 04-16-2024 10:53-0400 Body mass index (BMI) [Ratio] 45.1 kg/m2 [facility] 04-16-2024 10:53-0400 Body weight 115.66 kg [facility] 04-16-2024 10:53-0400 Diastolic blood pressure 73 mm[Hg] [facility] 04-16-2024 10:53-0400 Heart rate 67 /min [facility] 04-16-2024 10:53-0400 Systolic blood pressure 112 mm[Hg] [facility] Encounters Encounter Date Encounter Type Care Provider Facility Start: 05-27-2025 End: 05-27-2025 ambulatory Ilda Garcia MD Work Phone: [facility] Work Phone: Start: 05-27-2025 End: 05-27-2025 Patient encounter procedure Adriel Alfredo MD -[facility] Work Phone: Start: 05-27-2025 End: 05-27-2025 Patient encounter procedure Adriel Alfredo MD -[facility] Start: 05-27-2025 End: 05-27-2025 ambulatory Ilda Garcia MD Work Phone: [facility] Work Phone: Start: 02-23-2025 End: 02-23-2025 ambulatory Dorothy Dumont MD Facility: [facility] Start: 02-17-2025 End: 02-17-2025 ambulatory [facility] Work Phone: Start: 02-17-2025 End: 02-17-2025 Patient encounter procedure [facility] Work Phone: Start: 02-09-2025 End: 02-09-2025 ambulatory Andrius Vytautas Giedraitis Facility: [facility] Start: 01-26-2025 Non-patient / Non-visit [facility] Work Phone: Start: 01-19-2025 End: 01-19-2025 ambulatory [facility] Work Phone: Start: 01-19-2025 End: 01-19-2025 Patient encounter procedure [facility] Work Phone: Start: 01-12-2025 End: 01-12-2025 ambulatory Andrius Ahsanytautas Giedraitis Facility:[facility] Start: 11-19-2024 End: 11-19-2024 ambulatory [facility] Work Phone: Start: 11-19-2024 End: 11-19-2024 Patient encounter procedure [facility] Work Phone: Start: 11-17-2024 End: 11-17-2024 ambulatory Andrius Vytautas Gieditis Facility:[facility] Start: 10-20-2024 End: 10-20-2024 ambulatory Andrius Vytautas Giedraitis MD Facility:[facility] Start: 10-06-2024 End: 10-06-2024 ambulatory Andrius Vytautas Giedraitis Facility:[facility] Start: 09-04-2024 End: 09-04-2024 Patient encounter procedure [facility] Work Phone: Start: 09-03-2024 Non-patient / Non-visit [facility] Work Phone: Start: 04-16-2024 End: 04-16-2024 ambulatory [facility] Work Phone: Start: 04-16-2024 End: 04-16-2024 Patient encounter procedure [facility] Work Phone: Start: 12-24-2017 End: 12-24-2017 Ambulatory BHARATH RIVERS Facility: Procedures Date Procedure Procedure Detail Performing Clinician Start: 05-27-2025 Plain radiography of pelvis Ilda Garcia MD Work Phone: Start: 05-27-2025 X-ray of both knees, four views Ilda Garcia MD Work Phone: Plan of Treatment Date Care Activity Detail Author Start: 05-27-2025 Patient referral [facility] Work Phone: Start: 05-27-2025 Plain radiography of pelvis XR pelvis 1-2V [facility] Start: 05-27-2025 X-ray of both knees, four views XR knee BI 4V [facility] Start: 05-27-2025 XR Knee - bilateral 4 Views [facility] Start: 05-27-2025 XR Pelvis 1 or 2 Views [facility] Start: 01-19-2025 Patient referral [facility] Work Phone: Start: 09-08-2024 Patient referral [facility] Work Phone: Start: 04-16-2024 Patient referral [facility] Work Phone: Comprehensive metabo lic 2000 panel - Serum or Plasma [facility] Patient Education Vestibular Exercises [facility] Work Phone: Patient referral [facility] Work Phone: Zinc [Mass/volume] i n Serum or Plasma [facility] Payers Date Payer Category Payer Self-pay 2025 Unknown [id number] 2024 Unknown 1959 Unknown [id number] 1955 Unknown [id number] 2.16. [id number] 1955 Unknown [id number] 2.16. [id number] 1955 Unknown [id number] 2.16. [id number] 1955 Unknown [id number] 2.16. [id number] 1955 Unknown [id number] 2.16. [id number] 1955 Unknown [id number] 2.16. [id number] 1955 Unknown [id number] 2.16. [id number] Unknown [id number] 2.16.8 [id number] Social History Date Type Detail Facility Start: 04-16-2024 End: 04-16-2024 Tobacco smoking status NHIS Ex-smoker (finding) [facility] Start: 1955 Sex Assigned At Female F [facility] Start: 11-19-2024 End: 02-17-2025 Sex Female (finding) [facility] Evaluation note 05-27-2025 Note Date & Type Note Facility 05-27-2025 Evaluation note Diagnosis Onset Date Resolution Bilateral primary osteoarthritis of hip acute May 27, 2025 2:39pm Bilateral primary osteoarthritis of knee acute May 27, 2025 2:39pm BMI 50.0-59.9, adult acute Sept 2024 2:39pm [facility] Work Phone: Hospital Discharge instructions 05-27-2025 Note Date & Type Note Facility 05-27-2025 Hospital Discharge instructions Ambulatory OrdersReferral to Pain Management Time Frame: 05/27/25, Location: None SelectedReferral to Weight Management Time Frame: 05/27/25, Location: None [facility] Work Phone: Evaluation note 01-19-2025 Note Date & Type Note Facility 01-19-2025 Evaluation note Diagnosis Onset Date Resolution Pica in adults acute December 2:07pm Throat fullness acute December 2:07pm Trouble swallowing acute January 19, 2025 2:07pm Type 2 diabetes mellitus with hyperglycemia acute January 19, 2 025 2:07pm Diarrhea acute February 17, 2025 2:52pm History of colon cancer acute M ay 2024 2:52pm [facility] Work Phone: Hospital Discharge instructions 01-19-2025 Note Date & Type Note Facility 01-19-2025 Hospital Discharg e instructions Ambulatory OrdersReferral to ENT Time Frame: 01/19/25, Location: None Selected [facility] Work Phone: Evaluation note 11-19-2024 Note Date & Type Note Facility 11-19-2024 Evaluation note Diagnosis Onset Date Resolution Diarrhea acute November 19, 2024 2:54pm History of colon cancer acute F ebruary 2024 2:54pm Throat fullness acute December 2:07pm Trouble swallowing acute January 19, 2025 2:07pm Type 2 diabetes mellitus with hyperglycemia acute January 19, 2 025 2:07pm [facility] Work Phone: Evaluation note 09-04-2024 Note [...] colon cancer acute F ebruary 2024 2:54pm [facility] Work Phone: Evaluation note Note Date & Type Note Facility Evaluation note Diagnosis Onset Date Left knee pain acute [facility] Work Phone: Evaluation note Note Date & Type Note Facility Evaluation note No assessment information availa ble [facility] Work Phone: Hospital Discharge instructions Note Date & Type Note Facility Hospital Discharge instructions Ambulatory OrdersReferral to Orthopedics Time Frame: 04/16/24, Location: None Selected [facility] Work Phone: Reason for referral (narrative) Note Date & Type Note Facility Reason for referral (narrative) No reason for referral information available [facility] Work Phone: Summary Purpose Family History [...] and content) DATE CREATED AUTHOR 03/14/[address] [facility] DATE CREATED AUTHOR AUTHOR'S ORGANIZ ATION 03/02/2025 [facility] DATE CREATED AUTHOR AUTHOR'S ORGANIZ ATION 05/31/2025 [facility] Care Teams (unrecognized sec tion and content) Team Status: Active Member Role Status Dates Ilda Garcia MD Primary Care Provider Active Team Status: Inactive Member Role Status Dates Ilda Garcia MD Primary Care Provider Active Start: May 27, 2025 End: May 27, 2025 Adirel Leija II, MD Attending Provider Active Start: [...] BE BASED ON THE PRIMARY CLINICAL RECORDS. [facility]. provides no warranty or guarantee of the accuracy or completeness of information in this document.
[2025-06-08 09:16] VITALS: BP 168/73; PULSE 78; O2SAT 97
[2025-06-08 09:17] VITALS: BP 171/65; PULSE 78; O2SAT 97
[2025-06-08] MEDS: LIDOCAINE HCL 2% 400 MG/20 ML MDV INJ (09:19)
[2025-06-08] MEDS: METHYLPREDNISOLONE ACETATE 40 MG/ML VIAL 80 MG INJ (09:19)
[2025-06-08] MEDS: IOHEXOL 240 MG/ML - 10 ML VIAL 24 MG INJ (09:19)
[2025-06-08] MEDS: BUPIVACAINE HCL 0.25% PF 25 MG/10 ML VIAL 8 ML INJ (09:19)
--- NOTE | 2025-06-08 09:24 | W.PM.PROCNOT ---
Date of procedure: 06/08/25 Pre-op diagnosis: Pain due to bilateral hip osteoarthritis Post-op diagnosis: same as pre-op Procedure: Procedure: Bilateral hip injection Medications: Bupivacaine 0.25% 4cc, depomedrol 40mg x2 I explained the details of the procedure to the patient including the risks, benefits and alternatives. We had an informed discussion and the patient verbalized understanding and signed the consent form. All questions were answered appropriately.? A time out was performed.? After obtaining a comfortable supine position, the skin overlying the hip, subtrochanteric region, and joint space were prepped with alcohol. A sterile syringe containing the above medication was attached to a 25 guage, 3.5 inch spinal needle under strict aseptic technique. X ray was used to identify the joint space and the femoral neck on the right side.? The needle was than advanced through the subcutaneous tissue after local injection of 1% lidocaine.? The contents of the syringe were gently injected without any resistance into the joint space after contrast (isovue) outlined the appropriate area. The needle was removed and pressure was applied to the injection site to decrease the incidence of ecchymosis and hematoma formation. The same procedure was then completed on the opposite side.? A sterile bandage was applied. Post procedural instructions were given to the patient. Anesthesia: Local Surgeon: Dorothy Dumont Pathology: none sent Condition: stable Disposition: no change
== END 2025-06-08 09:26 | disposition home or self-care (01) ==
PROVIDERS: PCP Family Medicine; Visit Provider Anesthesiology
DX: M16.0 Bilateral primary osteoarthritis of hip (principal); M25.551 Pain in right hip; M25.552 Pain in left hip; E11.8 Type 2 diabetes mellitus with unspecified complications
CPT/HCPCS: 20610; 36415; 82948; J0665; J1010; Q9966

== ENCOUNTER 2025-06-18 14:45 | Outpatient (OUT) | payer MEDICARE, SELFPAY ==
--- OUTSIDE RECORDS SUMMARY | 2025-06-18 14:49 | XMS_ITS | Clinical Summary ---
Author Organization [facility] tem Address [id number] [address] [place] [address] Care Team Providers Care Client Support Coordinator Name Role Phone Ilda Lopez MD Primary Care Provider [phone] Encounters Date Type Department Care Team Description 04/08/2025 1:00 PM EDT - 04/08/2025 11:59 PM EDT Hospital Encounter [facility] - Radiology [address] [place] [phone] Dysphagia, pharyngoesophageal phase Discharge Disposition: Home 04/08/2025 [...] 3 Months Insurance [employer] Care Teams Client Support Coordinator Relationship Specialty Start Date End Date Ilda Lopez MD [address] [place] [id number] PCP - General Family Medicine 04/08/25
--- OUTSIDE RECORDS SUMMARY | 2025-06-18 14:49 | XMS_ITS | Clinical Summary ---
Author Organization [facility] Address [address] [place] [address] Care Team Providers Care Welfare Investigator Name Role Phone Ghada Stover HOSPICE MASSAGE THERAPIST Unavailable [phone] Ilda Lopez MD Primary Care Provider [phone] Allergies No known active allergies Medications amLODIPine (Norvasc) 5 MG tablet Take 5 mg by mouth Daily 04/16/20 24 Active buPROPion XL (Wellbutrin XL) 300 MG 24 hr tablet 300 mg in the morning. 04/16/20 24 Active citalopram (CeleXA) 10 MG tablet Take 20 mg by mouth Daily 40 mg daily 04/16/20 24 Active HYDROcodone-ac etaminophen ([place]) 5-325 MG tablet Take 1 tablet by [...] Encounters Date Type Department Care Team Description 06/17/2025 Refill [facility] [address] [place] [address] Beatris Solo MD LPRD (laryngopharyngeal reflux disease) 05/22/2025 Refill [facility] [address] [place] [phone] Beatris Solo MD LPRD (laryngopharyngeal reflux disease) 04/27/2025 1:00 PM EDT Office Visit [facility] [address] [facility] [address] [place] [address] Beatris Solo MD Globus sensation (Primary Dx) 04/27/2025 Bamboo flowsheet [facility] [address] [place] [address] Beatris Solo MD 04/27/2025 Travel 04/08/2025 External Result Encounter [facility] [address] [place] [address] Beatris Solo MD 04/08/2025 Orders Only [facility] [address] [place] [address] Beatris Solo MD 03/24/2025 Telephone [facility] [address] [place] [address] Manju Michaels MA from Last 3 Months [...] PM EDT THIS EXAM WAS PERFORMED AT [facility] CLINICAL INFORMATION: Dysphagia, pharyngoesophageal phase [...] - 04/08/2025 THIS EXAM WAS PERFORMED AT [facility] CLINICAL INFORMATION: Dysphagia, pharyngoesophageal phase [...] Months Insurance [employer] Care Teams Welfare Investigator Relationship Specialty Start Date End Date Ghada Stover NP PCP - Miley MUÑIZ 09/24/24 Ilda Lopez MD [address] [place] [phone] PCP - General Family Medicine 01/28/25
--- OUTSIDE RECORDS SUMMARY | 2025-06-18 14:49 | XMS_ITS | Encounter Summary ---
Author Organization [facility] Address [address] [place] [address] Care Team Providers Care Campaign Advisor Name Role Phone Ghada Stover FLIGHT ENGINEER PERFORMANCE QUALIFIED Unavailable [phone] Ilda Lopez MD Primary Care Provider [phone] Encounter Details Date Type Department Care Team (Late st Contact Info) Description 04/08/2025 Orders Only [facility] [address] [facility] [[email or web address] [address] [place] [address] Beatris Solo MD [address] [facility] [[email or web address] [address] [place] [address] Social History Tobacco Use Types Packs/Day Years [...] on filedocumented in this encounter Care Teams Campaign Advisor Relationship Specialty Start Date End Date Ghada Stover NP PCP - Miley MUÑIZ 09/24/24 Ilda Lopez MD [address] [place] [address] PCP - General Family Medicine 01/28/25 documented as of this encounter
--- OUTSIDE RECORDS SUMMARY | 2025-06-18 14:50 | XMS_ITS | Encounter Summary ---
Author Organization [facility] Address [address] [place] [address] Care Team Providers Care Quality Improvement Manager Name Role Phone Ghada Stover SUPPLEMENTAL MANAGER Unavailable [phone] Ilda Lopez MD Primary Care Provider [phone] Reason for Visit * Reason Comments Med Refill Encounter Details Date Type Department Care Team (Late st Contact Info) Description 06/17/2025 Refill [facility] [address] [place] [address] Beatris Solo MD [address] [facility] [address] [place] [address] LPRD (laryngopharyngeal reflux disease) Social History Tobacco [...] obstruction documented in this encounter Care Teams Quality Improvement Manager Relationship Specialty Start Date End Date Ghada Stover SUPPLEMENTAL MANAGER PCP - Miley MUÑIZ 09/24/24 [place] [address] [place] [phone] PCP - General Family Medicine 01/28/25 documented as of this encounter
--- OUTSIDE RECORDS SUMMARY | 2025-06-18 14:50 | XMS_ITS | Encounter Summary ---
Author Organization [facility] Address [address] [place] [address] Care Team Providers Care Chief Substation Operator Name Role Phone Ghada Stover SITE SUPERVISOR Unavailable [phone] Ilda Lopez MD Primary Care Provider [phone] Encounter Details Date Type Department Care Team (Late st Contact Info) Description 04/08/2025 External Result Encounter [facility] [address] [place] [address] Beatris Solo MD [address] [facility] [address] [place] [address] Social History Tobacco Use Types [...] PM EDT THIS EXAM WAS PERFORMED AT [facility] CLINICAL INFORMATION: Dysphagia, pharyngoesophageal phase TECHNIQUE/PROCEDURE: [...] - 04/08/2025 THIS EXAM WAS PERFORMED AT [facility] CLINICAL INFORMATION: Dysphagia, pharyngoesophageal phase TECHNIQUE/PROCEDURE: [...] on filedocumented in this encounter Care Teams Chief Substation Operator Relationship Specialty Start Date End Date Ghada Stover NP PCP - Miley MUÑIZ 09/24/24 Ilda Lopez MD [address] [place] [phone] PCP - General Family Medicine 01/28/25 documented as of this encounter
--- OUTSIDE RECORDS SUMMARY | 2025-06-18 14:52 | XMS_ITS | CCD ---
Author Organization [facility] Care Team Providers Care Knifeman Name Role Phone BHARATH RIVERS Unavailable Unavailable BHARATH RIVERS Unavailable Unavailable MISC, DOCTOR Unavailable Unavailable JES BARRAGAN V Unavailable Unavailable BHARATH RIVERS Unavailable Unavailable Tim MONTEZ, Dorothy Katz Attending Unavailable Giedkailash MONTEZ, Andaleksey Katz Attending Unavailable Gimarika MONTEZ, Andrius Katz Attending Unavailable Gimarika MONTEZ, Andrius Katz Attending Unavailable Tim MONTEZ, Andrius Gianna Attending Unavailable Tim MONTEZ, Dorothy Katz Attending Unavailable Ilda Garcia MD Primary Care Provider [phone] Adriel eLija MD Attending Provider [phone] Adriel Leija II Attending UnavailAdriel Mratin II Admitting UnavailIlda Stone Primary Care Unavailable Tim MONTEZ, Dorothy Katz Attending Unavailable [...] By: Huey Wu on 05-27-2025 Study report [facility] [address] [place] [address] XRay Report Signed Patient: Divya Interiano MR#: [id number] : 1955 Acct:[id number] Age/Sex: 69 / F ADM Date: 5 Loc: [facility] Room: Type: [facility] Attending Dr: Adriel Leija II, MD Copies to: Adriel Leija MD~ Ordering Provider: Adriel Leija MD Date of Service: 05/27/25 XR/XR knee BI 4V: M25.561 - Pain in right knee ([id number]) XR/XR pelvis 1-2V: M25.561 - Pain in right knee Single view of the pelvis plain film HISTORY: Bilateral knee pain COMPARISON: None ACUTE FINDINGS: None BONY ALIGNMENT: Adequate SOFT TISSUES: Unremarkable DEGENERATIVE CHANGE:Extensive right hip degeneration. Moderate left hip degeneration. INTRAPELVIC STRUCTURES: Unremarkable POSTSURGICAL CHANGES:None XR/XR pelvis 1-2V IMPRESSION:Extensive right hip degeneration. Moderate left hip degeneration 4 views both knees Mwkp-[id number]-vltp contact right medial degeneration. Marked lateral left knee degeneration with marked joint space narrowing and marginal spurring mild to moderate bilateral patellofemoral degeneration. Mild right lateral and left medial degeneration IMPRESSION: Extensive bilateral knee degeneration greatest in the medial compartment on the right in the lateral compartment left Impression dictated by: Rigoberto Wu M.D. 05/27/2025 10:25 PM Dictation Location: [place] [address] Transcribed By: [facility] 05/27/252224 Dictated By: Rigoberto Wu DO 05/27/252222 Signed By: 05/27/252224 [facility] XR knee BI 4Von 05-27-2025 XR knee BI 4V [facility] [address] [place] [address] XRay Report Signed Patient: Divya Interiano MR#: [id number] : 1955 Acct:[id number] Age/Sex: 69 / F ADM Date: 05/27/25 Loc: [facility] Room: Type: [facility] Attending Dr: Adriel Leija II, MD Copies to: Adriel Leija MD Ordering Provider: Adriel Leija MD Date of Service: 05/27/25 XR/XR knee BI 4V: M25.561 - Pain in right knee ([id number]) XR/XR pelvis 1-2V: M25.561 - Pain in right knee Single view of the pelvis plain film HISTORY: Bilateral knee pain COMPARISON: None ACUTE FINDINGS: None BONY ALIGNMENT: Adequate SOFT TISSUES: Unremarkable DEGENERATIVE CHANGE:Extensive right hip degeneration. Moderate left hip degeneration. INTRAPELVIC STRUCTURES: Unremarkable POSTSURGICAL CHANGES:None XR/XR pelvis 1-2V IMPRESSION:Extensive right hip degeneration. Moderate left hip degeneration 4 views both knees Boqv-[id number]-maxy contact right medial degeneration. Marked lateral left knee degeneration with marked joint space narrowing and marginal spurring mild to moderate bilateral patellofemoral degeneration. Mild right lateral and left medial degeneration IMPRESSION: Extensive bilateral knee degeneration greatest in the medial compartment on the right in the lateral compartment left Impression dictated by: Rigoberto Wu M.D. 05/27/2025 10:25 PM Dictation Location: [facility] Transcribed By: [facility] 05/27/252224 Dictated By: Rigoberto Wu DO 05/27/252222 Signed By: 05/27/252224 Normal [facility] Basophils Auto (Bld) [#/Vol] on 01-26-2025 Basophils (Bld) [#/Vol] Automated basophil count 0.0-0.1 [facility] Basophils/100 WBC Auto (Bld) on 01-26-2025 Basophils/100 WBC (Bld) Automated basophil % 0.2-2.0 [facility] Eosinophils/100 WBC Auto (Bl d)on 01-26-2025 Eosinophils/100 WBC (Bld) Automated eosinophil % 0.9-7.0 [facility] Erythrocyte distribution wid th Auto (RBC) [Ratio]on 01-26-2025 Erythrocyte distribution width (RBC) [Ratio] Erythrocyte distribution width [Ratio] by Automated count 11.0-15.0 [facility] Estimated glomerular filtrat ion rate (GFR) non- Americanon 01-26-2025 GFR/1.73 sq M.predicted among non-blacks MDRD (S/P/Bld) [Vol rate/Area] Estimated glomerular filtration rate (GFR) non- Low >=60 mL/min/1.73m 2 [facility] Globulin Calc (S) [Mass/Vol] on 01-26-2025 Globulin (S) [Mass/Vol] Serum globulin measurement by calculation (mass/volume) [facility] Glucose mean value [Mass/vol ume] in Blood Estimated from glycated hemoglobinon 01-26-2025 Average glucose Estimated from glycated hemoglobin (Bld) [Mass/Vol] Glucose mean value [Mass/volume] in Blood Estimated from glycated hemoglobin [facility] Hematocrit Auto (Bld) [Volum e fraction]on 01-26-2025 Hematocrit (Bld) [Volume fraction] Hematocrit [Volume Fraction] of Blood by Automated count 36.0-48.0 [facility] Hemoglobin A1c percentageon 01-26-2025 HbA1c (Bld) [Mass fraction] Hemoglobin A1c percentage 4.5-6.2 [facility] Comment on above: ADA RECOMMENDED LIMI T 4.0 - 6.0ADA THERAPEUTIC TARGET < 7.0ACTION SUGGESTED> 7.0 Hemoglobin [Mass/volume] in Bloodon 01-26-2025 Hemoglobin (Bld) [Mass/Vol] Hemoglobin [Mass/volume] in Blood 12.0-16.0 [facility] Laboratory - Chemistry and C hemistry - challengeon 01-26-2025 Albumin [Mass/Vol] 3.4 g/dL 3.4-5.0 [facility] ALP [Catalytic activity/Vol] 120 U/L High 46-116 [facility] ALT [Catalytic activity/Vol] 17 U/L 14-59 [facility] AST [Catalytic activity/Vol] 11 U/L Low 15-37 [facility] Bilirubin [Mass/Vol] 0.3 mg/dL 0.2-1.0 [facility] Calcium [Mass/Vol] 9.4 mg/dL 8.5-10.1 [facility] Chloride [Moles/Vol] 102 mmol/L 98-107 [facility] CO2 [Moles/Vol] 28.8 mmol/L 21.0-32.0 [facility] Cobalamin (Vitamin B12) [Mass/Vol] 280 pg/mL 232-1245 [facility] Comment on above: Performed at: [facility] [address] [id number] Director: Grady Rivera PhD, Phone: [phone] Creatinine [Mass/Vol] 1.14 mg/dL High 0.55-1.02 [facility] Ferritin [Mass/Vol] 12.0 ng/mL 8.0-252.0 [facility] GFR/1.73 sq M.predicted MDRD (S/P/Bld) [Vol rate/Area] 57 mL/min/{1.73_m2} Low >=60 mL/min/1.73m 2 [facility] Glucose [Mass/Vol] 83 mg/dL 74-106 [facility] Potassium [Moles/Vol] 4.1 mmol/L 3.5-5.1 [facility] Protein [Mass/Vol] 8.0 g/dL 6.4-8.2 [facility] Sodium [Moles/Vol] 139 mmol/L 136-145 [facility] Urea nitrogen [Mass/Vol] 22.0 mg/dL High 7.0-18.0 [facility] Urea nitrogen/Creatinin e [Mass ratio] 19.3 mg/mg [facility] Laboratory - Hematology and Cell countson 01-26-2025 Immature granulocytes/100 WBC (Bld) 0.3 % 0.0-0.5 [facility] Leukocytes [#/volume] correc moncho for nucleated erythrocytes in Blood by Automated counon 01-26-2025 WBC corrected for nucl RBC Auto (Bld) [#/Vol] Leukocytes [#/volume] corrected for nucleated erythrocytes in Blood by Automated coun 4.0-11.0 [facility] Lymphocytes Auto (Bld) [#/Vo l]on 01-26-2025 Lymphocytes (Bld) [#/Vol] Lymphocytes [#/volume] in Blood by Automated count 1.2-3.8 [facility] Lymphocytes/100 WBC Auto (Bl d)on 01-26-2025 Lymphocytes/100 WBC (Bld) Lymphocytes/100 leukocytes in Blood by Automated count 20.5-60.0 [facility] MCH Auto (RBC) [Entitic mass ]on 01-26-2025 MCH (RBC) [Entitic mass] MCH [Entitic mass] by Automated count 26.7-34.0 [facility] MCHC Auto (RBC) [Mass/Vol]on 01-26-2025 MCHC (RBC) [Mass/Vol] MCHC [Mass/volume] by Automated count 29.9-35.2 [facility] MCV Auto (RBC) [Entitic vol] on 01-26-2025 MCV (RBC) [Entitic vol] MCV [Entitic volume] by Automated count 81.0-99.0 [facility] Monocytes Auto (Bld) [#/Vol] on 01-26-2025 Monocytes (Bld) [#/Vol] Automated blood monocyte count 0.3-0.8 [facility] Monocytes/100 WBC Auto (Bld) on 01-26-2025 Monocytes/100 WBC (Bld) Automated monocyte % 1.7-12.0 [facility] Neutrophils Auto (Bld) [#/Vo l]on 01-26-2025 Neutrophils (Bld) [#/Vol] Neutrophils [#/volume] in Blood by Automated count 1.4-6.5 [facility] Neutrophils/100 WBC Auto (Bl d)on 01-26-2025 Neutrophils/100 WBC (Bld) Automated neutrophil % 43.0-75.0 [facility] No Panel Informationon 01-26 Eosinophils # (Auto) 0.2 10 3/uL 0.0-0.7 [facility] Folate 7.40 ng/mL Low 8.60-58.90 [facility] Immature Granulocyte # (Auto) 0.03 10 3/uL 0.00-0.03 [facility] Plasma zinc measurementon Zinc [Mass/Vol] Plasma zinc measurement 44-115 [facility] Comment on above: This test was develo ped and its performance characteristicsdetermined by [employer]. It has not been cleared orapproved by the Food and Drug Administration. Detection Limit = 5Performed at: [facility] [employer] [id number] Director: Cassia Gastelum MD, Phone: [phone] Platelet mean volume Auto (B ld) [Entitic vol]on 01-26-2025 Platelet mean volume (Bld) [Entitic vol] Platelet mean volume [Entitic volume] in Blood by Automated count Low 9.5-13.5 [facility] Platelets Auto (Bld) [#/Vol] on 01-26-2025 Platelets (Bld) [#/Vol] Platelets [#/volume] in Blood by Automated count 150-450 [facility] RBC Auto (Bld) [#/Vol]on RBC (Bld) [#/Vol] Erythrocytes [#/volu me] in Blood by Automated count Low 4.20-5.40 [facility] Serum or plasma albumin/glob ulin mass ratioon 01-26-2025 Albumin/Globulin [Mass ratio] Serum or plasma albumin/globulin mass ratio [facility] Serum or plasma anion gap de terminationon 01-26-2025 Anion gap [Moles/Vol] Serum or plasma anion gap determination [facility] Basophils Auto (Bld) [#/Vol] on 09-04-2024 Basophils (Bld) [#/Vol] Automated basophil count 0.0-0.1 [facility] Basophils/100 WBC Auto (Bld) on 09-04-2024 Basophils/100 WBC (Bld) Automated basophil % 0.2-2.0 [facility] Eosinophils/100 WBC Auto (Bl d)on 09-04-2024 Eosinophils/100 WBC (Bld) Automated eosinophil % 0.9-7.0 [facility] Erythrocyte distribution wid th Auto (RBC) [Ratio]on 09-04-2024 Erythrocyte distribution width (RBC) [Ratio] Erythrocyte distribution width [Ratio] by Automated count 11.0-15.0 [facility] Estimated glomerular filtrat ion rate (GFR) non- Americanon 09-04-2024 GFR/1.73 sq M.predicted among non-blacks MDRD (S/P/Bld) [Vol rate/Area] Estimated glomerular filtration rate (GFR) non- Low >=60 mL/min/1.73m 2 [facility] Globulin Calc (S) [Mass/Vol] on 09-04-2024 Globulin (S) [Mass/Vol] Serum globulin measurement by calculation (mass/volume) [facility] Glucose mean value [Mass/vol ume] in Blood Estimated from glycated hemoglobinon 09-04-2024 Average glucose Estimated from glycated hemoglobin (Bld) [Mass/Vol] Glucose mean value [Mass/volume] in Blood Estimated from glycated hemoglobin [facility] Hematocrit Auto (Bld) [Volum e fraction]on 09-04-2024 Hematocrit (Bld) [Volume fraction] Hematocrit [Volume Fraction] of Blood by Automated count 36.0-48.0 [facility] Hemoglobin [Mass/volume] in Bloodon 09-04-2024 Hemoglobin (Bld) [Mass/Vol] Hemoglobin [Mass/volume] in Blood 12.0-16.0 [facility] Laboratory - Chemistry and C hemistry - challengeon 09-04-2024 Albumin [Mass/Vol] 3.5 g/dL 3.4-5.0 [facility] ALP [Catalytic activity/Vol] 119 U/L High 46-116 [facility] ALT [Catalytic activity/Vol] 15 U/L 14-59 [facility] AST [Catalytic activity/Vol] 14 U/L Low 15-37 [facility] Bilirubin [Mass/Vol] 0.3 mg/dL 0.2-1.0 [facility] Calcium [Mass/Vol] 9.5 mg/dL 8.5-10.1 [facility] Chloride [Moles/Vol] 103 mmol/L 98-107 [facility] CO2 [Moles/Vol] 27.9 mmol/L 21.0-32.0 [facility] Creatinine [Mass/Vol] 1.37 mg/dL High 0.55-1.02 [facility] GFR/1.73 sq M.predicted MDRD (S/P/Bld) [Vol rate/Area] 46 mL/min/{1.73_m2} Low >=60 mL/min/1.73m 2 [facility] Glucose [Mass/Vol] 83 mg/dL 74-106 [facility] Potassium [Moles/Vol] 3.8 mmol/L 3.5-5.1 [facility] Protein [Mass/Vol] 8.1 g/dL 6.4-8.2 [facility] Sodium [Moles/Vol] 142 mmol/L 136-145 [facility] Urea nitrogen [Mass/Vol] 16.0 mg/dL 7.0-18.0 [facility] Urea nitrogen/Creatinin e [Mass ratio] 11.7 mg/mg [facility] Laboratory - Hematology and Cell countson 09-04-2024 HbA1c (Bld) [Mass fraction] 5.6 % 4.5-6.2 [facility] Comment on above: ADA RECOMMENDED LIMI T 4.0 - 6.0ADA THERAPEUTIC TARGET < 7.0ACTION SUGGESTED> 7.0 Immature granulocytes/100 WBC (Bld) 0.2 % 0.0-0.5 [facility] Leukocytes [#/volume] correc moncho for nucleated erythrocytes in Blood by Automated counon 09-04-2024 WBC corrected for nucl RBC Auto (Bld) [#/Vol] Leukocytes [#/volume] corrected for nucleated erythrocytes in Blood by Automated coun 4.0-11.0 [facility] Lymphocytes Auto (Bld) [#/Vo l]on 09-04-2024 Lymphocytes (Bld) [#/Vol] Lymphocytes [#/volume] in Blood by Automated count 1.2-3.8 [facility] Lymphocytes/100 WBC Auto (Bl d)on 09-04-2024 Lymphocytes/100 WBC (Bld) Lymphocytes/100 leukocytes in Blood by Automated count 20.5-60.0 [facility] MCH Auto (RBC) [Entitic mass ]on 09-04-2024 MCH (RBC) [Entitic mass] MCH [Entitic mass] by Automated count 26.7-34.0 [facility] MCHC Auto (RBC) [Mass/Vol]on 09-04-2024 MCHC (RBC) [Mass/Vol] MCHC [Mass/volume] by Automated count 29.9-35.2 [facility] MCV Auto (RBC) [Entitic vol] on 09-04-2024 MCV (RBC) [Entitic vol] MCV [Entitic volume] by Automated count 81.0-99.0 [facility] Microalbumin [Mass/volume] i n Urineon 09-04-2024 Albumin DL <= 20 mg/L (U) [Mass/Vol] Microalbumin [Mass/volume] in Urine <=30.0 [facility] Monocytes Auto (Bld) [#/Vol] on 09-04-2024 Monocytes (Bld) [#/Vol] Automated blood monocyte count 0.3-0.8 [facility] Monocytes/100 WBC Auto (Bld) on 09-04-2024 Monocytes/100 WBC (Bld) Automated monocyte % 1.7-12.0 [facility] Neutrophils Auto (Bld) [#/Vo l]on 09-04-2024 Neutrophils (Bld) [#/Vol] Neutrophils [#/volume] in Blood by Automated count 1.4-6.5 [facility] Neutrophils/100 WBC Auto (Bl d)on 09-04-2024 Neutrophils/100 WBC (Bld) Automated neutrophil % 43.0-75.0 [facility] No Panel Informationon 09-04 Eosinophils # (Auto) 0.3 10 3/uL 0.0-0.7 [facility] Immature Granulocyte # (Auto) 0.02 10 3/uL 0.00-0.03 [facility] Urine Random Creatinine 439.14 mg/dL High 20.00-300.00 [facility] Platelet mean volume Auto (B ld) [Entitic vol]on 09-04-2024 Platelet mean volume (Bld) [Entitic vol] Platelet mean volume [Entitic volume] in Blood by Automated count 9.5-13.5 [facility] Platelets Auto (Bld) [#/Vol] on 09-04-2024 Platelets (Bld) [#/Vol] Platelets [#/volume] in Blood by Automated count 150-450 [facility] RBC Auto (Bld) [#/Vol]on RBC (Bld) [#/Vol] Erythrocytes [#/volu me] in Blood by Automated count Low 4.20-5.40 [facility] Serum or plasma albumin/glob ulin mass ratioon 09-04-2024 Albumin/Globulin [Mass ratio] Serum or plasma albumin/globulin mass ratio [facility] Serum or plasma anion gap de terminationon 09-04-2024 Anion gap [Moles/Vol] Serum or plasma anion gap determination [facility] Urine microalbumin/creatinin e mass ratioon 09-04-2024 Albumin/Creatinine DL <= 20 mg/L (U) [Mass ratio] Urine microalbumin/creatinine mass ratio 0.0-29.9 [facility] Comment on above: NO MICROALBUMINURIA 0-29 MG/GCLINICAL MICROALBUMINURIA 30-300 MG/GMACROALBUMINURIA >300 MG/G CT HEAD WO CONon 12-24-2017 CT HEAD WO CON [address] [facility] [place] [address] Patient: GILLIAN LAGUNAS Exam Date: 12/24/2017DOB: 1955 Gender:F : BHARATH RIVERS Admission #: [id number] : Order #: [id number] HERE TO VIEW EXAM RADIOLOGY REPORT PROCEDURE: [...] Barragan M.D. on 12/24/2017 at 15:25 Normal [facility] Vital Signs Date Time Vital Sign Value Performing Clinician Faci lity 05-27-2025 15:01-0400 Body height 160.02 cm Ilda Garcia MD Work Phone: [facility] 05-27-2025 15:01-0400 Body mass index (BMI) [Ratio] 51.2 kg/m2 Ilda Garcia MD Work Phone: [facility] 05-27-2025 15:01-0400 Body weight 131.31 kg Ilda Garcia MD Work Phone: [facility] 05-27-2025 15:01-0400 Diastolic blood pressure 82 mm[Hg] Ilda Garcia MD Work Phone: [facility] 05-27-2025 15:01-0400 Systolic blood pressure 118 mm[Hg] Ilda Garcia MD Work Phone: [facility] 02-17-2025 14:58-0400 Body height 160.02 cm [facility] 02-17-2025 14:58-0400 Body mass index (BMI) [Ratio] 47.8 kg/m2 [facility] 02-17-2025 14:58-0400 Body weight 122.46 kg [facility] 02-17-2025 14:58-0400 Diastolic blood pressure 81 mm[Hg] [facility] 02-17-2025 14:58-0400 Heart rate 87 /min [facility] 02-17-2025 14:58-0400 Systolic blood pressure 122 mm[Hg] [facility] 01-19-2025 14:10-0400 Body height 160.02 cm [facility] 01-19-2025 14:10-0400 Body mass index (BMI) [Ratio] 48.5 kg/m2 [facility] 01-19-2025 14:10-0400 Body weight 124.28 kg [facility] 01-19-2025 14:10-0400 Diastolic blood pressure 79 mm[Hg] [facility] 01-19-2025 14:10-0400 Heart rate 74 /min [facility] 01-19-2025 14:10-0400 Respiratory rate 12 /min [facility] 01-19-2025 14:10-0400 SaO2% (BldA) [Mass fraction] 97 % [facility] 01-19-2025 14:10-0400 Systolic blood pressure 129 mm[Hg] [facility] 11-19-2024 14:59-0500 Body height 160.02 cm [facility] 11-19-2024 14:59-0500 Body mass index (BMI) [Ratio] 45.1 kg/m2 [facility] 11-19-2024 14:59-0500 Body weight 115.66 kg [facility] 11-19-2024 14:59-0500 Diastolic blood pressure 76 mm[Hg] [facility] 11-19-2024 14:59-0500 Heart rate 70 /min [facility] 11-19-2024 14:59-0500 Systolic blood pressure 113 mm[Hg] [facility] 09-04-2024 13:59-0500 Body height 160.02 cm [facility] 09-04-2024 13:59-0500 Body mass index (BMI) [Ratio] 45.7 kg/m2 [facility] 09-04-2024 13:59-0500 Body weight 117.14 kg [facility] 09-04-2024 13:59-0500 Diastolic blood pressure 80 mm[Hg] [facility] 09-04-2024 13:59-0500 Heart rate 80 /min [facility] 09-04-2024 13:59-0500 Systolic blood pressure 122 mm[Hg] [facility] 04-16-2024 10:53-0400 Body height 160.02 cm [facility] 04-16-2024 10:53-0400 Body mass index (BMI) [Ratio] 45.1 kg/m2 [facility] 04-16-2024 10:53-0400 Body weight 115.66 kg [facility] 04-16-2024 10:53-0400 Diastolic blood pressure 73 mm[Hg] [facility] 04-16-2024 10:53-0400 Heart rate 67 /min [facility] 04-16-2024 10:53-0400 Systolic blood pressure 112 mm[Hg] [facility] Encounters Encounter Date Encounter Type Care Provider Facility Start: 06-08-2025 End: 06-08-2025 ambulatory Dorothy Dumont MD Facility:[facility] Start: 05-27-2025 End: 05-27-2025 ambulatory Ilda Garcia MD Work Phone: [facility] Work Phone: Start: 05-27-2025 End: 05-27-2025 Patient encounter procedure Adriel Alfredo MD -[facility] Work Phone: Start: 05-27-2025 End: 05-27-2025 Patient encounter procedure Adriel Alfredo MD -[facility] Start: 05-27-2025 End: 05-27-2025 ambulatory Ilda Garcia MD Work Phone: [facility] Work Phone: Start: 02-23-2025 End: 02-23-2025 ambulatory Andrius Vytautas Giedraitis Facility:[facility] Start: 02-17-2025 End: 02-17-2025 ambulatory [facility] Work Phone: Start: 02-17-2025 End: 02-17-2025 Patient encounter procedure [facility] Work Phone: Start: 02-09-2025 End: 02-09-2025 ambulatory Andrius Vytautas Giedraitis Facility:[facility] Start: 01-26-2025 Non-patient / Non-visit [facility] Work Phone: Start: 01-19-2025 End: 01-19-2025 ambulatory [facility] Work Phone: Start: 01-19-2025 End: 01-19-2025 Patient encounter procedure [facility] Work Phone: Start: 01-12-2025 End: 01-12-2025 ambulatory Andaleksey Sharmaitis Facility:[facility] Start: 11-19-2024 End: 11-19-2024 ambulatory [facility] Work Phone: Start: 11-19-2024 End: 11-19-2024 Patient encounter procedure [facility] Work Phone: Start: 11-17-2024 End: 11-17-2024 ambulatory Andrius Ahsanytautas Giheatherraitis Facility:[facility] Start: 10-20-2024 End: 10-20-2024 ambulatory Andrius Ahsanytautchristine Galanraitis Facility:[facility] Start: 10-06-2024 End: 10-06-2024 ambulatory Andrius Ahsanytautas Giedraitis MD Facility:[facility] Start: 09-04-2024 End: 09-04-2024 Patient encounter procedure [facility] Physician [facility] Work Phone: Start: 09-03-2024 Non-patient / Non-visit [facility] Work Phone: Start: 04-16-2024 End: 04-16-2024 ambulatory [facility] Work Phone: Start: 04-16-2024 End: 04-16-2024 Patient encounter procedure [facility] Phys[facility] Work Phone: Start: 12-24-2017 End: 12-24-2017 Ambulatory BHARATH RIVERS Facility: Procedures Date Procedure Procedure Detail Performing Clinician Start: 05-27-2025 Plain radiography of pelvis Ilda Garcia MD Work Phone: Start: 05-27-2025 X-ray of both knees, four views Ilda Garcia MD Work Phone: Plan of Treatment Date Care Activity Detail Author Start: 05-27-2025 Patient referral [facility] Work Phone: Start: 05-27-2025 Plain radiography of pelvis XR pelvis 1-2V [facility] Start: 05-27-2025 X-ray of both knees, four views XR knee BI 4V [facility] Start: 05-27-2025 XR Knee - bilateral 4 Views [facility] Start: 05-27-2025 XR Pelvis 1 or 2 Views [facility] Start: 01-19-2025 Patient referral [facility] Work Phone: Start: 09-08-2024 Patient referral [facility] Work Phone: Start: 04-16-2024 Patient referral [facility] Work Phone: Comprehensive metabo lic 2000 panel - Serum or Plasma [facility] Patient Education Vestibular Exercises [facility] Work Phone: Patient referral [facility] Work Phone: Zinc [Mass/volume] i n Serum or Plasma [facility] Payers Date Payer Category Payer Self-pay 2025 Unknown [id number] 2024 Unknown 1959 Unknown [id number] 1955 Unknown [id number] 2.16. [id number] 1955 Unknown [id number] 2.16. [id number] 1955 Unknown [id number] 2.16. [id number] 1955 Unknown [id number] 2.16. [id number] 1955 Unknown [id number] 2.16. [id number] 1955 Unknown [id number] 2.16. [id number] 1955 Unknown [id number] 2.16. [id number] 1955 Unknown [id number] 2.16. [id number] Unknown [id number] 2.16.8 [id number] Social History Date Type Detail Facility Start: 04-16-2024 End: 04-16-2024 Tobacco smoking status NHIS Ex-smoker (finding) [facility] Start: 1955 Sex Assigned At Female [facility] Start: 11-19-2024 End: 02-17-2025 Sex Female (finding) [facility] Evaluation note 05-27-2025 Note Date & Type Note Facility 05-27-2025 Evaluation note Diagnosis Onset Date Resolution Bilateral primary osteoarthritis of hip acute May 27, 2025 2:39pm Bilateral primary osteoarthritis of knee acute May 27, 2025 2:39pm BMI 50.0-59.9, adult acute Sept , 2025 2:39pm [facility] Work Phone: Hospital Discharge instructions 05-27-2025 Note Date & Type Note Facility 05-27-2025 Hospital Discharge instructions Ambulatory OrdersReferral to Pain Management Time Frame: 05/27/25, Location: None SelectedReferral to Weight Management Time Frame: 05/27/25, Location: None Selected [facility] Work Phone: Evaluation note 01-19-2025 Note [...] colon cancer acute M ay 2024 2:52pm [facility] Work Phone: Hospital Discharge instructions 01-19-2025 Note Date & Type Note Facility 01-19-2025 Hospital Discharg e instructions Ambulatory OrdersReferral to ENT Time Frame: 01/19/25, Location: None Selected [facility] Work Phone: Evaluation note 11-19-2024 Note Date & Type Note Facility 11-19-2024 Evaluation note Diagnosis Onset Date Resolution Diarrhea acute November 19, 2024 2:54pm History of colon cancer acute F ebruary 2024 2:54pm Throat fullness acute December 2:07pm Trouble swallowing acute January 19, 2025 2:07pm Type 2 diabetes mellitus with hyperglycemia acute January 19, 2 025 2:07pm [facility] Work Phone: Evaluation note 09-04-2024 Note Date [...] colon cancer acute F ebruary 2024 2:54pm [facility] Work Phone: Evaluation note Note Date & Type Note Facility Evaluation note Diagnosis Onset Date Left knee pain acute [facility] Work Phone: Evaluation note Note Date & Type Note Facility Evaluation note No assessment information availa ble [facility] Work Phone: Hospital Discharge instructions Note Date & Type Note Facility Hospital Discharge instructions Ambulatory OrdersReferral to Orthopedics Time Frame: 04/16/24, Location: None Selected [facility] Work Phone: Reason for referral (narrative) Note Date & Type Note Facility Reason for referral (narrative) No reason for referral information available [facility] Work Phone: Summary Purpose Family History No [...] History of colon cancer November 19 2:54pm Throat fullness January 19, 2025 2:0 [...] DATE CREATED AUTHOR AUTHOR'S ORGANIZ ATION 03/02/2025 [facility] DATE CREATED AUTHOR AUTHOR'S ORGANIZ ATION 05/31/2025 [facility] DATE CREATED AUTHOR AUTHOR'S ORGANIZ ATION 06/10/2025 [facility] Care Teams (unrecognized sec tion [...] 2024 Team Status: Inactive Member Role Status Elmer Garcia MD Primary Care Provide r, Attending Provider Active Start: September 04, 2024 End: September 04, 2024 Team Status: Inactive Member Role Status Elmer Garcia MD Primary Care Provide r, Attending Provider Active Start: April 16, 2024 End: April 16, 2024 Team Status: Active Member Role Status Elmer Garcia MD Primary Care Provide r, Attending Provider Active Start: January 26, 2025 Team Status: Inactive Member Role Status Elmer Gacria MD Primary Care Provider Active Start: February [...] BE BASED ON THE PRIMARY CLINICAL RECORDS. [facility] [place] [facility]. provides no warranty or guarantee of the accuracy or completeness of information in this document.
--- NOTE | 2025-06-18 15:09 | PM.CN ---
Consult Note: HPI Data of Consult Patient: known to practice within the last 3 years Requesting Physician: Sri Daniels NP Primary Care Provider: Ilda Lopez MD Consult Narrative Reason for consult: bilateral hip pain and bilateral knee pain Narrative: Gillian Interiano a pleasant 69 year old female presents for evaluation of chronic bilateral knee pain and bilateral hip pain. previously has failed > 6 weeks of PT/HEP, heat, ice, tylenol, and NSAIDs. Pain today 10/10 increasing with standing, walking, activity. reports falls without injury due to pain. has been utilizing tylenol, celebrex, and norco 7.5-325mg tid prn with moderate relief without side effects. since last visit has established with orthopedics for bilateral knee OA/pain, he also reported moderate to severe oa of bilateral hips. on 06-08-25 underwent bilateral hip injection with 60% improvement on the right no improvement on the left. cc:: CC: Sri Daniels NP Review of Systems ROS Musculoskeletal Reports: joint pain; Denies: back pain PFSH PFSH Medical History Obesity ?E66.9 - Obesity, unspecified (ICD-10) Hypertension ?I10 - Essential (primary) hypertension (ICD-10) Surgical History H/O hernia repair ?Z98.890 - Other specified postprocedural states (ICD-10) ?Z87.19 - Personal history of other diseases of the digestive system (ICD-10) History of hysterectomy ?Z90.710 - Acquired absence of both cervix and uterus (ICD-10) H/O knee surgery ?Z98.890 - Other specified postprocedural states (ICD-10) Meds Home Medications and Allergies Home Medications ?Medication ?Instructions ?Recorded ?Confirmed ?Type Bacillus coagulans 10 billion cell cell PO 10/06/24 History capsule,delayed release (Probiotic (B. coagulans)) amlodipine 5 mg tablet 5 mg PO DAILY 10/06/24 06/08/25 History citalopram 40 mg tablet 40 mg PO DAILY 10/06/24 06/08/25 History losartan 100 1 tab PO DAILY 10/06/24 06/08/25 History mg-hydrochlorothiazide 12.5 mg tablet (Hyzaar) celecoxib 200 mg capsule (Celebrex) 200 mg PO BID 11/17/24 06/08/25 History dicyclomine 20 mg tablet mg 01/12/25 History naloxone 4 mg/actuation nasal 4 mg intranasal Q2M #2 ea 03/25/25 06/08/25 Rx spray (Narcan) hydrocodone 7.5 mg-acetaminophen 1 tab PO TID PRN pain #90 tabs 05/06/25 06/08/25 Rx 325 mg tablet celecoxib 200 mg capsule (Celebrex) 200 mg PO BID PRN pain #60 caps 06/10/25 Rx Allergies Allergy/AdvReac Type Severity Reaction Status Date / Time No Known Drug Allergies Allergy Verified 06/08/25 08:40 Exam Constitutional Documenting provider has reviewed patient's vital signs: yes Common normals: no apparent distress, oriented x3, healthy appearing, alert and well nourished General appearance: cooperative HENMT Common normals: normocephalic, hearing grossly normal bilaterally and moist oral mucous membranes Head and scalp: normocephalic Eye Common normals: PERRL Pupil: PERRL Neck & C-Spine Common normals: full ROM General: normal visual inspection Chest Common normals: inspection of chest normal Respiratory Common normals: normal respiratory effort, no retractions and no use of accessory muscles Back & Pelvis Lumbar spine/lower back: straight leg raise positive left Extremity Right lower extremity: hip joint Left lower extremity: hip joint Other: moderate pain with internal and external rotation of bilateral hips Neuro Common normals: oriented x3 Sensorium/orientation: alert Psych Common normals: mental status grossly normal, thought process normal, cooperative, affect normal, speech normal and activity/motor behavior normal Speech: normal speech Thought process: normal thought process Results Imaging Lumbar MRI: Attestation: I have reviewed the pertinent imaging results. Additional Findings Additional findings: If on a controlled substance or opioids, I have checked an [place] report on this patient and there are no aberrancies noted in the prescribing history.??If on a controlled substance or opioid a drug screen was completed and reviewed within the last year, and if there has not been a drug screen completed we ordered one today to monitor higher risk, state monitored pain medication use. As part of providing excellent, safe, comprehensive care, the following was completed at our patient's visit: 1. A medication reconciliation and review to ensure accurate knowledge of current/active medications, including asking our patients to inform us about any [id number] medications or herbal remedies/nutritional supplements/alternative remedies. 2. A review to specifically ensure our patients have had annual screening for screening for depression, screening for tobacco use, and screening for unhealthy alcohol use. For concerning screenings had a discussion with the patient, provided patient education, and recommended follow-up with primary care provider when appropriate. If patient noted with a risk of falling, they received education on strength, gait, and balance training to prevent future risk of falling. Portions of this note may have been carried over from the previous visit and updated as appropriate. Please note this office utilizes paper charting in addition to the electronic medical record. A list of current medications, vitals, and PMH is available there as the clinical staff outside of myself do not have access to [facility] charting during the clinic day operations. As part of providing quality comprehensive care the current medications, vitals, and PMH were reviewed in the paper chart. Assessment and Plan Assessment and Plan (1) Osteoarthritis, hip, bilateral: Assessment and Plan: 06-08-25 bilateral hip injection no improvement on the left 60% improvement on the right (2) Bilateral knee pain: Qualifiers: Chronicity: chronic Qualified Code(s): M25.561 - Pain in right knee; M25.562 - Pain in left knee; G89.29 - Other chronic pain (3) Lumbar spondylosis: (4) Chronic use of opiate for therapeutic purpose: Assessment and Plan: I feel these medications are improving the patient's quality of life and allow them to tolerate activities of daily living as well as participate in recreational activity.? The patient does not report intolerable side effects. The patient is NOT opioid naive and non-pharmacologic and non-opioid treatment has failed to significantly relieve the patient's pain and improve functionality. The patient has a diagnosis that is related to a somatic or visceral pain etiology. ? ?? I reviewed with the patient the potential risks and side effects with the use of? opioid medications including but not limited to respiratory depression,? sedation, and even . Within the last 12 months I have verified the patient has access to naloxone should? these effects occur. The patient was advised to let? their family know they had Naloxone in case they would need to administer? the medication. I advised the patient to avoid the use of any other? sedation substances including alcohol, THC, and benzodiazepines while? taking opioid medications due to the risk of compounding side effects and? detrimental outcomes. within the last 12 months I have reviewed the [employer], pain treatment agreement and urine drug screen.? ?? A drug screen was completed within the last year, and no aberrancies were noted regarding their use of controlled substances. The patient understands they are subject to the terms and conditions of the pain contract that they have signed. ? ?? I have checked an [place]AR[place] report on this patient today and there are no aberrancies noted in the prescribing history.? (5) Osteoarthritis of knees, bilateral: Assessment and Plan: 02-09-25 and 02-23-25 left and right genicular RFA without ongoing relief Qualifiers: Osteoarthritis type: primary Qualified Code(s): M17.0 - Bilateral primary osteoarthritis of knee (6) Lumbar degenerative disc disease: Plan low back pain minimal, defer further workup refer back to Dr Leija for evaluation of bilateral hip and knee OA/pain continue current medications f/u 3 months, sooner if needed
== END 2025-06-18 14:46 | disposition home or self-care (01) ==
LOC: PM 14:47
PROVIDERS: PCP Family Medicine; Visit Provider Nurse Practitioner
DX: M16.0 Bilateral primary osteoarthritis of hip (principal); M25.561 Pain in right knee; M25.562 Pain in left knee; G89.29 Other chronic pain; M47.816 Spondylosis without myelopathy or radiculopathy, lumbar region; Z79.891 Long term (current) use of opiate analgesic; M17.0 Bilateral primary osteoarthritis of knee; M51.369 Other intervertebral disc degeneration, lumbar region without mention of lumbar back pain or lower extremity pain
CPT/HCPCS: G0463

== ENCOUNTER 2025-07-17 08:28 | Outpatient (OUT) | payer MEDICARE, SELFPAY ==
--- OUTSIDE RECORDS SUMMARY | 2025-07-14 12:33 | XMS_ITS | Continuity of Care Document ---
Author Organization [facility] Address [address] [place] [address] Phone Care Team Providers Care Registered Nurse Cardiac Telemetry Name Role Phone Ilda Lopez MD Primary Care Provider Adriel Leija II, MD Attending Provider Luigi Ordonez MD Attending Provider Care Teams Patient Care Team Team Status: Active Member Role/Relationship Status Dates Ilda Lopez MD Primary Care Provider Active Visit Care Team Team Status: Inactive Member Role/Relationship Status Dates Ilda Lopez MD Primary Care Provider Active Start: May 27, 2025 End: May 27, 2025Kevin Bellamy II ProviderActiveStart: May 27, 2025 End: May 27, 2025 Visit Care Team Team Status: Inactive Member Role/Relationship Status Dates Ilda Lopez MD Primary Care Provider Active Start: May 27, 2025 End: May 27, 2025Kevin Bellamy II ProviderActiveStart: May 27, 2025 End: May 27, 2025 Patient Care Team Team Status: Inactive Member Role/Relationship Status Dates Ilda Lopez MD Primary Care Provider Active Start: July 14, 2025 End: July 14, 2025Kevin Connell ProviderActiveStart: July 14, 2025 End: July 14, 2025 Chief Complaint and Reason for Visit Chief Complaint Admit Date M25.561 - Pain in right knee May 272024 9:26am CONSULT DR LOPEZ MASOOD KNEE PAIN WX [facility] Se pt2024 2:39pm Dante July 14, 2025 2 :45pm Reason for Visit Admit Date Bilateral primary osteoarthritis of hip May 27, 2025 2:39pm Bilateral primary osteoarthritis of knee May 27, 2025 2:39pm BMI 50.0-59.9, adult May 27, 2025 2:39pm Allergies, Adverse Reactions, Alerts Allergen Type Severity Reaction Last Updated Verified Status No Known Allergies Allergy Unknown July 14, 2025 2:55pmYesActive Social History Smoking Status Status Start Date End Date Date of Observa tion Ex-smoker (finding) July 14, 2025 3:15pm Observation Status Observation Response Date of Response Legal Sex Female (finding) Sex Assigned At BirthFemaleSept1954 Family History Relationship Condition Age at Onset Recorded Date/T tani brother Malignant neoplasm Unknown HypertensionUnknownDeceasedUnknownmotherMalignant neoplasmUnknownDeceasedUnknown fatherMalignant neoplasmUnknownDeceasedUnknownMalignant neoplasm of liverUnknown Malignant neoplasm of prostateUnknownsisterMalignant neoplasmUnknownHypertension UnknownDeceasedUnknownpaternal grandmotherDiabetes mellitusUnknownDeceased UnknownMalignant neoplasmUnknownMalignant neoplasm of colonUnknown Cerebrovascular accident (CVA)Unknown Problems Active Problems Problem Diagnosis/Recorded Date Onset Date Stat Mixed anxiety and depressive disorder April 16, 2024 11:03am Unknown Active Pica in adults January 19, 2025 2:35pm Unknown Ac tive Throat fullness January 19, 2025 2:32pm Unknown A ctive Type 2 diabetes mellitus wit h hyperglycemia April 16, 2024 12:37pm Unknown Active History of colon cancer November 19, 2024 3:54pm Unk nown Active History of colon cancer February 17, 2025 3:17pm Unknown Active Bilateral primary osteoarthritis of hip May 27, 2025 4:19pm Unknown Active Bilateral primary osteoarthr itis of knee May 27, 2025 4:21pm Unknown Active Colon cancer April 16, 2024 11:04am Unknown Acti ve Trouble swallowing January 19, 2025 2:34pm Unknown Active Diarrhea September 08, 2024 11:10am Unknown Active BMI 50.0-59.9, adult May 27, 2025 4:12pm Unknow n Active Bilateral hip pain May 27, 2025 4:19pm Unknown Active Left knee pain April 16, 2024 11:28am Unknown Ac tive Bilateral knee pain September 04, 2024 3:30pm Unknown Active GERD (gastroesophageal reflux disease) March 17, 2025 8:22pm Unknown Active Hypertension April 16, 2024 11:04am Unknown Acti ve Medications Medication Status Dose Units Route Directions Qty Days Refills S tart Date Stop Date End Date Reason(s) Instructions Adherence Citalopram 10 mg tablet Discontinued 40 MG PO Krysta ly 90 0July 2023 10:27amJuly 2023 10:38amCitalopram 40 mg tablet Jlqyumqzrpro09TUVYNceky884Xuxh 2023 10:37amNovember 2023 8:51am Meloxicam 7.5 mg tabletDiscontinued0.ROUTE.UIAUZVO387Yrgkyh 2023 11:13am September 15, 2024 10:32pmTAKE 1 TABLET BY MOUTH EVERY DAYLosartan- Hydrochlorothiazide 100-12.5 mg fijjbqZmphozjivtac2PPZXNKwfvk923Hjldqae 2023 8:24amDecember 2023 10:17amSemaglutide (Ozempic) 1 mg/dose (4 mg/3 mL) pen injectorDiscontinued0.ROUTE.DVIQSLL52Kkpiczuj 2023 9:34amDecember 2023 3:24pmINJECT 1 MG (0.75 ML) SUBCUTANEOUSLY WEEKLYCitalopram 40 mg haqtsjUivmfkijbftm28NXNUWysvo009Puricads 2023 8:51amDecember 2023 10:17amMeloxicam 7.5 mg tabletDiscontinued0.ROUTE.VWIBCSK222Wnhczahi 2023 10:31pmMay 2024 3:07pmTAKE 1 TABLET BY MOUTH EVERY DAYCitalopram 40 mg xmdhyxAzfenvyxhzkl62UAIUUarnh594Fvmdhqvr 2023 10:17amMay 2024 8:30am Losartan-Hydrochlorothiazide 100-12.5 mg hafwifIugislhozqaj4HQEUOYunob002 September 22, 2024 10:17amMay 2024 8:30amBupropion Hcl 300 mg tablet extended release 24 hrDiscontinued0.ROUTE.PBNEPCC165Zdyyksl 2024 2:16pm December 22, 2024 9:03amTAKE 1 TABLET BY MOUTH EVERY MORNINGAmlodipine 5 mg tabletDiscontinued0.ROUTE.HYSFHSA060Trkqxte 2024 2:16pmMar2024 9:03amTAKE 1 TABLET BY MOUTH EVERY DAYBupropion Hcl 300 mg tablet extended release 24 hrDiscontinued0.ROUTE.QYKGOIO731Brtwe 2024 9:02amMay 2024 8:30amTAKE 1 TABLET BY MOUTH EVERY MORNINGAmlodipine 5 mg tabletDiscontinued0 .ROUTE.FFCGKUT915Eldyg 2024 9:02amMay 2024 8:30amTAKE 1 TABLET BY MOUTH EVERY DAYAmlodipine 5 mg tabletDiscontinued0.ROUTE.IUQXPDN557Frf 2024 8:30amSeptember 2024 1:49pmTAKE 1 TABLET BY MOUTH EVERY DAYLosartan- Hydrochlorothiazide 100-12.5 mg pzvdkxBtfdvbtsdvgm5VUXIZLimac915Pcw 2024 8:30amJuly 2024 3:44pmBupropion Hcl 300 mg tablet extended release 24 hr Discontinued0.ROUTE.XBPXFJA232Drh 2024 8:30amSeptember 2024 1:49pmTAKE 1 TABLET BY MOUTH EVERY MORNINGCitalopram 40 mg lcxslxYscijrvchdfb38LCVSUrehc500 January 22, 2025 8:30amMay 2024 12:24pmFolic Acid 1 mg qszkyrRfijyq6EFHJTyupq 903Ma2024 12:00amComplies with drug therapyCitalopram 20 mg tablet Zkhhmsxssykn21LFDSUcvvu579Tkl 14th, 2025 12:22pmAugust 2024 4:26pm Losartan-Hydrochlorothiazide 100-12.5 mg tabletActive0.ROUTE.WOCWZET854Etof 2024 3:44pmTAKE 1 TABLET BY MOUTH EVERY DAYComplies with drug therapy Citalopram 20 mg kohlifNhlxoudimvcv61OTMNNcnrx132Piwcpy 2024 4:25pm 2025 8:32amAmlodipine 5 mg tabletDiscontinued0.ROUTE.LGQXPRC479 May 26, 2025 1:49pmSept2024 8:32amTAKE 1 TABLET BY MOUTH EVERY DAYBupropion Hcl 300 mg tablet extended release 24 hrDiscontinued0.ROUTE .2024 1:49pmSept2024 8:32amTAKE 1 TABLET BY MOUTH EVERY MORNINGBupropion Hcl 300 mg tablet extended release 24 hrActive0 .ROUTE.2024 8:31amTAKE 1 TABLET BY MOUTH EVERY MORNING Complies with drug therapyAmlodipine 5 mg tabletActive0.ROUTE.NWSLKXH010 2025 8:31amTAKE 1 TABLET BY MOUTH EVERY DAYComplies with drug therapyCitalopram 20 mg dnubaoJqymyx36CWCILkxra4008Beefzbldr 26th, 2025 8:31am Complies with drug therapyCitalopram 10 mg rulmaaVuzjnrsfkzfe02JDBQZnfhhEcqm 2023 12:00amJuly 2023 11:28amBupropion Hcl 300 mg tablet extended release 24 ejSopilzdgdlzo195IIMPZkmfy morningJuly 2023 12:00amJuly 2023 11:28amAmlodipine 5 mg ibvdxuRocrxcmjphez4RDUTGvuntIacj 2023 12:00am April 16, 2024 11:28amLosartan-Hydrochlorothiazide 100-12.5 mg tablet Hqvifojwsbnf7MELSFTwjjhSvrj 2023 12:00amJuly 2023 11:28am Hydrocodone-Acetaminophen 5-325 mg hogzoqMsdqmqsdlodd4EKVMGXoqtg at bedtime as ahesee4Oxea 2023 12:00amDecember 2023 3:32pmSemaglutide (Ozempic) 1 mg/dose (4 mg/3 mL) pen tngsniuqXnslvhwenkxa2UEPOMZPTdvwsi weekJuly 2023 12:00amJuly 2023 11:28amAmlodipine 5 mg mxkjqtGkvwdkhxhcyh0ZHEAPijbg656 Virginie 2023 11:26amJanuary 2024 2:16pmBupropion Hcl 300 mg tablet extended release 24 ibEqnrxfqcqlpx454NRYATornd mwoidls281Dbyg 2023 11:27am September 25, 2024 2:16pmCitalopram 10 mg iklkxgZaryjziwjfsh58WWRYMinwd807Rwwz 2023 11:27amJuly 2023 10:30amLosartan-Hydrochlorothiazide 100-12.5 mg rowqvfKuwyhbkqdggs0TEXTTKypbv505Lpqr 2023 11:27amOctober 2023 8:24amSemaglutide (Ozempic) 1 mg/dose (4 mg/3 mL) pen qpaeyjywWzzgnqtucalv4VM SUBCUTevery edvj96Crgs 2023 11:27amNovember 2023 9:34amMeloxicam 7.5 mg tabletDiscontinued7.7CIJDIsfbr582Xqdj 2023 12:00amAugust 2023 11:13amMeloxicam 7.5 mg tabletActive7.5MGPODaily as neededOctober 2024 12:00amComplies with drug therapySaccharomyces Boulardii (Digest Probiotic (S.Boulardii)) 250 mg flfikyjRyaxtr618BMWKUokndEaxlrkg 2024 12:00am Complies with drug therapyMultivitamin wjjfgaCitpuf1BGLVILhepqYgtpzdc 2024 12:00amComplies with drug therapyOndansetron 4 mg tablet,cwernpgniionoiKagkkz1ZV POQ8H as neededOctober 2024 3:06pmUnknownOndansetron 4 mg tablet,eilqshqnxfltwcLnptbxsxunoe9PHPRF9J052Hfdxydlm 2023 1:00amOctober 2024 3:06pmDicyclomine 20 mg rydkkdQuuksc34ZMBXYbdtu fmhvz004242Rqxamkva 2024 1:00amComplies with drug therapyFamotidine 20 mg tabletDiscontinuedMG POMay 2024 12:00amOctober 2024 3:06pmOmeprazole 40 mg capsule,delayed release(DR/EC)DiscontinuedMGPOMay 2024 12:00amOctober 2024 3:06pmCelecoxib 200 mg capsuleDiscontinuedMGPOTwice dailyMa2024 12:00amOctober 2024 3:06pmBaclofen 5 mg fupyrmQkepos8MYEGVjzuaWmu 2024 12:00amComplies with drug therapyHyoscyamine Sulfate (Levsin/Sl) 0.125 mg tablet, sublingualActive0.125MGPOThree times pvnmg86027Gfg 27th, 2025 12:00amUnknownCelecoxib 200 mg oswpfsqLbigef323CICABrmox dailyJuly 14, 2025 2:55pmComplies with drug therapyFamotidine 20 mg kzuwatUazfjb50TPUMVndlyLaoreqn 21st, 2025 2:56pmComplies with drug therapyOmeprazole 40 mg capsule,delayed release(DR/EC)Nllttk66JSCFMjgfnVksjosx 21st, 2025 3:03pmComplies with drug therapyHydrocodone-Acetaminophen 5-325 mg kbfdqwUjxvgxzopedd4SGMPKRqfag times daily as ricvif2Rtpqv 2024 12:00amSeptember 2024 3:09pmCitalopram 40 mg tabletDiscontinuedMGPOSeptember 2024 12:00amSeptember 2024 8:33am Hydrocodone-Acetaminophen 7.5-325 mg drobqpKhiohtjvookcFYKOY4Mlslxpdnk 2024 12:00amOctober 2024 3:06pmHydrocodone-Acetaminophen 7.5-325 mg tablet Fayens9PZPJDxm uguwgd9KcxicihJuly 14, 2025 3:02pmComplies with drug therapy Procedures Procedure Date Performed Status XR knee BI 4V May 27, 2025 9:26am compl eted XR pelvis 1-2V May 27, 2025 9:26am compl eted Relevant Diagnostic Tests and/or Laboratory Data Laboratory Results Test Collection Date/Time Result Date/Time Result Interpretation Reference Range Result Comment Performing Site Bedside Hemoglobin A1c July 14, 2025 3:51pm Octob er 2024 3:51pm 5.5 % Diagnostic Imaging Reports Author Rigoberto Wu [facility] AndersonAuthoredSeptember 2024 10:23pmReport Dictated Date/TimeDictated ByStatusRadiology ReportSept2024 10:23pm Stephanie [facility]OH[facility] [address] [place] [address] XRay Report Signed Patient: Divya Interiano MR#: [id number] : 1955 Acct:[id number] Age/Sex: 69 / F ADM Date: 5 Loc: [facility] Room: Type: [facility] Attending Dr: Adriel Leija II, MD Copies to: Adriel Leija MD~ Ordering Provider: Adriel Leija MD Date of Service: 05/27/25 XR/XR knee BI 4V: M25.561 - Pain in right knee ([id number]) XR/XR pelvis 1-2V: M25.561 - Pain in right knee Single view of the pelvis plain film HISTORY: Bilateral knee pain COMPARISON: None ACUTE FINDINGS: None BONY ALIGNMENT: Adequate SOFT TISSUES: Unremarkable DEGENERATIVE CHANGE:Extensive right hip degeneration. Moderate left hip degeneration. INTRAPELVIC STRUCTURES: Unremarkable POSTSURGICAL CHANGES:None XR/XR pelvis 1-2V IMPRESSION:Extensive right hip degeneration. Moderate left hip degeneration 4 views both knees Swkw-pw-pscl contact right medial degeneration. Marked lateral left knee degeneration with marked joint space narrowing and marginal spurring mild to moderate bilateral patellofemoral degeneration. Mild right lateral and left medial degeneration IMPRESSION: Extensive bilateral knee degeneration greatest in the medial compartment on the right in the lateral compartment left Impression dictated by: Rigoberto Wu M.D. 05/27/2025 10:25 PM Dictation Location: [place] [address] Transcribed By: [facility] 05/27/252224 Dictated By: Rigoberto Wu DO 05/27/252222 Signed By: <Electronically signed by Rigoberto Wu DO in [place]> 05/27/252224 Vital Signs Vital Reading Result Reference Range Collection Date/Time Height 63 [in_i] May 27, 2025 3:74dzGxpuma684.31 kgSept2024 3:01pmBP Systolic 118 mm[Hg]100-140Sept2024 3:01pmBP Hkeeoskla69 mm[Hg]60-100Sept2024 3:01pmBMI (Body Mass Index)51.2 kg/c1PzjqeowtiMay 27, 2025 3:01pmHeight 62.13 [in_i]July 14, 2025 3:07lwVjwhjx609.90 kgJuly 14, 2025 3:17pm Heart Rate87 /yuw44-013ZwmybzxJuly 14, 2025 3:17pmRespiratory rate18 /kpw84-86 July 14, 2025 3:17pmOxygen saturation by Pulse wahrurdl50 %95-100Oct2024 3:17pmBP Glpzodhl919 mm[Hg]100-140October 2024 3:17pmBP Rfhnvlssx95 mm[Hg]60-100October 2024 3:17pmBMI (Body Mass Index)48.9 kg/m2 July 14, 2025 3:17pm Advance Directives Advance Directive Response Recorded Date/ Time Advance Directives No April 07 3:17pm Insurance Providers Guarantor Divya Interiano Address [address] [place] [id number] Info.Home Phone: Coverage Status Update:2025 Payer Group Member ID Coverage Type Subscriber Relationship to Subscriber Effective Date Expiration Date Miley COMBS Id: [id number] L Stewart Id: [id number] [id number] Home Phone: Email: [email or web address] [email or web address] Encounter Location(s) Arrival/Admit Date Discharge/Departure Date Discharge/Departure Disposition Provider(s) Departed Clinical -Maikel Schaffer May 27, 2025 9:26am May 27, 2025 9:27am Discharged to home care or self care (routine discharge) Juni Castillo MD Departed Physician/ Provider Office Visit -[facility] May 27, 2025 2:39pm May 27, 2025 3:47pm Discharged to home care or self care (routine discharge) Juni Castillo MD Departed Physician/ Provider Office Visit -[facility] July 14, 2025 2:45pm July 14, 2025 4:32pm Discharged to home care or self care (routine discharge) Luigi Ordonez MD Recent Diagnosis Onset Date Admit Date Bilateral primary osteoarthritis of hip Unknown May 27, 2025 2:39pm Bilateral primary osteoarthritis of knee Unknown May 27, 2025 2:39pm BMI 50.0-59.9, adult Unknown May 272024 2:39pm Assessments Author Manju Villafuerte [facility] AndersonAuthoredOct2024 4:04pmAssessment: Highest weight: 305 lbs Start weight: 268.7 lbs. Starting Date: 07/14/25. 1. Abnormal weight gain 2. Obesity-the patient will treat with long-term lifestyle changes of improved nutrition, increased exercise and activity, stress reduction, adequate sleep and behavioral modification versus short-term dieting. [ ] 3. [ ] 4. [ ] 5. [ ] 6. [ ] 7. [ ] 8. [ ] 9. [ ] 10. [ ] 11. [ ] Follow up with me in 6 weeks. New labs needed: [TSH, cholesterol profile, and CMP] The patient was instructed to consider logging all foods and caloric beverages. I highly recommended minimizing or stopping caloric beverages including alcohol. The importance of preplanning, shopping at the edge of the store, decreasing unhealthy food cues and environmental control stressed. I recommend packing snacks and meals when out of the home. Remove trigger/unhealthy foods if possible from the home. No macronutrient is completely restricted. We discussed the addictive nature and unhealthy biological changes that occur with ultra processed food. We discussed the brain and peripheral biological changes with obesity that make it a chronic disease. Importance of cooking most food items from scratch discussed. No skipping any meals. Avoid added sugar, refined starches, and added fats. I highly recommended preference for whole foods/real foods. Foods from the farm, not from the factory. The plate method discussed and handout given. Lean unprocessed protein with each meal and each snack to help control appetite, decrease cravings and lessen muscle loss with weight loss advised. Consider use of a protein shake or protein bar instead of missing a meal. The patient will try to get at least 5 or more servings of low carbohydrate veggies/salads daily. Recommend regular follow-up with our registered dietitian. Benefits of regular exercise including cardio and resistance training discussed and recommended as appropriate for the patient. Slowly increase activity. Our exercise program was recommended with our it project manager/obesity exercise group. Handout given. Our free weekly group support/food triggers program was highly recommended to help with long-term behavioral change and support. Handout given. The patient must start healthy behavioral changes. The patient was instructed on good sleep hygiene and on the importance of adequate sleep. Circadian rhythm and the importance of mealtime discussed. I recommended stress reduction. Medication addition and subtraction options discussed. Risks and benefits of prescribed meds discussed. Initial axkb-hi-cxzr interview/evaluation. The patient was counseled in detail on the options for weight loss in an individual setting. [ ] minutes was spent caring for the patient, counseling/educating patient on the options for the treatment of obesity and related healthcare issues. The program's treatment goals were reviewed with the patient. Each aspect of the program was discussed with the patient.
--- OUTSIDE RECORDS SUMMARY | 2025-07-17 08:40 | XMS_ITS | CCD ---
Author Organization [facility] CliniSyga Care Team Providers Care Educational Administration Teacher Name Role Phone BHARATH RIVERS Unavailable Unavailable BHARATH RIVERS Unavailable Unavailable MISC, DOCTOR Unavailable Unavailable JES BARRAGAN V Unavailable Unavailable BHARATH RIVERS Unavailable Unavailable Tim MONTEZ, Dorothy Katz Attending Unavailable Tim MONTEZ, Andrius Katz Attending Unavailable Tim MONTEZ, Andrius Gianna Attending Unavailable Tim MONTEZ, Andrius Gianna Attending Unavailable Tim MONTEZ, Andrius Vbobo Attending Unavailable Tim MONTEZ, Andrius Gianna Attending Unavailable Ilda Lopez MD Primary Care Provider Adriel Leija MD Attending Provider [phone] Adriel Leija II Attending Adriel Burrows II Admitting UnavailIlda Stone Primary Care Unavailable Tim MONTEZ, Dorothy Katz Attending Luigi Ritter MD Attending Provider Medications Current Medications MedicationDrug Class(es)DatesSig (Normalized)Sig (Original)acetaminophen 325 mg / HYDROcodone bitartrate 7.5 mg oral tablet (16 sources)Opioid AgonistStart: 05-27-2025 End: 75-19-5773Mopkzapuwzq-Acetaminophen 7.5-325 mg tablet Active 1 TAB PO as needed 0 July 14, 2025 3:02pm Complies with drug therapyStart: 01-19-2025 End: 93-46-8264kfzd 1 tablet by mouth three times daily as neededHydrocodone- Acetaminophen 5-325 mg tablet Discontinued 1 TAB PO Three times daily as needed 2024 12:00am May 27, 2025 3:09pmStart: 04-16-2024 End: 69-62-8423eidk 1 tablet by mouth once daily at bedtime as needed Hydrocodone-Acetaminophen 5-325 mg tablet Discontinued 1 TAB PO Daily at bedtime as needed 0 April 16, 2024 12:00am September 04, 2024 3:32pmamLODIPine 5 mg oral tablet (20 sources)Dihydropyridine Calcium Channel BlockerStart: 09-25-2024 End: 99-82-8058ptuv 1 tablet by mouth once dailyAmlodipine 5 mg tablet Active 0 .ROUTE .COMPLEX 90 0 2025 8:31am TAKE 1 TABLET BY MOUTH EVERY DAY Complies with drug therapyStart: 04-16-2024 End: 22-24-4854nswz 1 tablet by mouth once dailyAmlodipine 5 mg tablet Discontinued 5 MG PO Daily April 16, 2024 11:26am September 25, 2024 2:16pm baclofen 5 mg oral tablet (4 sources)gamma-Aminobutyric Acid-ergic AgonistStart: 63-87-2964aeox 1 tablet by mouth once dailyBaclofen 5 mg tablet Active 5 MG PO Daily February 17, 2025 12:00am Complies with drug jkylynp49 hr buPROPion hydrochloride 300 mg extended release oral tablet (20 sources)AminoketoneStart: 09-25-2024 End: 98-85-4655gzff 1 tablet by mouth once daily in the morningBupropion Hcl 300 mg tablet extended release 24 hr Active 0 .ROUTE .COMPLEX 90 0 2025 8:31am TAKE 1 TABLET BY MOUTH EVERY MORNING Complies with drug therapy Start: 09-25-2024 End: 44-54-7099jnft 1 tablet by mouth once daily in the morningBupropion Hcl 300 mg tablet extended release 24 hr Discontinued 0 .ROUTE .COMPLEX September 25, 2024 2:16pm December 22, 2024 9:03am TAKE 1 TABLET BY MOUTH EVERY MORNINGStart: 40-39-5941bcve 1 tablet by mouth once daily in the morningBupropion Hcl 300 mg tablet extended release 24 hr Active 0 .ROUTE .COMPLEX 90 September 25, 2024 1:1 6pm TAKE 1 TABLET BY MOUTH EVERY MORNINGStart: 04-16-2024 End: 76-55-2134qqik 1 tablet by mouth once daily in the morningBupropion Hcl 300 mg tablet extended release 24 hr Discontinued 300 MG PO Every morning 90 April 16, 2024 11:27am September 25, 2024 2:16pmcelecoxib 200 mg oral capsule (5 sources)Nonsteroidal Anti-inflammatory DrugStart: 02-17-2025 End: 16-90-0832ejre 1 capsule by mouth twice dailyCelecoxib 200 mg capsule Active 200 MG PO Twice daily July 14, 2025 2:55pm Complies with drug t herapydicyclomine hydrochloride 20 mg oral tablet (6 sources)AnticholinergicStart: 14-69-0670zubj 1 tablet by mouth twice daily Dicyclomine 20 mg tablet Active 20 MG PO Twice daily 60 30 November 19, 2024 1:00am Complies with drug therapyfamotidine 20 mg oral tablet (5 sources)Histamine-2 Receptor AntagonistStart: 02-17-2025 End: 99-00-3134umdk 1 tablet by mouth once dailyFamotidine 20 mg tablet Active 20 MG PO Daily July 14, 2025 2:56pm Complies with drug therapyfolic acid 1 mg oral tablet (4 sources)Start: 16-11-8100jehg 1 tablet by mouth once dailyFolic Acid 1 mg tablet Active 1 MG PO Daily 90 January 29, 2025 12:00am Complies with drug therapyhydroCHLOROthiazide 12.5 mg / losartan potassium 100 mg oral tablet (20 sources)Thiazide Diuretic, Angiotensin 2 Receptor BlockerStart: 04-20-2025 take 1 tablet by mouth once dailyLosartan-Hydrochlorothiazide 100-12.5 mg tablet Active 0 .ROUTE .COMPLEX 90 April 20, 2025 3:44pm TAKE 1 TABLET BY MOUTH EVERY DAY Complies with drug therapyStart: 04-16-2024 End: 54-58-0889obab 1 tablet by mouth once dailyLosartan-Hydrochlorothiazide 100-12.5 mg tablet Discontinued 1 TAB PO Daily 90 April 16, 2024 11:27am July 12, 2024 8:24amhyoscyamine sulfate 0.125 mg sublingual tablet (4 sources)Start: 48-63-9050gpvq 1 tablet by mouth three times dailymeloxicam 7.5 mg oral tablet (20 sources)Nonsteroidal Anti-inflammatory DrugStart: 28-67-6382ncqu 1 tablet by mouth once daily as neededMeloxicam 7.5 mg tablet Active 7.5 MG PO Daily as needed July 14, 2025 12:00am Complies with drug therapyStart: 05-13-2024 End: 72-34-2341beiy 1 tablet by mouth once dailyMeloxicam 7.5 mg tablet Discontinued 0 .ROUTE .COMPLEX 30 3 September 15, 2024 10:31pm February 17, 2025 3:07pm TAKE 1 TABLET BY MOUTH EVERY DAYStart: 04-16-2024 End: 52-65-5649meyy 1 tablet by mouth once dailyMeloxicam 7.5 mg tablet Discontinued 7.5 MG PO Daily 30 0 April 16, 2024 12:00am May 13, 2024 11:13amMultivitamin tablet (1 source)Start: 22-98-7752jeky 1 tablet by mouth once dailyMultivitamin tablet Active 1 TAB PO Daily July 14, 2025 12:00am Complies with drug therapy omeprazole 40 mg delayed release oral capsule (5 sources)Proton Pump InhibitorStart: 02-17-2025 End: 33-34-7380oruh 1 capsule by mouth once dailyOmeprazole 40 mg capsule,delayed release(DR/EC) Active 40 MG PO Daily July 14, 2025 3:03pm Complies with drug therapyondansetron 4 mg disintegrating oral tablet (7 sources)Serotonin-3 Receptor AntagonistStart: 09-04-2024 End: 32-39-1885oznj 1 tablet by mouth every eight hours as neededsaccharomyces boulardii 250 mg oral capsule (1 source)Start: 49-34-3349whhl 1 capsule by mouth once dailySaccharomyces Boulardii (Digest Probiotic (S.Boulardii)) 250 mg capsule Active 250 MG PO Daily July 14, 2025 12:00am Complies with drug therapy Completed/Discontinued Medications MedicationDrug Class(es)DatesSig (Normalized)Sig (Original)citalopram 40 mg oral tablet (20 sources)Serotonin Reuptake InhibitorStart: 05-27-2025 End: 64-40-6254Ogeoibvpae 40 mg tablet Discontinued MG PO May 27, 2025 12:00am 2025 8:33amStart: 05-18-2025 End: 58-33-0676nlsx 2 tablets by mouth once dailyCitalopram 20 mg tablet Active 40 MG PO Daily 180 0 2025 8:31am Complies with drug therapy Start: 02-04-2025 End: 90-76-6664qnah 1 tablet by mouth once dailyCitalopram 20 mg tablet Discontinued 20 MG PO Daily 90 0 February 04, 2025 12:22pm May 18, 2025 4:26pm Start: 04-17-2024 End: 66-41-1632sdrv 1 tablet by mouth once dailyCitalopram 40 mg tablet Discontinued 40 MG PO Daily 90 0 January 22, 2025 8:30am February 04, 2025 12:24pm Start: 04-17-2024 End: 02-71-7683isau 4 tablets by mouth once dailyCitalopram 10 mg tablet Discontinued 40 MG PO Daily 90 0 April 17, 2024 10:27am April 17, 2024 10:38am Start: 04-16-2024 End: 72-26-0050thcv 1 tablet by mouth once dailyCitalopram 10 mg tablet Discontinued 10 MG PO Daily 90 0 April 16, 2024 11:27am April 17, 2024 10:30am Semaglutide (20 sources)Start: 08-19-2024 End: 14-01-9003ndftpc 1 mg by subcutaneous injection every weekSemaglutide (Ozempic) 1 mg/dose (4 mg/3 mL) pen injector Discontinued 0 .ROUTE .COMPLEX 9 August 19, 2024 9:34am September 04, 2024 3:24pm INJECT 1 MG (0.75 ML) SUBCUTANEOUSLY WEEKLYStart: 08-19-2024 End: 64-17-2489bcypkb 1 mg by subcutaneous injection every weekSemaglutide (Ozempic) 1 mg/dose (4 mg/3 mL) pen injector Discontinued 0 .ROUTE .COMPLEX August 19, 2024 9:34am September 04, 2024 3:24pm INJECT 1 MG (0.75 ML) SUBCUTANEOUSLY WEEKLYStart: 08-19-2024 End: 93-10-9935uentdb 1 mg by subcutaneous injection every weekSemaglutide (Ozempic) 1 mg/dose (4 mg/3 mL) pen injector Discontinued 0 .ROUTE .COMPLEX August 19, 2024 8:34am September 04, 2024 2:24pm INJECT 1 MG (0.75 ML) SUBCUTANEOUSLY WEEKLYStart: 04-16-2024 End: 75-14-8043htgdjp 1 mg by subcutaneous injection every weekSemaglutide (Ozempic) 1 mg/dose (4 mg/3 mL) pen injector Discontinued 1 MG SUBCUT every week 9 April 16, 2024 11:27am August 19, 2024 9:34amStart: 04-16-2024 End: 90-89-8509kalebr 1 mg by subcutaneous injection every weekSemaglutide (Ozempic) 1 mg/dose (4 mg/3 mL) pen injector Discontinued 1 MG SUBCUT every week 9 2023 11:27am August 19, 2024 9:34amStart: 04-16-2024 End: 50-98-7565imupvv 1 mg by subcutaneous injection every weekSemaglutide (Ozempic) 1 mg/dose (4 mg/3 mL) pen injector Discontinued 1 MG SUBCUT every week 9 2023 10:27am August 19, 2024 8:34amStart: 63-13-2188cufryv 1 mg by subcutaneous injection every weekSemaglutide (Ozempic) 1 mg/dose (4 mg/3 mL) pen injector Active 1 MG SUBCUT every week March 11:27amStart: 04-16-2024 End: 73-29-7780fktgqt 1 mg by subcutaneous injection every weekSemaglutide (Ozempic) 1 mg/dose (4 mg/3 mL) pen injector Discontinued 1 MG SUBCUT every week April 15, 2024 11:00pm April 16, 2024 10:28amStart: 04-16-2024 End: 34-61-2663eiwmfk 1 mg by subcutaneous injection every weekSemaglutide (Ozempic) 1 mg/dose (4 mg/3 mL) pen injector Discontinued 1 MG SUBCUT every week April 16, 2024 12:00am April 16, 2024 11:28am Problems Problem ClassificationProblemDateDocumented DateEpisodic/ChronicAnxiety disorders (6 sources)Mixed anxiety and depressive disorder; Translations: [Other specified anxiety disorders]17-89-3901PviezgrGmuund of colon (7 sources)Malignant tumor of colon; Translations: [Malignant neoplasm of colon, unspecified]68-60-0381JdwlldkGdmnqr of colon (13 sources)History of malignant neoplasm of colon; Translations: [Personal history of other malignant neoplasmof large intestine]80-57-2513IgutumplTifnapdu mellitus with complications (9 sources)Hyperglycemia due to type 2 diabetes mellitus; Translations: [Type 2 diabetes mellitus with hyperglycemia]95-31-6987NeqkllcTrwyoeqnfm disorders (3 sources)Gastroesophageal reflux disease; Translations: [Gastro-esophageal reflux disease without esophagitis]25-27-2191JefswnvUbpxfxspo hypertension (7 sources)Hypertensive disorder; Translations: [Essential (primary) hypertension]08-43-2452SgqvictGmjzspnz, including migraine (4 sources)Headache; Translations: [HEADACHE]Onset: 44-96-2304Bilzmnnd Miscellaneous mental health disorders (6 sources)Pica; Translations: [Pica in adults]42-48-6690VikzhzbZsomromofcoyni (8 sources)Osteoarthritis of bilateral hip joints; Translations: [Bilateral primary osteoarthritis of hip]90-82-6292InytkpdMowxc circulatory disease (5 sources)Finding of sensation of pharynx; Translations: [Other specified symptoms and signs involving the circulatory and respiratory systems]01-19-2025 EpisodicOther circulatory disease (2 sources)Other specified symptoms and signs involving the circulatory and respiratory systems; Translations:[Other symptoms involving head and neck] 34-12-3043PypdwojuKocdh gastrointestinal disorders (6 sources)Diarrhea; Translations: [Diarrhea, unspecified]54-84-3919Xqhtrooi Other gastrointestinal disorders (4 sources)Diarrhea, unspecified; Translations: [Diarrhea]37-05-6014Gwlzjbwk Other gastrointestinal disorders (5 sources)Dysphagia; Translations: [Dysphagia, unspecified]78-04-7288Cnkiafxw Other gastrointestinal disorders (2 sources)Dysphagia, unspecified; Translations: [Dysphagia, unspecified] 91-26-1454OdrryxkvNtqnk nervous system disorders (1 source)Other chronic pain; Translations: [Other chronic pain]Onset: 79-85-8888TltnbrpHanep non-traumatic joint disorders (12 sources)Pain in left knee; Translations: [Left knee pain]Onset: 05-27-2025 81-61-4998HhfjpytoNeikl non-traumatic joint disorders (5 sources)Pain in right knee; Translations: [Pain in joint, lower leg]Onset: 316332-38-3474UceldjrnThima non-traumatic joint disorders (2 sources)Hip pain; Translations: [Pain in right hip]71-31-5961HiuquyxzSyvmv nutritional; endocrine; and metabolic disorders (5 sources)Body mass index 40+ - severely obese; Translations: [Body mass index (BMI) 50.0-59.9, adult]ChronicOther upper respiratory disease (1 source)Epistaxis; Translations: [EPISTAXIS]Onset: 16-55-6759EqjkkagtGyqmxzuxk or history of mental health and substance abuse (1 source)Personal history of nicotine dependence; Translations: [PERSONAL HISTORY OF NICOTINE DEPEND]Onset: 63-83-6615BmgnnmabXdiatwimusqy (1 source)M25.551 - Pain in right hip,M25.552 - Pain in left hip,M16.0 - Bilateral primary osteoarthritis of hipUnclassified (1 source)Z68.43 - Body mass index [BMI] 50.0-59.9, adult Results Test NameValueInterpretationReference HwvkdGbkmgwfcZeT9w HPLC (Bld) [Mass fraction]Ordered By: Luigi Ordonez on 44-47-7042FkH0b (Bld) [Mass fraction]5.5 %[facility] HospitalX-ray reportOrdered By: Rigoberto Wu on 07-67-2697Ogqxd [facility] [address] [place] [address] XRay Report Signed Patient: Divya Interiano MR#: [id number] : 1955 Acct:[id number] Age/Sex: 69 / F ADM Date: 5 Loc: [facility] [place] Room: Type: [facility] Attending Dr: Adriel Leija II, MD Copies to: Adriel Leija MD~ Ordering Provider: Adriel Leija MD Date of Service: 05/27/25 XR/XR knee BI 4V: M25.561 - Pain in right knee ([id number]) XR/XR pelvis 1-2V: M25.561 - Pain in right knee Single view of the pelvis plain film HISTORY: Bilateral knee pain COMPARISON: None ACUTE FINDINGS: None BONY ALIGNMENT: Adequate SOFT TISSUES: Unremarkable DEGENERATIVE CHANGE:Extensive right hip degeneration. Moderate left hip degeneration. INTRAPELVIC STRUCTURES: Unremarkable POSTSURGICAL CHANGES:None XR/XR pelvis 1-2V IMPRESSION:Extensive right hip degeneration. Moderate left hip degeneration 4 views both knees Dadh-ro-btmd contact right medial degeneration. Marked lateral left knee degeneration with marked joint space narrowing and marginal spurring mild to moderate bilateral patellofemoral degeneration. Mild right lateral and left medial degeneration IMPRESSION: Extensive bilateral knee degeneration greatest in the medial compartment on the right in the lateral compartment left Impression dictated by: Rigoberto Wu M.D. 05/27/2025 10:25 PM Dictation Location: [place] [address] Transcribed By: [facility] 05/27/252224 Dictated By: Rigoberto Wu DO 05/27/252222 Signed By: 05/27/252224 [facility] HospitalXR knee BI 4Von 95-35-1470FU knee BI 4V [facility] [address] [place] [address] XRay Report Signed Patient: Divya Interiano MR#: [id number] : 1955 Acct:[id number] Age/Sex: 69 / F ADM Date: 05/27/25 Loc: [facility] [place] Room: Type: [facility] Attending Dr: Adriel Leija II, MD Copies to: Adriel Leija MD Ordering Provider: Adriel Leija MD Date of Service: 05/27/25 XR/XR knee BI 4V: M25.561 - Pain in right knee ([id number]) XR/XR pelvis 1-2V: M25.561 - Pain in right knee Single view of the pelvis plain film HISTORY: Bilateral knee pain COMPARISON: None ACUTE FINDINGS: None BONY ALIGNMENT: Adequate SOFT TISSUES: Unremarkable DEGENERATIVE CHANGE:Extensive right hip degeneration. Moderate left hip degeneration. INTRAPELVIC STRUCTURES: Unremarkable POSTSURGICAL CHANGES:None XR/XR pelvis 1-2V IMPRESSION:Extensive right hip degeneration. Moderate left hip degeneration 4 views both knees Nhoe-ys-uvja contact right medial degeneration. Marked lateral left knee degeneration with marked joint space narrowing and marginal spurring mild to moderate bilateral patellofemoral degeneration. Mild right lateral and left medial degeneration IMPRESSION: Extensive bilateral knee degeneration greatest in the medial compartment on the right in the lateral compartment left Impression dictated by: Rigoberto Wu M.D. 05/27/2025 10:25 PM Dictation Location: [facility] Transcribed By: [facility] 05/27/252224 Dictated By: Rigoberto Wu DO 05/27/252222 Signed By: 05/27/252224[facility] Physician GroupBasophils Auto (Bld) [#/Vol]on 46-83-0170Snrompmfi (Bld) [#/Vol]Automated basophil count0.0-0.1FOhioHealth Grove City Methodist HospitalBasophils/100 WBC Auto (Bld)on 36-01-2983Jvcxkjfkd/100 WBC (Bld)Automated basophil %0.2-2.0[facility] Eosinophils/100 WBC Auto (Bld)on 13-23-2433Fvsiooglbhw/100 WBC (Bld)Automated eosinophil %0.9-7.0[facility] HospitalErythrocyte distribution width Auto (RBC) [Ratio]on 63-92-2717Mrdfihxawmk distribution width (RBC) [Ratio]Erythrocyte distribution width [Ratio] by Automated count11.0-15.0 [facility] HospitalEstimated glomerular filtration rate (GFR) non- Americanon 79-92-1803FWI/1.73 sq M.predicted among non-blacks MDRD (S/P/Bld) [Vol rate/Area]Estimated glomerular filtration rate (GFR) non- AmericanLow>=60 mL/min/1.73m 2FOhioHealth Grove City Methodist HospitalGlobulin Calc (S) [Mass/Vol]on 22-78-1950Fezcdlsw (S) [Mass/Vol]Serum globulin measurement by calculation (mass/volume)[facility] HospitalGlucose mean value [Mass/volume] in Blood Estimated from glycated hemoglobinon 98-72-4110Tmwnbbl glucose Estimated from glycated hemoglobin (Bld) [Mass/Vol]Glucose mean value [Mass/volume] in Blood Estimated from glycated hemoglobinOhiohealth Van Wert HospitalHematocrit Auto (Bld) [Volume fraction]on 54-57-2315Qdvrkzzwoa (Bld) [Volume fraction]Hematocrit [Volume Fraction] of Blood by Automated count 36.0-48.0[facility] HospitalHemoglobin A1c percentageon 01-26-2025 HbA1c (Bld) [Mass fraction]Hemoglobin A1c percentage4.5-6.2FOhioHealth Grove City Methodist HospitalComment on above:ADA RECOMMENDED LIMIT 4.0 - 6.0ADA THERAPEUTIC TARGET < 7.0ACTION SUGGESTED> 7.0Hemoglobin [Mass/volume] in Bloodon 01-26-2025 Hemoglobin (Bld) [Mass/Vol]Hemoglobin [Mass/volume] in Blood12.0-16.0[facility] HospitalLaboratory - Chemistry and Chemistry - challengeon 50-84-0283Gevymyb [Mass/Vol]3.4 g/dL3.4-5.0[facility] HospitalALP [Catalytic activity/Vol]120 U/OUice67-268VwtviqfddOhiohealth Van Wert HospitalALT [Catalytic activity/Vol]17 U/A63-06EjjaljkkqOhiohealth Van Wert HospitalAST [Catalytic activity/Vol]11 U/XDnc11-87IhmtlaeehOhiohealth Van Wert HospitalBilirubin [Mass/Vol]0.3 mg/dL0.2-1.0[facility] HospitalCalcium [Mass/Vol]9.4 mg/dL8.5-10.1FOhioHealth Grove City Methodist HospitalChloride [Moles/Vol]102 mmol/L 98-107[facility] HospitalCO2 [Moles/Vol]28.8 mmol/L21.0-32.0 [facility] HospitalCobalamin (Vitamin B12) [Mass/Vol]280 pg/mL 232-1245[facility] HospitalComment on above:Performed at: [facility] [id number] Director: Grady Rivera PhD, Phone: [phone] [Mass/Vol]1.14 mg/dLHigh0.55-1.02 [facility] HospitalFerritin [Mass/Vol]12.0 ng/mL8.0-252.0[facility] HospitalGFR/1.73 sq M.predicted MDRD (S/P/Bld) [Vol rate/Area]57 mL/min/{1.73_m2}Low>=60 mL/min/1.73m 2FOhioHealth Grove City Methodist HospitalGlucose [Mass/Vol]83 mg/rL03-893AbizqdgfrOhiohealth Van Wert HospitalPotassium [Moles/Vol] 4.1 mmol/L3.5-5.1FOhioHealth Grove City Methodist HospitalProtein [Mass/Vol]8.0 g/dL 6.4-8.2FTrinity Health System Twin City Medical Centerodium [Moles/Vol]139 mmol/Z379-443 [facility] HospitalUrea nitrogen [Mass/Vol]22.0 mg/dLHigh7.0-18.0 [facility] HospitalUrea nitrogen/Creatinine [Mass ratio]19.3 mg/mg [facility] HospitalLaboratory - Hematology and Cell countson 36-19-9443Tcxvxpul granulocytes/100 WBC (Bld)0.3 %0.0-0.5FOhioHealth Grove City Methodist HospitalLeukocytes [#/volume] corrected for nucleated erythrocytes in Blood by Automated counon 64-75-2882FLL corrected for nucl RBC Auto (Bld) [#/Vol]Leukocytes [#/volume] corrected for nucleated erythrocytes in Blood by Automated coun4.0-11.0[facility] HospitalLymphocytes Auto (Bld) [#/Vol]on 70-64-2172Zitdlruzneo (Bld) [#/Vol]Lymphocytes [#/volume] in Blood by Automated count1.2-3.8[facility] HospitalLymphocytes/100 WBC Auto (Bld)on 43-49-5413Vtkhzozjasg/100 WBC (Bld)Lymphocytes/100 leukocytes in Blood by Automated count20.5-60.0[facility] CenterH Auto (RBC) [Entitic mass]on 26-29-0825VTW (RBC) [Entitic mass]MCH [Entitic mass] by Automated count26.7-34.0[facility] HospitalMCHC Auto (RBC) [Mass/Vol]on 12-78-1506VGJA (RBC) [Mass/Vol]MCHC [Mass/volume] by Automated count29.9-35.2FOhioHealth Grove City Methodist HospitalMCV Auto (RBC) [Entitic vol]on 20-44-9239SWS (RBC) [Entitic vol]MCV [Entitic volume] by Automated count 81.0-99.0[facility] HospitalMonocytes Auto (Bld) [#/Vol]on 93-66-8647Xkzblefie (Bld) [#/Vol]Automated blood monocyte count0.3-0.8[facility] HospitalMonocytes/100 WBC Auto (Bld)on 55-46-2875Swslypxjg/100 WBC (Bld)Automated monocyte %1.7-12.0[facility] Neutrophils Auto (Bld) [#/Vol]on 67-88-0833Tibmreimujz (Bld) [#/Vol]Neutrophils [#/volume] in Blood by Automated count1.4-6.5FOhioHealth Grove City Methodist Hospital Neutrophils/100 WBC Auto (Bld)on 90-89-4895Afgqvcoaiyf/100 WBC (Bld)Automated neutrophil %43.0-75.0[facility] HospitalNo Panel Informationon 01-34-5950Ojrlkwlcqqs # (Auto)0.2 10 3/uL0.0-0.7FOhioHealth Grove City Methodist HospitalFolate7.40 ng/mLLow8.60-58.90[facility] HospitalImmature Granulocyte # (Auto)0.03 10 3/uL0.00-0.03[facility] HospitalPlasma zinc measurementon 99-68-8995Lfim [Mass/Vol]Plasma zinc wwleicwseco38-334 [facility] HospitalComment on above:This test was developed and its performance characteristicsdetermined by [employer]. It has not been cleared orapproved by the Food and Drug Administration. Detection Limit = 5Performed at: [facility] [address] [place], [place] [id number] Director: Cassia Gastelum MD, Phone: [phone] mean volume Auto (Bld) [Entitic vol]on 28-54-4434Gkmxgrxg mean volume (Bld) [Entitic vol]Platelet mean volume [Entitic volume] in Blood by Automated countLow9.5-13.5FOhioHealth Grove City Methodist HospitalPlatelets Auto (Bld) [#/Vol]on 14-52-8484Fwfkamuwd (Bld) [#/Vol] Platelets [#/volume] in Blood by Automated wqesv330-063UkebvinyiOhiohealth Van Wert HospitalRBC Auto (Bld) [#/Vol]on 87-90-4924GZO (Bld) [#/Vol]Erythrocytes [#/volume] in Blood by Automated countLow4.20-5.40[facility] Medical Centererum or plasma albumin/globulin mass ratioon 42-29-4817Mbwbmma/Globulin [Mass ratio]Serum or plasma albumin/globulin mass ratioMercy Health St. Rita's Medical Centererum or plasma anion gap determinationon 99-52-1298Ehdej gap [Moles/Vol]Serum or plasma anion gap determinationOhiohealth Van Wert HospitalBasophils Auto (Bld) [#/Vol]on 44-54-3460Fbpfbjmhq (Bld) [#/Vol]Automated basophil count0.0-0.1FOhioHealth Grove City Methodist HospitalBasophils/100 WBC Auto (Bld)on 68-12-0566Mflvsvtzs/100 WBC (Bld)Automated basophil %0.2-2.0[facility] HospitalEosinophils/100 WBC Auto (Bld)on 09-04-2024 Eosinophils/100 WBC (Bld)Automated eosinophil %0.9-7.0[facility] HospitalErythrocyte distribution width Auto (RBC) [Ratio]on 98-63-4208Fjlkfwspvzn distribution width (RBC) [Ratio]Erythrocyte distribution width [Ratio] by Automated count11.0-15.0[facility] HospitalEstimated glomerular filtration rate (GFR) non- Americanon 80-04-2616FGA/1.73 sq M.predicted among non-blacks MDRD (S/P/Bld) [Vol rate/Area]Estimated glomerular filtration rate (GFR) non- AmericanLow>=60 mL/min/1.73m 2FOhioHealth Grove City Methodist HospitalGlobulin Calc (S) [Mass/Vol]on 79-16-8462Cnpsvmse (S) [Mass/Vol]Serum globulin measurement by calculation (mass/volume)[facility] HospitalGlucose mean value [Mass/volume] in Blood Estimated from glycated hemoglobinon 74-13-5196Clwacpw glucose Estimated from glycated hemoglobin (Bld) [Mass/Vol]Glucose mean value [Mass/volume] in Blood Estimated from glycated hemoglobinOhiohealth Van Wert HospitalHematocrit Auto (Bld) [Volume fraction]on 08-45-7728Fwsubenrpv (Bld) [Volume fraction]Hematocrit [Volume Fraction] of Blood by Automated count36.0-48.0[facility] Hemoglobin [Mass/volume] in Bloodon 33-92-4964Yuxuwikunk (Bld) [Mass/Vol] Hemoglobin [Mass/volume] in Blood12.0-16.0[facility] Laboratory - Chemistry and Chemistry - challengeon 07-11-7855Iisbnlx [Mass/Vol] 3.5 g/dL3.4-5.0[facility] HospitalALP [Catalytic activity/Vol]119 U/OOkpn93-115GajmlhbsdOhiohealth Van Wert HospitalALT [Catalytic activity/Vol]15 U/L 14-59[facility] HospitalAST [Catalytic activity/Vol]14 U/BDjw83-88 [facility] HospitalBilirubin [Mass/Vol]0.3 mg/dL0.2-1.0[facility] HospitalCalcium [Mass/Vol]9.5 mg/dL8.5-10.1FOhioHealth Grove City Methodist HospitalChloride [Moles/Vol]103 mmol/Q39-565EvimplqjhOhiohealth Van Wert HospitalCO2 [Moles/Vol]27.9 mmol/L21.0-32.0[facility] Creatinine [Mass/Vol]1.37 mg/dLHigh0.55-1.02[facility] GFR/1.73 sq M.predicted MDRD (S/P/Bld) [Vol rate/Area]46 mL/min/{1.73_m2}Low>=60 mL/min/1.73m 2FOhioHealth Grove City Methodist HospitalGlucose [Mass/Vol]83 mg/yQ27-970 [facility] HospitalPotassium [Moles/Vol]3.8 mmol/L3.5-5.1FOhioHealth Grove City Methodist HospitalProtein [Mass/Vol]8.1 g/dL6.4-8.2FTrinity Health System Twin City Medical Centerodium [Moles/Vol]142 mmol/C782-009DpgnmsywxOhiohealth Van Wert HospitalUrea nitrogen [Mass/Vol]16.0 mg/dL7.0-18.0[facility] HospitalUrea nitrogen/Creatinine [Mass ratio]11.7 mg/mgOhiohealth Van Wert HospitalLaboratory - Hematology and Cell countson 57-18-9744HnX6h (Bld) [Mass fraction]5.6 %4.5-6.2FOhioHealth Grove City Methodist HospitalComment on above:ADA RECOMMENDED LIMIT 4.0 - 6.0ADA THERAPEUTIC TARGET < 7.0ACTION SUGGESTED> 7.0 Immature granulocytes/100 WBC (Bld)0.2 %0.0-0.5FOhioHealth Grove City Methodist Hospital Leukocytes [#/volume] corrected for nucleated erythrocytes in Blood by Automated counon 77-77-2121PVO corrected for nucl RBC Auto (Bld) [#/Vol]Leukocytes [#/volume] corrected for nucleated erythrocytes in Blood by Automated coun 4.0-11.0[facility] HospitalLymphocytes Auto (Bld) [#/Vol]on 27-80-0956Cbbopocwqqw (Bld) [#/Vol]Lymphocytes [#/volume] in Blood by Automated count1.2-3.8[facility] HospitalLymphocytes/100 WBC Auto (Bld)on 49-47-6822Ukjyuucoski/100 WBC (Bld)Lymphocytes/100 leukocytes in Blood by Automated count20.5-60.0[facility] CenterH Auto (RBC) [Entitic mass]on 93-11-7010WRK (RBC) [Entitic mass]MCH [Entitic mass] by Automated count 26.7-34.0[facility] HospitalMCHC Auto (RBC) [Mass/Vol]on 36-82-7554LMAG (RBC) [Mass/Vol]MCHC [Mass/volume] by Automated count29.9-35.2 [facility] HospitalMCV Auto (RBC) [Entitic vol]on 58-54-5604CEJ (RBC) [Entitic vol]MCV [Entitic volume] by Automated count81.0-99.0[facility] HospitalMicroalbumin [Mass/volume] in Urineon 68-73-3409Bvosmfq DL <= 20 mg/L (U) [Mass/Vol]Microalbumin [Mass/volume] in Urine<=30.0[facility] HospitalMonocytes Auto (Bld) [#/Vol]on 66-92-5028Wyjfhykgg (Bld) [#/Vol]Automated blood monocyte count0.3-0.8[facility] Monocytes/100 WBC Auto (Bld)on 16-48-1686Yftmxqnlh/100 WBC (Bld)Automated monocyte %1.7-12.0[facility] HospitalNeutrophils Auto (Bld) [#/Vol]on 69-62-9602Mczbzzdzfvo (Bld) [#/Vol]Neutrophils [#/volume] in Blood by Automated count1.4-6.5FOhioHealth Grove City Methodist HospitalNeutrophils/100 WBC Auto (Bld)on 96-81-0596Newwxyrsqzw/100 WBC (Bld)Automated neutrophil %43.0-75.0 [facility] HospitalNo Panel Informationon 54-42-1591Lqgujrcuyay # (Auto)0.3 10 3/uL0.0-0.7FOhioHealth Grove City Methodist HospitalImmature Granulocyte # (Auto)0.02 10 3/uL0.00-0.03[facility] HospitalUrine Random Zgpgamewdc213.14 mg/xXTtkl26.00-300.00[facility] HospitalPlatelet mean volume Auto (Bld) [Entitic vol]on 54-11-6067Vgpgvolr mean volume (Bld) [Entitic vol]Platelet mean volume [Entitic volume] in Blood by Automated count 9.5-13.5FOhioHealth Grove City Methodist HospitalPlatelets Auto (Bld) [#/Vol]on 23-24-2581Cevjkfgrh (Bld) [#/Vol]Platelets [#/volume] in Blood by Automated nxlox765-809VwrobgjxnOhiohealth Van Wert HospitalRBC Auto (Bld) [#/Vol]on 09-04-2024 RBC (Bld) [#/Vol]Erythrocytes [#/volume] in Blood by Automated countLow4.20-5.[address] [facility] Medical Centererum or plasma albumin/globulin mass ratioon 07-57-7958Gunybck/Globulin [Mass ratio]Serum or plasma albumin/globulin mass ratioMercy Health St. Rita's Medical Centererum or plasma anion gap determinationon 03-86-1168Kqazh gap [Moles/Vol]Serum or plasma anion gap determinationOhiohealth Van Wert HospitalUrine microalbumin/creatinine mass ratioon 09-04-2024 Albumin/Creatinine DL <= 20 mg/L (U) [Mass ratio]Urine microalbumin/creatinine mass ratio0.0-29.9[facility] HospitalComment on above:NO MICROALBUMINURIA 0-29 MG/GCLINICAL MICROALBUMINURIA 30-300 MG/GMACROALBUMINURIA >300 MG/GCT HEAD WO CONon 76-18-6349JU HEAD WO [id number] [place] [address] Patient: BRENDA LAGUNAS Exam Date: 12/24/2017DOB: 1955 Gender:F : BHARATH RIVERS Admission #: [id number] : Order #: [id number] HERE TO VIEW EXAM RADIOLOGY REPORT PROCEDURE: [...] by: Jes Barragan M.D. on 12/24/2017 at 15:25[facility] Vital Signs Date TimeVital SignValuePerforming UeumwsqozQsetpvrk09-77-2395 15:17040Body .81 cmIlda Lopez MD Work Phone: [facility]10-21-2025 15:170400 Body mass index (BMI) [Ratio]48.9 kg/r4TzogafIlda Lopez MD Work Phone: [phone] [place], [place] 5530810-21-2025 15:17-0400 Body ojbaya849.9 kgIlda Lopez MD Work Phone: [phone])[address] [place], [place] 5530810-21-2025 15:17-0400 Diastolic blood vmidelyo92 mm[Hg]Ilda Lopez MD Work Phone: [phone])[address] [place], [place] 5530810-21-2025 15:17-0400 Heart rate87 /Jackeline Lopez MD Work Phone: [phone] [place], [place] 5530810-21-2025 15:17-0400 Respiratory rate18 /Jackeline Lopez MD Work Phone: [phone])[address] [place], [place] 5530810-21-2025 15:17-0400 SaO2% (BldA) [Mass fraction]96 %Ilda Lopez MD Work Phone: [phone])[address] [place], [place] 5530810-21-2025 15:17-0400 Systolic blood vzoraxmw530 mm[Hg]Ilda Lopez MD Work Phone: 1([phone])[address] [place], [place] 5530809-03-2025 15:01-0400 Body nuzwrd205.02 cmIlda Lopez MD Work Phone: [phone])[address] [place], [place] 5530809-03-2025 15:01-0400 Body mass index (BMI) [Ratio]51.2 kg/q9LaokjuIlda Lopez MD Work Phone: 1(436)[address] [place], [place] 5530809-03-2025 15:01-0400 Body qkelzo755.31 kgIlda Lopez MD Work Phone: [phone] [place], [place] 5530809-03-2025 15:01-0400 Diastolic blood hulapcfg17 mm[Hg]Ilda Lopez MD Work Phone: [phone])[address] [place], [place] 5530809-03-2025 15:01-0400 Systolic blood knskqaik067 mm[Hg]Ilda Lopez MD Work Phone: [phone])[address] [place], [place] 5530805-27-2025 14:58-0400 Body jchzop331.02 [facility]05-27-2025 14:58-0400Body mass index (BMI) [Ratio]47.8 kg/o5XibalkswuOhiohealth Van Wert Hospital05-27-2025 14:58-0400Body frsdua730.46 [facility]05-27-2025 14:58-0400Diastolic blood mm[Hg][facility] 02-17-2025 14:58-0400Heart rate87 /[facility] 02-17-2025 14:58-0400Systolic blood wryhoymz661 mm[Hg][facility]04-28-2025 14:10-0400Body omfwbr007.02 [facility]04-28-2025 14:10-0400Body mass index (BMI) [Ratio]48.5 kg/m6YrjqtvifgOhiohealth Van Wert Hospital04-28-2025 14:10-0400Body akwamc520.28 [facility]04-28-2025 14:10-0400Diastolic blood hijfqtxv85 mm[Hg] [facility]04-28-2025 14:10-0400Heart rate74 /[facility]04-28-2025 14:10-0400Respiratory rate12 /[facility]04-28-2025 14:10-1025CwT6% (BldA) [Mass fraction]97 % [facility]04-28-2025 14:10-0400Systolic blood dselkahw482 mm[Hg][facility]02-26-2025 14:59-0500Body gcreos053.02 cm [facility]02-26-2025 14:59-0500Body mass index (BMI) [Ratio]45.1 kg/k3HqhnlgcplOhiohealth Van Wert Hospital02-26-2025 14:59-0500Body .66 [facility]02-26-2025 14:59-0500Diastolic blood mm[Hg][facility]02-26-2025 14:59-0500 Heart rate70 /[facility]02-26-2025 14:59-0500Systolic blood bbaflimy717 mm[Hg][facility]12-12-2024 13:59-0500 Body smjinh724.02 cmOhiohealth Van Wert Hospital12-12-2024 13:59-0500Body mass index (BMI) [Ratio]45.7 kg/v3ZmaiprgmvOhiohealth Van Wert Hospital12-12-2024 13:59-0500Body .14 kgOhiohealth Van Wert Hospital12-12-2024 13:59-0500Diastolic blood sxhongng07 mm[Hg][facility] 09-04-2024 13:59-0500Heart rate80 /[facility] 09-04-2024 13:59-0500Systolic blood mm[Hg][facility]07-24-2024 10:53-0400Body vajorw252.02 cmOhiohealth Van Wert Hospital07-24-2024 10:53-0400Body mass index (BMI) [Ratio]45.1 kg/o4UlepmudbkOhiohealth Van Wert Hospital07-24-2024 10:53-0400Body adppwj348.66 kgOhiohealth Van Wert Hospital07-24-2024 10:53-0400Diastolic blood dsodeylk59 mm[Hg] [facility]07-24-2024 10:53-0400Heart rate67 /[facility]07-24-2024 10:53-0400Systolic blood iucxnnqf653 mm[Hg] [facility] Encounters Encounter DateEncounter TypeCare ProviderFacilityStart: 07-14-2025 End: 83-14-2899jszxhunldqKjxrom E Braun MD Work Phone: [phone]-YFXPBqwsu: 07-14-2025 End: 65-71-4533Ebnwlbh encounter procedureLuigi Ordonez MD-[facility] Work Phone: Start: 06-08-2025 End: 77-04-1010mykruefzzmUinamvrSavi Dumont MDFacility:[facility] Start: 05-27-2025 End: 98-98-4913gvydnxowvrLfkkcq E Braun MD Work Phone: [facility] Work Phone: Start: 05-27-2025 End: 69-94-3470Rdcszak encounter procedureRobej Alfredo MD-[facility] Work Phone: Start: 05-27-2025 End: 78-82-4795Tpluekf encounter procedureAdriel Alfredo MD-[facility] Durán OrthoStart: 05-27-2025 End: 78-54-9252lijtejinpwNmadxe E Braun MD Work Phone: [facility] Work Phone: Start: 02-23-2025 End: 39-20-7854ajhgencvwzAmpknhc Vytautas Giedraitis MDFacility:[facility] Start: 02-17-2025 End: 38-09-0679mlpgvraafaKwbybktgyHolmes County [facility] Work Phone: Start: 02-17-2025 End: 29-99-9944Ofcdnaa encounter procedureNov[facility] Work Phone: Start: 02-09-2025 End: 48-78-0852zokizxhfocKercfsl Vytautas Giedraitis Facility:[facility] [place] Start: 36-43-5537Giv-patient / Non-visitFirriverside [facility] Work Phone: Start: 01-19-2025 End: 53-01-0072qnrmgkjbysSghirodcqOhio [facility] Work Phone: Start: 01-19-2025 End: 56-18-7162Bosomaq encounter procedureNovant Health [facility] GroupDetwiler [facility] Work Phone: Start: 01-12-2025 End: 27-37-4185ascbbhocamBgvxhff Vytautas Giedraitis MDFacility:[facility] [place] Start: 11-19-2024 End: 53-00-6905lqvqgavplrJqsvgwisfOhio Valley Surgical Hospital Work Phone: Start: 11-19-2024 End: 61-39-9889Noyedcn encounter procedureFormerly [facility] Work Phone: Start: 11-17-2024 End: 11-18-6930aholwitkndCwppzfg Vytautas Giedraitis MDFacility:[facility] Start: 10-20-2024 End: 80-59-2385ixaccvqdhgJrbyxqv Vytautas Giedraitis MDFacility:[facility] Start: 10-06-2024 End: 64-04-2872lssjvtpyxgPokyvrk Vytautas Giedraitis MDFacility:[facility] [place] Start: 09-04-2024 End: 40-94-4918Zlynjqi encounter procedureNov[facility] GroupDetw[facility] Work Phone: Start: 15-05-8306Wyk-patient / Non-visitNovant Health [facility] GroupDetw[facility] Work Phone: Start: 04-16-2024 End: 20-76-2283ptzirzblwkYfuzckviqOhio Valley Surgical Hospital Work Phone: Start: 04-16-2024 End: 56-76-9614Icpffuk encounter procedureNov[facility] Health [facility] GroupDetw[facility] Work Phone: Start: 12-24-2017 End: 20-98-0714LvtlbokbgrNTDRUAP D KATKOFacility:H1 Procedures DateProcedureProcedure DetailPerforming ClinicianStart: 08-43-3908Aawna radiography of pelvisIlda Lopez MD Work Phone: Start: 27-89-0590X-ray of both knees, four viewsIlda Lopez MD Work Phone: Plan of Treatment DateCare ActivityDetailAuthorStart: 00-48-6133Cdkceyt referralAultman Alliance [facility] Hospital Work Phone: Start: 38-61-9951Peain radiography of pelvisXR pelvis 1-2[facility]: 29-55-7009T-ray of both knees, four viewsXR knee BI 4[facility]art: 47-90-2849KJ Knee - bilateral [address] [facility] Medical Centertart: 00-17-7334HL Pelvis 1 or 2 [facility] Hospitaltart: 35-00-0686Dntllod referral [facility] Work Phone: Start: 56-21-3681Omzfjir [facility] Work Phone: Start: 41-33-5152Qtdplcp [facility] Work Phone: Comprehensive metabolic 2000 panel - Serum or Plasma [facility] HospitalPatient EducationVestibular ExercisesGenesis Hospital Work Phone: Patient referralGen[facility] Hospital Work Phone: Zinc [Mass/volume] in Serum or PlasmaHCA [facility] Memorial [facility] Payers DatePayer CategoryPayerPolicy [id number] [id number] 2..1.109239.[id number] 2..1.654724.3.579.2.23856-66-6593Igdijgl [id number] 2..1.893991.3.57[id number] 2..1.797446.3.57[id number] 2..1.600755.3.57[id number] 2.16.840.1.432749.3.57[id number] 2.16.840.1.774222.3.57[id number] 2.16.840.1.2[id number] 2.16.840.1.069829.3.579.2.531 Social History DateTypeDetailFacilityStart: 04-16-2024 End: 13-41-2764Uduikjs smoking status NHISEx-smoker (finding)[facility] Centertart: 33-65-3821Xeg Assigned At BirthFeAdena Pike Medical Centertart: 11-19-2024 End: 16-64-7560FsbToeuum (finding)[facility] Clinical Notes 09-04-2024 to 07-14-2025 Note Date & QivqVfmcMebakxwd35-02-7020 Evaluation note* Author Manju Villafuerte [facility] HospitalAuthoredOctober 2024 4:04pmAssessment: Highest weight: 305 lbs Start weight: [...] Our exercise program was recommended with our ice bag assembler/obesity exercise group. Handout given. Our free weekly [...] and benefits of prescribed meds discussed. Initial ccyh-st-anux interview/evaluation. The patient was counseled in detail on the options for weight loss in an individual setting. [ ] minutes was spent caring for the patient, counseling/educating patient on the options for the treatment of obesity and related healthcare issues. The program's treatment goals were reviewed with the patient. Each aspect of the program was discussed with the patient. [facility] Work Phone: [phone]) 966-234509-03-2025 Evaluation note* Diagnosis Onset Date Resolution Status Admit Date Bilateral primary osteoarthritis of hip acuteSept2024 2:39pmBilateral primary osteoarthritis of kneeacute May 27, 2025 2:39pmBMI 50.0-59.9, adultacuteSept2024 2:39pm [facility] Work Phone: 1([phone]) 865-834809-03-2025 Hospital Discharge instructionsAmbulatory Orders* Referral to Pain Management Time Frame: 05/27/25, Location: None Selected * Referral to Weight Management Time Frame: 05/27/25, Location: None [facility] Work Phone: 1([phone]) 506-227904-28-2025 Evaluation note* Diagnosis Onset Date Resolution Status Admit Date Pica in adults acuteApril 2024 2:07pmThroat fullnessacuteApril 2024 2:07pmTrouble swallowingacuteApril 2024 2:07pmType 2 diabetes mellitus with hyperglycemiaacuteApril 2024 2:07pmDiarrheaacuteMay 2024 2:52pm History of colon canceracuteMay 2024 2:52pm [facility] Work Phone: [phone]) 557-453804-28-2025 Hospital Discharge instructionsAmbulatory Orders* Referral to ENT Time Frame: 01/19/25, Location: None [facility] Work Phone: [phone]) 818-166602-26-2025 Evaluation note* Diagnosis Onset Date Resolution Status Admit Date Diarrhea acuteFebruary 2024 2:54pmHistory of colon canceracuteFebruary 2024 2:54pmThroat fullnessacuteApril 2024 2:07pmTrouble swallowingacuteApril 2024 2:07pmType 2 diabetes mellitus with hyperglycemiaacuteApril 2024 2:07pm [facility] Work Phone: [phone]) 994-213912-12-2024 Evaluation note* Diagnosis Onset Date Resolution Status Admit Date Bilateral knee pain acuteDecember 2023 1:49pmColon canceracuteDecember 2023 1:49pm DiarrheaacuteDecember 2023 1:49pmHypertensionacuteDecember 2023 1:49pmType 2 diabetes mellitus with hyperglycemiaacuteDecember 2023 1:49pm DiarrheaacuteFebruary 2024 2:54pmHistory of colon canceracuteFebruary 2024 2:54pm [facility] Work Phone: Evaluation note* Diagnosis Onset Date Resolution Status Left knee pain acute [facility] Work Phone: Evaluation noteNo assessment information available [facility] Work Phone: Hospital Discharge instructionsAmbulatory Orders* Referral to Orthopedics Time Frame: 04/16/24, Location: None Selected [facility] Work Phone: Reason for referral (narrative)No reason for referral information availableGenesis Hospital Work Phone: Summary Purpose Family History Relationship Condition Age at Onset Recorded Date/T tani brother Malignant neoplasm Unknown HypertensionUnknownmotherMalignant neoplasmUnknownfatherMalignant neoplasm UnknownsisterMalignant neoplasmUnknownpaternal grandmotherDiabetes mellitus Unknown Relationship Condition Age at Onset Recorded Date/T tani brother Malignant neoplasm Unknown HypertensionUnknownDeceasedUnknownmotherMalignant neoplasmUnknownfatherMalignant neoplasmUnknownMalignant neoplasm of liverUnknownMalignant neoplasm of prostate UnknownsisterMalignant neoplasmUnknownpaternal grandmotherDiabetes mellitus UnknownMalignant neoplasmUnknownMalignant neoplasm of colonUnknown Cerebrovascular accident (CVA)Unknown Advance Directives Advance Directive Response Recorded Date/ [...] History of colon cancer November 19 2:54pm Chief Complaint Admit Date Ref: diarrhea/hx [...] right knee May 272024 9:26am CONSULT DR JOSE CORREIA KNEE PAIN WX TB Se pt2024 2:39pm Reason for Visit Admit Date Bilateral primary osteoarthritis of hip May 27, 2025 2:39pm Bilateral primary osteoarthritis of knee May 27, 2025 2:39pm BMI 50.0-59.9, adult May 27, 2025 2:39pm Chief Complaint Admit Date M25.561 - Pain in right knee May 272024 9:26am CONSULT DR JOSE CORREIA KNEE PAIN WX TBH Se pt2024 2:39pm Dante July 14, 2025 2 :45pm Additional Source Comments INFORMATION SOURCE (unrecogn ized section and content) DATE CREATED AUTHOR 03/14/2018 [facility] DATE CREATED AUTHOR AUTHOR'S ORGANIZ ATION 03/02/2025 [facility] DATE CREATED AUTHOR AUTHOR'S ORGANIZ ATION 05/31/2025 [facility] DATE CREATED AUTHOR AUTHOR'S ORGANIZ ATION 06/10/2025 [facility] Care Teams (unrecognized sec tion and content) Team Status: Active Member Role Status Dates Ilda Lopez MD Primary Care Provider Active Team Status: Inactive Member Role Status Dates Ilda Lopze MD Primary Care Provider Active Start: May 27, 2025 End: May 27, 2025Robej Leija II, MDAttending ProviderActiveStart: May 27, 2025 End: May 27, 2025 Team Status: Active Member Role Status Dates Ilda Lopez MD Primary Care Provider Active Start: May 27, 2025 Adriel Leija II, MDAttending ProviderActiveStart: May 27, 2025 Team Status: Inactive Member Role Status Dates Ilda Lopez MD Primary Care Provider Active Start: November 19, 2024 End: November 19jorge Mensah MDAttending ProviderActiveStart: November 19, 2024 End: November 19, 2024 Team Status: Inactive Member Role Status Elmer Lopez MD Primary Care Provide r, Attending Provider Active Start: January 19, 2025 End: January 19, 2025 Team Status: Active Member Role Status Elmer Lopez MD Primary Care Provide r, Attending Provider Active Start: September 03, 2024 Team Status: Inactive Member Role Status Elmer Lopez MD Primary Care Provide r, Attending Provider Active Start: September 04, 2024 End: September 04, 2024 Team Status: Inactive Member Role Status Elmer Lopez MD Primary Care Provide r, Attending Provider Active Start: April 16, 2024 End: April 16, 2024 Team Status: Active Member Role Status Elmer Lopez MD Primary Care Provide r, Attending Provider Active Start: January 26, 2025 Team Status: Inactive Member Role Status Elmer Lopez MD Primary Care Provider Active Start: February 17, 2025 End: February 17, 2025Aurora Doe ProviderActiveStart: February 17, 2025 End: February 17, 2025 Team Status: Active Member Role/Relationship Status Elmer Lopez MD Primary Care Provider Active Team Status: Inactive Member Role/Relationship Status Elmer Lopez MD Primary Care Provider Active Start: May 27, 2025 End: May 27, 2025Adriel Leija II, MDAttending ProviderActiveStart: May 27, 2025 End: May 27, 2025 Team Status: Inactive Member Role/Relationship Status Elmer Lopez MD Primary Care Provider Active Start: May 27, 2025 End: May 27, 2025Adriel Juni Heladio LUNA, MALINDAttending ProviderActiveStart: May 27, 2025 End: May 27, 2025 Team Status: Inactive Member Role/Relationship Status Dates Ilda Lopez MD Primary Care Provider Active Start: July 14, 2025 End: July 14, 2025Saqibantonio Haider Juan Diego Ordonezending ProviderActiveStart: July 14, 2025 End: July 14, 2025 Goals (unrecognized section and content) Goals [...] BE BASED ON THE PRIMARY CLINICAL RECORDS. [employer] provides no warranty or guarantee of the accuracy or completeness of information in this document.
[2025-07-17 10:23] LABS: Alanine Aminotransferase 30 U/L (14-59); Albumin Globulin Ratio 0.8; Albumin Level 3.4 g/dL (3.4-5.0); Alkaline Phosphatase 106 U/L (46-116); Anion Gap 17.7; Aspartate Amino Transferase 19 U/L (15-37); Blood Urea Nitrogen 23.0 mg/dL (7.0-18.0); Calcium 9.7 mg/dL (8.5-10.1); Carbon Dioxide 24.4 mmol/L (21.0-32.0); Chloride 104 mmol/L (98-107); Cholesterol 155 mg/dL (<=200); Estimated GFR (African America 43 (>=60 mL/min/1.73m^2); Estimated GFR (Non-African Ame 35 (>=60 mL/min/1.73m^2); Globulin 4.4 g/dL; Glucose 99 mg/dL (74-106); HDL Cholesterol 50 mg/dL (40-60); Potassium 4.1 mmol/L (3.5-5.1); Sodium 142 mmol/L (136-145); Thyroid Stimulating Hormone 1.106 uIU/mL (0.358-3.740); Total Protein 7.8 g/dL (6.4-8.2); Triglycerides 147 mg/dL (<=150); VLDL CHOLESTEROL 29.4 mg/dL
== END 2025-07-17 08:29 | disposition home or self-care (01) ==
LOC: LAB 08:36
PROVIDERS: PCP Family Medicine; Visit Provider Internal Medicine
DX: I12.9 Hypertensive chronic kidney disease with stage 1 through stage 4 chronic kidney disease, or unspecified chronic kidney disease (principal); N18.30 Chronic kidney disease, stage 3 unspecified; E11.65 Type 2 diabetes mellitus with hyperglycemia; E88.810 Metabolic syndrome; F32.A Depression, unspecified
CPT/HCPCS: 36415; 80053; 80061; 84443

== ENCOUNTER 2025-09-10 14:30 | Outpatient (OUT) | payer MEDICARE, SELFPAY ==
--- OUTSIDE RECORDS SUMMARY | 2025-09-01 19:04 | XMS_ITS | Continuity of Care Document ---
Author Organization [facility] Address [address] [place] [address] Phone Care Team Providers Care Clothes Presser Name Role Phone Ilda Lopez MD Primary Care Provider Luigi Ordonez MD Attending Provider [phone] Ilda Lopez MD Attending Provider [phone] Marie Montano RPH Attending Provider Unavailable Brielle Akers RD Attending Provider Unavailable Care Teams Patient Care Team Team Status: Active Member Role/Relationship Status Dates Ilda Lopze MD Primary Care Provider Active Visit Care Team Team Status: Inactive Member Role/Relationship Status Dates Ilda Lopez MD Primary Care Provider Active Start: July 14, 2025 End: July 14, 2025Kevin Connell ProviderActiveStart: July 14, 2025 End: July 14, 2025 Visit Care Team Team Status: Active Member Role/Relationship Status Dates Ilda Lopez MD Primary Care Provider Active Start: July 17, 2025 Kevin Connell ProviderActiveStart: July 17, 2025 Visit Care Team Team Status: Inactive Member Role/Relationship Status Dates Ilda Lopez MD Primary Care Provider Active Start: July 20, 2025 End: July 20, 2025Kevin Goss ProviderActiveStart: July 20, 2025 End: July 20, 2025 Visit Care Team Team Status: Inactive Member Role/Relationship Status Dates Ilda Lopez MD Primary Care Provider Active Start: August 11, 2025 End: August 11, 2025Dawn Fitt , RPHAttending ProviderActiveStart: August 11, 2025 End: August 11, 2025 Patient Care Team Team Status: Inactive Member Role/Relationship Status Dates Ilad Lopez MD Primary Care Provider Active Start: September 01, 2025 End: September 01elias Akers RD LDAttending ProviderActiveStart: September 01, 2025 End: September 01, 2025 Chief Complaint and Reason for Visit Chief Complaint Admit Date Lopez-Kristy July 14, 2025 2 :45pm Cold July 20, 2025 2 :24pm Per Dr. Ordonez August 11, 2025 2:56pm One on One Appt September 01, 2025 3 :20pm Reason for Visit Admit Date Abnormal weight gain July 14, 2025 2:45pm Bilateral primary osteoarthritis of hip July 14, 2025 2:45pm Bilateral primary osteoarthritis of knee July 14, 2025 2:45pm CKD (chronic kidney disease) stage 3, GF R 30-59 ml/min July 14, 2025 2:45pm Colon cancer July 14, 2025 2 :45pm Depression July 14, 2025 2 :45pm GERD (gastroesophageal reflux disease) O ct2024 2:45pm Hypertension July 14, 2025 2 :45pm Loud snoring July 14, 2025 2 :45pm Metabolic syndrome July 14, 2025 2 :45pm Type 2 diabetes mellitus with hyperglyce sheri July 14, 2025 2:45pm CKD (chronic kidney disease) stage 3, GF R 30-59 ml/min July 20, 2025 2:24pm Sinusitis, acute maxillary July 20, 2025 2:24pm Encounter for medication counseling Antonio regalado 2024 2:56pm Allergies, Adverse Reactions, Alerts Allergen Type Severity Reaction Last Updated Verified Status No Known Allergies Allergy Unknown July 20, 2025 1:54pmYesActive Social History Smoking Status Status Start Date End Date Date of Observa tion Ex-smoker (finding) July 14, 2025 3:15pm Observation Status Observation Response Date of Response Legal Sex Female (finding) Sex Assigned At BirthFemaleSeptember 1954 Family History Relationship Condition Age at Onset Recorded Date/T tani brother Malignant neoplasm Unknown HypertensionUnknownDeceasedUnknownmotherMalignant neoplasmUnknownDeceasedUnknown fatherMalignant neoplasmUnknownDeceasedUnknownMalignant neoplasm of liverUnknown Malignant neoplasm of prostateUnknownsisterMalignant neoplasmUnknownHypertension UnknownDeceasedUnknownpaternal grandmotherDiabetes mellitusUnknownDeceased UnknownMalignant neoplasmUnknownMalignant neoplasm of colonUnknown Cerebrovascular accident (CVA)Unknown Problems Active Problems Problem Diagnosis/Recorded Date Onset Date Stat us Loud snoring July 14, 2025 3:46pm Unknown Ac tive Mixed anxiety and depressive disorder April 16, 2024 10:03am Unknown Active Pica in adults January 19, 2025 1:35pm Unknown Ac tive Throat fullness January 19, 2025 1:32pm Unknown A ctive Type 2 diabetes mellitus wit h hyperglycemia April 16, 2024 11:37am Unknown Active History of colon cancer November 19, 2024 2:54pm Unk nown Active History of colon cancer February 17, 2025 2:17pm Unknown Active Bilateral primary osteoarthritis of hip May 27, 2025 3:19pm Unknown Active Bilateral primary osteoarthr itis of knee May 27, 2025 3:21pm Unknown Active Sinusitis, acute maxillary July 22, 2025 9:03am U nknown Active Colon cancer April 16, 2024 10:04am Unknown Acti ve CKD (chronic kidney disease) stage 3, GFR 30-59 ml/min July 14, 2025 3:46pm Unknown Active Abnormal weight gain July 14, 2025 3:44pm Unknown Active Trouble swallowing January 19, 2025 1:34pm Unknown Active Depression July 14, 2025 3:45pm Unknown Ac tive Diarrhea September 08, 2024 10:10am Unknown Active Metabolic syndrome July 14, 2025 3:46pm Unknown Active BMI 50.0-59.9, adult May 27, 2025 3:12pm Unknow n Active Bilateral hip pain May 27, 2025 3:19pm Unknown Active Left knee pain April 16, 2024 10:28am Unknown Ac tive Bilateral knee pain September 04, 2024 2:30pm Unknown Active GERD (gastroesophageal reflux disease) March 17, 2025 7:22pm Unknown Active Hypertension April 16, 2024 10:04am Unknown Acti ve Medications Medication Status Dose Units Route Directions Qty Days Refills S tart Date Stop Date End Date Reason(s) Instructions Adherence Citalopram 10 mg tablet Discontinued 40 MG PO Krysta ly 90 0July 2023 9:27amJuly 2023 9:38amCitalopram 40 mg tabletDiscontinued 17ANEFSookv378Rqid 2023 9:37amNovember 2023 7:51amMeloxicam 7.5 mg tabletDiscontinued0.ROUTE.ILWVKNK854Strhxr 2023 10:13amDecember 2023 9:32pmTAKE 1 TABLET BY MOUTH EVERY DAYLosartan-Hydrochlorothiazide 100-12.5 mg rukybtChmzjfbwyvny2IRGZMQlfpf869Ygfbktx 2023 7:24amDecember 2023 9:17amSemaglutide (Ozempic) 1 mg/dose (4 mg/3 mL) pen injectorDiscontinued0 .ROUTE.LHAKQAX88Hfdjefxy 2023 8:34amDecember 2023 2:24pmINJECT 1 MG (0.75 ML) SUBCUTANEOUSLY WEEKLYCitalopram 40 mg ykksadDjrifpenviki74GXDYJuesp751 August 22, 2024 7:51amDecember 2023 9:17amMeloxicam 7.5 mg tablet Discontinued0.ROUTE.TPEJGUH597Coqqssyf 2023 9:31pmMay 2024 2:07pm TAKE 1 TABLET BY MOUTH EVERY DAYCitalopram 40 mg lspbnoRpnlahiwbokp02MBEYPvdix19 2023 9:17amMay 2024 7:30amLosartan-Hydrochlorothiazide 100- 12.5 mg cpbdsgCxyatxqdzxka4WATOJXxzrk329Imzfhswx 30th, 2024 9:17amMay 2024 7:30amBupropion Hcl 300 mg tablet extended release 24 hrDiscontinued0.ROUTE .XTUESJA279Sxydpnl 2024 1:16pmMarch 2024 8:03amTAKE 1 TABLET BY MOUTH EVERY MORNINGAmlodipine 5 mg tabletDiscontinued0.ROUTE.LOIGLRP363Pednwtt 2024 1:16pmMarch 2024 8:03amTAKE 1 TABLET BY MOUTH EVERY DAYBupropion Hcl 300 mg tablet extended release 24 hrDiscontinued0.ROUTE.PTKMZYO812Ewvep 2024 8:02amMay 2024 7:30amTAKE 1 TABLET BY MOUTH EVERY MORNINGAmlodipine 5 mg tabletDiscontinued0.ROUTE.UBECRLZ662Kuldk 2024 8:02amMay 2024 7:30amTAKE 1 TABLET BY MOUTH EVERY DAYAmlodipine 5 mg tabletDiscontinued0.ROUTE .APCLQFC704Roz 1st, 2025 7:30amSeptember 2024 12:49pmTAKE 1 TABLET BY MOUTH EVERY DAYLosartan-Hydrochlorothiazide 100-12.5 mg sgvpflVedeqilkhruy5DBPXSBcpvq 900Ma2024 7:30amJuly 2024 2:44pmBupropion Hcl 300 mg tablet extended release 24 hrDiscontinued0.ROUTE.NVKGVWT069Idw 1st, 2025 7:30am May 26, 2025 12:49pmTAKE 1 TABLET BY MOUTH EVERY MORNINGCitalopram 40 mg jcwegzXsodomqirfum69ZOUIVscvg485Zrv 2024 7:30amMay 2024 11:24amFolic Acid 1 mg zqylkuNwvpjz3CKXBCktix708Ksu 2024 11:00pmUnknownCitalopram 20 mg utkaowZokrcouxwfpr50GQFQVyjgq411Puo 2024 11:22amAugust 2024 3:26pm Losartan-Hydrochlorothiazide 100-12.5 mg tabletActive0.ROUTE.TTWHDBH846Lxgf 2024 2:44pmTAKE 1 TABLET BY MOUTH EVERY DAYUnknownCitalopram 20 mg tablet Kcrbowfnocqb00MSHAZwzsk941Sbtvul 2024 3:25pmSept2024 7:32am Amlodipine 5 mg tabletDiscontinued0.ROUTE.DMFWGFT034Twmcvikqo 2nd, 2025 12:49pm 2025 7:32amTAKE 1 TABLET BY MOUTH EVERY DAYBupropion Hcl 300 mg tablet extended release 24 hrDiscontinued0.ROUTE.ITIOREH562Lrplmwbgq 2nd, 2025 12:49pmSeptember 2024 7:32amTAKE 1 TABLET BY MOUTH EVERY MORNINGBupropion Hcl 300 mg tablet extended release 24 hrActive0.ROUTE.VNMSLYA491Mayuulzza 2024 7:31amTAKE 1 TABLET BY MOUTH EVERY MORNINGUnknownAmlodipine 5 mg tablet Active0.ROUTE.RARIDAK410Hzwsjkcsz 26th, 2025 7:31amTAKE 1 TABLET BY MOUTH EVERY DAYUnknownCitalopram 20 mg qfprtoXuatsx97KKTPHwfxt5218Nkybulokn 2024 7:31amUnknownCitalopram 10 mg itobuyPvwhmlisfjvy89KIUJQcnndMtiv 2023 11:00pmJuly 2023 10:28amBupropion Hcl 300 mg tablet extended release 24 hr Nwddpvktskbj492YPSNYzimo morningJuly 2023 11:00pmJuly 2023 10:28am Amlodipine 5 mg ukhkppMvwtvfvlstxy1FNNWLfcngTrkj 2023 11:00pmJuly 2023 10:28amLosartan-Hydrochlorothiazide 100-12.5 mg ghcrsmPwohnymkghzr1RMHKX DailyJuly 2023 11:00pmJuly 2023 10:28amHydrocodone-Acetaminophen 5- 325 mg ctpkvcAqyloatrzzzn4VJQASKnzse at bedtime as vxeuig1Rqrr 2023 11:00pmDecember 2023 2:32pmSemaglutide (Ozempic) 1 mg/dose (4 mg/3 mL) pen bgtfwyfrNgjpzpyjfupk1WRHBTRIDhaifc weekJuly 2023 11:00pmJuly 2023 10:28amAmlodipine 5 mg qqqtnvLdgjzetpvime7YINQGgnan486Qhep 2023 10:26am September 25, 2024 1:16pmBupropion Hcl 300 mg tablet extended release 24 hr Futoajdtrpej694BEJBIebrg yywyptx906Prac 2023 10:27amJanuary 2024 1:16pmCitalopram 10 mg hbtwjyQkkbjpuanmuz04BEFUJsjjb434Guog 2023 10:27am April 17, 2024 9:30amLosartan-Hydrochlorothiazide 100-12.5 mg tablet Yqfkknvpbjll2WQEXZUhdxu231Usva 2023 10:27amOctober 2023 7:24am Semaglutide (Ozempic) 1 mg/dose (4 mg/3 mL) pen bhawxdtnYghmtqemsjmu8KEIEBBAU every sjct64Emyv 2023 10:27amNovember 2023 8:34amMeloxicam 7.5 mg tabletDiscontinued7.7KUCVOtbak456Icri 2023 11:00pmAugust 2023 10:13amMeloxicam 7.5 mg tabletDiscontinued7.5MGPODaily as neededJunober 2024 11:00pmOctober 2024 2:10pmSaccharomyces Boulardii (Digest Probiotic (S.Boulardii)) 250 mg mitegvlSbffjr247JEUPVoqefVlxxueq 2024 11:00pmUnknown Multivitamin nfvlrvYgojji4MXRDYLlofyWnrpshc 2024 11:00pmUnknownOndansetron 4 mg tablet,becgcqwpdgkzhzHcakun4JVHNJ9R as neededJuly 14, 2025 2:06pm UnknownTirzepatide (Mounjaro) 2.5 mg/0.5 mL pen injectorActive2.5MGSUBCUTevery mgft8351Msovdvv 20th, 2025 11:00pmUnknownCefdinir 300 mg skggbykWxnpiwkxpvvw996 MGPOTwice bcxea777Czeugjp 2024 11:00pmNovember 2024 3:18pm Ondansetron 4 mg tablet,pesxtptmpmzrntMohndkoloiob9GHTVB9P186Pguappnt 2023 12:00amOctober 2024 2:06pmDicyclomine 20 mg piktdpHejism42XOJSIjdim daily 961379Ewcormdl 2024 12:00amUnknownFamotidine 20 mg tabletDiscontinuedMGPO February 16, 2025 11:00pmOct2024 2:06pmOmeprazole 40 mg capsule,delayed release(DR/EC)DiscontinuedMGPOMay 2024 11:00pmOctober 2024 2:06pm Celecoxib 200 mg capsuleDiscontinuedMGPOTwice dailyMa2024 11:00pmOctober 2024 2:06pmBaclofen 5 mg prguiiRthgbrhnkvmy3VVGJPzpbpRht 2024 11:00pmNovember 2024 3:17pmHyoscyamine Sulfate (Levsin/Sl) 0.125 mg tablet, sublingualActive0.125MGPOThree times litxs26687TwxFebruary 16, 2025 11:00pm UnknownCelecoxib 200 mg xjcanpwWprjytyvtjuw639GYLTLnqlw dailyJuly 14, 2025 1:55pmOctober 2024 2:11pmFamotidine 20 mg avcmyuClcoxk49CUMZNswtuNftejml 21st, 2025 1:56pmUnknownOmeprazole 40 mg capsule,delayed release(DR/EC)Opiwli97 MGPODailyJuly 14, 2025 2:03pmUnknownHydrocodone-Acetaminophen 5-325 mg niwkmiKtkmipmoujnz4CHVDDCsxzp times daily as pptrun9Yenuc 2024 11:00pm May 27, 2025 2:09pmCitalopram 40 mg tabletDiscontinuedMGPOSeptember 2024 11:00pmSeptember 2024 7:33amHydrocodone-Acetaminophen 7.5-325 mg dqelviJkksjxxdggivKHTWQ2Nvbeduvuc 2024 11:00pmOctober 2024 2:06pm Hydrocodone-Acetaminophen 7.5-325 mg lzhgfkDywlkb1QLNSCfc cszrmd3XylwickJuly 14, 2025 2:02pmUnknown Relevant Diagnostic Tests and/or Laboratory Data Laboratory Results Test Collection Date/Time Result Date/Time Result Interpretation Reference Range Result Comment Performing Site Bedside Hemoglobin A1c July 14, 2025 2:51pm Octob er 2024 2:51pm 5.5 % Thyroid Stimulating Hormone 3rd GenOctober 2024 7:52amOctober 2024 7:52am1.106 u[iU]/mL0.358-3.740Cholesterol/HDL RatioOct2024 7:52am July 17, 2025 7:52am3.13.3 - 4.4 LOW RISK4.4 - 7.1 AVERAGE RISK7.1 - 11.0 MODERATE RISK>11.0 HIGH RISKAnion GapOct2024 7:52amJuly 17, 2025 7:52am17.7Cholesterol LevelOct2024 7:52amOct2024 7:52am 155 mg/dL<=200Albumin/Globulin RatioOct2024 7:52amOct2024 7:52am0.8HDL CholesterolOct2024 7:52amOct2024 7:52am50 mg/dL40-60> or =60 mg/dl - LOW CARDIOVASCULAR RISK<40 mg/dl - HIGH CARDIOVASCULAR RISKAlbuminOct2024 7:52amJuly 17, 2025 7:52am3.4 g/dL3.4-5.0LDL Cholesterol, CalculatedOct2024 7:52amJuly 17, 2025 7:52am75.6 mg/dL<100 mg/dl NGSFXVK016-975 mg/dl NEAR OR ABOVE FTVXIIQ598- 159 mg/dl BORDERLINE CNBJ595-137 mg/dl HIGH>190 mg/dl VERY HIGHAlkaline PhosphataseOct2024 7:52amJuly 17, 2025 7:01wp666 U/L46-116 Triglycerides [facility]20[facility] 7:52amOct2024 7:61kk313 mg/dL <=150Alanine Aminotransferase (ALT/SGPT)July 17, 2025 7:52amJuly 17, 2025 7:52am30 U/G13-52MHMD CholesterolOct2024 7:52amOct2024 7:52am29.4 mg/dLAspartate Amino Transf (AST/SGOT)July 17, 2025 7:52am July 17, 2025 7:52am19 U/C75-73WQW/Creatinine RatioOct2024 7:52amJuly 17, 2025 7:52am15.6Blood Urea NitrogenOct2024 7:52am July 17, 2025 7:52am23.0 mg/dLAbove high normal7.0-18.0Calcium LevelOct2024 7:52amOct2024 7:52am9.7 mg/dL8.5-10.1Chloride Level July 17, 2025 7:52amOct2024 7:38lu992 mmol/Q58-003Amelfw Dioxide LevelOct2024 7:52amOct2024 7:52am24.4 mmol/L21.0-32.0 CreatinineOct2024 7:52amOct2024 7:52am1.47 mg/dLAbove high normal0.55-1.02Estimated GFR ()July 17, 2025 7:52amJuly 17, 2025 7:26wm27Atskg low normal>=60 mL/min/1.73m 2Estimated GFR (Non- AmericanOct2024 7:52amOct2024 7:20ch87Dqozd low normal>=60 mL/min/1.73m 2GlobulinOct2024 7:52amOct2024 7:52am4.4 g/dLGlucose LevelOct2024 7:52amOct2024 7:52am99 mg/tX43-454Fpfyzrhmj LevelOct2024 7:52amOct2024 7:52am4.1 mmol/L3.5-5.1Sodium LevelOct2024 7:52amOctober 2024 7:53fv143 mmol/O909-488Lwztf BilirubinOct2024 7:52amOct2024 7:52am 0.2 mg/dL0.2-1.0Total ProteinOct2024 7:52amOct2024 7:52am 7.8 g/dL6.4-8.2 Vital Signs Vital Reading Result Reference Range Collection Date/Time Height 62.13 [in_i] July 14, 2025 2:29vlNeqjwh490.90 kgOctober 2024 2:17pmHeart Rate87 /dmt50-867Ldcrniw 2024 2:17pmRespiratory rate18 /udr62-41Vplante 2024 2:17pmOxygen saturation by Pulse %95-100Oct2024 2:17pmBP Lzvroioj974 mm[Hg]100-140October 2024 2:17pmBP Xgowetczy08 mm[Hg] 60-100October 2024 2:17pmBMI (Body Mass Index)48.9 kg/g4Qxsyeeo 2024 2:63vpJovhvy39.5 [in_i]July 20, 2025 1:23meApxonk026.56 kgOctharlan arh hospital 2024 1:51pmBody Eonistbicme46.2 [degF]97.6-99.0Octharlan arh hospital 2024 1:51pmHeart Rate86 /umz47-514Hupjqcl 2024 1:51pmBP Erhjhxvd247 mm[Hg]100-140October 2024 1:51pmBP Hjstldqpv31 mm[Hg]60-100October 2024 1:51pmBMI (Body Mass Index)48.2 kg/q8Nrbtrnz 2024 1:49mzAoinva87.5 [in_i]September 01, 2025 3:52xyNgmfnw028.70 kgDeceer 2024 3:35pmBMI (Body Mass Index)46.7 kg/p8Hwsxmbrm 2024 3:35pm Advance Directives Advance Directive Response Recorded Date/ Time Advance Directives No April 07 2:17pm Insurance Providers Guarantor Gillian Interiano Address [address] [place] [id number] Info.Home Phone: Coverage Status Update:2025 Payer Group Member ID Coverage Type Subscriber Relationship to Subscriber Effective Date Expiration Date Miley COMBS Id: [id number] L Stewart Id: [id number] [address] Home Phone: Email: [email or web address] Encounters Encounter Location(s) Arrival/Admit Date Discharge/Departure Date Discharge/Departure Disposition Provider(s) Departed Physician/ Provider Office Visit -[facility] July 14, 2025 2:45pm July 14, 2025 4:32pm Discharged to home care or self care (routine discharge) Luigi Ordonez MD Non-patient / Non-visit -[facility] O ctober 2024 8:52am Luigi Ordonez , MDDeparted Physician/Provider [facility] 20[facility] 2:24pmOctober 2024 3:27pmDischarged to home care or self care (routine discharge)Ilda Lopez , [facility] 2024 2:56pmNovember 2024 4:36pmDischarged to home care or self care (routine discharge)Marie Montano HDeparted Physician/Provider [facility] 2024 11:59pmDischarged to home care or self care (routine discharge)Brielle Akers Recent Diagnosis Onset Date Admit Date Abnormal weight gain Unknown June 2:45pm Bilateral primary osteoarthritis of hip Unknown July 14, 2025 2:45pm Bilateral primary osteoarthritis of knee Unknown July 14, 2025 2:45pm CKD (chronic kidney disease) stage 3, GFR 30-59 ml/min Unknown July 14, 2025 2:45pm Colon cancer Unknown July 14 2:45pm Depression Unknown July 14 2:45pm GERD (gastroesophageal reflux disease) Unknown July 14, 2025 2:45pm Hypertension Unknown July 14 2:45pm Loud snoring Unknown July 14 2:45pm Metabolic syndrome Unknown July 14, 2025 2:45pm Type 2 diabetes mellitus with hyperglycemia Unkn own July 14, 2025 2:45pm CKD (chronic kidney disease) stage 3, GFR 30-59 ml/min Unknown July 20, 2025 2:24pm Sinusitis, acute maxillary Unknown Octob er 2024 2:24pm Encounter for medication counseling Unknown August 11, 2025 2:56pm Assessments Author Luigi Ordonez [facility] CompanyAuthoredOctober 2024 4:01pmAssessment: Highest weight: 305 lbs Start weight: 268.7 lbs. Starting Date: 07/14/25. Mounjaro start date 07/14/2025. Mounjaro start weight 268.7 pounds. 1. Abnormal weight gain-she notes she is the heaviest in her family but her paternal grandmother had significant abdominal obesity and type 2 diabetes. 2. Obesity-we are going to start the patient on Mounjaro as it can be used for type 2 diabetes and she most likely has obstructive sleep apnea also. She has no contraindications but she understands it could cause some nausea and vomiting like Ozempic did in the past. She will call us any symptoms or problems. I gave her a sample and showed her how to use the first dose and watched her to give herself the first dose. We will try to get her approved for her diabetes if she tolerates it. Await sleep study she may qualify for Zepbound. We could try Ozempic again at lower doses for her type 2 diabetes which is well-controlled at 5.5 with starting the program if it does not produce nausea vomiting again. It was effective for weight management in the past by her history. She is agreeable not to skip meals like breakfast and lunch and at least have a Premier protein shake. She understands the risk of eating all her food and calories at night. She does like vegetables and whole fruits and will try to follow the plate method. She will try to be more active and eventually we will try to get her in the pool/water exercise. We do not have her cholesterol numbers or recent TSH which we will order. We are referring to behavioral health for evaluation and treatment of her chronic depression. I discussed with her and her if she would ever get any suicidal ideation or suicidal plan she would need to be brought to the emergency room or call the 800 suicide prevention line. She is not currently suicidal. She was referred here from orthopedics to try to get her weight at least less than 250 pounds to consider knee replacement surgery. She is here today with her Du and ppptum-xx-nlz. She had she was diagnosed 2 years ago when she lived in [place] with type 2 diabetes she does not remember her A1c number. She was placed on Ozempic and did not have a lot of problems at first was able to lose between 30 to 60 pounds. She notes she was able to get down to around 230-235. She notes however later with taking the Ozempic he started having some issues with nausea and vomiting. She has seen our gastroenterology group as she has chronic diarrhea status post colon cancer resection and GERD. We checked an A1c today on her without medications and it was 5.5. She unfortunately has more of a diet mentality and unhealthy eating habits. She been bothered by chronic depression and her PHQ-9 was 21 with starting the program. She checked that nearly every day she has thoughts that she would be better off or hurting herself in someway. She currently has no suicidal intent or plan. She notes she has not tried to hurt herself recently but long time ago she took a number of pills. She notes she has seen a psychiatric prescriber in the past but now just gets her Wellbutrin and citalopram from her PCP Dr. Lopez. Her and jhqnxu-tz-xxo are very supportive and are making sure that they are watching out for any change in mood/increased depression/suicidal ideation. She had an [place] of 18 with starting the program and her states that she has a loud snorer and has never had sleep testing. Her 24-hour food diary before starting the program showed very little protein and some sugared beverages. ?The patient has a number of weight related health issues type 2 diabetes, arthritis of the hips and knees, depression, hypertension and GERD. ?Behavioral: The patient's previous eating habits prior to starting our program poor. ?Before starting the program the biggest reasons for weight struggles include increased appetite, unhealthy diet, unhealthy snacks, skipping lunch, skipping breakfast, eating most dinners out, depression, to many tempting foods at home, lack of exercise and activity gets around with a walker, loss of food control and constant food thoughts/cravings. ?Exercise before starting the program: None. The patient will treat with long-term lifestyle changes of improved nutrition, increased exercise and activity, stress reduction, adequate sleep and behavioral modification versus short-term dieting. 3. Type 2 diabetes mellitus diagnosed about 2-1/2 years ago when she lived in [place]. We do not have these records. Her most recent A1c in the office today 07/14 2025 was 5.5 currently on no medications. We are going to start Mounjaro. first-line treatment with long-term healthy lifestyle change, decreased simple sweets and refined starches, increased exercise and activity and long-term weight loss. Consider metformin but has chronic diarrhea. 5. Hypertension-controlled on amlodipine. She will treat with a low-salt diet, decreased processed and restaurant foods, healthy lifestyle changes and achieve long-term weight loss. Monitor outside the office. 6. Severe bilateral arthritis of the knees and hips-she is seeing Dr. Leija and pain management and is on narcotics. She needs surgery but has to lose weight first. Sent here by orthopedics. 7. [place] of 18/loud Snorer-at high risk for obstructive sleep apnea. Treat with good sleep hygiene and weight loss. We are sending her to the sleep clinic for evaluation and treatment/sleep study. 8. History of colon cancer-healthy diet and weight management hopefully will help decrease her risk of weight related cancers. She will work closely with our formstone fitter and our psychologist. 9. GERD-treat with antireflux diet, weight loss and she is on omeprazole and famotidine also. She follows with gastroenterology. Monitor with adding a GLP-1. 10. CKD 3 with last creatinine of 1.14 GFR 57. She is going to try to drink more water and we will monitor. 11. Severe depression with PHQ-9 of 21 with starting the program, past history of 1 suicidal attempt by her history with increased pills and past thoughts of hurting herself/suicide. Follow up with me in 6 weeks. New labs needed: TSH, cholesterol profile, and CMP ordered. The patient was instructed to consider logging [...] Our exercise program was recommended with our gun perforator loader/obesity exercise group. Handout given. Our free weekly [...] and benefits of prescribed meds discussed. Initial alla-ll-imzt interview/evaluation. The patient was counseled in detail on the options for weight loss in an individual setting. 83 minutes was spent caring for the patient, counseling/educating patient on the options for the treatment of obesity and related healthcare issues. The program's treatment goals were reviewed with the patient. Each aspect of the program was discussed with the patient. Plan of Treatment Author Ilda Lopez [facility] CompanyAuthoredOctober 2024 10:29amGFR 35 Hold all NSAIDS and increase hydration. Recheck labs in 2-4 weeks. Pt expresses understanding. Discussed diagnosis with patient. Instructed to take ATB as directed and complete entire course even if asymptomatic. OTC Tylenol or ibuprofen for discomfort. Saline nasal spray prn congestion. Flonase nasal spray prn congestion. OTC cough medication prn cough. Push fluids and rest. Cool mist humidifier. Immediate evaluation if worsening symptoms. Patient to notify office should symptoms persist or not improve. Pt verbalizes understanding and agrees with tx plan. Author Sarah Nina [facility] CompanyAuthoredNovyuma regional medical center 2024 2:53pmPatient presented today for comprehensive medication review with pharmacist. Patients information as available was reviewed and a preliminary individualized packet prepared prior to visit. At visit, patient information was updated as to medication, dosages, reason for taking, timing of taking, and start date or current length of therapy. OTC treatments, either routine or PRN were added. Problem list was updated. Patient reports adherence to medications and is somewhat knowledgeable of what medications they are taking. They note that they are unclear of what the medications are used for. Indications were discussed. Patient advised to call [facility] with any questions. Potential drug interactions and side effects were discussed. Patient was provided with questions, at their request, to ask their doctor pertaining to the following interactions: Bupropion - Citalopram (Category D): Bupropion may increase adverse/toxic effects of citalopram. Bupropion may increase serum concentrations of Citalopram. Lexicomp recommends to consider limiting the maximum citalopram adult dose to 20mg/day during concomitant bupropion treatment. This decrease has already been made. However, in light of the interaction of omeprazole and citalopram added to patient's list. Citalopram - Omeprazole (Category D): Omeprazole may increase serum concentrations of citalopram. Lexicomp recommends limiting citalopram dose to a maximum of 20mg/day if used with omeprazole. Patient plan to ask their provider if switching omeprazole to pantoprazole would work for them. Of note, patient does not have any omeprazole in the medication supply that they brought in to the visit. Patient to ask their provider if they should still be taking as was noted to take in last GI note of 02/17/25. The patient was provided with information on medications, a medication list, and an action plan sheet to remind patient of advised changes or monitoring, as well as issues to discuss with provider. Time spent with patient: 60 minutes Seen by: Heike Nina [facility] Future Tests Future scheduled test information is unavailable Pending Tests Test Name Ordered Date Scheduled Date Comprehensive Metabolic Panel July 14, 2025 3:57pm Future Visits Future appointment information is unavailable Future Procedures Procedure Name Ordered Date Scheduled Date MANAGER VOICE initial clinic visit July 16, 2025 6:44 am Lipid PanelOctober 2024 3:57pmBasic Metabolic PanelOctober 2024 2:11pm1 MonthsMicroAlb Creat Ratio,UOctober 2024 2:11pm1 Months Future Medications Future medication information is unavailable Patient Instructions Patient instructions are unavailable
--- OUTSIDE RECORDS SUMMARY | 2025-09-10 14:34 | XMS_ITS | Clinical Summary ---
Author Organization [employer] s tem Address [id number] [place] [address] Care Team Providers Care Gastroenterology Professor Name Role Phone Ilda Lopez MD Primary Care Provider [phone] Social History Tobacco UseTypesPacks/DayYears UsedDateSmoking Tobacco: Never Assessed CommentsUnknownSex and Gender InformationValueDate RecordedSex Assigned at Not on fileLegal GvdSxbimt23/02/2025 3:32 PM EDTGender IdentityNot on fileSexual OrientationNot on file Plan of Treatment Health MaintenanceDue DateLast DoneCommentsDepression Qbwuunmzn03/26/1967Tobacco Crxwkhffv18/26/1967Adult BMI Mzzozviko53/26/1973DTaP,Tdap and Td Vaccines (1 - Tdap)1974Zoster (Shingles) Vaccine (1 of 2)2005Fall Risk Screening 2020COVID-19 Vaccine ( - 2024- season)5012/17/2021, 07/15/2021, 06/24/2021Influenza Rhqjwrw8205/25/2025RSV ( or age 60+ yrs) (1 - 1-dose 75+ series)2030 Medical Devices Not on file Insurance Care Teams Team MemberRelationshipSpecialtyStart DateEnd Date Ilda Lopez MD [address] [place] [address] PCP - GeneralFamily Medicine04/08/25
--- OUTSIDE RECORDS SUMMARY | 2025-09-10 14:34 | XMS_ITS | Clinical Summary ---
Author Organization [facility] Address [address] [place] [address] Care Team Providers Care Production Generalist Name Role Phone Ilda Lopez MD Primary Care Provider [phone] Allergies No known active allergies Medications MedicationSigDispense QuantityRefillsLast FilledStart DateEnd DateStatus amLODIPine (Norvasc) 5 MG tablet Take 5 mg by mouth Daily04/16/2024ctive buPROPion XL (Wellbutrin XL) 300 MG 24 hr tablet 300 mg in the morning.04/16/2024ctive citalopram (CeleXA) 10 MG tablet Take 20 mg by mouth Daily 40 mg daily04/16/2024ctive HYDROcodone-acetaminophen (Farson) 5-325 MG tablet Take 1 tablet by mouth every 6 (six) hours if needed for moderate pain04/16/2024 Active losartan-hydroCHLOROthiazide (Hyzaar) 100-12.5 MG tablet Take 1 tablet by mouth Daily04/16/2024ctive meloxicam (Mobic) 7.5 MG tablet Take 15 mg by mouth Daily04/16/2024ctive baclofen (Lioresal) 5 MG tablet 02/01/2024ctive citalopram (CeleXA) 40 MG tablet Take 40 mg by mouth Daily05/26/2024ctive dicyclomine (Bentyl) 20 MG tablet Twice daily5Active celecoxib (CeleBREX) 200 MG capsule Take 200 mg by mouth in the morning and 200 mg before bedtime.5Active diazePAM (Valium) 10 MG tablet TAKE 1 TABLET BY MOUTH PRIOR TO LEAZZUMFH78/10/2025Active folic acid (Folvite) 1 MG tablet Take 1,000 mcg by mouth Daily5Active famotidine (Pepcid) 20 MG tablet Indications:LPRD (laryngopharyngeal reflux disease)TAKE 1 TABLET (20 MG) BY MOUTH IN THE MORNING AND BEFORE BEDTIME 180 tablet 5Active Active Problems ProblemNoted DateDiagnosed DateBilateral knee pain01/28/2025olon cancer 01/28/20258841Ngpmhbla33/07/2025History of colon jkxxmf3701/28/2025Hypertension 01/28/2025Mixed anxiety and depressive /07/2025Pica in adults 01/28/2025Throat ljtouejv27/07/2025Trouble qdpsidqwag37/07/2025Type 2 diabetes mellitus with nlusewzkefsqf26/07/2025 Encounters DateTypeDepartmentCare CrsqAxzcdsmzcuq44/24/2025Refill [facility] [address] [place] [address] Beatris Solo MD LPRD (laryngopharyngeal reflux disease)from Last 3 Months Family History RelationNameStatusCommentsFatherDeceasedMotherDeceased Social History Tobacco UseTypesPacks/DayYears UsedDateSmoking Tobacco: FormerCigarettes2.510 Started: 1973Smokeless Tobacco: Never Tobacco Cessation:Counseling Given: Not Answered Alcohol UseStandard Drinks/WeekCommentsYes1 (1 standard drink = 0.6 oz pure alcohol)1 drink per monthCommentsUnknownSex and Gender InformationValue Date RecordedSex Assigned at BirthNot on fileLegal VexZdckvk00/24/2024 5:08 PM EDTGender IdentityNot on fileSexual OrientationNot on file Last Filed Vital Signs Vital SignReadingTime TakenCommentsBlood Tugyvkvw06/7208 1:13 PM EDT Sraoh7194/07/2025 2:40 PM EDTTemperature--Respiratory Rate--Oxygen Saturation-- Inhaled Oxygen Concentration--Ktaizo420 kg (257 lb)04/27/2025 1:13 PM EDTHeight 165.1 cm (5' 5 )04/27/2025 1:13 PM EDTBody Mass Index42.7708 1:13 PM EDT Plan of Treatment Health MaintenanceDue DateLast DoneCommentsDiabetes: Hemoglobin A1C1955 Medicare Annual Wellness (AWV)1955Diabetes: Retinopathy Screening 1965Diabetes: Urine Protein Ibiywqbgp80/26/1974Pneumococcal Vaccine: 65+ Years (1 of 2 - PCV)06/19/19740008Vhzuloyjl99/26/1995COVID-19 Vaccine (4 - season)5012/17/2021, 07/15/2021, 06/24/2021Influenza Vaccine (#1) 2025 Insurance Care Teams Team MemberRelationshipSpecialtyStart DateEnd Date Ilda Lopez MD [address] [place] [id number] PCP - GeneralFamily Medicine01/28/25
--- OUTSIDE RECORDS SUMMARY | 2025-09-10 14:35 | XMS_ITS | Clinical Summary ---
Author Organization [facility] Address [address] 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 Name Role Phone Generic Provider, No Assigned Pcp MD Primary Car e Provider Unavailable Encounters DateTypeDepartmentCare LrcbGiiywpiazxq13/08/2025Transcribe Orders [facility] [address] [place] [address] Beatris Solo MD Foreign body sensation, throat (Primary Dx)from Last 3 Months Social History Tobacco UseTypesPacks/DayYears UsedDateSmoking Tobacco: Never Assessed CommentsUnknownSex and Gender InformationValueDate RecordedSex Assigned at Not on fileLegal CuyPkufeg57/08/2025 9:13 AM EDTGender IdentityNot on fileSexual OrientationNot on file Plan of Treatment Health MaintenanceDue DateLast DoneCommentsCT Vdeglbplryvx1955Colonoscopy 1955olorectal Cancer Psbyedmqc1955FIT-DNA (Cologuard)1955FIT 1955Lipid Panel1955 2005Hmnbzbrhhtamw1955Welcome to Medicare Visit 1955MMR Vaccines (1 of 1 - Standard series)1956Hepatitis C Screening 1973DTaP/Tdap/Td Vaccines (1 - Tdap)06/19/19772329Ffuiaglum28/26/1995 Pneumococcal Vaccine (1 of 1 - PCV)2005Zoster Vaccines (1 of 2)2005 Bone Density Scan2020Influenza Vaccine (#1)2025OVID-19 Vaccine (1 - 2024- season)2025RSV High Risk: (Elderly (60+) or Population) (1 - 1-dose 75+ series)2030HIB VaccinesAged OutNo longer eligible based on patient's age to complete this topicHPV VaccinesAged OutNo longer eligible based on patient's age to complete this topicHepatitis A VaccinesAged OutNo longer eligible based on patient's age to complete this topicHepatitis B VaccinesAged OutNo longer eligible based on patient's age to complete this topicIPV Vaccines Aged OutNo longer eligible based on patient's age to complete this topic Meningococcal VaccineAged OutNo longer eligible based on patient's age to complete this topicRotavirus VaccinesAged OutNo longer eligible based on patient's age to complete this topic Insurance * Guarantor: Gillian Olivera TypeRelation to PatientDate of BirthPhoneBilling AddressPersonal/PlcnuvDnay1955 [address] [id number] Care Teams Team MemberRelationshipSpecialtyStart DateEnd Date Generic Provider, No Assigned [place]cp, [place] [address] PCP - GeneralGeneral Dczzbjaa21/11/25
--- NOTE | 2025-09-10 14:39 | P.CN_ITS ---
Consult Note: HPI Data of Consult Patient: known to practice within the last 3 years Requesting Physician: Sri Daniels NP Primary Care Provider: Ilda Lopez MD Consult Narrative Reason for consult: bilateral hip pain and bilateral knee pain Narrative: Gillian Interiano a pleasant 69 year old female presents for evaluation of chronic bilateral knee pain and bilateral hip pain. previously has failed > 6 weeks of PT/HEP, heat, ice, tylenol, and NSAIDs. Pain today 9/10 increasing with standing, walking, activity. reports falls without injury due to pain. has been utilizing tylenol, celebrex, and norco 7.5-325mg tid prn with moderate relief without side effects. Since last visit she notes pain around the same, continues to endorse severe pain. Pt pending knee replacement with Dr Leija, after pt loses weight BMI goal 40 or less to reduce risks. cc:: CC: Sri Daniels NP Review of Systems ROS Musculoskeletal Reports: joint pain; Denies: back pain PFSH PFSH Medical History Obesity ?E66.9 - Obesity, unspecified (ICD-10) Hypertension ?I10 - Essential (primary) hypertension (ICD-10) Surgical History H/O hernia repair ?Z98.890 - Other specified postprocedural states (ICD-10) ?Z87.19 - Personal history of other diseases of the digestive system (ICD-10) History of hysterectomy ?Z90.710 - Acquired absence of both cervix and uterus (ICD-10) H/O knee surgery ?Z98.890 - Other specified postprocedural states (ICD-10) Meds Home Medications and Allergies Home Medications ?Medication ?Instructions ?Recorded ?Confirmed ?Type Bacillus coagulans 10 billion cell cell PO 10/06/24 H istory capsule,delayed release (Probiotic (B. coagulans)) amlodipine 5 mg tablet 5 mg PO DAILY 10/06/2406/08 History citalopram 40 mg tablet 40 mg PO DAILY 10/06/2405/25 History losartan 100 1 tab PO DAILY 10/06/2405/25 History mg-hydrochlorothiazide 12.5 mg tablet (Hyzaar) celecoxib 200 mg capsule (Celebrex) 200 mg PO BID 10/2606/08/25 History dicyclomine 20 mg tablet mg 01/12/25 History naloxone 4 mg/actuation nasal 4 mg intranasal Q2M #2 e a 03/25/25 06/08/25 Rx spray (Narcan) hydrocodone 7.5 mg-acetaminophen 1 tab PO TID PRN pain #90 tabs 05/06/25 06/08/25 Rx 325 mg tablet celecoxib 200 mg capsule (Celebrex) 200 mg PO BID PRN pain #60 caps 06/10/25 Rx Allergies Allergy/AdvReac Type Severity Reaction Status Date / Time No Known Drug Allergies Allergy Verified 06/08/25 08:40 Exam Constitutional Documenting provider has reviewed patient's vital signs: yes Common normals: no apparent distress, oriented x3 and alert General appearance: cooperative HENMT Common normals: normocephalic, hearing grossly normal bilaterally and moist oral mucous membranes Head and scalp: normocephalic Eye Common normals: PERRL Pupil: PERRL Neck & C-Spine Common normals: full ROM General: normal visual inspection Chest Common normals: inspection of chest normal Respiratory Common normals: normal respiratory effort, no retractions and no use of accessory muscles Back & Pelvis Lumbar spine/lower back: straight leg raise positive left Extremity Right lower extremity: hip joint Left lower extremity: hip joint Other: moderate pain with internal and external rotation of bilateral hips Neuro Common normals: oriented x3 Sensorium/orientation: alert Psych Common normals: mental status grossly normal, thought process normal, cooperative, affect normal, speech normal and activity/motor behavior normal Speech: normal speech Thought process: normal thought process Results Imaging Lumbar MRI: Attestation: I have reviewed the pertinent imaging results. Additional Findings Additional findings: If on a controlled substance or opioids, I have checked an [place]AR[place] report on this patient and there are no aberrancies noted in the prescribing history.??If on a controlled substance or opioid a drug screen was completed and reviewed within the last year, and if there has not been a drug screen completed we ordered one today to monitor higher risk, state monitored pain medication use. As part of providing excellent, safe, comprehensive care, the following was completed at our patient's visit: 1. A medication reconciliation and review to ensure accurate knowledge of current/active medications, including asking our patients to inform us about any rwtv-fdj-kkzcwgj medications or herbal remedies/nutritional supplements/alternative remedies. 2. A review to specifically ensure our patients have had annual screening for sc reening for depression, screening for tobacco use, and screening for unhealthy alcohol use. For concerning screenings had a discussion with the patient, provided patient education, and recommended follow-up with primary care provider when appropriate. If patient noted with a risk of falling, they received education on strength, gait, and balance training to prevent future risk of falling. Portions of this note may have been carried over from the previous visit and updated as appropriate. Please note this office utilizes paper charting in addition to the electronic medical record. A list of current medications, vitals, and PMH is available there as the clinical staff outside of myself do not have access to [employer] charting during the clinic day operations. As part of providing quality comprehensive care the current medications, vitals, and PMH were reviewed in the paper chart. Assessment and Plan Assessment and Plan (1) Osteoarthritis, hip, bilateral: Assessment and Plan: 06-08-25 bilateral hip injection no improvement on the left 60% improvement on the right (2) Bilateral knee pain: Qualifiers: Chronicity: chronic Qualified Code(s): M25.561 - Pain in right knee; M25.562 - Pain in left knee; G89.29 - Other chronic pain (3) Lumbar spondylosis: (4) Chronic use of opiate for therapeutic purpose: Assessment and Plan: I feel these medications are improving the patient's quality of life and allow them to tolerate activities of daily living as well as participate in recreational activity.? The patient does not report intolerable side effects. The patient is NOT opioid naive and non-pharmacologic and non-opioid treatment has failed to significantly relieve the patient's pain and improve functionality. The patient has a diagnosis that is related to a somatic or visceral pain etiology. ? ?? I reviewed with the patient the potential risks and side effects with the use of? opioid medications including but not limited to respiratory depression,? sedation, and even . Within the last 12 months I have verified the patient has access to naloxone should? these effects occur. The patient was advised to let? their family know they had Naloxone in case they would need to administer? the medication. I advised the patient to avoid the use of any other? sedation substances including alcohol, THC, and benzodiazepines while? taking opioid medications due to the risk of compounding side effects and? detrimental outcomes. within the last 12 months I have reviewed the PHYSICIAN UNDERWRITER, pain treatment agreement and urine drug screen.? ?? A drug screen was completed within the last year, and no aberrancies were noted regarding their use of controlled substances. The patient understands they are subject to the terms and conditions of the pain contract that they have signed. ? ?? I have checked an OARRS report on this patient today and there are no aberrancies noted in the prescribing history.? (5) Osteoarthritis of knees, bilateral: Assessment and Plan: 02-09-25 and 02-23-25 left and right genicular RFA without ongoing relief Qualifiers: Osteoarthritis type: primary Qualified Code(s): M17.0 - Bilateral primary osteoarthritis of knee (6) Lumbar degenerative disc disease: Plan continue f/u with orthopedics as planned, continue weight loss efforts continue norco 5-325mg tid prn moderate to severe pain continue celebrex 200mg bid prn pain with food f/u 3 months, sooner if needed
== END 2025-09-10 14:31 | disposition home or self-care (01) ==
LOC: PM 14:31
PROVIDERS: PCP Family Medicine; Visit Provider Nurse Practitioner
DX: M16.0 Bilateral primary osteoarthritis of hip (principal); M25.561 Pain in right knee; M25.562 Pain in left knee; G89.29 Other chronic pain; M47.816 Spondylosis without myelopathy or radiculopathy, lumbar region; Z79.891 Long term (current) use of opiate analgesic; M17.0 Bilateral primary osteoarthritis of knee; M51.369 Other intervertebral disc degeneration, lumbar region without mention of lumbar back pain or lower extremity pain
CPT/HCPCS: G0463